=== PATIENT | male | born 1965 | race Caucasian/White ===

== ENCOUNTER 2018-01-31 22:47 | Inpatient (IN) | payer MEDICARE, MEDICAID ==
[~2018-01-31] VITALS: Ht 170.2 cm; Wt 83.7 kg
[~2018-01-31 22:47] MED LIST: VENL75CA55 PO
[2018-02-01] MEDS ORDERED: HALOPERIDOL 5 MG TABLET PO PRN (01:45)
[2018-02-01] MEDS ORDERED: ZOLPIDEM TARTRATE 10 MG TABLET PO PRN (01:45)
[2018-02-01 01:51] VITALS: BP 126/74
[2018-02-01 06:14] LABS: APPEARANCE,URINE CLEAR (CLEAR); BILIRUBIN,URINE NEGATIVE (NEGATIVE); GLUCOSE, URINE (UA) NEGATIVE (NEGATIVE); KETONES,URINE NEGATIVE (NEGATIVE); LEUKOCYTE ESTERASE ,URINE NEGATIVE (NEGATIVE); NITRATE,URINE NEGATIVE (NEGATIVE); OCCULT BLOOD,URINE NEGATIVE (NEGATIVE); PROTEIN,URINE NEGATIVE (NEGATIVE)
[2018-02-01 06:19] LABS: AMPHET/METH SCREEN,URINE NEGATIVE (NEGATIVE); BARBITURATE SCREEN, URINE NEGATIVE (NEGATIVE); BENZODIAZEPINES SCREEN,URINE NEGATIVE (NEGATIVE); CANNABINOID SCREEN,URINE POSITIVE (NEGATIVE); COCAINE SCREEN,URINE NEGATIVE (NEGATIVE); METHADONE SCREEN, URINE NEGATIVE (NEGATIVE); OPIATE SCREEN,URINE NEGATIVE (NEGATIVE); PHENCYCLIDINE SCREEN,URINE NEGATIVE (NEGATIVE)
[2018-02-01] MEDS: LORazepam 2 MG TABLET PO PRN (12:45)
[2018-02-01] MEDS: ESCITALOPRAM OXALATE 20 MG TABLET PO SCH (13:10)
[2018-02-01 14:17] VITALS: BP 123/68
[2018-02-01 18:44] VITALS: BP 136/84
[2018-02-01] MEDS: QUEtiapine FUMARATE 25 MG TABLET PO SCH (20:32)
[2018-02-02 06:26] LABS: BASOPHILS % (AUTO) 1.4 % (0.0-2.0); EOSINOPHILS % (AUTO) 2.7 % (1.0-6.0); HEMATOCRIT 43.1 % (41-53); LYMPHOCYTES # (AUTO) 1.9 K/uL (1.0-4.8); LYMPHOCYTES % (AUTO) 39.9 % (22.0-44.0); MEAN CORPUSCULAR HEMOGLOBIN 31.1 pg (26.0-34.0); MEAN CORPUSCULAR HGB CONC 34.8 G/dL (31.0-37.0); MEAN CORPUSCULAR VOLUME 89 fL (80-100); MONOCYTES # (AUTO) 0.4 K/uL (0.1-1.0); NEUTROPHILS # (AUTO) 2.3 K/uL (1.8-7.7); PLATELET COUNT (AUTO) 267 K/uL (150-450); RED BLOOD CELL COUNT(AUTO) 4.82 MIL/uL (4.50-5.90); RED CELL DISTRIBUTION WIDTH 13.5 % (11.5-14.5)
[2018-02-02 06:51] LABS: ALANINE AMINOTRANSFERASE 121 U/L (12-78); ALBUMIN 3.1 g/dL (3.4-5.0); ALKALINE PHOSPHATASE 45 U/L (46-116); ANION GAP 5 mmol/L (8-16); ASPARTATE AMINOTRANSFERASE 94 U/L (15-37); BILIRUBIN,TOTAL 0.4 mg/dL (0.1-1.0); CALCIUM, TOTAL 8.3 mg/dL (8.8-10.5); CARBON DIOXIDE 30 mmol/L (22-29); CHLORIDE 104 mmol/L (98-107); CHOL/HDL RATIO 1.5 (4.2-7.3); CHOLESTEROL 128 mg/dL (131-200); CREATININE 0.94 mg/dL (0.60-1.30); FREE T4 (FREE THYROXINE) 0.75 ng/dL (0.76-1.46); GLOMERULAR FILTR. RATE CALC > 60 mL/min (>60); GLUCOSE,RANDOM 104 mg/dL (70-110); HDL CHOLESTEROL 84 mg/dL (40-60); LDL CHOL (CALC.) 36 mg/dL (0-130); SODIUM SERUM 139 mmol/L (136-145); THYROID STIMULATING HORMONE 1.12 uIU/mL (0.36-3.74); TOTAL PROTEIN, SERUM 6.7 g/dL (6.4-8.2); TRIGLYCERIDES 38 mg/dL (15-150); UREA NITROGEN, BLOOD 14 mg/dL (7-18)
[2018-02-02 07:32] LABS: HEMOGLOBIN A1C 5.8 % (4.5-6.2)
[2018-02-02] MEDS: QUEtiapine FUMARATE 25 MG TABLET PO SCH ×2 (08:41→20:34)
[2018-02-02] MEDS: ESCITALOPRAM OXALATE 20 MG TABLET PO SCH (08:41)
[2018-02-02 15:03] VITALS: BP 103/67
[2018-02-02 16:15] VITALS: BP 125/76
[2018-02-02] MEDS: CAFFEINE 200 MG TABLET PO SCH (16:21)
[2018-02-02] MEDS ORDERED: CAFFEINE 200 MG TABLET PO SCH (17:00)
[2018-02-02 22:29] VITALS: BP 125/76
[2018-02-03] MEDS: QUEtiapine FUMARATE 25 MG TABLET PO SCH ×2 (08:38→20:17)
[2018-02-03] MEDS: CAFFEINE 200 MG TABLET PO SCH ×2 (08:38→16:33)
[2018-02-03] MEDS: ESCITALOPRAM OXALATE 20 MG TABLET PO SCH (08:38)
[2018-02-03 09:47] VITALS: BP 120/68
[2018-02-03 17:07] VITALS: BP 118/68
[2018-02-04] MEDS: QUEtiapine FUMARATE 25 MG TABLET PO SCH ×2 (08:28→20:15)
[2018-02-04] MEDS: ESCITALOPRAM OXALATE 20 MG TABLET PO SCH (08:28)
[2018-02-04] MEDS: CAFFEINE 200 MG TABLET PO SCH ×2 (08:28→17:33)
[2018-02-04 09:45] VITALS: BP 124/75
[2018-02-04 17:35] VITALS: BP 116/79
[2018-02-05] MEDS: ESCITALOPRAM OXALATE 20 MG TABLET PO SCH (08:37)
[2018-02-05] MEDS: CAFFEINE 200 MG TABLET PO SCH (08:37)
[2018-02-05] MEDS: QUEtiapine FUMARATE 25 MG TABLET PO SCH ×2 (08:37→21:15)
[2018-02-05 10:20] VITALS: BP 118/80
[2018-02-05] MEDS ORDERED: CAFFEINE 200 MG TABLET PO ONE (12:00)
[2018-02-05 19:37] VITALS: BP 128/77
[2018-02-06] MEDS: ESCITALOPRAM OXALATE 20 MG TABLET PO SCH (08:01)
[2018-02-06] MEDS: QUEtiapine FUMARATE 25 MG TABLET PO SCH ×2 (08:01→20:26)
[2018-02-06] MEDS: CAFFEINE 200 MG TABLET PO SCH (08:02)
[2018-02-06 10:23] VITALS: BP 116/70
[2018-02-06] MEDS ORDERED: CAFFEINE 200 MG TABLET PO SCH (17:00)
[2018-02-06 18:37] VITALS: BP 128/68
[2018-02-07] MEDS: ESCITALOPRAM OXALATE 20 MG TABLET PO SCH (08:10)
[2018-02-07] MEDS: CAFFEINE 200 MG TABLET PO SCH (08:10)
[2018-02-07] MEDS: QUEtiapine FUMARATE 25 MG TABLET PO SCH ×2 (08:10→20:37)
[2018-02-07 09:19] VITALS: BP 123/75
[2018-02-07 16:23] VITALS: BP 109/65
[2018-02-08] MEDS: CAFFEINE 200 MG TABLET PO SCH (08:01)
[2018-02-08] MEDS: ESCITALOPRAM OXALATE 20 MG TABLET PO SCH (08:01)
[2018-02-08] MEDS: QUEtiapine FUMARATE 25 MG TABLET PO SCH ×2 (08:01→20:10)
[2018-02-08 09:41] VITALS: BP 112/72
[2018-02-08 10:43] LABS: HEMOGLOBIN A1C 5.7 % (4.5-6.2)
[2018-02-08 11:05] LABS: ALANINE AMINOTRANSFERASE 143 U/L (12-78); ALBUMIN 3.9 g/dL (3.4-5.0); ALKALINE PHOSPHATASE 54 U/L (46-116); ANION GAP 5 mmol/L (8-16); ASPARTATE AMINOTRANSFERASE 76 U/L (15-37); BILIRUBIN,TOTAL 0.4 mg/dL (0.1-1.0); CALCIUM, TOTAL 8.8 mg/dL (8.8-10.5); CARBON DIOXIDE 31 mmol/L (22-29); CHLORIDE 103 mmol/L (98-107); CHOL/HDL RATIO 2.2 (4.2-7.3); CHOLESTEROL 152 mg/dL (131-200); CREATINE KINASE, TOTAL ONLY 105 U/L (39-308); CREATININE 0.94 mg/dL (0.60-1.30); FREE T4 (FREE THYROXINE) 1.03 ng/dL (0.76-1.46); GLOMERULAR FILTR. RATE CALC > 60 mL/min (>60); GLUCOSE,RANDOM 85 mg/dL (70-110); HDL CHOLESTEROL 68 mg/dL (40-60); LDL CHOL (CALC.) 58 mg/dL (0-130); POTASSIUM 4.3 mmol/L (3.5-5.1); SODIUM SERUM 139 mmol/L (136-145); THYROID STIMULATING HORMONE 3.55 uIU/mL (0.36-3.74); TOTAL PROTEIN, SERUM 8.3 g/dL (6.4-8.2); TRIGLYCERIDES 131 mg/dL (15-150); UREA NITROGEN, BLOOD 19 mg/dL (7-18)
[2018-02-08 18:10] VITALS: BP 128/78
[2018-02-09] MEDS: LORazepam 2 MG TABLET PO PRN ×3 (05:54→17:11)
[2018-02-09] MEDS: ESCITALOPRAM OXALATE 20 MG TABLET PO SCH (08:03)
[2018-02-09] MEDS: QUEtiapine FUMARATE 25 MG TABLET PO SCH ×2 (08:03→20:21)
[2018-02-09] MEDS: CAFFEINE 200 MG TABLET PO SCH (08:04)
[2018-02-09 10:19] VITALS: BP 119/73
[2018-02-09 16:33] VITALS: BP 123/69
[2018-02-10 03:15] VITALS: BP 111/70
[2018-02-10] MEDS: LORazepam 2 MG TABLET PO PRN ×2 (03:17→10:44)
[2018-02-10] MEDS: ESCITALOPRAM OXALATE 20 MG TABLET PO SCH (08:00)
[2018-02-10] MEDS: QUEtiapine FUMARATE 25 MG TABLET PO SCH (08:00)
[2018-02-10] MEDS: CAFFEINE 200 MG TABLET PO SCH (08:01)
[2018-02-10 11:27] VITALS: BP 113/72
[2018-02-10] MEDS ORDERED: QUET25TA PO ×2 (11:46)
[2018-02-10] MEDS ORDERED: CAFF200T4 PO (11:46)
[2018-02-10] MEDS ORDERED: ESCI20TA PO (11:46)
[2018-02-14] MEDS ORDERED: MEPE50TA7 PO (12:59)
[2018-02-14] MEDS ORDERED: CLON2 PO (12:59)
== END 2018-02-10 12:45 | disposition home or self-care (01) | DRG 885 ==
LOC: 3EX 02-01 01:00
PROVIDERS: ADMIT Psychiatry & Neurology Psychiatry; ATTEND Psychiatry & Neurology Psychiatry
DX: F25.0 Schizoaffective disorder, bipolar type (principal); R45.851 Suicidal ideations; F12.10 Cannabis abuse, uncomplicated; Z79.899 Other long term (current) drug therapy; Z59.0 Homelessness
CPT/HCPCS: 80074; 80307; 83036; 84439; 84443; 86592; G0378; G0480

== ENCOUNTER 2018-03-02 15:04 | Inpatient (IN) | payer MEDICARE, MEDICAID ==
[~2018-03-02] VITALS: Ht 170.2 cm; Wt 82.5 kg
[~2018-03-02 15:04] MED LIST changes: +ESCI20TA PO; +QUET50TA PO; -VENL75CA55 PO
[2018-03-02 16:03] LABS: BASOPHILS % (AUTO) 0.9 % (0.0-2.0); EOSINOPHILS % (AUTO) 0.4 % (1.0-6.0); HEMATOCRIT 42.1 % (41-53); HEMOGLOBIN 14.2 g/dL (13.5-17.5); LYMPHOCYTES # (AUTO) 2.2 K/uL (1.0-4.8); LYMPHOCYTES % (AUTO) 21.9 % (22.0-44.0); MEAN CORPUSCULAR HEMOGLOBIN 30.4 pg (26.0-34.0); MEAN CORPUSCULAR HGB CONC 33.7 G/dL (31.0-37.0); MEAN CORPUSCULAR VOLUME 90 fL (80-100); MONOCYTES # (AUTO) 0.8 K/uL (0.1-1.0); MONOCYTES % (AUTO) 8.1 % (2.0-9.0); NEUTROPHILS # (AUTO) 6.8 K/uL (1.8-7.7); NEUTROPHILS % (AUTO) 68.7 % (40.0-70.0); PLATELET COUNT (AUTO) 323 K/uL (150-450); RED BLOOD CELL COUNT(AUTO) 4.66 MIL/uL (4.50-5.90); RED CELL DISTRIBUTION WIDTH 13.8 % (11.5-14.5)
[2018-03-02 16:35] LABS: ANION GAP 9 mmol/L (8-16); CALCIUM, TOTAL 8.5 mg/dL (8.8-10.5); CARBON DIOXIDE 28 mmol/L (22-29); CHLORIDE 100 mmol/L (98-107); CREATININE 0.88 mg/dL (0.60-1.30); GLOMERULAR FILTR. RATE CALC > 60 mL/min (>60); GLUCOSE,RANDOM 86 mg/dL (70-110); POTASSIUM 3.9 mmol/L (3.5-5.1); SODIUM SERUM 137 mmol/L (136-145); UREA NITROGEN, BLOOD 18 mg/dL (7-18)
[2018-03-02 16:41] LABS: ALANINE AMINOTRANSFERASE 152 U/L (12-78); ALBUMIN 3.6 g/dL (3.4-5.0); ALKALINE PHOSPHATASE 49 U/L (46-116); ASPARTATE AMINOTRANSFERASE 142 U/L (15-37); BILIRUBIN,TOTAL 0.4 mg/dL (0.1-1.0); TOTAL PROTEIN, SERUM 7.7 g/dL (6.4-8.2)
[2018-03-02] MEDS ORDERED: ZOLPIDEM TARTRATE 10 MG TABLET PO PRN (19:00)
[2018-03-02] MEDS ORDERED: HALOPERIDOL 5 MG TABLET PO PRN (19:00)
[2018-03-02 19:45] VITALS: BP 139/86
[2018-03-02] MEDS ORDERED: ALBUTEROL SULFATE HFA 90 MCG/PUFF 8 GM INHALER IH PRN (21:45)
[2018-03-02] MEDS ORDERED: NICOTINE 14 MG/24 HOUR PATCH TD PRN (21:45)
[2018-03-02] MEDS ORDERED: MAGNESIUM HYDROXIDE SUSPENSION 30 ML UDCUP PO PRN (21:45)
[2018-03-02] MEDS ORDERED: PETROLATUM,WHITE 71 GM JELLY TP PRN (21:45)
[2018-03-02] MEDS ORDERED: ACETAMINOPHEN 325 MG TABLET PO PRN (21:45)
[2018-03-02] MEDS ORDERED: DOCUSATE SODIUM 100 MG CAPSULE PO PRN (21:45)
[2018-03-02] MEDS ORDERED: ONDANSETRON HCL 4 MG TABLET PO PRN (21:45)
[2018-03-02] MEDS ORDERED: MAG HYDROX/AL HYDROX/SIMETH ES 30 ML SUSPENSION UDCUP PO PRN (21:45)
[2018-03-02] MEDS ORDERED: GuaiFENesin/D-METHORPHAN [SUGAR-FREE] 200-20MG/10 ML SYRUP UDCUP PO PRN (21:45)
[2018-03-02] MEDS ORDERED: LOPERAMIDE HCL 2 MG CAPSULE PO PRN (21:45)
[2018-03-02] MEDS ORDERED: CloNIDine HCL 0.1 MG TABLET PO PRN (21:45)
[2018-03-03 06:12] LABS: BASOPHILS % (AUTO) 0.6 % (0.0-2.0); EOSINOPHILS % (AUTO) 1.4 % (1.0-6.0); HEMATOCRIT 43.4 % (41-53); HEMOGLOBIN 14.9 g/dL (13.5-17.5); LYMPHOCYTES # (AUTO) 1.8 K/uL (1.0-4.8); LYMPHOCYTES % (AUTO) 30.3 % (22.0-44.0); MEAN CORPUSCULAR HEMOGLOBIN 31.3 pg (26.0-34.0); MEAN CORPUSCULAR HGB CONC 34.3 G/dL (31.0-37.0); MEAN CORPUSCULAR VOLUME 91 fL (80-100); MONOCYTES # (AUTO) 0.6 K/uL (0.1-1.0); MONOCYTES % (AUTO) 10.3 % (2.0-9.0); NEUTROPHILS # (AUTO) 3.5 K/uL (1.8-7.7); NEUTROPHILS % (AUTO) 57.4 % (40.0-70.0); PLATELET COUNT (AUTO) 270 K/uL (150-450); RED BLOOD CELL COUNT(AUTO) 4.75 MIL/uL (4.50-5.90); RED CELL DISTRIBUTION WIDTH 13.9 % (11.5-14.5)
[2018-03-03 07:04] LABS: HEMOGLOBIN A1C 5.6 % (4.5-6.2)
[2018-03-03 07:07] LABS: ALANINE AMINOTRANSFERASE 139 U/L (12-78); ALBUMIN 2.9 g/dL (3.4-5.0); ALKALINE PHOSPHATASE 46 U/L (46-116); ANION GAP 6 mmol/L (8-16); BILIRUBIN,TOTAL 0.6 mg/dL (0.1-1.0); CALCIUM, TOTAL 8.2 mg/dL (8.8-10.5); CARBON DIOXIDE 31 mmol/L (22-29); CHLORIDE 103 mmol/L (98-107); CREATININE 0.97 mg/dL (0.60-1.30); FREE T4 (FREE THYROXINE) 0.81 ng/dL (0.76-1.46); GLOMERULAR FILTR. RATE CALC > 60 mL/min (>60); GLUCOSE,RANDOM 97 mg/dL (70-110); HDL CHOLESTEROL 78 mg/dL (40-60); SODIUM SERUM 140 mmol/L (136-145); TOTAL PROTEIN, SERUM 6.6 g/dL (6.4-8.2); TRIGLYCERIDES 26 mg/dL (15-150); UREA NITROGEN, BLOOD 18 mg/dL (7-18)
[2018-03-03 07:29] LABS: ASPARTATE AMINOTRANSFERASE 138 U/L (15-37); CHOL/HDL RATIO 1.6 (4.2-7.3); CHOLESTEROL 126 mg/dL (131-200); LDL CHOL (CALC.) 43 mg/dL (0-130); THYROID STIMULATING HORMONE 1.41 uIU/mL (0.36-3.74)
[2018-03-03 11:41] VITALS: BP 157/85
[2018-03-03] MEDS: QUEtiapine FUMARATE 25 MG TABLET PO SCH (16:22)
[2018-03-03] MEDS: LORazepam 2 MG TABLET PO PRN (16:23)
[2018-03-03 16:27] VITALS: BP 122/75
[2018-03-04 06:58] VITALS: BP 124/85
[2018-03-04] MEDS: IBUPROFEN 400 MG TABLET PO PRN (07:03)
[2018-03-04] MEDS: LORazepam 2 MG TABLET PO PRN ×3 (07:03→16:14)
[2018-03-04] MEDS: ESCITALOPRAM OXALATE 20 MG TABLET PO SCH (08:07)
[2018-03-04] MEDS: QUEtiapine FUMARATE 25 MG TABLET PO SCH ×2 (08:07→16:15)
[2018-03-04 08:15] VITALS: BP 126/82
[2018-03-04] MEDS ORDERED: CAFFEINE 200 MG TABLET PO SCH (09:00)
[2018-03-04 09:56] VITALS: BP 140/78
[2018-03-04 16:00] VITALS: BP 131/93
[2018-03-05 02:03] VITALS: BP 133/88
[2018-03-05] MEDS: LORazepam 2 MG TABLET PO PRN ×4 (02:07→17:28)
[2018-03-05] MEDS: CAFFEINE 200 MG TABLET PO SCH (06:12)
[2018-03-05 08:30] VITALS: BP 134/70
[2018-03-05] MEDS: ESCITALOPRAM OXALATE 20 MG TABLET PO SCH (09:07)
[2018-03-05] MEDS: QUEtiapine FUMARATE 25 MG TABLET PO SCH ×2 (09:07→16:54)
[2018-03-05 21:23] VITALS: BP 116/73
[2018-03-06 06:05] VITALS: BP 122/85
[2018-03-06] MEDS: LORazepam 2 MG TABLET PO PRN ×4 (06:08→21:24)
[2018-03-06] MEDS: CAFFEINE 200 MG TABLET PO SCH (06:09)
[2018-03-06] MEDS: ESCITALOPRAM OXALATE 20 MG TABLET PO SCH (09:08)
[2018-03-06] MEDS: QUEtiapine FUMARATE 25 MG TABLET PO SCH ×2 (09:09→17:05)
[2018-03-06 09:48] VITALS: BP 124/89
[2018-03-06 16:15] VITALS: BP 123/76
[2018-03-07] MEDS: LORazepam 2 MG TABLET PO PRN ×4 (06:19→22:01)
[2018-03-07] MEDS: CAFFEINE 200 MG TABLET PO SCH (06:20)
[2018-03-07] MEDS: ESCITALOPRAM OXALATE 20 MG TABLET PO SCH (09:30)
[2018-03-07] MEDS: QUEtiapine FUMARATE 25 MG TABLET PO SCH ×2 (09:31→16:49)
[2018-03-07 10:40] VITALS: BP 131/86
[2018-03-07] MEDS ORDERED: CAFFEINE 200 MG TABLET PO ONE (11:45)
[2018-03-07 16:49] VITALS: BP 117/84
[2018-03-07] MEDS: IBUPROFEN 400 MG TABLET PO PRN (16:49)
[2018-03-08 06:15] VITALS: BP 133/90
[2018-03-08] MEDS: CAFFEINE 200 MG TABLET PO SCH (06:29)
[2018-03-08] MEDS: LORazepam 2 MG TABLET PO PRN ×3 (06:29→16:09)
[2018-03-08] MEDS: QUEtiapine FUMARATE 25 MG TABLET PO SCH ×2 (09:16→16:08)
[2018-03-08] MEDS: ESCITALOPRAM OXALATE 20 MG TABLET PO SCH (09:17)
[2018-03-08 12:48] VITALS: BP 142/95
[2018-03-08 16:00] VITALS: BP 129/78
[2018-03-08] MEDS: IBUPROFEN 400 MG TABLET PO PRN (16:09)
[2018-03-09 05:58] VITALS: BP 122/79
[2018-03-09] MEDS: LORazepam 2 MG TABLET PO PRN ×3 (06:01→16:11)
[2018-03-09] MEDS: CAFFEINE 200 MG TABLET PO SCH (06:29)
[2018-03-09] MEDS: QUEtiapine FUMARATE 25 MG TABLET PO SCH ×2 (08:08→16:04)
[2018-03-09] MEDS: ESCITALOPRAM OXALATE 20 MG TABLET PO SCH (08:08)
[2018-03-09 09:23] VITALS: BP 130/68
[2018-03-09 16:00] VITALS: BP 117/67
[2018-03-10 04:53] VITALS: BP 108/78
[2018-03-10] MEDS: LORazepam 2 MG TABLET PO PRN ×3 (04:55→14:59)
[2018-03-10] MEDS: CAFFEINE 200 MG TABLET PO SCH (06:33)
[2018-03-10 08:38] VITALS: BP 103/56
[2018-03-10] MEDS: QUEtiapine FUMARATE 25 MG TABLET PO SCH ×2 (08:53→16:20)
[2018-03-10] MEDS: ESCITALOPRAM OXALATE 20 MG TABLET PO SCH (08:53)
[2018-03-10 17:00] VITALS: BP 118/74
[2018-03-11 05:22] VITALS: BP 128/82
[2018-03-11] MEDS: LORazepam 2 MG TABLET PO PRN ×3 (05:24→16:24)
[2018-03-11] MEDS: CAFFEINE 200 MG TABLET PO SCH (06:47)
[2018-03-11] MEDS: QUEtiapine FUMARATE 25 MG TABLET PO SCH ×2 (08:15→16:24)
[2018-03-11] MEDS: ESCITALOPRAM OXALATE 20 MG TABLET PO SCH (08:15)
[2018-03-11 08:56] VITALS: BP 124/67
[2018-03-11 16:00] VITALS: BP 111/71
[2018-03-12 05:41] VITALS: BP 126/77
[2018-03-12] MEDS: LORazepam 2 MG TABLET PO PRN ×3 (05:41→14:52)
[2018-03-12] MEDS: CAFFEINE 200 MG TABLET PO SCH (06:00)
[2018-03-12 08:30] VITALS: BP 115/58
[2018-03-12] MEDS: QUEtiapine FUMARATE 25 MG TABLET PO SCH ×2 (09:11→16:22)
[2018-03-12] MEDS: ESCITALOPRAM OXALATE 20 MG TABLET PO SCH (09:11)
[2018-03-12 16:51] VITALS: BP 116/63
[2018-03-13 05:11] VITALS: BP 121/84
[2018-03-13] MEDS: LORazepam 2 MG TABLET PO PRN ×4 (05:14→23:11)
[2018-03-13] MEDS: CAFFEINE 200 MG TABLET PO SCH (06:27)
[2018-03-13] MEDS: QUEtiapine FUMARATE 25 MG TABLET PO SCH ×2 (08:34→16:40)
[2018-03-13] MEDS: ESCITALOPRAM OXALATE 20 MG TABLET PO SCH (08:34)
[2018-03-13 09:27] VITALS: BP 113/61
[2018-03-13 16:14] VITALS: BP 113/71
[2018-03-14 06:00] VITALS: BP 116/77
[2018-03-14] MEDS: LORazepam 2 MG TABLET PO PRN ×4 (06:04→23:41)
[2018-03-14] MEDS: CAFFEINE 200 MG TABLET PO SCH (06:44)
[2018-03-14 09:02] VITALS: BP 124/73
[2018-03-14] MEDS: ESCITALOPRAM OXALATE 20 MG TABLET PO SCH (10:00)
[2018-03-14] MEDS: QUEtiapine FUMARATE 25 MG TABLET PO SCH ×2 (10:00→16:20)
[2018-03-14 17:53] VITALS: BP 128/75
[2018-03-15] VITALS: BP 115/70
[2018-03-15] MEDS: LORazepam 2 MG TABLET PO PRN ×3 (06:02→17:19)
[2018-03-15] MEDS: CAFFEINE 200 MG TABLET PO SCH (07:13)
[2018-03-15] MEDS: ESCITALOPRAM OXALATE 20 MG TABLET PO SCH (08:40)
[2018-03-15] MEDS: QUEtiapine FUMARATE 25 MG TABLET PO SCH ×2 (08:40→16:36)
[2018-03-15 10:17] VITALS: BP 116/58
[2018-03-15 16:32] VITALS: BP 114/70
[2018-03-16 06:52] VITALS: BP 130/85
[2018-03-16] MEDS: LORazepam 2 MG TABLET PO PRN ×3 (06:54→18:05)
[2018-03-16] MEDS: CAFFEINE 200 MG TABLET PO SCH (06:54)
[2018-03-16] MEDS: ESCITALOPRAM OXALATE 20 MG TABLET PO SCH (08:22)
[2018-03-16] MEDS: QUEtiapine FUMARATE 25 MG TABLET PO SCH ×2 (08:22→16:05)
[2018-03-16 08:34] VITALS: BP 130/97
[2018-03-16 21:05] VITALS: BP 134/63
[2018-03-17 00:06] VITALS: BP 126/77
[2018-03-17] MEDS: LORazepam 2 MG TABLET PO PRN ×3 (00:08→10:41)
[2018-03-17] MEDS: CAFFEINE 200 MG TABLET PO SCH (06:01)
[2018-03-17 06:02] VITALS: BP 132/76
[2018-03-17] MEDS: QUEtiapine FUMARATE 25 MG TABLET PO SCH (09:30)
[2018-03-17] MEDS: ESCITALOPRAM OXALATE 20 MG TABLET PO SCH (09:30)
[2018-03-17 09:51] VITALS: BP 123/74
[2018-03-17] MEDS ORDERED: CAFF200T4 PO (12:08)
== END 2018-03-17 14:05 | disposition home or self-care (01) | DRG 885 ==
LOC: EMS 15:08 → 3EX 19:08
PROVIDERS: ADMIT Psychiatry & Neurology Psychiatry; ATTEND Psychiatry & Neurology Psychiatry
DX: F33.2 Major depressive disorder, recurrent severe without psychotic features (principal); R45.851 Suicidal ideations; F20.9 Schizophrenia, unspecified; R03.0 Elevated blood-pressure reading, without diagnosis of hypertension; F10.10 Alcohol abuse, uncomplicated; R74.0 Nonspecific elevation of levels of transaminase and lactic acid dehydrogenase [LDH]; F17.210 Nicotine dependence, cigarettes, uncomplicated; F15.10 Other stimulant abuse, uncomplicated; F41.0 Panic disorder [episodic paroxysmal anxiety]; G47.00 Insomnia, unspecified; Z59.0 Homelessness; Z91.5 Personal history of self-harm; Z79.899 Other long term (current) drug therapy; Z71.6 Tobacco abuse counseling; Z71.41 Alcohol abuse counseling and surveillance of alcoholic; Z71.51 Drug abuse counseling and surveillance of drug abuser
CPT/HCPCS: 83036; 84436; 84439; 84443; 87081; G0378; G0480

== ENCOUNTER 2018-03-27 10:29 | Inpatient (IN) | payer MEDICARE, MEDICAID ==
[~2018-03-27] VITALS: Ht 170.2 cm; Wt 82.3 kg
[~2018-03-27 10:29] MED LIST changes: +CAFF200T4 PO
[2018-03-27] MEDS ORDERED: LORazepam 1 MG TABLET PO ONE (11:45)
[2018-03-27] MEDS ORDERED: HALOPERIDOL 5 MG TABLET PO ONE (11:45)
[2018-03-27] MEDS ORDERED: DiphenhydrAMINE HCL 25 MG CAPSULE PO ONE (11:45)
[2018-03-27] MEDS ORDERED: IBUPROFEN 400 MG TABLET PO ONE (11:45)
[2018-03-27] MEDS ORDERED: IBUPROFEN 400 MG TABLET PO PRN (12:00)
[2018-03-27] MEDS ORDERED: ACETAMINOPHEN 325 MG TABLET PO PRN ×2 (12:00→17:15)
[2018-03-27] MEDS ORDERED: HALOPERIDOL 5 MG TABLET PO PRN (12:00)
[2018-03-27 12:27] LABS: BASOPHILS % (AUTO) 0.4 % (0.0-2.0); HEMOGLOBIN 14.2 g/dL (13.5-17.5); LYMPHOCYTES # (AUTO) 1.5 K/uL (1.0-4.8); LYMPHOCYTES % (AUTO) 27.1 % (22.0-44.0); MEAN CORPUSCULAR HEMOGLOBIN 30.6 pg (26.0-34.0); MEAN CORPUSCULAR HGB CONC 33.7 G/dL (31.0-37.0); MEAN CORPUSCULAR VOLUME 91 fL (80-100); MONOCYTES # (AUTO) 0.4 K/uL (0.1-1.0); MONOCYTES % (AUTO) 7.5 % (2.0-9.0); NEUTROPHILS # (AUTO) 3.6 K/uL (1.8-7.7); PLATELET COUNT (AUTO) 228 K/uL (150-450); RED BLOOD CELL COUNT(AUTO) 4.63 MIL/uL (4.50-5.90); RED CELL DISTRIBUTION WIDTH 13.4 % (11.5-14.5)
[2018-03-27 12:38] LABS: ANION GAP 8 mmol/L (8-16); CALCIUM, TOTAL 8.4 mg/dL (8.8-10.5); CARBON DIOXIDE 32 mmol/L (22-29); CHLORIDE 99 mmol/L (98-107); CREATININE 0.81 mg/dL (0.60-1.30); GLOMERULAR FILTR. RATE CALC > 60 mL/min (>60); GLUCOSE,RANDOM 141 mg/dL (70-110); POTASSIUM 3.8 mmol/L (3.5-5.1); SODIUM SERUM 139 mmol/L (136-145); UREA NITROGEN, BLOOD 12 mg/dL (7-18)
[2018-03-27 12:43] LABS: AMPHET/METH SCREEN,URINE NEGATIVE (NEGATIVE); BARBITURATE SCREEN, URINE NEGATIVE (NEGATIVE); BENZODIAZEPINES SCREEN,URINE NEGATIVE (NEGATIVE); CANNABINOID SCREEN,URINE NEGATIVE (NEGATIVE); COCAINE SCREEN,URINE NEGATIVE (NEGATIVE); METHADONE SCREEN, URINE NEGATIVE (NEGATIVE); OPIATE SCREEN,URINE NEGATIVE (NEGATIVE); PHENCYCLIDINE SCREEN,URINE NEGATIVE (NEGATIVE)
[2018-03-27 12:43] LABS: ALANINE AMINOTRANSFERASE 212 U/L (12-78); ALBUMIN 3.4 g/dL (3.4-5.0); ALKALINE PHOSPHATASE 43 U/L (46-116); ASPARTATE AMINOTRANSFERASE 157 U/L (15-37); BILIRUBIN,TOTAL 0.7 mg/dL (0.1-1.0)
[2018-03-27 16:45] VITALS: BP 109/70
[2018-03-27] MEDS ORDERED: NICOTINE 14 MG/24 HOUR PATCH TD PRN (17:15)
[2018-03-27] MEDS ORDERED: MAG HYDROX/AL HYDROX/SIMETH ES 30 ML SUSPENSION UDCUP PO PRN (17:15)
[2018-03-27] MEDS ORDERED: PETROLATUM,WHITE 71 GM JELLY TP PRN (17:15)
[2018-03-27] MEDS ORDERED: ONDANSETRON HCL 4 MG TABLET PO PRN (17:15)
[2018-03-27] MEDS ORDERED: GuaiFENesin/D-METHORPHAN [SUGAR-FREE] 200-20MG/10 ML SYRUP UDCUP PO PRN (17:15)
[2018-03-27] MEDS ORDERED: DOCUSATE SODIUM 100 MG CAPSULE PO PRN (17:15)
[2018-03-27] MEDS ORDERED: MAGNESIUM HYDROXIDE SUSPENSION 30 ML UDCUP PO PRN (17:15)
[2018-03-27] MEDS ORDERED: ALBUTEROL SULFATE HFA 90 MCG/PUFF 8 GM INHALER IH PRN (17:15)
[2018-03-27] MEDS ORDERED: CloNIDine HCL 0.1 MG TABLET PO PRN (17:15)
[2018-03-27] MEDS ORDERED: LOPERAMIDE HCL 2 MG CAPSULE PO PRN (17:15)
[2018-03-28 09:48] VITALS: BP 117/82
[2018-03-28] MEDS: QUEtiapine FUMARATE 25 MG TABLET PO SCH (16:06)
[2018-03-28] MEDS: IBUPROFEN 400 MG TABLET PO PRN (16:09)
[2018-03-28 16:13] VITALS: BP 120/72
[2018-03-28] MEDS: LORazepam 2 MG TABLET PO PRN (16:13)
[2018-03-28 17:05] VITALS: BP 139/99
[2018-03-29 06:37] VITALS: BP 130/60
[2018-03-29 06:40] LABS: EOSINOPHILS % (AUTO) 4.5 % (1.0-6.0); HEMATOCRIT 43.4 % (41-53); LYMPHOCYTES # (AUTO) 1.6 K/uL (1.0-4.8); LYMPHOCYTES % (AUTO) 30.1 % (22.0-44.0); MEAN CORPUSCULAR HEMOGLOBIN 31.1 pg (26.0-34.0); MEAN CORPUSCULAR HGB CONC 34.6 G/dL (31.0-37.0); MEAN CORPUSCULAR VOLUME 90 fL (80-100); MONOCYTES # (AUTO) 0.6 K/uL (0.1-1.0); MONOCYTES % (AUTO) 10.1 % (2.0-9.0); NEUTROPHILS % (AUTO) 54.3 % (40.0-70.0); PLATELET COUNT (AUTO) 228 K/uL (150-450); RED BLOOD CELL COUNT(AUTO) 4.84 MIL/uL (4.50-5.90); RED CELL DISTRIBUTION WIDTH 13.7 % (11.5-14.5)
[2018-03-29] MEDS: IBUPROFEN 400 MG TABLET PO PRN ×2 (06:40→14:03)
[2018-03-29] MEDS: LORazepam 2 MG TABLET PO PRN ×2 (06:40→14:03)
[2018-03-29 07:52] LABS: HEMOGLOBIN A1C 4.9 % (4.5-6.2)
[2018-03-29] MEDS: ESCITALOPRAM OXALATE 20 MG TABLET PO SCH (08:04)
[2018-03-29 08:05] LABS: ALANINE AMINOTRANSFERASE 162 U/L (12-78); ALKALINE PHOSPHATASE 37 U/L (46-116); ANION GAP 4 mmol/L (8-16); ASPARTATE AMINOTRANSFERASE 98 U/L (15-37); BILIRUBIN,TOTAL 0.4 mg/dL (0.1-1.0); CALCIUM, TOTAL 8.5 mg/dL (8.8-10.5); CARBON DIOXIDE 28 mmol/L (22-29); CHLORIDE 104 mmol/L (98-107); CHOL/HDL RATIO 2.4 (4.2-7.3); CHOLESTEROL 117 mg/dL (131-200); CREATININE 0.84 mg/dL (0.60-1.30); GLOMERULAR FILTR. RATE CALC > 60 mL/min (>60); GLUCOSE,RANDOM 97 mg/dL (70-110); HDL CHOLESTEROL 49 mg/dL (40-60); LDL CHOL (CALC.) 57 mg/dL (0-130); POTASSIUM 4.2 mmol/L (3.5-5.1); SODIUM SERUM 136 mmol/L (136-145); THYROID STIMULATING HORMONE 1.41 uIU/mL (0.36-3.74); TOTAL PROTEIN, SERUM 6.6 g/dL (6.4-8.2); TRIGLYCERIDES 53 mg/dL (15-150); UREA NITROGEN, BLOOD 17 mg/dL (7-18)
[2018-03-29] MEDS: QUEtiapine FUMARATE 25 MG TABLET PO SCH ×2 (08:05→16:30)
[2018-03-29 09:39] VITALS: BP 132/88
[2018-03-29 14:04] VITALS: BP 140/70
[2018-03-29 17:00] VITALS: BP 117/66
[2018-03-30 05:41] VITALS: BP 115/81
[2018-03-30] MEDS: LORazepam 2 MG TABLET PO PRN ×3 (05:43→16:06)
[2018-03-30] MEDS: QUEtiapine FUMARATE 25 MG TABLET PO SCH ×2 (07:35→16:07)
[2018-03-30] MEDS: ESCITALOPRAM OXALATE 20 MG TABLET PO SCH (07:35)
[2018-03-30 09:53] VITALS: BP 124/71
[2018-03-30] MEDS: IBUPROFEN 400 MG TABLET PO PRN (10:54)
[2018-03-30 16:18] VITALS: BP 118/77
[2018-03-30] MEDS: HYDROCORTISONE 1% 30 GM CREAM TP SCH (18:27)
[2018-03-31] MEDS: LORazepam 2 MG TABLET PO PRN ×2 (04:25→10:21)
[2018-03-31] MEDS: IBUPROFEN 400 MG TABLET PO PRN (04:26)
[2018-03-31] MEDS: ESCITALOPRAM OXALATE 20 MG TABLET PO SCH (10:21)
[2018-03-31] MEDS: HYDROCORTISONE 1% 30 GM CREAM TP SCH ×2 (10:21→16:27)
[2018-03-31] MEDS: QUEtiapine FUMARATE 25 MG TABLET PO SCH ×2 (10:21→16:22)
[2018-03-31 10:54] VITALS: BP 122/78
[2018-03-31 19:16] VITALS: BP 125/80
[2018-03-31] MEDS: ZOLPIDEM TARTRATE 10 MG TABLET PO PRN (21:25)
[2018-04-01] MEDS: IBUPROFEN 400 MG TABLET PO PRN ×3 (00:03→19:14)
[2018-04-01] MEDS: LORazepam 2 MG TABLET PO PRN ×3 (06:50→19:14)
[2018-04-01] MEDS: ESCITALOPRAM OXALATE 20 MG TABLET PO SCH (08:05)
[2018-04-01] MEDS: QUEtiapine FUMARATE 25 MG TABLET PO SCH ×2 (08:05→16:15)
[2018-04-01] MEDS: HYDROCORTISONE 1% 30 GM CREAM TP SCH ×2 (08:08→17:14)
[2018-04-01 10:30] VITALS: BP 117/64
[2018-04-01 17:00] VITALS: BP 116/58
[2018-04-01 19:14] VITALS: BP 124/76
[2018-04-02] MEDS: IBUPROFEN 400 MG TABLET PO PRN ×2 (03:47→16:01)
[2018-04-02] MEDS: LORazepam 2 MG TABLET PO PRN ×3 (03:47→16:01)
[2018-04-02] MEDS: ESCITALOPRAM OXALATE 20 MG TABLET PO SCH (07:50)
[2018-04-02] MEDS: QUEtiapine FUMARATE 25 MG TABLET PO SCH ×2 (07:50→16:01)
[2018-04-02] MEDS: HYDROCORTISONE 1% 30 GM CREAM TP SCH ×2 (07:51→16:02)
[2018-04-02 12:23] VITALS: BP 134/71
[2018-04-02 16:01] VITALS: BP 123/72
[2018-04-03] MEDS: IBUPROFEN 400 MG TABLET PO PRN ×2 (04:39→16:03)
[2018-04-03] MEDS: LORazepam 2 MG TABLET PO PRN ×4 (04:40→23:05)
[2018-04-03 08:30] VITALS: BP 125/70
[2018-04-03] MEDS: ESCITALOPRAM OXALATE 20 MG TABLET PO SCH (09:06)
[2018-04-03] MEDS: QUEtiapine FUMARATE 25 MG TABLET PO SCH ×2 (09:06→16:02)
[2018-04-03] MEDS: HYDROCORTISONE 1% 30 GM CREAM TP SCH ×2 (09:07→16:04)
[2018-04-03 16:03] VITALS: BP 124/71
[2018-04-03 16:10] VITALS: BP 124/71
[2018-04-03 17:03] VITALS: BP 124/72
[2018-04-04] MEDS: IBUPROFEN 400 MG TABLET PO PRN ×2 (02:36→20:45)
[2018-04-04] MEDS: LORazepam 2 MG TABLET PO PRN ×4 (02:38→20:45)
[2018-04-04] MEDS: QUEtiapine FUMARATE 25 MG TABLET PO SCH ×2 (08:15→16:13)
[2018-04-04] MEDS: ESCITALOPRAM OXALATE 20 MG TABLET PO SCH (08:15)
[2018-04-04] MEDS: HYDROCORTISONE 1% 30 GM CREAM TP SCH ×2 (08:16→16:16)
[2018-04-04 08:30] VITALS: BP 132/74
[2018-04-04 16:59] VITALS: BP 124/70
[2018-04-04 20:45] VITALS: BP 120/72
[2018-04-04 21:45] VITALS: BP 118/66
[2018-04-05 06:05] VITALS: BP 122/88
[2018-04-05] MEDS: LORazepam 2 MG TABLET PO PRN ×3 (06:05→20:24)
[2018-04-05] MEDS: IBUPROFEN 400 MG TABLET PO PRN ×2 (06:10→20:24)
[2018-04-05] MEDS: QUEtiapine FUMARATE 25 MG TABLET PO SCH ×2 (08:18→16:12)
[2018-04-05] MEDS: ESCITALOPRAM OXALATE 20 MG TABLET PO SCH (08:18)
[2018-04-05] MEDS: HYDROCORTISONE 1% 30 GM CREAM TP SCH ×2 (08:22→16:13)
[2018-04-05 16:48] VITALS: BP 118/65
[2018-04-05 20:26] VITALS: BP 114/76
[2018-04-06] MEDS: IBUPROFEN 400 MG TABLET PO PRN (07:17)
[2018-04-06] MEDS: LORazepam 2 MG TABLET PO PRN ×3 (07:17→22:48)
[2018-04-06 09:08] VITALS: BP 118/72
[2018-04-06] MEDS: ESCITALOPRAM OXALATE 20 MG TABLET PO SCH (09:29)
[2018-04-06] MEDS: QUEtiapine FUMARATE 25 MG TABLET PO SCH ×2 (09:29→16:36)
[2018-04-06] MEDS: HYDROCORTISONE 1% 30 GM CREAM TP SCH ×2 (09:30→16:36)
[2018-04-06 16:53] VITALS: BP 130/69
[2018-04-06 22:47] VITALS: BP 126/74
[2018-04-07 08:00] VITALS: BP 129/83
[2018-04-07] MEDS: ESCITALOPRAM OXALATE 20 MG TABLET PO SCH (09:20)
[2018-04-07] MEDS: HYDROCORTISONE 1% 30 GM CREAM TP SCH ×2 (09:20→19:46)
[2018-04-07] MEDS: LORazepam 2 MG TABLET PO PRN ×3 (09:20→19:40)
[2018-04-07] MEDS: QUEtiapine FUMARATE 25 MG TABLET PO SCH ×2 (09:20→16:18)
[2018-04-07 19:58] VITALS: BP 108/64
[2018-04-08 08:02] VITALS: BP 122/73
[2018-04-08] MEDS: LORazepam 2 MG TABLET PO PRN ×3 (08:12→22:10)
[2018-04-08] MEDS: ESCITALOPRAM OXALATE 20 MG TABLET PO SCH (08:12)
[2018-04-08] MEDS: QUEtiapine FUMARATE 25 MG TABLET PO SCH ×2 (08:12→16:22)
[2018-04-08] MEDS: HYDROCORTISONE 1% 30 GM CREAM TP SCH ×2 (08:12→16:22)
[2018-04-08 16:56] VITALS: BP 121/64
[2018-04-08 23:57] VITALS: BP 113/66
[2018-04-08] MEDS: IBUPROFEN 400 MG TABLET PO PRN (23:57)
[2018-04-09 01:43] VITALS: BP 116/67
[2018-04-09] MEDS: ZOLPIDEM TARTRATE 10 MG TABLET PO PRN (01:43)
[2018-04-09] MEDS: LORazepam 2 MG TABLET PO PRN ×2 (06:50→11:28)
[2018-04-09 08:05] VITALS: BP 108/68
[2018-04-09] MEDS: ESCITALOPRAM OXALATE 20 MG TABLET PO SCH (09:13)
[2018-04-09] MEDS: QUEtiapine FUMARATE 25 MG TABLET PO SCH (09:13)
[2018-04-09] MEDS: HYDROCORTISONE 1% 30 GM CREAM TP SCH (09:19)
[2018-04-09] MEDS ORDERED: HYDR28.45 TP (09:19)
== END 2018-04-09 15:33 | disposition home or self-care (01) | DRG 885 ==
LOC: EMS 10:30 → 3EX 16:15
PROVIDERS: ADMIT Psychiatry & Neurology Psychiatry; ATTEND Psychiatry & Neurology Psychiatry
DX: F33.2 Major depressive disorder, recurrent severe without psychotic features (principal); F15.20 Other stimulant dependence, uncomplicated; F25.1 Schizoaffective disorder, depressive type; E83.51 Hypocalcemia; B19.20 Unspecified viral hepatitis C without hepatic coma; F41.0 Panic disorder [episodic paroxysmal anxiety]; K74.60 Unspecified cirrhosis of liver; L30.9 Dermatitis, unspecified; F12.10 Cannabis abuse, uncomplicated; F41.9 Anxiety disorder, unspecified; R45.87 Impulsiveness; R73.9 Hyperglycemia, unspecified; Z87.891 Personal history of nicotine dependence; Z91.14 Patient's other noncompliance with medication regimen; Z91.5 Personal history of self-harm; Z71.51 Drug abuse counseling and surveillance of drug abuser
CPT/HCPCS: 80074; 82310; 83036; 84443; G0378; G0480

== ENCOUNTER 2018-05-07 20:49 | Emergency (ER) | payer MEDICARE, OTHER ==
[~2018-05-07] VITALS: Ht 170.2 cm; Wt 72.7 kg
[~2018-05-07 20:49] MED LIST changes: -CAFF200T4 PO; +CLON2 PO; +HYDR28.45 TP
[2018-05-07 21:18] LABS: BASOPHILS % (AUTO) 0.8 % (0.0-2.0); EOSINOPHILS % (AUTO) 2.4 % (1.0-6.0); HEMATOCRIT 43.3 % (41-53); HEMOGLOBIN 14.6 g/dL (13.5-17.5); LYMPHOCYTES # (AUTO) 2.7 K/uL (1.0-4.8); LYMPHOCYTES % (AUTO) 33.7 % (22.0-44.0); MEAN CORPUSCULAR HGB CONC 33.6 G/dL (31.0-37.0); MEAN CORPUSCULAR VOLUME 89 fL (80-100); MONOCYTES # (AUTO) 0.8 K/uL (0.1-1.0); MONOCYTES % (AUTO) 9.8 % (2.0-9.0); NEUTROPHILS # (AUTO) 4.2 K/uL (1.8-7.7); NEUTROPHILS % (AUTO) 53.3 % (40.0-70.0); PLATELET COUNT (AUTO) 279 K/uL (150-450); RED BLOOD CELL COUNT(AUTO) 4.85 MIL/uL (4.50-5.90); RED CELL DISTRIBUTION WIDTH 13.1 % (11.5-14.5)
[2018-05-07 21:28] LABS: ANION GAP 9 mmol/L (8-16); CARBON DIOXIDE 32 mmol/L (22-29); CHLORIDE 106 mmol/L (98-107); CREATININE 1.11 mg/dL (0.60-1.30); GLOMERULAR FILTR. RATE CALC > 60 mL/min (>60); GLUCOSE,RANDOM 84 mg/dL (70-110); POTASSIUM 4.4 mmol/L (3.5-5.1); SODIUM SERUM 147 mmol/L (136-145); UREA NITROGEN, BLOOD 15 mg/dL (7-18)
[2018-05-07 21:33] LABS: ALANINE AMINOTRANSFERASE 142 U/L (12-78); ALBUMIN 3.7 g/dL (3.4-5.0); ALKALINE PHOSPHATASE 42 U/L (46-116); ASPARTATE AMINOTRANSFERASE 94 U/L (15-37); BILIRUBIN,TOTAL 0.4 mg/dL (0.1-1.0); TOTAL PROTEIN, SERUM 7.4 g/dL (6.4-8.2)
[2018-05-07] MEDS ORDERED: IBUPROFEN 800 MG TABLET PO ONE (22:00)
[2018-05-08 03:50] VITALS: BP 101/65
== END 2018-05-08 04:56 | disposition short-term general hospital (02) ==
LOC: EMS 20:51
DX: F32.9 Major depressive disorder, single episode, unspecified (principal); R45.851 Suicidal ideations; F41.9 Anxiety disorder, unspecified; F11.90 Opioid use, unspecified, uncomplicated; F17.210 Nicotine dependence, cigarettes, uncomplicated; Z79.899 Other long term (current) drug therapy
CPT/HCPCS: 36415; 80053; 85025; 99285; G0480

== ENCOUNTER 2018-09-12 06:30 | Inpatient (IN) | payer OTHER ==
[~2018-09-12] VITALS: Ht 170.2 cm; Wt 79.3 kg
[~2018-09-12 06:30] MED LIST changes: -HYDR28.45 TP
[2018-09-12 07:57] LABS: BASOPHILS % (AUTO) 0.8 % (0.0-2.0); EOSINOPHILS % (AUTO) 1.8 % (1.0-6.0); HEMATOCRIT 45.8 % (41-53); HEMOGLOBIN 15.2 g/dL (13.5-17.5); LYMPHOCYTES # (AUTO) 2.6 K/uL (1.0-4.8); LYMPHOCYTES % (AUTO) 28.8 % (22.0-44.0); MEAN CORPUSCULAR HEMOGLOBIN 31.2 pg (26.0-34.0); MEAN CORPUSCULAR HGB CONC 33.3 G/dL (31.0-37.0); MEAN CORPUSCULAR VOLUME 94 fL (80-100); MONOCYTES % (AUTO) 10.9 % (2.0-9.0); NEUTROPHILS # (AUTO) 5.1 K/uL (1.8-7.7); NEUTROPHILS % (AUTO) 57.7 % (40.0-70.0); PLATELET COUNT (AUTO) 398 K/uL (150-450); RED BLOOD CELL COUNT(AUTO) 4.89 MIL/uL (4.50-5.90); RED CELL DISTRIBUTION WIDTH 13.8 % (11.5-14.5)
[2018-09-12 08:06] LABS: ANION GAP 9 mmol/L (8-16); CALCIUM, TOTAL 8.8 mg/dL (8.8-10.5); CARBON DIOXIDE 28 mmol/L (22-29); CHLORIDE 103 mmol/L (98-107); CREATININE 0.85 mg/dL (0.60-1.30); GLOMERULAR FILTR. RATE CALC > 60 mL/min (>60); GLUCOSE,RANDOM 110 mg/dL (70-110); POTASSIUM 4.1 mmol/L (3.5-5.1); SODIUM SERUM 140 mmol/L (136-145); UREA NITROGEN, BLOOD 15 mg/dL (7-18)
[2018-09-12 08:12] LABS: ALANINE AMINOTRANSFERASE 104 U/L (12-78); ALKALINE PHOSPHATASE 55 U/L (46-116); ASPARTATE AMINOTRANSFERASE 65 U/L (15-37); BILIRUBIN,TOTAL 0.2 mg/dL (0.1-1.0)
[2018-09-12] MEDS ORDERED: LORazepam 1 MG TABLET PO ONE (08:30)
[2018-09-12] MEDS ORDERED: ACETAMINOPHEN 325 MG TABLET PO ONE (08:30)
[2018-09-12] MEDS ORDERED: HALOPERIDOL 5 MG TABLET PO ONE (08:30)
[2018-09-12] MEDS ORDERED: ZOLPIDEM TARTRATE 10 MG TABLET PO PRN (09:45)
[2018-09-12] MEDS ORDERED: HALOPERIDOL 5 MG TABLET PO PRN (09:45)
[2018-09-12 12:06] VITALS: BP 118/73
[2018-09-12] MEDS ORDERED: NICOTINE 14 MG/24 HOUR PATCH TD PRN (12:45)
[2018-09-12] MEDS ORDERED: DOCUSATE SODIUM 100 MG CAPSULE PO PRN (12:45)
[2018-09-12] MEDS ORDERED: CloNIDine HCL 0.1 MG TABLET PO PRN (12:45)
[2018-09-12] MEDS ORDERED: MAGNESIUM HYDROXIDE SUSPENSION 30 ML UDCUP PO PRN (12:45)
[2018-09-12] MEDS ORDERED: ONDANSETRON HCL 4 MG TABLET PO PRN (12:45)
[2018-09-12] MEDS ORDERED: MAG HYDROX/AL HYDROX/SIMETH ES 30 ML SUSPENSION UDCUP PO PRN (12:45)
[2018-09-12] MEDS ORDERED: ALBUTEROL SULFATE HFA 90 MCG/PUFF 8 GM INHALER IH PRN (12:45)
[2018-09-12] MEDS ORDERED: GuaiFENesin/D-METHORPHAN [SUGAR-FREE] 200-20MG/10 ML SYRUP UDCUP PO PRN (12:45)
[2018-09-12] MEDS ORDERED: LOPERAMIDE HCL 2 MG CAPSULE PO PRN (12:45)
[2018-09-12] MEDS ORDERED: PETROLATUM,WHITE 28 GM JELLY TP PRN (12:45)
[2018-09-12 12:58] LABS: AMPHET/METH SCREEN,URINE NEGATIVE (NEGATIVE); BARBITURATE SCREEN, URINE NEGATIVE (NEGATIVE); BENZODIAZEPINES SCREEN,URINE NEGATIVE (NEGATIVE); CANNABINOID SCREEN,URINE NEGATIVE (NEGATIVE); COCAINE SCREEN,URINE NEGATIVE (NEGATIVE); METHADONE SCREEN, URINE NEGATIVE (NEGATIVE); OPIATE SCREEN,URINE NEGATIVE (NEGATIVE); PHENCYCLIDINE SCREEN,URINE NEGATIVE (NEGATIVE)
[2018-09-12] MEDS: LORazepam 2 MG TABLET PO PRN (17:25)
[2018-09-12] MEDS: IBUPROFEN 400 MG TABLET PO PRN (17:25)
[2018-09-12] MEDS: QUEtiapine FUMARATE 25 MG TABLET PO SCH (17:25)
[2018-09-12 18:48] VITALS: BP 115/66
[2018-09-13 06:20] LABS: BASOPHILS % (AUTO) 0.8 % (0.0-2.0); EOSINOPHILS % (AUTO) 1.7 % (1.0-6.0); HEMOGLOBIN 14.4 g/dL (13.5-17.5); LYMPHOCYTES # (AUTO) 2.1 K/uL (1.0-4.8); LYMPHOCYTES % (AUTO) 33.9 % (22.0-44.0); MEAN CORPUSCULAR HEMOGLOBIN 30.7 pg (26.0-34.0); MEAN CORPUSCULAR HGB CONC 32.8 G/dL (31.0-37.0); MEAN CORPUSCULAR VOLUME 94 fL (80-100); MONOCYTES # (AUTO) 0.8 K/uL (0.1-1.0); MONOCYTES % (AUTO) 12.6 % (2.0-9.0); NEUTROPHILS # (AUTO) 3.2 K/uL (1.8-7.7); PLATELET COUNT (AUTO) 329 K/uL (150-450); RED CELL DISTRIBUTION WIDTH 13.9 % (11.5-14.5)
[2018-09-13 06:30] LABS: HEMOGLOBIN A1C 6.1 % (4.5-6.2)
[2018-09-13 06:43] LABS: ALANINE AMINOTRANSFERASE 84 U/L (12-78); ALBUMIN 3.3 g/dL (3.4-5.0); ALKALINE PHOSPHATASE 44 U/L (46-116); ANION GAP 7 mmol/L (8-16); ASPARTATE AMINOTRANSFERASE 51 U/L (15-37); BILIRUBIN,TOTAL 0.3 mg/dL (0.1-1.0); CALCIUM, TOTAL 8.8 mg/dL (8.8-10.5); CARBON DIOXIDE 30 mmol/L (22-29); CHLORIDE 104 mmol/L (98-107); CHOL/HDL RATIO 2.2 (4.2-7.3); CHOLESTEROL 150 mg/dL (131-200); CREATININE 0.91 mg/dL (0.60-1.30); GLOMERULAR FILTR. RATE CALC > 60 mL/min (>60); GLUCOSE,RANDOM 86 mg/dL (70-110); HDL CHOLESTEROL 68 mg/dL (40-60); LDL CHOL (CALC.) 69 mg/dL (0-130); POTASSIUM 4.6 mmol/L (3.5-5.1); SODIUM SERUM 141 mmol/L (136-145); THYROID STIMULATING HORMONE 1.14 uIU/mL (0.36-3.74); TOTAL PROTEIN, SERUM 6.6 g/dL (6.4-8.2); TRIGLYCERIDES 66 mg/dL (15-150); UREA NITROGEN, BLOOD 20 mg/dL (7-18)
[2018-09-13] MEDS: QUEtiapine FUMARATE 25 MG TABLET PO SCH ×2 (08:43→16:55)
[2018-09-13] MEDS: ESCITALOPRAM OXALATE 20 MG TABLET PO SCH (08:43)
[2018-09-13 13:22] VITALS: BP 100/53
[2018-09-13] MEDS: LORazepam 2 MG TABLET PO PRN (14:33)
[2018-09-13 18:00] VITALS: BP 105/58
[2018-09-14 04:09] VITALS: BP 106/74
[2018-09-14] MEDS: LORazepam 2 MG TABLET PO PRN ×2 (04:09→08:50)
[2018-09-14] MEDS: IBUPROFEN 400 MG TABLET PO PRN ×2 (04:09→16:12)
[2018-09-14] MEDS: QUEtiapine FUMARATE 25 MG TABLET PO SCH ×2 (08:51→16:09)
[2018-09-14] MEDS: ESCITALOPRAM OXALATE 20 MG TABLET PO SCH (08:51)
[2018-09-14 09:25] VITALS: BP 121/68
[2018-09-14 16:13] VITALS: BP 106/63
[2018-09-15 01:00] VITALS: BP 103/70
[2018-09-15] MEDS: ACETAMINOPHEN 325 MG TABLET PO PRN (01:01)
[2018-09-15] MEDS: LORazepam 2 MG TABLET PO PRN ×2 (01:58→11:23)
[2018-09-15] MEDS: QUEtiapine FUMARATE 25 MG TABLET PO SCH ×2 (08:35→17:03)
[2018-09-15] MEDS: ESCITALOPRAM OXALATE 20 MG TABLET PO SCH (08:35)
[2018-09-15 09:54] VITALS: BP 112/87
[2018-09-15 17:00] VITALS: BP 110/62
[2018-09-16] VITALS: BP 105/67
[2018-09-16] MEDS: LORazepam 2 MG TABLET PO PRN ×3 (00:02→16:08)
[2018-09-16] MEDS: IBUPROFEN 400 MG TABLET PO PRN ×3 (00:02→21:09)
[2018-09-16] MEDS: ESCITALOPRAM OXALATE 20 MG TABLET PO SCH (08:23)
[2018-09-16] MEDS: QUEtiapine FUMARATE 25 MG TABLET PO SCH ×2 (08:23→16:08)
[2018-09-16 09:33] VITALS: BP 106/63
[2018-09-16 12:42] VITALS: BP 110/68
[2018-09-16 21:09] VITALS: BP 123/64
[2018-09-17 00:35] VITALS: BP 108/75
[2018-09-17 05:19] VITALS: BP 127/70
[2018-09-17] MEDS: IBUPROFEN 400 MG TABLET PO PRN ×2 (05:23→16:25)
[2018-09-17] MEDS: LORazepam 2 MG TABLET PO PRN ×3 (05:23→16:25)
[2018-09-17 08:00] VITALS: BP 106/56
[2018-09-17] MEDS: ESCITALOPRAM OXALATE 20 MG TABLET PO SCH (08:18)
[2018-09-17] MEDS: QUEtiapine FUMARATE 25 MG TABLET PO SCH ×2 (08:18→16:24)
[2018-09-17 16:25] VITALS: BP 118/68
[2018-09-18 00:57] VITALS: BP 117/75
[2018-09-18] MEDS: LORazepam 2 MG TABLET PO PRN ×3 (00:58→16:27)
[2018-09-18] MEDS: QUEtiapine FUMARATE 25 MG TABLET PO SCH ×2 (08:41→15:55)
[2018-09-18] MEDS: ESCITALOPRAM OXALATE 20 MG TABLET PO SCH (08:41)
[2018-09-18 10:44] VITALS: BP 107/67
[2018-09-18] MEDS: ACETAMINOPHEN 325 MG TABLET PO PRN (15:55)
[2018-09-18 16:06] VITALS: BP 115/70
[2018-09-19 00:30] VITALS: BP 118/71
[2018-09-19 06:03] VITALS: BP 102/70
[2018-09-19] MEDS: IBUPROFEN 400 MG TABLET PO PRN (06:06)
[2018-09-19] MEDS: LORazepam 2 MG TABLET PO PRN ×2 (06:06→15:44)
[2018-09-19] MEDS: ESCITALOPRAM OXALATE 20 MG TABLET PO SCH (08:13)
[2018-09-19] MEDS: QUEtiapine FUMARATE 25 MG TABLET PO SCH ×2 (08:13→16:27)
[2018-09-19 19:43] VITALS: BP 110/85
[2018-09-20 03:45] VITALS: BP 119/72
[2018-09-20] MEDS: LORazepam 2 MG TABLET PO PRN ×2 (03:51→09:38)
[2018-09-20] MEDS: IBUPROFEN 400 MG TABLET PO PRN (03:52)
[2018-09-20] MEDS: QUEtiapine FUMARATE 25 MG TABLET PO SCH (08:24)
[2018-09-20] MEDS: ESCITALOPRAM OXALATE 20 MG TABLET PO SCH (08:25)
[2018-09-20 08:47] VITALS: BP 120/68
== END 2018-09-20 16:00 | disposition home or self-care (01) | DRG 885 ==
LOC: EMS 06:33 → 3EX 10:21
PROVIDERS: ADMIT Psychiatry & Neurology Psychiatry; ATTEND Psychiatry & Neurology Psychiatry
DX: F33.2 Major depressive disorder, recurrent severe without psychotic features (principal); R45.851 Suicidal ideations; R45.87 Impulsiveness; G43.909 Migraine, unspecified, not intractable, without status migrainosus; F41.0 Panic disorder [episodic paroxysmal anxiety]; B19.20 Unspecified viral hepatitis C without hepatic coma; B18.2 Chronic viral hepatitis C; K74.60 Unspecified cirrhosis of liver; F15.90 Other stimulant use, unspecified, uncomplicated; F17.210 Nicotine dependence, cigarettes, uncomplicated; F10.10 Alcohol abuse, uncomplicated; Y90.4 Blood alcohol level of 80-99 mg/100 ml; Z59.0 Homelessness
CPT/HCPCS: 80307; 83036; 84443; G0378; G0480

== ENCOUNTER 2018-09-23 06:17 | Emergency (ER) | payer OTHER ==
[~2018-09-23] VITALS: Ht 170.2 cm; Wt 79.3 kg
[~2018-09-23 06:17] MED LIST changes: -CLON2 PO
[2018-09-23 07:51] LABS: BASOPHILS % (AUTO) 0.9 % (0.0-2.0); EOSINOPHILS % (AUTO) 0.8 % (1.0-6.0); HEMATOCRIT 45.3 % (41-53); HEMOGLOBIN 15.2 g/dL (13.5-17.5); LYMPHOCYTES # (AUTO) 2.3 K/uL (1.0-4.8); LYMPHOCYTES % (AUTO) 29.5 % (22.0-44.0); MEAN CORPUSCULAR HEMOGLOBIN 31.2 pg (26.0-34.0); MEAN CORPUSCULAR HGB CONC 33.5 G/dL (31.0-37.0); MEAN CORPUSCULAR VOLUME 93 fL (80-100); MONOCYTES # (AUTO) 0.8 K/uL (0.1-1.0); NEUTROPHILS # (AUTO) 4.6 K/uL (1.8-7.7); NEUTROPHILS % (AUTO) 58.8 % (40.0-70.0); PLATELET COUNT (AUTO) 282 K/uL (150-450); RED BLOOD CELL COUNT(AUTO) 4.87 MIL/uL (4.50-5.90); RED CELL DISTRIBUTION WIDTH 13.6 % (11.5-14.5)
[2018-09-23 08:01] LABS: ANION GAP 7 mmol/L (8-16); CALCIUM, TOTAL 8.8 mg/dL (8.8-10.5); CARBON DIOXIDE 30 mmol/L (22-29); CHLORIDE 103 mmol/L (98-107); CREATININE 0.96 mg/dL (0.60-1.30); GLOMERULAR FILTR. RATE CALC > 60 mL/min (>60); GLUCOSE,RANDOM 92 mg/dL (70-110); POTASSIUM 3.8 mmol/L (3.5-5.1); SODIUM SERUM 140 mmol/L (136-145); UREA NITROGEN, BLOOD 19 mg/dL (7-18)
[2018-09-23 08:04] LABS: AMPHET/METH SCREEN,URINE NEGATIVE (NEGATIVE); BARBITURATE SCREEN, URINE NEGATIVE (NEGATIVE); BENZODIAZEPINES SCREEN,URINE POSITIVE (NEGATIVE); CANNABINOID SCREEN,URINE NEGATIVE (NEGATIVE); COCAINE SCREEN,URINE NEGATIVE (NEGATIVE); METHADONE SCREEN, URINE NEGATIVE (NEGATIVE); OPIATE SCREEN,URINE NEGATIVE (NEGATIVE); PHENCYCLIDINE SCREEN,URINE NEGATIVE (NEGATIVE)
[2018-09-23 08:09] LABS: ALANINE AMINOTRANSFERASE 95 U/L (12-78); ALBUMIN 4.2 g/dL (3.4-5.0); ALKALINE PHOSPHATASE 50 U/L (46-116); ASPARTATE AMINOTRANSFERASE 63 U/L (15-37); BILIRUBIN,TOTAL 0.8 mg/dL (0.1-1.0); TOTAL PROTEIN, SERUM 8.2 g/dL (6.4-8.2)
[2018-09-23 09:12] VITALS: BP 118/71
== END 2018-09-23 09:16 | disposition home or self-care (01) ==
LOC: EMS 06:19
DX: F32.9 Major depressive disorder, single episode, unspecified (principal); F41.9 Anxiety disorder, unspecified; F17.210 Nicotine dependence, cigarettes, uncomplicated; Z79.899 Other long term (current) drug therapy
CPT/HCPCS: 36415; 80053; 80307; 85025; 99284; 99406; G0480

== ENCOUNTER 2018-10-20 08:25 | Inpatient (IN) | payer OTHER, MEDICAID ==
[~2018-10-20] VITALS: Ht 170.2 cm; Wt 79.8 kg
[~2018-10-20 08:25] MED LIST changes: +QUET100T PO; +QUET25TA PO; -QUET50TA PO
[2018-10-20] MEDS ORDERED: CLON2 PO (08:30)
[2018-10-20] MEDS ORDERED: ACETAMINOPHEN 325 MG TABLET PO ONE (08:45)
[2018-10-20] MEDS ORDERED: HALOPERIDOL 5 MG TABLET PO ONE (08:45)
[2018-10-20 10:22] LABS: AMPHET/METH SCREEN,URINE POSITIVE (NEGATIVE); BARBITURATE SCREEN, URINE NEGATIVE (NEGATIVE); BENZODIAZEPINES SCREEN,URINE NEGATIVE (NEGATIVE); CANNABINOID SCREEN,URINE NEGATIVE (NEGATIVE); COCAINE SCREEN,URINE NEGATIVE (NEGATIVE); METHADONE SCREEN, URINE NEGATIVE (NEGATIVE); OPIATE SCREEN,URINE NEGATIVE (NEGATIVE)
[2018-10-20 10:24] LABS: PHENCYCLIDINE SCREEN,URINE NEGATIVE (NEGATIVE)
[2018-10-20 10:40] LABS: BASOPHILS % (AUTO) 0.6 % (0.0-2.0); EOSINOPHILS % (AUTO) 7.4 % (1.0-6.0); HEMATOCRIT 40.4 % (41-53); HEMOGLOBIN 13.7 g/dL (13.5-17.5); LYMPHOCYTES % (AUTO) 10.7 % (22.0-44.0); MEAN CORPUSCULAR HEMOGLOBIN 31.3 pg (26.0-34.0); MEAN CORPUSCULAR HGB CONC 33.9 G/dL (31.0-37.0); MEAN CORPUSCULAR VOLUME 92 fL (80-100); MONOCYTES # (AUTO) 0.8 K/uL (0.1-1.0); MONOCYTES % (AUTO) 8.5 % (2.0-9.0); NEUTROPHILS # (AUTO) 7.1 K/uL (1.8-7.7); NEUTROPHILS % (AUTO) 72.8 % (40.0-70.0); PLATELET COUNT (AUTO) 327 K/uL (150-450); RED BLOOD CELL COUNT(AUTO) 4.37 MIL/uL (4.50-5.90); RED CELL DISTRIBUTION WIDTH 12.7 % (11.5-14.5)
[2018-10-20 10:46] LABS: ANION GAP 11 mmol/L (8-16); CALCIUM, TOTAL 7.9 mg/dL (8.8-10.5); CARBON DIOXIDE 26 mmol/L (22-29); CHLORIDE 98 mmol/L (98-107); CREATININE 0.87 mg/dL (0.60-1.30); GLOMERULAR FILTR. RATE CALC > 60 mL/min (>60); GLUCOSE,RANDOM 108 mg/dL (70-110); POTASSIUM 3.8 mmol/L (3.5-5.1); SODIUM SERUM 135 mmol/L (136-145); UREA NITROGEN, BLOOD 17 mg/dL (7-18)
[2018-10-20 10:53] LABS: ALANINE AMINOTRANSFERASE 65 U/L (12-78); ALBUMIN 3.2 g/dL (3.4-5.0); ALKALINE PHOSPHATASE 38 U/L (46-116); ASPARTATE AMINOTRANSFERASE 49 U/L (15-37); BILIRUBIN,TOTAL 0.8 mg/dL (0.1-1.0); TOTAL PROTEIN, SERUM 6.7 g/dL (6.4-8.2)
[2018-10-20 12:59] LABS: APPEARANCE,URINE TURBID (CLEAR); GLUCOSE, URINE (UA) NEGATIVE (NEGATIVE); KETONES,URINE 40 mg/dL (NEGATIVE); LEUKOCYTE ESTERASE ,URINE NEGATIVE (NEGATIVE); NITRATE,URINE NEGATIVE (NEGATIVE); OCCULT BLOOD,URINE NEGATIVE (NEGATIVE)
[2018-10-20 13:01] LABS: BILIRUBIN,URINE PRELIM. POSITIVE (NEGATIVE)
[2018-10-20 13:02] LABS: PROTEIN,URINE NEGATIVE (NEGATIVE)
[2018-10-20 14:09] VITALS: BP 121/74
[2018-10-20] MEDS ORDERED: PERMETHRIN 5% 60 GM CREAM TP ONE (20:00)
[2018-10-20] MEDS: LORazepam 2 MG TABLET PO PRN (20:24)
[2018-10-20] MEDS ORDERED: CloNIDine HCL 0.1 MG TABLET PO PRN (22:00)
[2018-10-20] MEDS ORDERED: ACETAMINOPHEN 325 MG TABLET PO PRN (22:00)
[2018-10-20] MEDS ORDERED: NICOTINE 14 MG/24 HOUR PATCH TD PRN (22:00)
[2018-10-20] MEDS ORDERED: PETROLATUM,WHITE 28 GM JELLY TP PRN (22:00)
[2018-10-20] MEDS ORDERED: ONDANSETRON HCL 4 MG TABLET PO PRN (22:00)
[2018-10-20] MEDS ORDERED: MAGNESIUM HYDROXIDE SUSPENSION 30 ML UDCUP PO PRN (22:00)
[2018-10-20] MEDS ORDERED: DOCUSATE SODIUM 100 MG CAPSULE PO PRN (22:00)
[2018-10-20] MEDS ORDERED: ALBUTEROL SULFATE HFA 90 MCG/PUFF 8 GM INHALER IH PRN (22:00)
[2018-10-20] MEDS ORDERED: LOPERAMIDE HCL 2 MG CAPSULE PO PRN (22:00)
[2018-10-20] MEDS ORDERED: GuaiFENesin/D-METHORPHAN [SUGAR-FREE] 200-20MG/10 ML SYRUP UDCUP PO PRN (22:00)
[2018-10-21] MEDS ORDERED: PNEUMOCOCCAL VACCINE POLYVALENT 0.5 ML VIAL [PPSV23] IM ONE (04:00)
[2018-10-21] MEDS: LORazepam 2 MG TABLET PO PRN ×3 (06:23→21:49)
[2018-10-21 08:05] LABS: CHOL/HDL RATIO 2.7 (4.2-7.3); FREE T4 (FREE THYROXINE) 1.39 ng/dL (0.76-1.46); THYROID STIMULATING HORMONE 1.39 uIU/mL (0.36-3.74)
[2018-10-21 08:46] VITALS: BP 131/82
[2018-10-21 10:36] VITALS: BP 124/78
[2018-10-21] MEDS: IBUPROFEN 400 MG TABLET PO PRN ×2 (10:36→19:50)
[2018-10-21 17:13] VITALS: BP 118/73
[2018-10-21 19:37] VITALS: BP 128/70
[2018-10-21] MEDS: QUEtiapine FUMARATE 300 MG ER TABLET PO SCH (20:13)
[2018-10-22 04:16] VITALS: BP 124/76
[2018-10-22] MEDS: LORazepam 2 MG TABLET PO PRN ×3 (06:40→18:02)
[2018-10-22] MEDS: IBUPROFEN 400 MG TABLET PO PRN ×2 (06:40→18:02)
[2018-10-22] MEDS: ESCITALOPRAM OXALATE 20 MG TABLET PO SCH (08:25)
[2018-10-22 16:00] VITALS: BP 105/61
[2018-10-22] MEDS: FERROUS SULFATE 325 MG EC TABLET PO SCH (16:26)
[2018-10-22 18:02] VITALS: BP 112/68
[2018-10-22] MEDS: QUEtiapine FUMARATE 300 MG ER TABLET PO SCH (20:18)
[2018-10-23] MEDS: FERROUS SULFATE 325 MG EC TABLET PO SCH ×2 (06:43→16:52)
[2018-10-23 08:02] VITALS: BP 122/70
[2018-10-23] MEDS: ZINC OXIDE 16% PASTE 57 GM TUBE TP SCH (08:02)
[2018-10-23] MEDS: ESCITALOPRAM OXALATE 20 MG TABLET PO SCH (08:02)
[2018-10-23] MEDS: LORazepam 2 MG TABLET PO PRN ×3 (08:02→22:43)
[2018-10-23] MEDS: IBUPROFEN 400 MG TABLET PO PRN (08:02)
[2018-10-23 08:27] VITALS: BP 122/70
[2018-10-23 17:13] VITALS: BP 115/63
[2018-10-23] MEDS: QUEtiapine FUMARATE 300 MG ER TABLET PO SCH (20:33)
[2018-10-24 01:47] VITALS: BP 122/73
[2018-10-24] MEDS: HALOPERIDOL 5 MG TABLET PO PRN (01:50)
[2018-10-24] MEDS: FERROUS SULFATE 325 MG EC TABLET PO SCH ×2 (06:24→16:32)
[2018-10-24 08:10] VITALS: BP 121/63
[2018-10-24] MEDS: ESCITALOPRAM OXALATE 20 MG TABLET PO SCH (08:25)
[2018-10-24] MEDS: ZINC OXIDE 16% PASTE 57 GM TUBE TP SCH (08:26)
[2018-10-24] MEDS: LORazepam 2 MG TABLET PO PRN ×3 (09:23→18:24)
[2018-10-24] MEDS: DiphenhydrAMINE/ZINC ACET 30 GM CREAM TP PRN (14:03)
[2018-10-24 14:12] VITALS: BP 123/65
[2018-10-24] MEDS: MAG HYDROX/AL HYDROX/SIMETH ES 30 ML SUSPENSION UDCUP PO PRN (14:14)
[2018-10-24] MEDS: IBUPROFEN 400 MG TABLET PO PRN (14:15)
[2018-10-24] MEDS ORDERED: PERMETHRIN 5% 60 GM CREAM TP ONE (15:15)
[2018-10-24 16:19] VITALS: BP 114/60
[2018-10-24] MEDS: QUEtiapine FUMARATE 300 MG ER TABLET PO SCH (20:29)
[2018-10-24] MEDS: ZOLPIDEM TARTRATE 10 MG TABLET PO PRN (22:39)
[2018-10-25 06:08] VITALS: BP 118/66
[2018-10-25] MEDS: FERROUS SULFATE 325 MG EC TABLET PO SCH ×2 (06:18→16:37)
[2018-10-25] MEDS: LORazepam 2 MG TABLET PO PRN ×3 (06:47→16:37)
[2018-10-25] MEDS: MAG HYDROX/AL HYDROX/SIMETH ES 30 ML SUSPENSION UDCUP PO PRN (06:47)
[2018-10-25 08:23] VITALS: BP 121/64
[2018-10-25] MEDS: ESCITALOPRAM OXALATE 20 MG TABLET PO SCH (08:30)
[2018-10-25] MEDS: ZINC OXIDE 16% PASTE 57 GM TUBE TP SCH (08:33)
[2018-10-25] MEDS: NEOMYCIN/BACITRACIN/POLYMYXIN B 30 GM OINTMENT TP SCH (11:54)
[2018-10-25 16:15] VITALS: BP 106/67
[2018-10-25] MEDS: IBUPROFEN 400 MG TABLET PO PRN (16:37)
[2018-10-25] MEDS: QUEtiapine FUMARATE 300 MG ER TABLET PO SCH (20:26)
[2018-10-26] MEDS: DiphenhydrAMINE HCL 25 MG CAPSULE PO PRN (01:40)
[2018-10-26] MEDS: DiphenhydrAMINE/ZINC ACET 30 GM CREAM TP PRN ×2 (01:40→15:19)
[2018-10-26 02:41] VITALS: BP 120/81
[2018-10-26] MEDS: FERROUS SULFATE 325 MG EC TABLET PO SCH ×2 (06:26→16:42)
[2018-10-26 08:15] VITALS: BP 112/70
[2018-10-26] MEDS: NEOMYCIN/BACITRACIN/POLYMYXIN B 30 GM OINTMENT TP SCH (08:34)
[2018-10-26] MEDS: ZINC OXIDE 16% PASTE 57 GM TUBE TP SCH (08:34)
[2018-10-26] MEDS: ESCITALOPRAM OXALATE 20 MG TABLET PO SCH (08:34)
[2018-10-26] MEDS: LORazepam 2 MG TABLET PO PRN ×2 (09:49→18:31)
[2018-10-26] MEDS: IBUPROFEN 400 MG TABLET PO PRN (09:49)
[2018-10-26 16:11] VITALS: BP 114/66
[2018-10-26] MEDS: QUEtiapine FUMARATE 300 MG ER TABLET PO SCH (20:30)
[2018-10-27 00:01] VITALS: BP 125/70
[2018-10-27] MEDS: MAG HYDROX/AL HYDROX/SIMETH ES 30 ML SUSPENSION UDCUP PO PRN (00:04)
[2018-10-27] MEDS: HALOPERIDOL 5 MG TABLET PO PRN (00:05)
[2018-10-27] MEDS: LORazepam 2 MG TABLET PO PRN ×4 (04:54→22:01)
[2018-10-27] MEDS: DiphenhydrAMINE/ZINC ACET 30 GM CREAM TP PRN (04:54)
[2018-10-27] MEDS: FERROUS SULFATE 325 MG EC TABLET PO SCH ×2 (06:36→16:20)
[2018-10-27] MEDS: ESCITALOPRAM OXALATE 20 MG TABLET PO SCH (08:25)
[2018-10-27] MEDS: ZINC OXIDE 16% PASTE 57 GM TUBE TP SCH (08:25)
[2018-10-27] MEDS: NEOMYCIN/BACITRACIN/POLYMYXIN B 30 GM OINTMENT TP SCH (08:26)
[2018-10-27 12:01] VITALS: BP 123/57
[2018-10-27] MEDS: DiphenhydrAMINE HCL 25 MG CAPSULE PO PRN (14:48)
[2018-10-27 16:10] VITALS: BP 123/76
[2018-10-27] MEDS: QUEtiapine FUMARATE 300 MG ER TABLET PO SCH (20:11)
[2018-10-28 00:02] VITALS: BP 115/70
[2018-10-28] MEDS: LORazepam 2 MG TABLET PO PRN ×2 (05:12→16:02)
[2018-10-28] MEDS: FERROUS SULFATE 325 MG EC TABLET PO SCH ×2 (06:47→16:03)
[2018-10-28 08:14] VITALS: BP 118/69
[2018-10-28] MEDS: MULTIVITAMINS WITH MINERALS, THERAPEUTIC TABLET PO SCH (08:19)
[2018-10-28] MEDS: ESCITALOPRAM OXALATE 20 MG TABLET PO SCH (08:19)
[2018-10-28] MEDS: NEOMYCIN/BACITRACIN/POLYMYXIN B 30 GM OINTMENT TP SCH (08:20)
[2018-10-28] MEDS: ZINC OXIDE 16% PASTE 57 GM TUBE TP SCH (08:20)
[2018-10-28] MEDS: MAG HYDROX/AL HYDROX/SIMETH ES 30 ML SUSPENSION UDCUP PO PRN (10:24)
[2018-10-28] MEDS: DiphenhydrAMINE HCL 25 MG CAPSULE PO PRN (10:24)
[2018-10-28 16:18] VITALS: BP 119/74
[2018-10-28] MEDS: IBUPROFEN 400 MG TABLET PO PRN (19:32)
[2018-10-28] MEDS: QUEtiapine FUMARATE 300 MG ER TABLET PO SCH (20:23)
[2018-10-29 00:42] VITALS: BP 128/69
[2018-10-29] MEDS: LORazepam 2 MG TABLET PO PRN ×4 (00:44→19:49)
[2018-10-29] MEDS: DiphenhydrAMINE HCL 25 MG CAPSULE PO PRN (00:44)
[2018-10-29] MEDS: FERROUS SULFATE 325 MG EC TABLET PO SCH ×2 (06:34→16:37)
[2018-10-29 07:54] LABS: ANION GAP 5 mmol/L (8-16); CALCIUM, TOTAL 8.8 mg/dL (8.8-10.5); CARBON DIOXIDE 28 mmol/L (22-29); CHLORIDE 103 mmol/L (98-107); CREATININE 1.12 mg/dL (0.60-1.30); GLOMERULAR FILTR. RATE CALC > 60 mL/min (>60); GLUCOSE,RANDOM 94 mg/dL (70-110); POTASSIUM 4.6 mmol/L (3.5-5.1); SODIUM SERUM 136 mmol/L (136-145); UREA NITROGEN, BLOOD 20 mg/dL (7-18)
[2018-10-29 08:21] VITALS: BP 120/67
[2018-10-29] MEDS: MULTIVITAMINS WITH MINERALS, THERAPEUTIC TABLET PO SCH (08:45)
[2018-10-29] MEDS: ESCITALOPRAM OXALATE 20 MG TABLET PO SCH (08:45)
[2018-10-29] MEDS: ZINC OXIDE 16% PASTE 57 GM TUBE TP SCH (08:49)
[2018-10-29] MEDS: NEOMYCIN/BACITRACIN/POLYMYXIN B 30 GM OINTMENT TP SCH (08:50)
[2018-10-29 10:59] VITALS: BP 124/72
[2018-10-29] MEDS: IBUPROFEN 400 MG TABLET PO PRN (10:59)
[2018-10-29 16:06] VITALS: BP 113/69
[2018-10-29] MEDS: QUEtiapine FUMARATE 300 MG ER TABLET PO SCH (20:18)
[2018-10-30 05:00] VITALS: BP 113/71
[2018-10-30] MEDS: LORazepam 2 MG TABLET PO PRN ×4 (05:01→21:57)
[2018-10-30] MEDS: DiphenhydrAMINE HCL 25 MG CAPSULE PO PRN (05:01)
[2018-10-30] MEDS: FERROUS SULFATE 325 MG EC TABLET PO SCH ×2 (06:25→16:32)
[2018-10-30 08:10] VITALS: BP 106/69
[2018-10-30] MEDS: MULTIVITAMINS WITH MINERALS, THERAPEUTIC TABLET PO SCH (08:14)
[2018-10-30] MEDS: ESCITALOPRAM OXALATE 20 MG TABLET PO SCH (08:14)
[2018-10-30] MEDS: ZINC OXIDE 16% PASTE 57 GM TUBE TP SCH (08:15)
[2018-10-30] MEDS: NEOMYCIN/BACITRACIN/POLYMYXIN B 30 GM OINTMENT TP SCH (08:15)
[2018-10-30 16:53] VITALS: BP 114/64
[2018-10-30] MEDS: QUEtiapine FUMARATE 300 MG ER TABLET PO SCH (20:30)
[2018-10-30 21:54] VITALS: BP 112/69
[2018-10-30] MEDS: IBUPROFEN 400 MG TABLET PO PRN (21:57)
[2018-10-31 01:13] VITALS: BP 107/64
[2018-10-31 03:50] VITALS: BP 127/70
[2018-10-31] MEDS: LORazepam 2 MG TABLET PO PRN ×2 (04:05→13:59)
[2018-10-31] MEDS: FERROUS SULFATE 325 MG EC TABLET PO SCH ×2 (06:34→17:02)
[2018-10-31 08:12] VITALS: BP 121/67
[2018-10-31] MEDS: ESCITALOPRAM OXALATE 20 MG TABLET PO SCH (08:44)
[2018-10-31] MEDS: MULTIVITAMINS WITH MINERALS, THERAPEUTIC TABLET PO SCH (08:44)
[2018-10-31] MEDS: ZINC OXIDE 16% PASTE 57 GM TUBE TP SCH (08:57)
[2018-10-31] MEDS: NEOMYCIN/BACITRACIN/POLYMYXIN B 30 GM OINTMENT TP SCH (08:57)
[2018-10-31] MEDS: IBUPROFEN 400 MG TABLET PO PRN (13:59)
[2018-10-31 16:15] VITALS: BP 128/69
[2018-10-31] MEDS: QUEtiapine FUMARATE 300 MG ER TABLET PO SCH (20:15)
[2018-10-31] MEDS: ZOLPIDEM TARTRATE 10 MG TABLET PO PRN (21:13)
[2018-11-01 00:18] VITALS: BP 115/67
[2018-11-01] MEDS: LORazepam 2 MG TABLET PO PRN ×3 (00:37→16:18)
[2018-11-01] MEDS: FERROUS SULFATE 325 MG EC TABLET PO SCH ×2 (06:35→16:38)
[2018-11-01 08:12] VITALS: BP 116/75
[2018-11-01] MEDS: MULTIVITAMINS WITH MINERALS, THERAPEUTIC TABLET PO SCH (08:26)
[2018-11-01] MEDS: ESCITALOPRAM OXALATE 20 MG TABLET PO SCH (08:27)
[2018-11-01] MEDS: NEOMYCIN/BACITRACIN/POLYMYXIN B 30 GM OINTMENT TP SCH (08:30)
[2018-11-01] MEDS: DiphenhydrAMINE/ZINC ACET 30 GM CREAM TP PRN (08:30)
[2018-11-01] MEDS: ZINC OXIDE 16% PASTE 57 GM TUBE TP SCH (08:31)
[2018-11-01] MEDS: IBUPROFEN 400 MG TABLET PO PRN ×2 (09:26→20:12)
[2018-11-01 16:09] VITALS: BP 110/68
[2018-11-01 19:10] VITALS: BP 114/73
[2018-11-01] MEDS: QUEtiapine FUMARATE 300 MG ER TABLET PO SCH (20:39)
[2018-11-02 01:32] VITALS: BP 112/76
[2018-11-02] MEDS: LORazepam 2 MG TABLET PO PRN ×4 (01:34→19:34)
[2018-11-02] MEDS: FERROUS SULFATE 325 MG EC TABLET PO SCH ×2 (06:21→16:36)
[2018-11-02 08:26] VITALS: BP 110/71
[2018-11-02] MEDS: ESCITALOPRAM OXALATE 20 MG TABLET PO SCH (08:41)
[2018-11-02] MEDS: MULTIVITAMINS WITH MINERALS, THERAPEUTIC TABLET PO SCH (08:41)
[2018-11-02] MEDS: NEOMYCIN/BACITRACIN/POLYMYXIN B 30 GM OINTMENT TP SCH (08:45)
[2018-11-02] MEDS: ZINC OXIDE 16% PASTE 57 GM TUBE TP SCH (08:45)
[2018-11-02] MEDS: DiphenhydrAMINE/ZINC ACET 30 GM CREAM TP PRN (09:58)
[2018-11-02 16:15] VITALS: BP 108/76
[2018-11-02] MEDS: IBUPROFEN 400 MG TABLET PO PRN (19:33)
[2018-11-02 19:34] VITALS: BP 112/69
[2018-11-02] MEDS: QUEtiapine FUMARATE 300 MG ER TABLET PO SCH (20:33)
[2018-11-03 04:15] VITALS: BP 113/75
[2018-11-03] MEDS: LORazepam 2 MG TABLET PO PRN (04:17)
[2018-11-03] MEDS: IBUPROFEN 400 MG TABLET PO PRN (04:17)
[2018-11-03] MEDS: FERROUS SULFATE 325 MG EC TABLET PO SCH (06:17)
[2018-11-03] MEDS ORDERED: QUET300T5 PO (07:50)
[2018-11-03] MEDS: ESCITALOPRAM OXALATE 20 MG TABLET PO SCH (08:08)
[2018-11-03] MEDS: MULTIVITAMINS WITH MINERALS, THERAPEUTIC TABLET PO SCH (08:08)
[2018-11-03] MEDS: NEOMYCIN/BACITRACIN/POLYMYXIN B 30 GM OINTMENT TP SCH (08:09)
[2018-11-03] MEDS: ZINC OXIDE 16% PASTE 57 GM TUBE TP SCH (08:09)
[2018-11-03 08:37] VITALS: BP 113/68
== END 2018-11-03 13:10 | disposition home or self-care (01) | DRG 885 ==
LOC: EMS 08:27 → B2X 11:06
PROVIDERS: ADMIT Psychiatry & Neurology Psychiatry; ATTEND Psychiatry & Neurology Psychiatry
DX: F33.2 Major depressive disorder, recurrent severe without psychotic features (principal); E87.1 Hypo-osmolality and hyponatremia; F19.20 Other psychoactive substance dependence, uncomplicated; D64.9 Anemia, unspecified; E83.51 Hypocalcemia; F22 Delusional disorders; F17.210 Nicotine dependence, cigarettes, uncomplicated; F41.0 Panic disorder [episodic paroxysmal anxiety]; R74.0 Nonspecific elevation of levels of transaminase and lactic acid dehydrogenase [LDH]; K21.9 Gastro-esophageal reflux disease without esophagitis; Z59.0 Homelessness; Z79.899 Other long term (current) drug therapy
CPT/HCPCS: 84439; 84443; G0480

== ENCOUNTER 2019-01-14 03:12 | Inpatient (IN) | payer MEDICARE, MEDICAID ==
[~2019-01-14] VITALS: Ht 170.2 cm; Wt 73.0 kg
[~2019-01-14 03:12] MED LIST changes: -QUET100T PO; -QUET25TA PO; +QUET300T5 PO
[2019-01-14] MEDS ORDERED: ONDANSETRON HCL 4 MG/2 ML VIAL IVP ONE (04:00)
[2019-01-14] MEDS ORDERED: SODIUM CHLORIDE 0.9% 1,000 ML IV ONE (04:00)
[2019-01-14 04:17] LABS: BASOPHILS % (AUTO) 0.8 % (0.0-2.0); EOSINOPHILS % (AUTO) 0.8 % (1.0-6.0); HEMATOCRIT 45.5 % (41-53); HEMOGLOBIN 15.5 g/dL (13.5-17.5); LYMPHOCYTES % (AUTO) 21.5 % (22.0-44.0); MEAN CORPUSCULAR HEMOGLOBIN 30.6 pg (26.0-34.0); MEAN CORPUSCULAR HGB CONC 34.1 G/dL (31.0-37.0); MEAN CORPUSCULAR VOLUME 90 fL (80-100); MONOCYTES # (AUTO) 1.1 K/uL (0.1-1.0); MONOCYTES % (AUTO) 11.9 % (2.0-9.0); NEUTROPHILS # (AUTO) 5.9 K/uL (1.8-7.7); PLATELET COUNT (AUTO) 299 K/uL (150-450); RED BLOOD CELL COUNT(AUTO) 5.08 MIL/uL (4.50-5.90); RED CELL DISTRIBUTION WIDTH 13.4 % (11.5-14.5)
[2019-01-14 04:21] LABS: ANION GAP 5 mmol/L (8-16); CALCIUM, TOTAL 8.9 mg/dL (8.8-10.5); CARBON DIOXIDE 34 mmol/L (22-29); CHLORIDE 100 mmol/L (98-107); GLOMERULAR FILTR. RATE CALC > 60 mL/min (>60); GLUCOSE,RANDOM 102 mg/dL (70-110); POTASSIUM 4.8 mmol/L (3.5-5.1); SODIUM SERUM 139 mmol/L (136-145); UREA NITROGEN, BLOOD 13 mg/dL (7-18)
[2019-01-14 04:27] LABS: ALANINE AMINOTRANSFERASE 128 U/L (12-78); ALBUMIN 4.2 g/dL (3.4-5.0); ALKALINE PHOSPHATASE 54 U/L (46-116); ASPARTATE AMINOTRANSFERASE 92 U/L (15-37); BILIRUBIN,TOTAL 0.5 mg/dL (0.1-1.0); LIPASE 157 U/L (73-393); TOTAL PROTEIN, SERUM 8.5 g/dL (6.4-8.2)
[2019-01-14] MEDS ORDERED: ACETAMINOPHEN 325 MG TABLET PO PRN ×2 (05:30→08:00)
[2019-01-14] MEDS ORDERED: 0.9% SODIUM CHLORIDE 10 ML SYRINGE IVP PRN (05:30)
[2019-01-14] MEDS ORDERED: ZOLPIDEM TARTRATE 10 MG TABLET PO PRN (05:30)
[2019-01-14] MEDS ORDERED: ONDANSETRON HCL 4 MG/2 ML VIAL IVP PRN (05:30)
[2019-01-14 06:26] LABS: AMPHET/METH SCREEN,URINE NEGATIVE (NEGATIVE); BARBITURATE SCREEN, URINE NEGATIVE (NEGATIVE); BENZODIAZEPINES SCREEN,URINE NEGATIVE (NEGATIVE); CANNABINOID SCREEN,URINE NEGATIVE (NEGATIVE); COCAINE SCREEN,URINE NEGATIVE (NEGATIVE); METHADONE SCREEN, URINE NEGATIVE (NEGATIVE); OPIATE SCREEN,URINE NEGATIVE (NEGATIVE); PHENCYCLIDINE SCREEN,URINE NEGATIVE (NEGATIVE)
[2019-01-14 06:53] LABS: APPEARANCE,URINE CLEAR (CLEAR); BILIRUBIN,URINE NEGATIVE (NEGATIVE); GLUCOSE, URINE (UA) NEGATIVE (NEGATIVE); KETONES,URINE NEGATIVE (NEGATIVE); LEUKOCYTE ESTERASE ,URINE NEGATIVE (NEGATIVE); NITRATE,URINE NEGATIVE (NEGATIVE); OCCULT BLOOD,URINE NEGATIVE (NEGATIVE); PH,URINE 5.5 (5.0-8.0); PROTEIN,URINE NEGATIVE (NEGATIVE); UROBILINOGEN,URINE 0.2 mg/dL (<=1.0)
[2019-01-14] MEDS ORDERED: ONDANSETRON HCL 4 MG TABLET PO PRN (08:00)
[2019-01-14] MEDS ORDERED: CloNIDine HCL 0.1 MG TABLET PO PRN (08:00)
[2019-01-14] MEDS ORDERED: BACITRACIN 28.4 GM OINTMENT TP PRN (08:00)
[2019-01-14] MEDS ORDERED: DOCUSATE SODIUM 100 MG CAPSULE PO PRN (08:00)
[2019-01-14] MEDS ORDERED: LOPERAMIDE HCL 2 MG CAPSULE PO PRN (08:00)
[2019-01-14] MEDS ORDERED: OMEPRAZOLE 20 MG CAPSULE PO PRN (08:00)
[2019-01-14] MEDS ORDERED: BENZOCAINE/MENTHOL LOZENGE MM PRN (08:00)
[2019-01-14] MEDS ORDERED: PETROLATUM,WHITE 28 GM JELLY TP PRN (08:00)
[2019-01-14] MEDS ORDERED: MAGNESIUM HYDROXIDE SUSPENSION 30 ML UDCUP PO PRN (08:00)
[2019-01-14] MEDS ORDERED: ALBUTEROL SULFATE HFA 90 MCG/PUFF 8 GM INHALER IH PRN (08:00)
[2019-01-14] MEDS ORDERED: MAG HYDROX/AL HYDROX/SIMETH ES 30 ML SUSPENSION UDCUP PO PRN (08:00)
[2019-01-14] MEDS: LORazepam 2 MG TABLET PO PRN (09:14)
[2019-01-14 09:43] VITALS: BP 121/87
[2019-01-14 09:45] VITALS: BP 121/87
[2019-01-14] MEDS ORDERED: INFLUENZA VIRUS VACCINE QVS 2019-20 (3YR+)/PF 60 MCG/0.5 ML SYRINGE IM ONE (11:00)
[2019-01-14] MEDS: THIAMINE HCL 100 MG TABLET PO SCH (11:09)
[2019-01-14] MEDS: HALOPERIDOL 5 MG TABLET PO PRN (15:37)
[2019-01-14 20:18] VITALS: BP 120/80
[2019-01-14] MEDS: QUEtiapine FUMARATE 300 MG ER TABLET PO SCH (20:25)
[2019-01-15] MEDS: LORazepam 2 MG TABLET PO PRN ×2 (04:59→10:51)
[2019-01-15 05:00] VITALS: BP 123/72
[2019-01-15 08:30] VITALS: BP 109/64
[2019-01-15] MEDS: FOLIC ACID 1 MG TABLET PO SCH (08:40)
[2019-01-15] MEDS: ESCITALOPRAM OXALATE 20 MG TABLET PO SCH (08:40)
[2019-01-15] MEDS: THIAMINE HCL 100 MG TABLET PO SCH (08:40)
[2019-01-15 10:51] VITALS: BP 116/68
[2019-01-15 17:48] VITALS: BP 123/42
[2019-01-15] MEDS: QUEtiapine FUMARATE 300 MG ER TABLET PO SCH (20:38)
[2019-01-16 02:45] VITALS: BP 121/76
[2019-01-16] MEDS: LORazepam 2 MG TABLET PO PRN ×3 (02:46→21:03)
[2019-01-16] MEDS: IBUPROFEN 600 MG TABLET PO PRN ×2 (02:47→10:38)
[2019-01-16] MEDS: THIAMINE HCL 100 MG TABLET PO SCH (08:24)
[2019-01-16] MEDS: ESCITALOPRAM OXALATE 20 MG TABLET PO SCH (08:24)
[2019-01-16] MEDS: FOLIC ACID 1 MG TABLET PO SCH (08:25)
[2019-01-16 08:30] VITALS: BP 130/77
[2019-01-16 10:38] VITALS: BP 124/68
[2019-01-16 16:00] VITALS: BP 113/84
[2019-01-16] MEDS: QUEtiapine FUMARATE 300 MG ER TABLET PO SCH (20:18)
[2019-01-16 21:03] VITALS: BP 127/79
[2019-01-17] MEDS: ESCITALOPRAM OXALATE 20 MG TABLET PO SCH (09:51)
[2019-01-17] MEDS: FOLIC ACID 1 MG TABLET PO SCH (09:51)
[2019-01-17] MEDS: THIAMINE HCL 100 MG TABLET PO SCH (09:51)
[2019-01-17 09:56] VITALS: BP 112/73
[2019-01-17] MEDS: LORazepam 2 MG TABLET PO PRN ×2 (12:20→21:06)
[2019-01-17 12:21] VITALS: BP 115/66
[2019-01-17] MEDS: IBUPROFEN 600 MG TABLET PO PRN ×2 (12:21→21:04)
[2019-01-17 13:21] VITALS: BP 109/60
[2019-01-17 16:00] VITALS: BP 101/63
[2019-01-17 21:00] VITALS: BP 118/80
[2019-01-17] MEDS: HALOPERIDOL 5 MG TABLET PO PRN (21:04)
[2019-01-17] MEDS: QUEtiapine FUMARATE 300 MG ER TABLET PO SCH (21:55)
[2019-01-18] MEDS: THIAMINE HCL 100 MG TABLET PO SCH (08:49)
[2019-01-18] MEDS: ESCITALOPRAM OXALATE 20 MG TABLET PO SCH (08:49)
[2019-01-18] MEDS: FOLIC ACID 1 MG TABLET PO SCH (08:49)
[2019-01-18 08:55] VITALS: BP 107/86
[2019-01-18] MEDS: IBUPROFEN 600 MG TABLET PO PRN (09:04)
[2019-01-18] MEDS: LORazepam 2 MG TABLET PO PRN ×3 (09:04→20:41)
[2019-01-18 09:07] VITALS: BP 101/59
[2019-01-18 10:04] VITALS: BP 122/71
[2019-01-18] MEDS: HALOPERIDOL 5 MG TABLET PO PRN (16:17)
[2019-01-18 18:21] VITALS: BP 123/77
[2019-01-18] MEDS: QUEtiapine FUMARATE 300 MG ER TABLET PO SCH (20:40)
[2019-01-19 02:20] VITALS: BP 116/79
[2019-01-19] MEDS: THIAMINE HCL 100 MG TABLET PO SCH (08:35)
[2019-01-19] MEDS: ESCITALOPRAM OXALATE 20 MG TABLET PO SCH (08:36)
[2019-01-19] MEDS: FOLIC ACID 1 MG TABLET PO SCH (08:36)
[2019-01-19] MEDS: LORazepam 2 MG TABLET PO PRN ×2 (08:39→12:47)
[2019-01-19 09:12] VITALS: BP 107/61
[2019-01-19 12:47] VITALS: BP 107/61
[2019-01-19] MEDS: IBUPROFEN 600 MG TABLET PO PRN (12:47)
[2019-01-19] MEDS ORDERED: ESCI20TA43 PO (15:47)
== END 2019-01-19 16:30 | disposition home or self-care (01) | DRG 885 ==
LOC: EMS 03:12 → 3EX 07:04
PROVIDERS: ADMIT Psychiatry & Neurology Psychiatry; ATTEND Psychiatry & Neurology Psychiatry
DX: F25.9 Schizoaffective disorder, unspecified (principal); F17.200 Nicotine dependence, unspecified, uncomplicated; F31.9 Bipolar disorder, unspecified; G43.909 Migraine, unspecified, not intractable, without status migrainosus; G47.00 Insomnia, unspecified; K59.00 Constipation, unspecified; F41.9 Anxiety disorder, unspecified; Z56.0 Unemployment, unspecified
CPT/HCPCS: G0378; G0480

== ENCOUNTER 2019-05-13 18:58 | Emergency (ER) | payer OTHER, MEDICAID ==
[~2019-05-13] VITALS: Ht 167.6 cm; Wt 72.7 kg
[~2019-05-13 18:58] MED LIST changes: +ESCI20TA43 PO
[2019-05-13 20:15] VITALS: BP 115/98
== END 2019-05-13 20:58 | disposition home or self-care (01) ==
LOC: EMS 19:03
DX: S06.0X9A Concussion with loss of consciousness of unspecified duration, initial encounter (principal); F41.9 Anxiety disorder, unspecified; F31.9 Bipolar disorder, unspecified; F17.210 Nicotine dependence, cigarettes, uncomplicated; Y04.2XXA Assault by strike against or bumped into by another person, initial encounter; Y93.89 Activity, other specified; Y92.524 Gas station as the place of occurrence of the external cause; Y99.8 Other external cause status
CPT/HCPCS: 70450

== ENCOUNTER 2019-05-15 00:45 | Inpatient (IN) | payer MEDICARE, MEDICAID ==
[~2019-05-15] VITALS: Ht 170.2 cm; Wt 76.6 kg
[2019-05-15] MEDS ORDERED: ZOLPIDEM TARTRATE 10 MG TABLET PO PRN (02:30)
[2019-05-15 03:36] VITALS: BP 132/86
[2019-05-15] MEDS: LORazepam 2 MG TABLET PO PRN ×3 (04:05→14:27)
[2019-05-15 04:13] VITALS: BP 132/86
[2019-05-15] MEDS: HALOPERIDOL 5 MG TABLET PO PRN (09:00)
[2019-05-15 10:16] VITALS: BP 138/85
[2019-05-15] MEDS: ESCITALOPRAM OXALATE 20 MG TABLET PO SCH (14:27)
[2019-05-15] MEDS ORDERED: ONDANSETRON HCL 4 MG TABLET PO PRN (16:45)
[2019-05-15] MEDS ORDERED: MAGNESIUM HYDROXIDE SUSPENSION 30 ML UDCUP PO PRN (16:45)
[2019-05-15] MEDS ORDERED: CloNIDine HCL 0.1 MG TABLET PO PRN (16:45)
[2019-05-15] MEDS ORDERED: LOPERAMIDE HCL 2 MG CAPSULE PO PRN (16:45)
[2019-05-15] MEDS ORDERED: MAG HYDROX/AL HYDROX/SIMETH ES 30 ML SUSPENSION UDCUP PO PRN (16:45)
[2019-05-15] MEDS ORDERED: ALBUTEROL SULFATE HFA 90 MCG/PUFF 8 GM INHALER IH PRN (16:45)
[2019-05-15] MEDS ORDERED: DOCUSATE SODIUM 100 MG CAPSULE PO PRN (16:45)
[2019-05-15] MEDS ORDERED: NICOTINE 14 MG/24 HOUR PATCH TD PRN (16:45)
[2019-05-15] MEDS ORDERED: PETROLATUM,WHITE 28 GM JELLY TP PRN (16:45)
[2019-05-15] MEDS ORDERED: GuaiFENesin/D-METHORPHAN [SUGAR-FREE] 200-20MG/10 ML SYRUP UDCUP PO PRN (16:45)
[2019-05-15 17:12] VITALS: BP 133/99
[2019-05-15] MEDS: QUEtiapine FUMARATE 300 MG ER TABLET PO SCH (20:21)
[2019-05-16] MEDS: IBUPROFEN 400 MG TABLET PO PRN ×2 (04:32→14:38)
[2019-05-16] MEDS: LORazepam 2 MG TABLET PO PRN ×2 (04:32→14:42)
[2019-05-16 04:35] VITALS: BP 122/80
[2019-05-16] MEDS: ESCITALOPRAM OXALATE 20 MG TABLET PO SCH (08:05)
[2019-05-16] MEDS: QUEtiapine FUMARATE 300 MG ER TABLET PO SCH (20:35)
[2019-05-17 06:50] VITALS: BP 127/85
[2019-05-17] MEDS: LORazepam 2 MG TABLET PO PRN ×2 (06:56→17:12)
[2019-05-17 07:20] LABS: CHOL/HDL RATIO 2.2 (4.2-7.3)
[2019-05-17 08:00] VITALS: BP 115/64
[2019-05-17] MEDS: ESCITALOPRAM OXALATE 20 MG TABLET PO SCH (09:08)
[2019-05-17] MEDS: MULTIVITAMINS WITH MINERALS, THERAPEUTIC TABLET PO SCH (09:08)
[2019-05-17 17:12] VITALS: BP 135/91
[2019-05-17] MEDS: IBUPROFEN 400 MG TABLET PO PRN (17:13)
[2019-05-17 18:07] VITALS: BP 108/64
[2019-05-17] MEDS: QUEtiapine FUMARATE 300 MG ER TABLET PO SCH (20:18)
[2019-05-18] MEDS: IBUPROFEN 400 MG TABLET PO PRN (08:31)
[2019-05-18] MEDS: ESCITALOPRAM OXALATE 20 MG TABLET PO SCH (08:31)
[2019-05-18] MEDS: HALOPERIDOL 5 MG TABLET PO PRN (08:31)
[2019-05-18] MEDS: LORazepam 2 MG TABLET PO PRN ×2 (08:31→15:42)
[2019-05-18] MEDS: MULTIVITAMINS WITH MINERALS, THERAPEUTIC TABLET PO SCH (08:32)
[2019-05-18 08:39] VITALS: BP 126/78
[2019-05-18 09:03] LABS: APPEARANCE,URINE CLEAR (CLEAR); BILIRUBIN,URINE NEGATIVE (NEGATIVE); GLUCOSE, URINE (UA) NEGATIVE (NEGATIVE); KETONES,URINE NEGATIVE (NEGATIVE); LEUKOCYTE ESTERASE ,URINE NEGATIVE (NEGATIVE); NITRATE,URINE NEGATIVE (NEGATIVE); OCCULT BLOOD,URINE NEGATIVE (NEGATIVE); PH,URINE 7.5 (5.0-8.0); PROTEIN,URINE NEGATIVE (NEGATIVE)
[2019-05-18 09:11] LABS: AMPHET/METH SCREEN,URINE NEGATIVE (NEGATIVE); BARBITURATE SCREEN, URINE NEGATIVE (NEGATIVE); BENZODIAZEPINES SCREEN,URINE NEGATIVE (NEGATIVE); CANNABINOID SCREEN,URINE NEGATIVE (NEGATIVE); COCAINE SCREEN,URINE NEGATIVE (NEGATIVE); METHADONE SCREEN, URINE NEGATIVE (NEGATIVE); OPIATE SCREEN,URINE NEGATIVE (NEGATIVE)
[2019-05-18 09:15] LABS: PHENCYCLIDINE SCREEN,URINE NEGATIVE (NEGATIVE)
[2019-05-18 15:42] VITALS: BP 112/68
[2019-05-18] MEDS: ACETAMINOPHEN 325 MG TABLET PO PRN (15:42)
[2019-05-18 19:10] VITALS: BP 112/68
[2019-05-18] MEDS: QUEtiapine FUMARATE 300 MG ER TABLET PO SCH (20:36)
[2019-05-19] MEDS: IBUPROFEN 400 MG TABLET PO PRN (07:12)
[2019-05-19] MEDS: LORazepam 2 MG TABLET PO PRN ×2 (07:12→12:28)
[2019-05-19 07:13] VITALS: BP 122/77
[2019-05-19 08:12] VITALS: BP 110/64
[2019-05-19] MEDS: ESCITALOPRAM OXALATE 20 MG TABLET PO SCH (08:41)
[2019-05-19] MEDS: MULTIVITAMINS WITH MINERALS, THERAPEUTIC TABLET PO SCH (08:41)
[2019-05-19] MEDS: BACITRACIN 28.4 GM OINTMENT TP SCH ×2 (09:00→09:02)
[2019-05-19 09:32] VITALS: BP 103/52
[2019-05-19 17:14] VITALS: BP 108/61
[2019-05-19] MEDS: QUEtiapine FUMARATE 300 MG ER TABLET PO SCH (20:35)
[2019-05-20 06:48] VITALS: BP 111/75
[2019-05-20] MEDS: LORazepam 2 MG TABLET PO PRN ×3 (06:49→16:44)
[2019-05-20] MEDS: IBUPROFEN 400 MG TABLET PO PRN (06:49)
[2019-05-20 07:49] VITALS: BP 105/65
[2019-05-20] MEDS: BACITRACIN 28.4 GM OINTMENT TP SCH (09:00)
[2019-05-20 09:12] VITALS: BP 105/65
[2019-05-20] MEDS: ESCITALOPRAM OXALATE 20 MG TABLET PO SCH (09:33)
[2019-05-20] MEDS: MULTIVITAMINS WITH MINERALS, THERAPEUTIC TABLET PO SCH (09:33)
[2019-05-20 16:13] VITALS: BP 126/72
[2019-05-20] MEDS: ACETAMINOPHEN 325 MG TABLET PO PRN (16:44)
[2019-05-20] MEDS: QUEtiapine FUMARATE 300 MG ER TABLET PO SCH (20:25)
[2019-05-21] MEDS: ACETAMINOPHEN 325 MG TABLET PO PRN (06:19)
[2019-05-21] MEDS: MULTIVITAMINS WITH MINERALS, THERAPEUTIC TABLET PO SCH (08:16)
[2019-05-21] MEDS: ESCITALOPRAM OXALATE 20 MG TABLET PO SCH (08:16)
[2019-05-21] MEDS: BACITRACIN 28.4 GM OINTMENT TP SCH (08:23)
[2019-05-21 09:30] VITALS: BP 106/74
[2019-05-21 11:09] VITALS: BP 108/65
[2019-05-21] MEDS: IBUPROFEN 400 MG TABLET PO PRN (11:09)
[2019-05-21] MEDS: LORazepam 2 MG TABLET PO PRN ×2 (11:17→20:11)
[2019-05-21 19:13] VITALS: BP 121/63
[2019-05-21 20:11] VITALS: BP 114/73
[2019-05-21] MEDS: QUEtiapine FUMARATE 300 MG ER TABLET PO SCH (20:11)
[2019-05-22] MEDS: HALOPERIDOL 5 MG TABLET PO PRN (06:30)
[2019-05-22] MEDS: LORazepam 2 MG TABLET PO PRN ×2 (06:30→14:42)
[2019-05-22] MEDS: IBUPROFEN 400 MG TABLET PO PRN (06:32)
[2019-05-22 06:33] VITALS: BP 120/76
[2019-05-22] MEDS: ESCITALOPRAM OXALATE 20 MG TABLET PO SCH (08:14)
[2019-05-22] MEDS: MULTIVITAMINS WITH MINERALS, THERAPEUTIC TABLET PO SCH (08:14)
[2019-05-22] MEDS: BACITRACIN 28.4 GM OINTMENT TP SCH (08:17)
[2019-05-22 10:03] VITALS: BP 113/72
[2019-05-22 13:17] VITALS: BP_SYST 104; BP_SYST 95; BP_DIAS 55; BP_DIAS 61
[2019-05-22] MEDS: ACETAMINOPHEN 325 MG TABLET PO PRN (13:17)
[2019-05-22 14:41] VITALS: BP 108/63
[2019-05-22 16:30] VITALS: BP 110/59
[2019-05-22] MEDS: QUEtiapine FUMARATE 300 MG ER TABLET PO SCH (20:14)
[2019-05-23] MEDS: LORazepam 2 MG TABLET PO PRN ×4 (05:42→23:52)
[2019-05-23] MEDS: BUTALBITAL/ACETAMINOPHEN/CAFFEINE 50-325-40 MG TABLET PO PRN ×2 (05:43→17:59)
[2019-05-23] MEDS: ESCITALOPRAM OXALATE 20 MG TABLET PO SCH (08:00)
[2019-05-23] MEDS: MULTIVITAMINS WITH MINERALS, THERAPEUTIC TABLET PO SCH (08:00)
[2019-05-23] MEDS: BACITRACIN 28.4 GM OINTMENT TP SCH (08:00)
[2019-05-23 08:45] VITALS: BP 116/65
[2019-05-23] MEDS: IBUPROFEN 400 MG TABLET PO PRN ×2 (09:58→23:52)
[2019-05-23 16:11] VITALS: BP 117/73
[2019-05-23] MEDS: ACETAMINOPHEN 325 MG TABLET PO PRN (16:11)
[2019-05-23 16:46] VITALS: BP 117/73
[2019-05-23 17:59] VITALS: BP 120/80
[2019-05-23] MEDS: QUEtiapine FUMARATE 300 MG ER TABLET PO SCH (20:21)
[2019-05-23 23:49] VITALS: BP 101/68
[2019-05-24 02:06] VITALS: BP 112/65
[2019-05-24] MEDS: BUTALBITAL/ACETAMINOPHEN/CAFFEINE 50-325-40 MG TABLET PO PRN ×2 (06:03→18:21)
[2019-05-24] MEDS: LORazepam 2 MG TABLET PO PRN ×3 (06:03→16:00)
[2019-05-24 08:40] VITALS: BP 142/67
[2019-05-24] MEDS: MULTIVITAMINS WITH MINERALS, THERAPEUTIC TABLET PO SCH (10:26)
[2019-05-24] MEDS: ESCITALOPRAM OXALATE 20 MG TABLET PO SCH (10:26)
[2019-05-24] MEDS: BACITRACIN 28.4 GM OINTMENT TP SCH (10:26)
[2019-05-24 16:00] VITALS: BP 120/87
[2019-05-24 16:22] VITALS: BP 120/70
[2019-05-24 18:21] VITALS: BP 120/80
[2019-05-24] MEDS: QUEtiapine FUMARATE 300 MG ER TABLET PO SCH (20:31)
[2019-05-25] MEDS: LORazepam 2 MG TABLET PO PRN ×2 (02:16→09:00)
[2019-05-25] MEDS: BUTALBITAL/ACETAMINOPHEN/CAFFEINE 50-325-40 MG TABLET PO PRN ×2 (06:34→18:37)
[2019-05-25 08:38] VITALS: BP 136/81
[2019-05-25] MEDS: BACITRACIN 28.4 GM OINTMENT TP SCH (09:00)
[2019-05-25] MEDS: MULTIVITAMINS WITH MINERALS, THERAPEUTIC TABLET PO SCH (09:56)
[2019-05-25] MEDS: ESCITALOPRAM OXALATE 20 MG TABLET PO SCH (09:56)
[2019-05-25] MEDS: IBUPROFEN 400 MG TABLET PO PRN (10:40)
[2019-05-25 16:30] VITALS: BP 104/59
[2019-05-25 16:49] VITALS: BP 113/60
[2019-05-25] MEDS: ACETAMINOPHEN 325 MG TABLET PO PRN (16:49)
[2019-05-25 18:37] VITALS: BP 120/76
[2019-05-25] MEDS: QUEtiapine FUMARATE 300 MG ER TABLET PO SCH (20:02)
[2019-05-26 03:30] VITALS: BP 101/60
[2019-05-26] MEDS: IBUPROFEN 400 MG TABLET PO PRN ×2 (03:32→14:05)
[2019-05-26] MEDS: LORazepam 1 MG TABLET PO PRN ×3 (03:32→16:08)
[2019-05-26] MEDS: BUTALBITAL/ACETAMINOPHEN/CAFFEINE 50-325-40 MG TABLET PO PRN ×2 (06:40→18:57)
[2019-05-26] MEDS: MULTIVITAMINS WITH MINERALS, THERAPEUTIC TABLET PO SCH (08:05)
[2019-05-26] MEDS: ESCITALOPRAM OXALATE 20 MG TABLET PO SCH (08:05)
[2019-05-26] MEDS: BACITRACIN 28.4 GM OINTMENT TP SCH (08:08)
[2019-05-26 08:22] VITALS: BP 112/61
[2019-05-26 16:50] VITALS: BP 119/74
[2019-05-26 18:57] VITALS: BP 123/74
[2019-05-26] MEDS: QUEtiapine FUMARATE 300 MG ER TABLET PO SCH (20:17)
[2019-05-27] VITALS (7 sets, daily range): BP systolic 105–125; BP diastolic 62–73
[2019-05-27] MEDS: LORazepam 1 MG TABLET PO PRN ×3 (02:39→17:00)
[2019-05-27] MEDS: BUTALBITAL/ACETAMINOPHEN/CAFFEINE 50-325-40 MG TABLET PO PRN ×2 (06:48→18:52)
[2019-05-27] MEDS: BACITRACIN 28.4 GM OINTMENT TP SCH (09:00)
[2019-05-27] MEDS: ESCITALOPRAM OXALATE 20 MG TABLET PO SCH (09:45)
[2019-05-27] MEDS: MULTIVITAMINS WITH MINERALS, THERAPEUTIC TABLET PO SCH (09:45)
[2019-05-27] MEDS: IBUPROFEN 400 MG TABLET PO PRN (09:47)
[2019-05-27] MEDS: ACETAMINOPHEN 325 MG TABLET PO PRN (15:48)
[2019-05-27] MEDS: QUEtiapine FUMARATE 300 MG ER TABLET PO SCH (20:38)
[2019-05-28] MEDS: LORazepam 1 MG TABLET PO PRN ×2 (01:55→08:40)
[2019-05-28 03:43] VITALS: BP 120/68
[2019-05-28] MEDS: BUTALBITAL/ACETAMINOPHEN/CAFFEINE 50-325-40 MG TABLET PO PRN (07:11)
[2019-05-28] MEDS: BACITRACIN 28.4 GM OINTMENT TP SCH (08:33)
[2019-05-28] MEDS: MULTIVITAMINS WITH MINERALS, THERAPEUTIC TABLET PO SCH (08:33)
[2019-05-28] MEDS: ESCITALOPRAM OXALATE 20 MG TABLET PO SCH (08:33)
[2019-05-28] MEDS: IBUPROFEN 400 MG TABLET PO PRN (08:41)
[2019-05-28 09:53] VITALS: BP 109/58
== END 2019-05-28 13:00 | disposition home or self-care (01) | DRG 885 ==
LOC: 3EI 02:30
DX: F25.0 Schizoaffective disorder, bipolar type (principal); B18.2 Chronic viral hepatitis C; R45.851 Suicidal ideations; F10.10 Alcohol abuse, uncomplicated; F17.200 Nicotine dependence, unspecified, uncomplicated; G43.909 Migraine, unspecified, not intractable, without status migrainosus; K21.9 Gastro-esophageal reflux disease without esophagitis; K59.00 Constipation, unspecified; R45.850 Homicidal ideations; Z79.899 Other long term (current) drug therapy
CPT/HCPCS: 80307; 87081

== ENCOUNTER 2019-06-04 12:28 | Emergency (ER) | payer OTHER ==
[~2019-06-04] VITALS: Ht 170.2 cm; Wt 77.3 kg
[~2019-06-04 12:28] MED LIST changes: -ESCI20TA PO; -ESCI20TA43 PO; +VENL-67 PO
[2019-06-04 13:22] LABS: BASOPHILS % (AUTO) 0.4 % (0.0-2.0); EOSINOPHILS % (AUTO) 0.1 % (1.0-6.0); HEMATOCRIT 48.5 % (41-53); HEMOGLOBIN 16.2 g/dL (13.5-17.5); LYMPHOCYTES # (AUTO) 1.7 K/uL (1.0-4.8); LYMPHOCYTES % (AUTO) 14.7 % (22.0-44.0); MEAN CORPUSCULAR HEMOGLOBIN 30.4 pg (26.0-34.0); MEAN CORPUSCULAR HGB CONC 33.5 G/dL (31.0-37.0); MEAN CORPUSCULAR VOLUME 91 fL (80-100); MONOCYTES # (AUTO) 1.1 K/uL (0.1-1.0); MONOCYTES % (AUTO) 9.1 % (2.0-9.0); NEUTROPHILS # (AUTO) 8.9 K/uL (1.8-7.7); NEUTROPHILS % (AUTO) 75.7 % (40.0-70.0); PLATELET COUNT (AUTO) 344 K/uL (150-450); RED BLOOD CELL COUNT(AUTO) 5.35 MIL/uL (4.50-5.90); RED CELL DISTRIBUTION WIDTH 13.5 % (11.5-14.5)
[2019-06-04 13:28] VITALS: BP 144/93
[2019-06-04 13:34] LABS: ANION GAP 10 mmol/L (8-16); CALCIUM, TOTAL 9.3 mg/dL (8.8-10.5); CARBON DIOXIDE 28 mmol/L (22-29); CHLORIDE 103 mmol/L (98-107); CREATININE 0.98 mg/dL (0.60-1.30); GLOMERULAR FILTR. RATE CALC > 60 mL/min (>60); GLUCOSE,RANDOM 95 mg/dL (70-110); POTASSIUM 3.9 mmol/L (3.5-5.1); SODIUM SERUM 141 mmol/L (136-145); UREA NITROGEN, BLOOD 16 mg/dL (7-18)
[2019-06-04 13:40] LABS: ALANINE AMINOTRANSFERASE 155 U/L (12-78); ALBUMIN 4.9 g/dL (3.4-5.0); ALKALINE PHOSPHATASE 56 U/L (46-116); ASPARTATE AMINOTRANSFERASE 78 U/L (15-37); BILIRUBIN,TOTAL 0.3 mg/dL (0.1-1.0); TOTAL PROTEIN, SERUM 9.4 g/dL (6.4-8.2)
[2019-06-04 13:41] LABS: ACETAMINOPHEN < 2 mcg/mL (10-30)
[2019-06-04 13:50] LABS: SALICYLATE 2.6 mg/dL (2.8-20.0)
[2019-06-04] MEDS ORDERED: IBUPROFEN 400 MG TABLET PO ONE (14:00)
== END 2019-06-04 14:44 | disposition home or self-care (01) ==
LOC: EMS 12:28
DX: F10.10 Alcohol abuse, uncomplicated (principal); R44.1 Visual hallucinations; R45.851 Suicidal ideations; F31.9 Bipolar disorder, unspecified; F41.9 Anxiety disorder, unspecified; F17.210 Nicotine dependence, cigarettes, uncomplicated
CPT/HCPCS: 80053; 85025; 93005; 99284; G0480; G0481

== ENCOUNTER 2019-10-24 16:29 | Inpatient (IN) | payer MEDICARE, MEDICAID ==
[~2019-10-24] VITALS: Ht 170.2 cm; Wt 79.1 kg
[2019-10-24 17:34] LABS: BASOPHILS % (AUTO) 0.7 % (0.0-2.0); EOSINOPHILS % (AUTO) 2.6 % (1.0-6.0); HEMATOCRIT 39.3 % (41-53); HEMOGLOBIN 13.1 g/dL (13.5-17.5); LYMPHOCYTES # (AUTO) 2.4 K/uL (1.0-4.8); LYMPHOCYTES % (AUTO) 25.9 % (22.0-44.0); MEAN CORPUSCULAR HEMOGLOBIN 30.3 pg (26.0-34.0); MEAN CORPUSCULAR HGB CONC 33.3 G/dL (31.0-37.0); MEAN CORPUSCULAR VOLUME 91 fL (80-100); MONOCYTES # (AUTO) 0.7 K/uL (0.1-1.0); MONOCYTES % (AUTO) 8.1 % (2.0-9.0); NEUTROPHILS # (AUTO) 5.7 K/uL (1.8-7.7); NEUTROPHILS % (AUTO) 62.7 % (40.0-70.0); PLATELET COUNT (AUTO) 260 K/uL (150-450); RED BLOOD CELL COUNT(AUTO) 4.32 MIL/uL (4.50-5.90); RED CELL DISTRIBUTION WIDTH 13.4 % (11.5-14.5)
[2019-10-24 17:45] LABS: ANION GAP 7 mmol/L (8-16); CALCIUM, TOTAL 8.3 mg/dL (8.8-10.5); CARBON DIOXIDE 28 mmol/L (22-29); CHLORIDE 104 mmol/L (98-107); CREATININE 0.99 mg/dL (0.60-1.30); GLOMERULAR FILTR. RATE CALC > 60 mL/min (>60); GLUCOSE,RANDOM 141 mg/dL (70-110); POTASSIUM 3.3 mmol/L (3.5-5.1); SODIUM SERUM 139 mmol/L (136-145); UREA NITROGEN, BLOOD 9 mg/dL (7-18)
[2019-10-24 17:51] LABS: ALANINE AMINOTRANSFERASE 135 U/L (12-78); ALKALINE PHOSPHATASE 39 U/L (46-116); ASPARTATE AMINOTRANSFERASE 68 U/L (15-37); BILIRUBIN,TOTAL 0.2 mg/dL (0.1-1.0); TOTAL PROTEIN, SERUM 6.5 g/dL (6.4-8.2)
[2019-10-24] MEDS ORDERED: PROMETHAZINE HCL 25 MG TABLET PO PRN (18:00)
[2019-10-24] MEDS ORDERED: LOPERAMIDE HCL 2 MG CAPSULE PO PRN (18:00)
[2019-10-24] MEDS ORDERED: MAG HYDROX/AL HYDROX/SIMETH ES 30 ML SUSPENSION UDCUP PO PRN (18:00)
[2019-10-24] MEDS ORDERED: LORazepam 2 MG TABLET PO PRN (18:00)
[2019-10-24] MEDS ORDERED: MAGNESIUM HYDROXIDE SUSPENSION 30 ML UDCUP PO PRN (18:00)
[2019-10-24] MEDS ORDERED: HydrOXYzine PAMOATE 50 MG CAPSULE PO PRN (18:00)
[2019-10-24] MEDS ORDERED: OLANZapine 5 MG RAPDIS TABLET PO PRN (18:00)
[2019-10-24] MEDS ORDERED: TUBERCULIN, PURIFIED PROTEIN DERIVATIVE 5 TU/0.1 ML SYRINGE ID ONE (18:00)
[2019-10-24] MEDS ORDERED: ZOLPIDEM TARTRATE 10 MG TABLET PO PRN (18:00)
[2019-10-24] MEDS ORDERED: GuaiFENesin/D-METHORPHAN [SUGAR-FREE] 200-20MG/10 ML SYRUP UDCUP PO PRN (18:00)
[2019-10-24 18:12] LABS: AMPHET/METH SCREEN,URINE NEGATIVE (NEGATIVE); BARBITURATE SCREEN, URINE NEGATIVE (NEGATIVE); BENZODIAZEPINES SCREEN,URINE NEGATIVE (NEGATIVE); CANNABINOID SCREEN,URINE NEGATIVE (NEGATIVE); COCAINE SCREEN,URINE NEGATIVE (NEGATIVE); METHADONE SCREEN, URINE NEGATIVE (NEGATIVE); OPIATE SCREEN,URINE NEGATIVE (NEGATIVE)
[2019-10-24 18:14] LABS: PHENCYCLIDINE SCREEN,URINE NEGATIVE (NEGATIVE)
[2019-10-24] MEDS ORDERED: OMEPRAZOLE 20 MG CAPSULE PO ONE (18:30)
[2019-10-24] MEDS ORDERED: MAG HYDROX/AL HYDROX/SIMETH ES 30 ML SUSPENSION UDCUP PO ONE (18:30)
[2019-10-24] MEDS ORDERED: POTASSIUM CHLORIDE 10% 40 MEQ/30 ML LIQUID UDCUP PO ONE (19:00)
[2019-10-24] MEDS ORDERED: OLANZapine 10 MG RAPDIS TABLET PO SCH (21:00)
[2019-10-25] MEDS: LORazepam 2 MG TABLET PO SCH ×4 (01:42→20:20)
[2019-10-25 05:49] VITALS: BP 111/66
[2019-10-25 08:09] VITALS: BP 107/71
[2019-10-25] MEDS ORDERED: FLUoxetine HCL 10 MG CAPSULE PO SCH (09:00)
[2019-10-25] MEDS: OMEGA-3/DHA/EPA/FISH OIL 1,000 MG CAPSULE PO SCH (09:55)
[2019-10-25] MEDS: NALTREXONE HCL 50 MG TABLET PO SCH (09:55)
[2019-10-25] MEDS: FOLIC ACID 1 MG TABLET PO SCH (09:55)
[2019-10-25] MEDS: MULTIVITAMINS WITH MINERALS, THERAPEUTIC TABLET PO SCH (09:55)
[2019-10-25] MEDS: THIAMINE 100 MG TABLET PO SCH ×2 (09:57→16:17)
[2019-10-25] MEDS: LORazepam 2 MG TABLET PO PRN (09:59)
[2019-10-25 16:09] VITALS: BP 114/71
[2019-10-25] MEDS: NYSTATIN 15 GM POWDER BOTTLE TP SCH (16:18)
[2019-10-26 06:21] VITALS: BP 133/97
[2019-10-26] MEDS: LORazepam 2 MG TABLET PO PRN (06:21)
[2019-10-26 08:46] VITALS: BP 107/65
[2019-10-26] MEDS: NYSTATIN 15 GM POWDER BOTTLE TP SCH ×2 (09:00→16:58)
[2019-10-26] MEDS ORDERED: CYANOCOBALAMIN 1,000 MCG/ML VIAL IM ONE (09:00)
[2019-10-26] MEDS: MULTIVITAMINS WITH MINERALS, THERAPEUTIC TABLET PO SCH (09:53)
[2019-10-26] MEDS: ESCITALOPRAM OXALATE 10 MG TABLET PO SCH (09:53)
[2019-10-26] MEDS: FOLIC ACID 1 MG TABLET PO SCH (09:54)
[2019-10-26] MEDS: OMEGA-3/DHA/EPA/FISH OIL 1,000 MG CAPSULE PO SCH (09:54)
[2019-10-26] MEDS: THIAMINE 100 MG TABLET PO SCH ×2 (09:54→16:54)
[2019-10-26] MEDS: LORazepam 2 MG TABLET PO SCH ×4 (09:54→20:29)
[2019-10-26] MEDS: NALTREXONE HCL 50 MG TABLET PO SCH (09:54)
[2019-10-26 16:27] VITALS: BP 107/61
[2019-10-26] MEDS ORDERED: OLANZapine 5 MG RAPDIS TABLET PO SCH (21:00)
[2019-10-27 01:43] VITALS: BP 102/76
[2019-10-27] MEDS: LORazepam 2 MG TABLET PO PRN ×2 (01:49→06:38)
[2019-10-27 06:27] VITALS: BP 108/64
[2019-10-27] MEDS: ACETAMINOPHEN 325 MG TABLET PO PRN (06:38)
[2019-10-27] MEDS ORDERED: LORazepam 1 MG TABLET PO PRN (07:00)
[2019-10-27 08:28] VITALS: BP 110/69
[2019-10-27] MEDS: ESCITALOPRAM OXALATE 10 MG TABLET PO SCH (08:34)
[2019-10-27] MEDS: MULTIVITAMINS WITH MINERALS, THERAPEUTIC TABLET PO SCH (08:35)
[2019-10-27] MEDS: OMEGA-3/DHA/EPA/FISH OIL 1,000 MG CAPSULE PO SCH (08:35)
[2019-10-27] MEDS: FOLIC ACID 1 MG TABLET PO SCH (08:35)
[2019-10-27] MEDS: NALTREXONE HCL 50 MG TABLET PO SCH (08:35)
[2019-10-27] MEDS: LORazepam 1 MG TABLET PO SCH ×4 (08:35→20:16)
[2019-10-27] MEDS: THIAMINE 100 MG TABLET PO SCH ×2 (08:35→17:06)
[2019-10-27] MEDS: NYSTATIN 15 GM POWDER BOTTLE TP SCH ×2 (08:40→17:00)
[2019-10-27 16:08] VITALS: BP 107/63
[2019-10-27] MEDS ORDERED: LOPERAMIDE HCL 2 MG CAPSULE PO PRN (18:00)
[2019-10-27] MEDS: OLANZapine 10 MG RAPDIS TABLET PO SCH (20:16)
[2019-10-28 06:51] VITALS: BP 108/72
[2019-10-28 08:59] VITALS: BP 101/70
[2019-10-28] MEDS: NYSTATIN 15 GM POWDER BOTTLE TP SCH ×2 (09:00→16:54)
[2019-10-28] MEDS: MULTIVITAMINS WITH MINERALS, THERAPEUTIC TABLET PO SCH (09:07)
[2019-10-28] MEDS: OMEGA-3/DHA/EPA/FISH OIL 1,000 MG CAPSULE PO SCH (09:08)
[2019-10-28] MEDS: NALTREXONE HCL 50 MG TABLET PO SCH (09:08)
[2019-10-28] MEDS: FOLIC ACID 1 MG TABLET PO SCH (09:08)
[2019-10-28] MEDS: THIAMINE 100 MG TABLET PO SCH ×2 (09:08→16:54)
[2019-10-28] MEDS: ESCITALOPRAM OXALATE 10 MG TABLET PO SCH (09:08)
[2019-10-28] MEDS: LORazepam 1 MG TABLET PO PRN (12:34)
[2019-10-28 18:14] VITALS: BP 127/89
[2019-10-28] MEDS: OLANZapine 10 MG RAPDIS TABLET PO SCH (20:25)
[2019-10-29 00:40] VITALS: BP 123/77
[2019-10-29] MEDS: LORazepam 1 MG TABLET PO PRN (00:47)
[2019-10-29 08:18] VITALS: BP 120/73
[2019-10-29] MEDS ORDERED: ESCITALOPRAM OXALATE 10 MG TABLET PO SCH (09:00)
[2019-10-29] MEDS: OMEGA-3/DHA/EPA/FISH OIL 1,000 MG CAPSULE PO SCH (09:31)
[2019-10-29] MEDS: NALTREXONE HCL 50 MG TABLET PO SCH (09:31)
[2019-10-29] MEDS: THIAMINE 100 MG TABLET PO SCH ×2 (09:31→16:24)
[2019-10-29] MEDS: MULTIVITAMINS WITH MINERALS, THERAPEUTIC TABLET PO SCH (09:31)
[2019-10-29] MEDS: FOLIC ACID 1 MG TABLET PO SCH (09:31)
[2019-10-29] MEDS: NYSTATIN 15 GM POWDER BOTTLE TP SCH ×2 (09:37→17:27)
[2019-10-29 16:11] VITALS: BP 112/68
[2019-10-29] MEDS: ACETAMINOPHEN 325 MG TABLET PO PRN (16:25)
[2019-10-29] MEDS: OLANZapine 10 MG RAPDIS TABLET PO SCH (20:27)
[2019-10-30 06:30] VITALS: BP 115/74
[2019-10-30] MEDS: NYSTATIN 15 GM POWDER BOTTLE TP SCH ×2 (09:00→16:07)
[2019-10-30] MEDS: THIAMINE 100 MG TABLET PO SCH ×2 (09:38→16:06)
[2019-10-30] MEDS: FOLIC ACID 1 MG TABLET PO SCH (09:38)
[2019-10-30] MEDS: OMEGA-3/DHA/EPA/FISH OIL 1,000 MG CAPSULE PO SCH (09:38)
[2019-10-30] MEDS: NALTREXONE HCL 50 MG TABLET PO SCH (09:38)
[2019-10-30] MEDS: MULTIVITAMINS WITH MINERALS, THERAPEUTIC TABLET PO SCH (09:38)
[2019-10-30] MEDS: VENLAFAXINE HCL 75 MG TABLET PO SCH (09:39)
[2019-10-30 09:53] VITALS: BP 122/77
[2019-10-30] MEDS: ACETAMINOPHEN 325 MG TABLET PO PRN ×2 (16:06→21:04)
[2019-10-30 16:18] VITALS: BP 117/67
[2019-10-30] MEDS: OLANZapine 10 MG RAPDIS TABLET PO SCH (20:21)
[2019-10-31 02:25] VITALS: BP 121/78
[2019-10-31] MEDS: ACETAMINOPHEN 325 MG TABLET PO PRN ×2 (02:30→10:46)
[2019-10-31] MEDS: VENLAFAXINE HCL 75 MG TABLET PO SCH (09:00)
[2019-10-31] MEDS: NALTREXONE HCL 50 MG TABLET PO SCH (09:00)
[2019-10-31 09:10] VITALS: BP 112/61
[2019-10-31] MEDS ORDERED: VENL-193 PO (10:15)
[2019-10-31] MEDS ORDERED: NALT50TA PO (10:15)
[2019-10-31] MEDS ORDERED: OMEG-135 PO (10:15)
[2019-10-31] MEDS ORDERED: OLAN10TA22 PO (10:15)
[2019-10-31] MEDS: MULTIVITAMINS WITH MINERALS, THERAPEUTIC TABLET PO SCH (10:46)
[2019-10-31] MEDS: OMEGA-3/DHA/EPA/FISH OIL 1,000 MG CAPSULE PO SCH (10:47)
[2019-10-31] MEDS: FOLIC ACID 1 MG TABLET PO SCH (10:47)
[2019-10-31] MEDS: THIAMINE 100 MG TABLET PO SCH (10:48)
[2019-10-31] MEDS: NYSTATIN 15 GM POWDER BOTTLE TP SCH (10:48)
== END 2019-10-31 20:51 | disposition home or self-care (01) | DRG 885 ==
LOC: EMS 16:29 → B2S 17:59
PROVIDERS: ADMIT Psychiatry & Neurology Psychiatry; ATTEND Psychiatry & Neurology Psychiatry
DX: F25.1 Schizoaffective disorder, depressive type (principal); B19.20 Unspecified viral hepatitis C without hepatic coma; R45.851 Suicidal ideations; K21.9 Gastro-esophageal reflux disease without esophagitis; F41.0 Panic disorder [episodic paroxysmal anxiety]; D64.9 Anemia, unspecified; E87.6 Hypokalemia; F12.90 Cannabis use, unspecified, uncomplicated; F41.9 Anxiety disorder, unspecified; G47.00 Insomnia, unspecified
CPT/HCPCS: 84132; 87426; G0480; J3420

== ENCOUNTER 2019-11-14 08:30 | Emergency (ER) | payer OTHER ==
[~2019-11-14] VITALS: Ht 170.2 cm; Wt 75.0 kg
[~2019-11-14 08:30] MED LIST changes: +NALT50TA PO; +OLAN10TA22 PO; -QUET300T5 PO; +VENL-193 PO; -VENL-67 PO
[2019-11-14] MEDS ORDERED: ASPI-728 PO (08:40)
[2019-11-14] MEDS ORDERED: ACETAMINOPHEN 325 MG TABLET PO ONE (09:15)
[2019-11-14 09:18] LABS: BASOPHILS % (AUTO) 1.4 % (0.0-2.0); EOSINOPHILS % (AUTO) 2.9 % (1.0-6.0); HEMATOCRIT 44.3 % (41-53); HEMOGLOBIN 15.4 g/dL (13.5-17.5); LYMPHOCYTES # (AUTO) 2.1 K/uL (1.0-4.8); LYMPHOCYTES % (AUTO) 32.4 % (22.0-44.0); MEAN CORPUSCULAR HEMOGLOBIN 32.4 pg (26.0-34.0); MEAN CORPUSCULAR HGB CONC 34.8 G/dL (31.0-37.0); MEAN CORPUSCULAR VOLUME 93 fL (80-100); MONOCYTES # (AUTO) 0.7 K/uL (0.1-1.0); NEUTROPHILS # (AUTO) 3.3 K/uL (1.8-7.7); NEUTROPHILS % (AUTO) 52.3 % (40.0-70.0); PLATELET COUNT (AUTO) 294 K/uL (150-450); RED BLOOD CELL COUNT(AUTO) 4.77 MIL/uL (4.50-5.90); RED CELL DISTRIBUTION WIDTH 14.6 % (11.5-14.5)
[2019-11-14 09:36] LABS: ANION GAP 9 mmol/L (8-16); CALCIUM, TOTAL 8.1 mg/dL (8.8-10.5); CARBON DIOXIDE 29 mmol/L (22-29); CHLORIDE 104 mmol/L (98-107); CREATININE 0.79 mg/dL (0.60-1.30); GLOMERULAR FILTR. RATE CALC > 60 mL/min (>60); GLUCOSE,RANDOM 112 mg/dL (70-110); SODIUM SERUM 142 mmol/L (136-145); UREA NITROGEN, BLOOD 9 mg/dL (7-18)
[2019-11-14 09:39] LABS: ALANINE AMINOTRANSFERASE 137 U/L (12-78); ALBUMIN 3.7 g/dL (3.4-5.0); ALKALINE PHOSPHATASE 53 U/L (46-116); ASPARTATE AMINOTRANSFERASE 97 U/L (15-37); BILIRUBIN,TOTAL 0.3 mg/dL (0.1-1.0); TOTAL PROTEIN, SERUM 7.5 g/dL (6.4-8.2)
[2019-11-14] MEDS ORDERED: FOLIC ACID 1 MG TABLET PO ONE (09:45)
[2019-11-14] MEDS ORDERED: THIAMINE 100 MG TABLET PO ONE (09:45)
[2019-11-14 10:25] LABS: AMPHET/METH SCREEN,URINE NEGATIVE (NEGATIVE); BARBITURATE SCREEN, URINE NEGATIVE (NEGATIVE); BENZODIAZEPINES SCREEN,URINE NEGATIVE (NEGATIVE); CANNABINOID SCREEN,URINE NEGATIVE (NEGATIVE); COCAINE SCREEN,URINE NEGATIVE (NEGATIVE); METHADONE SCREEN, URINE NEGATIVE (NEGATIVE); OPIATE SCREEN,URINE NEGATIVE (NEGATIVE)
[2019-11-14 10:26] LABS: PHENCYCLIDINE SCREEN,URINE NEGATIVE (NEGATIVE)
[2019-11-14 12:18] VITALS: BP 139/83
== END 2019-11-14 13:03 | disposition home or self-care (01) ==
LOC: EMS 08:30
DX: F32.9 Major depressive disorder, single episode, unspecified (principal); R45.851 Suicidal ideations; R74.01 Elevation of levels of liver transaminase levels; F10.10 Alcohol abuse, uncomplicated; F41.9 Anxiety disorder, unspecified; F17.210 Nicotine dependence, cigarettes, uncomplicated; Z79.82 Long term (current) use of aspirin; Y90.5 Blood alcohol level of 100-119 mg/100 ml
CPT/HCPCS: 36415; 80053; 80307; 85025; 99284; G0480

== ENCOUNTER 2019-11-15 01:20 | Inpatient (IN) | payer MEDICARE, MEDICAID ==
[~2019-11-15] VITALS: Ht 170.2 cm; Wt 80.4 kg
[~2019-11-15 01:20] MED LIST changes: +ASPI-728 PO
[2019-11-15 03:16] VITALS: BP 121/78
[2019-11-15] MEDS ORDERED: OLANZapine 5 MG RAPDIS TABLET PO PRN (06:00)
[2019-11-15 08:00] VITALS: BP 109/60
[2019-11-15] MEDS: LORazepam 2 MG TABLET PO PRN ×2 (12:08→16:43)
[2019-11-15] MEDS ORDERED: ACETAMINOPHEN 325 MG TABLET PO PRN (12:45)
[2019-11-15 16:30] VITALS: BP 143/97
[2019-11-15] MEDS: IBUPROFEN 600 MG TABLET PO PRN (17:04)
[2019-11-15] MEDS ORDERED: MAGNESIUM HYDROXIDE SUSPENSION 30 ML UDCUP PO PRN (20:15)
[2019-11-15] MEDS ORDERED: GuaiFENesin/D-METHORPHAN [SUGAR-FREE] 200-20MG/10 ML SYRUP UDCUP PO PRN (20:15)
[2019-11-15] MEDS ORDERED: MAG HYDROX/AL HYDROX/SIMETH ES 30 ML SUSPENSION UDCUP PO PRN (20:15)
[2019-11-15] MEDS ORDERED: HydrOXYzine PAMOATE 50 MG CAPSULE PO PRN (20:15)
[2019-11-15] MEDS ORDERED: LOPERAMIDE HCL 2 MG CAPSULE PO PRN (20:15)
[2019-11-15] MEDS ORDERED: PROMETHAZINE HCL 25 MG TABLET PO PRN (20:15)
[2019-11-15] MEDS ORDERED: OLANZapine 10 MG RAPDIS TABLET PO SCH (21:00)
[2019-11-16 06:35] VITALS: BP 142/92
[2019-11-16] MEDS: LORazepam 2 MG TABLET PO PRN ×3 (06:37→15:04)
[2019-11-16] MEDS: IBUPROFEN 600 MG TABLET PO PRN (06:37)
[2019-11-16] MEDS: FOLIC ACID 1 MG TABLET PO SCH (08:47)
[2019-11-16] MEDS: GABAPENTIN 300 MG CAPSULE PO SCH ×3 (08:47→16:25)
[2019-11-16] MEDS: OMEGA-3/DHA/EPA/FISH OIL 1,000 MG CAPSULE PO SCH (08:47)
[2019-11-16] MEDS: THIAMINE 100 MG TABLET PO SCH ×2 (08:47→16:24)
[2019-11-16] MEDS: NALTREXONE HCL 50 MG TABLET PO SCH (08:49)
[2019-11-16] MEDS: MULTIVITAMINS WITH MINERALS, THERAPEUTIC TABLET PO SCH (08:49)
[2019-11-16 09:15] VITALS: BP 139/76
[2019-11-16 15:04] VITALS: BP 142/78
[2019-11-16] MEDS: ACETAMINOPHEN 325 MG TABLET PO PRN (15:04)
[2019-11-16 16:05] VITALS: BP 140/88
[2019-11-16] MEDS ORDERED: QUEtiapine FUMARATE 25 MG TABLET PO PRN (19:00)
[2019-11-16] MEDS ORDERED: QUEtiapine FUMARATE 100 MG TABLET PO SCH (21:00)
[2019-11-17 05:51] VITALS: BP 124/97
[2019-11-17] MEDS: LORazepam 2 MG TABLET PO PRN ×3 (05:56→15:06)
[2019-11-17] MEDS: QUEtiapine FUMARATE 25 MG TABLET PO SCH ×3 (08:25→16:17)
[2019-11-17] MEDS: NALTREXONE HCL 50 MG TABLET PO SCH (08:25)
[2019-11-17] MEDS: GABAPENTIN 400 MG CAPSULE PO SCH ×3 (08:26→16:17)
[2019-11-17] MEDS: MULTIVITAMINS WITH MINERALS, THERAPEUTIC TABLET PO SCH (08:26)
[2019-11-17] MEDS: FOLIC ACID 1 MG TABLET PO SCH (08:26)
[2019-11-17] MEDS: OMEGA-3/DHA/EPA/FISH OIL 1,000 MG CAPSULE PO SCH (08:26)
[2019-11-17] MEDS: THIAMINE 100 MG TABLET PO SCH ×2 (08:27→16:19)
[2019-11-17 09:29] VITALS: BP 121/80
[2019-11-17] MEDS: IBUPROFEN 600 MG TABLET PO PRN (10:56)
[2019-11-17 16:25] VITALS: BP_SYST 119; BP_SYST 129; BP_DIAS 74; BP_DIAS 80
[2019-11-17 19:42] LABS: APPEARANCE,URINE CLEAR (CLEAR); BILIRUBIN,URINE NEGATIVE (NEGATIVE); GLUCOSE, URINE (UA) NEGATIVE (NEGATIVE); KETONES,URINE NEGATIVE (NEGATIVE); LEUKOCYTE ESTERASE ,URINE NEGATIVE (NEGATIVE); NITRATE,URINE NEGATIVE (NEGATIVE); OCCULT BLOOD,URINE NEGATIVE (NEGATIVE); PH,URINE 5.5 (5.0-8.0); PROTEIN,URINE NEGATIVE (NEGATIVE); UROBILINOGEN,URINE 0.2 mg/dL (<=1.0)
[2019-11-17] MEDS: QUEtiapine FUMARATE 200 MG TABLET PO SCH (20:37)
[2019-11-18] MEDS: LORazepam 2 MG TABLET PO PRN ×3 (06:33→16:08)
[2019-11-18 06:34] VITALS: BP 152/97
[2019-11-18] MEDS: IBUPROFEN 600 MG TABLET PO PRN ×2 (06:49→16:38)
[2019-11-18 08:28] VITALS: BP 114/65
[2019-11-18] MEDS: GABAPENTIN 400 MG CAPSULE PO SCH ×3 (11:32→17:09)
[2019-11-18] MEDS: QUEtiapine FUMARATE 25 MG TABLET PO SCH ×3 (11:32→17:09)
[2019-11-18] MEDS: OMEGA-3/DHA/EPA/FISH OIL 1,000 MG CAPSULE PO SCH (11:32)
[2019-11-18] MEDS: NALTREXONE HCL 50 MG TABLET PO SCH (11:32)
[2019-11-18] MEDS: ACETAMINOPHEN 325 MG TABLET PO PRN (11:44)
[2019-11-18 16:00] VITALS: BP 122/68
[2019-11-18] MEDS: QUEtiapine FUMARATE 200 MG TABLET PO SCH (20:23)
[2019-11-19] MEDS: LORazepam 2 MG TABLET PO PRN ×3 (06:37→15:43)
[2019-11-19 08:28] VITALS: BP 140/84
[2019-11-19] MEDS: QUEtiapine FUMARATE 25 MG TABLET PO SCH ×3 (08:56→16:45)
[2019-11-19] MEDS: GABAPENTIN 400 MG CAPSULE PO SCH ×3 (08:56→16:45)
[2019-11-19] MEDS: OMEGA-3/DHA/EPA/FISH OIL 1,000 MG CAPSULE PO SCH (09:00)
[2019-11-19] MEDS: NALTREXONE HCL 50 MG TABLET PO SCH (09:00)
[2019-11-19] MEDS: IBUPROFEN 600 MG TABLET PO PRN (13:54)
[2019-11-19 16:03] VITALS: BP 110/75
[2019-11-19] MEDS: QUEtiapine FUMARATE 200 MG TABLET PO SCH (20:21)
[2019-11-20] MEDS: LORazepam 2 MG TABLET PO PRN ×2 (03:53→14:08)
[2019-11-20 04:17] VITALS: BP 117/80
[2019-11-20] MEDS: IBUPROFEN 600 MG TABLET PO PRN (05:08)
[2019-11-20 08:00] VITALS: BP 119/77
[2019-11-20] MEDS: QUEtiapine FUMARATE 25 MG TABLET PO SCH ×3 (08:02→17:09)
[2019-11-20] MEDS: OMEGA-3/DHA/EPA/FISH OIL 1,000 MG CAPSULE PO SCH (08:02)
[2019-11-20] MEDS: GABAPENTIN 400 MG CAPSULE PO SCH ×3 (08:02→17:09)
[2019-11-20] MEDS: NALTREXONE HCL 50 MG TABLET PO SCH (08:02)
[2019-11-20 16:03] VITALS: BP 113/66
[2019-11-20] MEDS: QUEtiapine FUMARATE 200 MG TABLET PO SCH (20:25)
[2019-11-21] MEDS: LORazepam 2 MG TABLET PO PRN ×4 (04:49→19:24)
[2019-11-21] MEDS: IBUPROFEN 600 MG TABLET PO PRN (05:17)
[2019-11-21 05:42] VITALS: BP 127/79
[2019-11-21 08:00] VITALS: BP 124/67
[2019-11-21] MEDS: OMEGA-3/DHA/EPA/FISH OIL 1,000 MG CAPSULE PO SCH (09:00)
[2019-11-21] MEDS: GABAPENTIN 400 MG CAPSULE PO SCH ×3 (09:06→16:35)
[2019-11-21] MEDS: NALTREXONE HCL 50 MG TABLET PO SCH (09:06)
[2019-11-21] MEDS: INFLUENZA VIRUS VACCINE QVS 2020-21 (6MO+)/PF 60 MCG/0.5 ML SYRINGE IM ONE ×2 (09:06→14:52)
[2019-11-21] MEDS: ACETAMINOPHEN 325 MG TABLET PO PRN (09:06)
[2019-11-21] MEDS: QUEtiapine FUMARATE 25 MG TABLET PO SCH ×3 (09:07→16:35)
[2019-11-21 16:00] VITALS: BP 104/70
[2019-11-21 19:25] VITALS: BP 115/72
[2019-11-21] MEDS: QUEtiapine FUMARATE 200 MG TABLET PO SCH (20:23)
[2019-11-22 05:25] VITALS: BP 110/73
[2019-11-22] MEDS: LORazepam 1 MG TABLET PO PRN ×4 (05:25→18:34)
[2019-11-22] MEDS: IBUPROFEN 600 MG TABLET PO PRN ×2 (06:14→12:19)
[2019-11-22 08:00] VITALS: BP 121/79
[2019-11-22] MEDS: OMEGA-3/DHA/EPA/FISH OIL 1,000 MG CAPSULE PO SCH (09:00)
[2019-11-22] MEDS: NALTREXONE HCL 50 MG TABLET PO SCH (09:51)
[2019-11-22] MEDS: QUEtiapine FUMARATE 25 MG TABLET PO SCH ×3 (09:51→17:22)
[2019-11-22] MEDS: GABAPENTIN 300 MG CAPSULE PO SCH ×3 (09:51→17:22)
[2019-11-22] MEDS: ACETAMINOPHEN 325 MG TABLET PO PRN (15:58)
[2019-11-22 16:01] VITALS: BP 110/68
[2019-11-22 16:16] VITALS: BP 110/68
[2019-11-22] MEDS: QUEtiapine FUMARATE 200 MG TABLET PO SCH (20:20)
[2019-11-22] MEDS: ZOLPIDEM TARTRATE 10 MG TABLET PO PRN (21:41)
[2019-11-23 03:25] VITALS: BP 120/78
[2019-11-23] MEDS: LORazepam 1 MG TABLET PO PRN ×4 (03:28→17:25)
[2019-11-23] MEDS: ACETAMINOPHEN 325 MG TABLET PO PRN ×2 (03:28→11:55)
[2019-11-23] MEDS: IBUPROFEN 600 MG TABLET PO PRN (06:52)
[2019-11-23] MEDS: QUEtiapine FUMARATE 25 MG TABLET PO SCH ×3 (08:40→16:04)
[2019-11-23] MEDS: GABAPENTIN 300 MG CAPSULE PO SCH ×3 (08:41→16:04)
[2019-11-23] MEDS: NALTREXONE HCL 50 MG TABLET PO SCH (08:41)
[2019-11-23] MEDS: OMEGA-3/DHA/EPA/FISH OIL 1,000 MG CAPSULE PO SCH (08:41)
[2019-11-23 09:22] VITALS: BP 129/82
[2019-11-23 16:32] VITALS: BP 108/71
[2019-11-23] MEDS: QUEtiapine FUMARATE 200 MG TABLET PO SCH (20:36)
[2019-11-23] MEDS: ZOLPIDEM TARTRATE 10 MG TABLET PO PRN (21:22)
[2019-11-24] MEDS: LORazepam 1 MG TABLET PO PRN ×3 (08:17→17:52)
[2019-11-24] MEDS: GABAPENTIN 300 MG CAPSULE PO SCH ×3 (08:17→16:22)
[2019-11-24] MEDS: NALTREXONE HCL 50 MG TABLET PO SCH (08:18)
[2019-11-24] MEDS: QUEtiapine FUMARATE 25 MG TABLET PO SCH ×3 (08:18→16:22)
[2019-11-24 08:49] VITALS: BP 107/58
[2019-11-24] MEDS: OMEGA-3/DHA/EPA/FISH OIL 1,000 MG CAPSULE PO SCH (09:00)
[2019-11-24 09:30] VITALS: BP 107/58
[2019-11-24] MEDS: IBUPROFEN 600 MG TABLET PO PRN ×2 (09:31→19:03)
[2019-11-24] MEDS: ACETAMINOPHEN 325 MG TABLET PO PRN (14:43)
[2019-11-24 16:23] VITALS: BP 100/59
[2019-11-24 19:00] VITALS: BP 119/72
[2019-11-24] MEDS: QUEtiapine FUMARATE 200 MG TABLET PO SCH (20:22)
[2019-11-24] MEDS: ZOLPIDEM TARTRATE 10 MG TABLET PO PRN (20:57)
[2019-11-25] MEDS: LORazepam 1 MG TABLET PO PRN ×2 (07:06→11:27)
[2019-11-25] MEDS: IBUPROFEN 600 MG TABLET PO PRN (07:06)
[2019-11-25 08:57] VITALS: BP 119/67
[2019-11-25] MEDS: OMEGA-3/DHA/EPA/FISH OIL 1,000 MG CAPSULE PO SCH (09:00)
[2019-11-25] MEDS: NALTREXONE HCL 50 MG TABLET PO SCH (09:42)
[2019-11-25] MEDS: QUEtiapine FUMARATE 100 MG TABLET PO SCH ×2 (09:42→13:31)
[2019-11-25] MEDS: GABAPENTIN 300 MG CAPSULE PO SCH ×2 (09:42→13:31)
[2019-11-25] MEDS ORDERED: OMEG-135 PO (12:57)
[2019-11-25] MEDS ORDERED: NALT50TA PO (12:57)
[2019-11-25] MEDS ORDERED: QUET100T33 PO (12:57)
[2019-11-25] MEDS ORDERED: GABA-1181 PO (12:57)
[2019-11-25] MEDS ORDERED: QUET200T29 PO (12:57)
== END 2019-11-25 14:45 | disposition home or self-care (01) | DRG 885 ==
LOC: 3EI 01:20
PROVIDERS: ADMIT Psychiatry & Neurology Psychiatry; ATTEND Psychiatry & Neurology Psychiatry
DX: F25.9 Schizoaffective disorder, unspecified (principal); B19.20 Unspecified viral hepatitis C without hepatic coma; R45.851 Suicidal ideations; F41.9 Anxiety disorder, unspecified; K21.9 Gastro-esophageal reflux disease without esophagitis; Z87.891 Personal history of nicotine dependence; Z91.14 Patient's other noncompliance with medication regimen; Z59.0 Homelessness
CPT/HCPCS: 87081; 90686

== ENCOUNTER 2020-01-07 15:56 | Emergency (ER) | payer OTHER ==
[~2020-01-07] VITALS: Ht 170.2 cm; Wt 77.3 kg
[~2020-01-07 15:56] MED LIST changes: -ASPI-728 PO; +GABA-1181 PO; -OLAN10TA22 PO; +OMEG-135 PO; +QUET100T33 PO; +QUET200T29 PO; -VENL-193 PO
[2020-01-07] MEDS ORDERED: CLON-595 PO (16:10)
[2020-01-07] MEDS ORDERED: ClonazePAM 1 MG TABLET PO ONE (19:00)
[2020-01-07 19:17] VITALS: BP 129/83
== END 2020-01-07 19:31 | disposition home or self-care (01) ==
LOC: EMS 15:57
DX: F41.9 Anxiety disorder, unspecified (principal); F31.9 Bipolar disorder, unspecified; Z87.891 Personal history of nicotine dependence

== ENCOUNTER 2020-01-21 13:29 | Emergency (ER) | payer OTHER ==
[~2020-01-21] VITALS: Ht 170.2 cm; Wt 75.0 kg
[~2020-01-21 13:29] MED LIST changes: +CLON-595 PO
[2020-01-21] MEDS ORDERED: OMEP20 PO (13:42)
[2020-01-21] MEDS ORDERED: CLON-598 PO (13:42)
[2020-01-21] MEDS ORDERED: OMEPRAZOLE 20 MG CAPSULE PO ONE (14:15)
[2020-01-21] MEDS ORDERED: ClonazePAM 1 MG TABLET PO ONE (14:15)
[2020-01-21] MEDS ORDERED: IBUPROFEN 600 MG TABLET PO ONE (14:15)
[2020-01-21 14:29] VITALS: BP 131/83
== END 2020-01-21 14:30 | disposition home or self-care (01) ==
LOC: EMS 13:36
DX: F41.9 Anxiety disorder, unspecified (principal); Z76.0 Encounter for issue of repeat prescription; F31.9 Bipolar disorder, unspecified; Z87.891 Personal history of nicotine dependence; Z79.899 Other long term (current) drug therapy
CPT/HCPCS: Z7502; Z7610

== ENCOUNTER 2020-03-15 14:01 | Emergency (ER) | payer OTHER ==
[~2020-03-15] VITALS: Ht 170.2 cm; Wt 73.0 kg
[~2020-03-15 14:01] MED LIST changes: +CLON-598 PO; -GABA-1181 PO; -NALT50TA PO; -OMEG-135 PO; +OMEP20 PO; -QUET100T33 PO; -QUET200T29 PO
[2020-03-15] MEDS ORDERED: LORA-1000 PO (14:09)
[2020-03-15] MEDS: ClonazePAM 1 MG TABLET PO ONE (15:06)
[2020-03-15 15:20] VITALS: BP 131/74
== END 2020-03-15 15:34 | disposition home or self-care (01) ==
LOC: EMS 14:10
DX: H92.03 Otalgia, bilateral (principal); F41.9 Anxiety disorder, unspecified; G47.00 Insomnia, unspecified; Z79.899 Other long term (current) drug therapy; Z87.891 Personal history of nicotine dependence
CPT/HCPCS: 99283

== ENCOUNTER 2020-03-21 15:09 | Inpatient (IN) | payer MEDICARE, MEDICAID ==
[~2020-03-21] VITALS: Ht 170.2 cm; Wt 84.3 kg
[~2020-03-21 15:09] MED LIST changes: +LORA-1000 PO
[2020-03-21] MEDS ORDERED: OLAN5TAB2 PO (15:28)
[2020-03-21] MEDS ORDERED: LORazepam 1 MG TABLET PO ONE (15:45)
[2020-03-21] MEDS ORDERED: OLANZapine 5 MG TABLET PO ONE (15:45)
[2020-03-21 17:27] LABS: COVID AG,FIA SOURCE NASOPHARYNGEAL
[2020-03-21 17:45] LABS: BASOPHILS % (AUTO) 0.8 % (0.0-2.0); HEMATOCRIT 40.6 % (41-53); HEMOGLOBIN 13.9 g/dL (13.5-17.5); LYMPHOCYTES # (AUTO) 2.3 K/uL (1.0-4.8); MEAN CORPUSCULAR HGB CONC 34.3 G/dL (31.0-37.0); MEAN CORPUSCULAR VOLUME 91 fL (80-100); MONOCYTES # (AUTO) 0.6 K/uL (0.1-1.0); MONOCYTES % (AUTO) 7.7 % (2.0-9.0); NEUTROPHILS # (AUTO) 4.6 K/uL (1.8-7.7); NEUTROPHILS % (AUTO) 60.5 % (40.0-70.0); PLATELET COUNT (AUTO) 249 K/uL (150-450); RED BLOOD CELL COUNT(AUTO) 4.48 MIL/uL (4.50-5.90); RED CELL DISTRIBUTION WIDTH 13.4 % (11.5-14.5)
[2020-03-21 17:57] LABS: ANION GAP 8 mmol/L (8-16); CALCIUM, TOTAL 8.3 mg/dL (8.8-10.5); CARBON DIOXIDE 30 mmol/L (22-29); CHLORIDE 105 mmol/L (98-107); GLOMERULAR FILTR. RATE CALC > 60 mL/min (>60); GLUCOSE,RANDOM 92 mg/dL (70-110); SODIUM SERUM 143 mmol/L (136-145); UREA NITROGEN, BLOOD 16 mg/dL (7-18)
[2020-03-21] MEDS ORDERED: HALOPERIDOL 5 MG TABLET PO PRN (18:00)
[2020-03-21 18:03] LABS: ALANINE AMINOTRANSFERASE 153 U/L (12-78); ALBUMIN 3.5 g/dL (3.4-5.0); ALKALINE PHOSPHATASE 65 U/L (46-116); ASPARTATE AMINOTRANSFERASE 116 U/L (15-37); BILIRUBIN,TOTAL 0.4 mg/dL (0.1-1.0); TOTAL PROTEIN, SERUM 7.1 g/dL (6.4-8.2)
[2020-03-22 00:52] VITALS: BP 116/74
[2020-03-22] MEDS: LORazepam 2 MG TABLET PO PRN ×3 (00:58→15:58)
[2020-03-22] MEDS ORDERED: PNEUMOCOCCAL VACCINE POLYVALENT 0.5 ML VIAL [PPSV23] IM ONE (04:00)
[2020-03-22] MEDS ORDERED: MAG HYDROX/AL HYDROX/SIMETH ES 30 ML SUSPENSION UDCUP PO PRN (07:00)
[2020-03-22] MEDS ORDERED: MAGNESIUM HYDROXIDE SUSPENSION 30 ML UDCUP PO PRN (07:00)
[2020-03-22] MEDS ORDERED: ALBUTEROL SULFATE HFA 90 MCG/PUFF 8 GM INHALER IH PRN (07:00)
[2020-03-22] MEDS ORDERED: BACITRACIN 28 GM OINTMENT TP PRN (07:00)
[2020-03-22] MEDS ORDERED: ACETAMINOPHEN 325 MG TABLET PO PRN (07:00)
[2020-03-22] MEDS ORDERED: BENZOCAINE/MENTHOL LOZENGE PO PRN (07:00)
[2020-03-22] MEDS ORDERED: ONDANSETRON HCL 4 MG TABLET PO PRN (07:00)
[2020-03-22] MEDS ORDERED: PETROLATUM,WHITE 28 GM JELLY TP PRN (07:00)
[2020-03-22] MEDS ORDERED: DOCUSATE SODIUM 100 MG CAPSULE PO PRN (07:00)
[2020-03-22] MEDS ORDERED: CloNIDine HCL 0.1 MG TABLET PO PRN (07:00)
[2020-03-22] MEDS ORDERED: LOPERAMIDE HCL 2 MG CAPSULE PO PRN (07:00)
[2020-03-22 08:13] VITALS: BP 110/66
[2020-03-22 16:15] VITALS: BP 115/73
[2020-03-22] MEDS: OLANZapine 5 MG TABLET PO SCH (21:17)
[2020-03-22] MEDS: ZOLPIDEM TARTRATE 10 MG TABLET PO PRN (21:38)
[2020-03-23 03:55] VITALS: BP 127/82
[2020-03-23] MEDS: LORazepam 2 MG TABLET PO PRN ×3 (05:15→15:56)
[2020-03-23 08:42] VITALS: BP 100/60
[2020-03-23 16:00] VITALS: BP 116/66
[2020-03-23 16:08] VITALS: BP 116/66
[2020-03-23] MEDS: OLANZapine 5 MG TABLET PO SCH (20:10)
[2020-03-23] MEDS: ZOLPIDEM TARTRATE 10 MG TABLET PO PRN (20:26)
[2020-03-24 02:32] VITALS: BP 126/83
[2020-03-24] MEDS: LORazepam 2 MG TABLET PO PRN ×4 (02:40→18:05)
[2020-03-24 08:01] VITALS: BP 111/78
[2020-03-24 16:15] VITALS: BP 115/71
[2020-03-24] MEDS: OLANZapine 5 MG TABLET PO SCH (20:37)
[2020-03-24] MEDS: ZOLPIDEM TARTRATE 10 MG TABLET PO PRN (20:51)
[2020-03-25 00:32] VITALS: BP 121/76
[2020-03-25] MEDS: LORazepam 2 MG TABLET PO PRN ×4 (04:46→18:08)
[2020-03-25 08:06] VITALS: BP 116/74
[2020-03-25 16:03] VITALS: BP 115/65
[2020-03-25] MEDS: OLANZapine 5 MG TABLET PO SCH (20:46)
[2020-03-25] MEDS: ZOLPIDEM TARTRATE 10 MG TABLET PO PRN (20:46)
[2020-03-26 00:03] VITALS: BP 119/73
[2020-03-26 02:37] VITALS: BP 119/78
[2020-03-26] MEDS: IBUPROFEN 600 MG TABLET PO PRN ×2 (02:40→12:13)
[2020-03-26] MEDS: LORazepam 2 MG TABLET PO PRN ×4 (04:53→20:01)
[2020-03-26 08:10] VITALS: BP 122/76
[2020-03-26 08:30] VITALS: BP 122/76
[2020-03-26 10:21] LABS: COVID AG,FIA SOURCE NASAL SWAB
[2020-03-26 12:13] VITALS: BP 122/76
[2020-03-26 16:06] VITALS: BP 112/63
[2020-03-26] MEDS: OLANZapine 5 MG TABLET PO SCH (20:38)
[2020-03-26] MEDS: ZOLPIDEM TARTRATE 10 MG TABLET PO PRN (21:12)
[2020-03-27 06:24] VITALS: BP 113/71
[2020-03-27] MEDS: LORazepam 2 MG TABLET PO PRN ×3 (06:41→18:12)
[2020-03-27 08:41] VITALS: BP 111/69
[2020-03-27 13:55] VITALS: BP 117/78
[2020-03-27] MEDS: IBUPROFEN 600 MG TABLET PO PRN (15:15)
[2020-03-27 16:09] VITALS: BP 113/64
[2020-03-27] MEDS: OLANZapine 5 MG TABLET PO SCH (20:30)
[2020-03-27] MEDS: ZOLPIDEM TARTRATE 10 MG TABLET PO PRN (20:54)
[2020-03-28 00:25] VITALS: BP 105/68
[2020-03-28] MEDS: LORazepam 2 MG TABLET PO PRN ×4 (00:32→17:16)
[2020-03-28 08:06] VITALS: BP 108/68
[2020-03-28] MEDS: OMEPRAZOLE 20 MG CAPSULE PO PRN (13:24)
[2020-03-28] MEDS: IBUPROFEN 600 MG TABLET PO PRN (13:24)
[2020-03-28 14:24] VITALS: BP 115/72
[2020-03-28 16:07] VITALS: BP 109/67
[2020-03-28] MEDS: OLANZapine 5 MG TABLET PO SCH (20:20)
[2020-03-28] MEDS: ZOLPIDEM TARTRATE 10 MG TABLET PO PRN (20:20)
[2020-03-29 00:25] VITALS: BP 110/70
[2020-03-29] MEDS: LORazepam 2 MG TABLET PO PRN ×4 (01:21→14:33)
[2020-03-29 08:14] VITALS: BP 116/72
[2020-03-29] MEDS ORDERED: FOLIC ACID 1 MG TABLET PO SCH (09:00)
[2020-03-29] MEDS ORDERED: THIAMINE 100 MG TABLET PO SCH (09:00)
[2020-03-29] MEDS: OMEPRAZOLE 20 MG CAPSULE PO PRN (09:21)
[2020-03-29] MEDS: IBUPROFEN 600 MG TABLET PO PRN (09:21)
[2020-03-29 16:06] VITALS: BP 119/75
[2020-03-29] MEDS: OLANZapine 5 MG TABLET PO SCH (20:34)
[2020-03-29] MEDS: ZOLPIDEM TARTRATE 10 MG TABLET PO PRN (21:01)
[2020-03-30 00:06] VITALS: BP 120/77
[2020-03-30] MEDS ORDERED: OLAN5TAB2 PO (01:27)
== END 2020-03-30 07:26 | disposition home or self-care (01) | DRG 885 ==
LOC: EMS 15:09 → B2X 20:00
PROVIDERS: ADMIT Psychiatry & Neurology Psychiatry; ATTEND Psychiatry & Neurology Psychiatry
DX: F25.9 Schizoaffective disorder, unspecified (principal); B18.2 Chronic viral hepatitis C; R45.851 Suicidal ideations; Z87.891 Personal history of nicotine dependence; K21.9 Gastro-esophageal reflux disease without esophagitis; K59.00 Constipation, unspecified; F41.9 Anxiety disorder, unspecified; G47.00 Insomnia, unspecified; F12.90 Cannabis use, unspecified, uncomplicated; Z20.822 Contact with and (suspected) exposure to COVID-19
CPT/HCPCS: 87426; 99285; G0480

== ENCOUNTER 2020-04-10 07:30 | Emergency (ER) | payer OTHER ==
[~2020-04-10] VITALS: Ht 170.2 cm; Wt 75.0 kg
[~2020-04-10 07:30] MED LIST changes: -CLON-595 PO; -CLON-598 PO; -LORA-1000 PO; +OLAN5TAB2 PO; -OMEP20 PO
[2020-04-10] MEDS ORDERED: ClonazePAM 1 MG TABLET PO ONE (09:30)
[2020-04-10 09:51] VITALS: BP 141/79
== END 2020-04-10 10:08 | disposition home or self-care (01) ==
LOC: EMS 07:36
DX: Z76.0 Encounter for issue of repeat prescription (principal); F41.9 Anxiety disorder, unspecified; K21.9 Gastro-esophageal reflux disease without esophagitis; F20.9 Schizophrenia, unspecified
CPT/HCPCS: 99283

== ENCOUNTER 2020-04-21 02:40 | Inpatient (IN) | payer MEDICARE, MEDICAID ==
[~2020-04-21] VITALS: Ht 170.2 cm; Wt 79.1 kg
[2020-04-21] MEDS ORDERED: ClonazePAM 1 MG TABLET PO ONE (03:30)
[2020-04-21] MEDS ORDERED: OLANZapine 5 MG TABLET PO ONE (03:30)
[2020-04-21 03:31] LABS: BASOPHILS % (AUTO) 1.1 % (0.0-2.0); EOSINOPHILS % (AUTO) 2.1 % (1.0-6.0); HEMATOCRIT 45.1 % (41-53); LYMPHOCYTES # (AUTO) 2.3 K/uL (1.0-4.8); LYMPHOCYTES % (AUTO) 35.3 % (22.0-44.0); MEAN CORPUSCULAR HEMOGLOBIN 31.2 pg (26.0-34.0); MEAN CORPUSCULAR HGB CONC 33.2 G/dL (31.0-37.0); MEAN CORPUSCULAR VOLUME 94 fL (80-100); MONOCYTES # (AUTO) 0.7 K/uL (0.1-1.0); MONOCYTES % (AUTO) 11.2 % (2.0-9.0); NEUTROPHILS # (AUTO) 3.3 K/uL (1.8-7.7); NEUTROPHILS % (AUTO) 50.3 % (40.0-70.0); PLATELET COUNT (AUTO) 339 K/uL (150-450); RED BLOOD CELL COUNT(AUTO) 4.79 MIL/uL (4.50-5.90); RED CELL DISTRIBUTION WIDTH 13.6 % (11.5-14.5)
[2020-04-21 03:40] LABS: ANION GAP 8 mmol/L (8-16); CALCIUM, TOTAL 8.7 mg/dL (8.8-10.5); CARBON DIOXIDE 30 mmol/L (22-29); CHLORIDE 103 mmol/L (98-107); CREATININE 1.05 mg/dL (0.60-1.30); GLOMERULAR FILTR. RATE CALC > 60 mL/min (>60); GLUCOSE,RANDOM 92 mg/dL (70-110); POTASSIUM 3.9 mmol/L (3.5-5.1); SODIUM SERUM 141 mmol/L (136-145); UREA NITROGEN, BLOOD 24 mg/dL (7-18)
[2020-04-21 03:46] LABS: ALANINE AMINOTRANSFERASE 163 U/L (12-78); ALKALINE PHOSPHATASE 49 U/L (46-116); ASPARTATE AMINOTRANSFERASE 117 U/L (15-37); BILIRUBIN,TOTAL 0.4 mg/dL (0.1-1.0); TOTAL PROTEIN, SERUM 8.2 g/dL (6.4-8.2)
[2020-04-21] MEDS ORDERED: HALOPERIDOL 5 MG TABLET PO PRN (04:15)
[2020-04-21 04:21] LABS: COVID AG,FIA SOURCE NASOPHARYNGEAL
[2020-04-21] MEDS ORDERED: PETROLATUM,WHITE 28 GM JELLY TP PRN (08:00)
[2020-04-21] MEDS ORDERED: MAGNESIUM HYDROXIDE SUSPENSION 30 ML UDCUP PO PRN (08:00)
[2020-04-21] MEDS ORDERED: BACITRACIN 28 GM OINTMENT TP PRN (08:00)
[2020-04-21] MEDS ORDERED: BENZOCAINE/MENTHOL LOZENGE PO PRN (08:00)
[2020-04-21] MEDS ORDERED: OMEPRAZOLE 20 MG CAPSULE PO PRN (08:00)
[2020-04-21] MEDS ORDERED: ONDANSETRON HCL 4 MG TABLET PO PRN (08:00)
[2020-04-21] MEDS ORDERED: LOPERAMIDE HCL 2 MG CAPSULE PO PRN (08:00)
[2020-04-21] MEDS ORDERED: CloNIDine HCL 0.1 MG TABLET PO PRN (08:00)
[2020-04-21] MEDS ORDERED: MAG HYDROX/AL HYDROX/SIMETH ES 30 ML SUSPENSION UDCUP PO PRN (08:00)
[2020-04-21] MEDS ORDERED: ACETAMINOPHEN 325 MG TABLET PO PRN (08:00)
[2020-04-21] MEDS ORDERED: ALBUTEROL SULFATE HFA 90 MCG/PUFF 8 GM INHALER IH PRN (08:00)
[2020-04-21] MEDS ORDERED: DOCUSATE SODIUM 100 MG CAPSULE PO PRN (08:00)
[2020-04-21] MEDS ORDERED: IBUPROFEN 600 MG TABLET PO PRN (08:00)
[2020-04-21 08:43] VITALS: BP 135/70
[2020-04-21] MEDS: LORazepam 2 MG TABLET PO PRN ×2 (12:53→17:08)
[2020-04-21 17:43] VITALS: BP 137/75
[2020-04-21] MEDS: OLANZapine 5 MG TABLET PO SCH (20:15)
[2020-04-21] MEDS: ZOLPIDEM TARTRATE 10 MG TABLET PO PRN (20:30)
[2020-04-22 01:57] VITALS: BP 128/74
[2020-04-22 04:41] VITALS: BP 126/86
[2020-04-22] MEDS: LORazepam 1 MG TABLET PO PRN ×4 (04:41→23:59)
[2020-04-22 08:15] VITALS: BP 132/88
[2020-04-22] MEDS: PANTOPRAZOLE SODIUM 40 MG DR TABLET PO SCH (10:31)
[2020-04-22 16:23] VITALS: BP 123/76
[2020-04-22] MEDS: OLANZapine 5 MG TABLET PO SCH (20:48)
[2020-04-22] MEDS: ZOLPIDEM TARTRATE 10 MG TABLET PO PRN (20:55)
[2020-04-23] VITALS: BP 114/70
[2020-04-23 04:08] VITALS: BP 124/76
[2020-04-23] MEDS: LORazepam 1 MG TABLET PO PRN ×2 (04:08→08:29)
[2020-04-23] MEDS: PANTOPRAZOLE SODIUM 40 MG DR TABLET PO SCH (08:28)
[2020-04-23 10:20] LABS: CHOL/HDL RATIO 2.1 (4.2-7.3)
== END 2020-04-23 13:13 | disposition home or self-care (01) | DRG 885 ==
LOC: EMS 02:43 → B2S 04:11
PROVIDERS: ADMIT Psychiatry & Neurology Psychiatry; ATTEND Psychiatry & Neurology Psychiatry
DX: F25.9 Schizoaffective disorder, unspecified (principal); B19.20 Unspecified viral hepatitis C without hepatic coma; R45.851 Suicidal ideations; F10.10 Alcohol abuse, uncomplicated; Z20.822 Contact with and (suspected) exposure to COVID-19; F31.9 Bipolar disorder, unspecified; F41.0 Panic disorder [episodic paroxysmal anxiety]; F43.10 Post-traumatic stress disorder, unspecified; F17.210 Nicotine dependence, cigarettes, uncomplicated; G47.00 Insomnia, unspecified; K59.00 Constipation, unspecified; B18.2 Chronic viral hepatitis C; F12.90 Cannabis use, unspecified, uncomplicated; K21.9 Gastro-esophageal reflux disease without esophagitis; Z79.899 Other long term (current) drug therapy; Z88.8 Allergy status to other drugs, medicaments and biological substances
CPT/HCPCS: 87081; 87426; 99285; G0480

== ENCOUNTER 2020-05-08 14:14 | Inpatient (IN) | payer MEDICARE, MEDICAID ==
[~2020-05-08] VITALS: Ht 170.2 cm; Wt 81.4 kg
[2020-05-08 15:38] LABS: AMPHET/METH SCREEN,URINE POSITIVE (NEGATIVE); BARBITURATE SCREEN, URINE NEGATIVE (NEGATIVE); BENZODIAZEPINES SCREEN,URINE NEGATIVE (NEGATIVE); CANNABINOID SCREEN,URINE POSITIVE (NEGATIVE); COCAINE SCREEN,URINE NEGATIVE (NEGATIVE); METHADONE SCREEN, URINE NEGATIVE (NEGATIVE); OPIATE SCREEN,URINE NEGATIVE (NEGATIVE)
[2020-05-08 15:39] LABS: PHENCYCLIDINE SCREEN,URINE NEGATIVE (NEGATIVE)
[2020-05-08 16:26] LABS: BASOPHILS % (AUTO) 0.8 % (0.0-2.0); EOSINOPHILS % (AUTO) 1.5 % (1.0-6.0); HEMATOCRIT 41.2 % (41-53); HEMOGLOBIN 13.8 g/dL (13.5-17.5); LYMPHOCYTES # (AUTO) 1.8 K/uL (1.0-4.8); LYMPHOCYTES % (AUTO) 34.3 % (22.0-44.0); MEAN CORPUSCULAR HGB CONC 33.5 G/dL (31.0-37.0); MEAN CORPUSCULAR VOLUME 93 fL (80-100); MONOCYTES # (AUTO) 0.7 K/uL (0.1-1.0); MONOCYTES % (AUTO) 12.7 % (2.0-9.0); NEUTROPHILS # (AUTO) 2.6 K/uL (1.8-7.7); NEUTROPHILS % (AUTO) 50.7 % (40.0-70.0); PLATELET COUNT (AUTO) 228 K/uL (150-450); RED BLOOD CELL COUNT(AUTO) 4.44 MIL/uL (4.50-5.90); RED CELL DISTRIBUTION WIDTH 13.7 % (11.5-14.5)
[2020-05-08 16:40] LABS: ANION GAP 10 mmol/L (8-16); CALCIUM, TOTAL 8.6 mg/dL (8.8-10.5); CARBON DIOXIDE 28 mmol/L (22-29); CHLORIDE 102 mmol/L (98-107); CREATININE 1.11 mg/dL (0.60-1.30); GLOMERULAR FILTR. RATE CALC > 60 mL/min (>60); GLUCOSE,RANDOM 113 mg/dL (70-110); POTASSIUM 3.5 mmol/L (3.5-5.1); SODIUM SERUM 140 mmol/L (136-145); UREA NITROGEN, BLOOD 25 mg/dL (7-18)
[2020-05-08 16:47] LABS: ALANINE AMINOTRANSFERASE 131 U/L (12-78); ALBUMIN 3.5 g/dL (3.4-5.0); ALKALINE PHOSPHATASE 39 U/L (46-116); ASPARTATE AMINOTRANSFERASE 120 U/L (15-37); BILIRUBIN,TOTAL 0.7 mg/dL (0.1-1.0); TOTAL PROTEIN, SERUM 7.3 g/dL (6.4-8.2)
[2020-05-08 17:15] LABS: COVID AG,FIA SOURCE NASOPHARYNGEAL
[2020-05-08] MEDS ORDERED: OLANZapine 5 MG RAPDIS TABLET PO PRN (18:15)
[2020-05-09 00:23] VITALS: BP 121/74
[2020-05-09] MEDS: ZOLPIDEM TARTRATE 10 MG TABLET PO PRN ×2 (00:36→21:06)
[2020-05-09] MEDS: LORazepam 2 MG TABLET PO PRN ×4 (00:36→22:08)
[2020-05-09] MEDS ORDERED: BACITRACIN 28 GM OINTMENT TP PRN (06:30)
[2020-05-09] MEDS ORDERED: PETROLATUM,WHITE 28 GM JELLY TP PRN (06:30)
[2020-05-09] MEDS ORDERED: ALBUTEROL SULFATE HFA 90 MCG/PUFF 8 GM INHALER IH PRN (06:30)
[2020-05-09] MEDS ORDERED: BENZOCAINE/MENTHOL LOZENGE PO PRN (06:30)
[2020-05-09] MEDS ORDERED: ONDANSETRON HCL 4 MG TABLET PO PRN (06:30)
[2020-05-09] MEDS ORDERED: CloNIDine HCL 0.1 MG TABLET PO PRN (06:30)
[2020-05-09] MEDS ORDERED: DOCUSATE SODIUM 100 MG CAPSULE PO PRN (06:30)
[2020-05-09] MEDS ORDERED: MAGNESIUM HYDROXIDE SUSPENSION 30 ML UDCUP PO PRN (06:30)
[2020-05-09] MEDS ORDERED: MAG HYDROX/AL HYDROX/SIMETH ES 30 ML SUSPENSION UDCUP PO PRN (06:30)
[2020-05-09] MEDS ORDERED: LOPERAMIDE HCL 2 MG CAPSULE PO PRN (06:30)
[2020-05-09 08:40] VITALS: BP 100/60
[2020-05-09] MEDS: ACETAMINOPHEN 325 MG TABLET PO PRN (11:51)
[2020-05-09 14:01] VITALS: BP 100/60
[2020-05-09 16:05] VITALS: BP 107/67
[2020-05-09 16:08] VITALS: BP 107/67
[2020-05-09] MEDS: OLANZapine 7.5 MG TABLET PO SCH (20:56)
[2020-05-10 06:20] VITALS: BP 100/61
[2020-05-10 08:33] VITALS: BP 129/80
[2020-05-10] MEDS: LORazepam 2 MG TABLET PO PRN ×3 (09:14→20:11)
[2020-05-10] MEDS: ACETAMINOPHEN 325 MG TABLET PO PRN (09:14)
[2020-05-10 16:10] VITALS: BP 112/68
[2020-05-10] MEDS: IBUPROFEN 600 MG TABLET PO PRN (16:26)
[2020-05-10] MEDS: OLANZapine 7.5 MG TABLET PO SCH (20:10)
[2020-05-10] MEDS: ZOLPIDEM TARTRATE 10 MG TABLET PO PRN (23:50)
[2020-05-11 00:01] VITALS: BP 100/61
[2020-05-11 05:23] VITALS: BP 109/71
[2020-05-11] MEDS: ACETAMINOPHEN 325 MG TABLET PO PRN (05:25)
[2020-05-11] MEDS: LORazepam 2 MG TABLET PO PRN ×4 (05:25→20:09)
[2020-05-11 07:21] LABS: EOSINOPHILS % (AUTO) 2.7 % (1.0-6.0); HEMATOCRIT 40.8 % (41-53); HEMOGLOBIN 13.9 g/dL (13.5-17.5); LYMPHOCYTES # (AUTO) 1.6 K/uL (1.0-4.8); LYMPHOCYTES % (AUTO) 35.7 % (22.0-44.0); MEAN CORPUSCULAR HEMOGLOBIN 31.1 pg (26.0-34.0); MEAN CORPUSCULAR VOLUME 92 fL (80-100); MONOCYTES # (AUTO) 0.5 K/uL (0.1-1.0); MONOCYTES % (AUTO) 10.4 % (2.0-9.0); NEUTROPHILS # (AUTO) 2.3 K/uL (1.8-7.7); NEUTROPHILS % (AUTO) 50.2 % (40.0-70.0); PLATELET COUNT (AUTO) 211 K/uL (150-450); RED BLOOD CELL COUNT(AUTO) 4.45 MIL/uL (4.50-5.90); RED CELL DISTRIBUTION WIDTH 13.5 % (11.5-14.5)
[2020-05-11 07:38] LABS: HEMOGLOBIN A1C 5.6 % (3.8-5.6)
[2020-05-11 07:43] LABS: ALANINE AMINOTRANSFERASE 86 U/L (12-78); ALBUMIN 3.1 g/dL (3.4-5.0); ALKALINE PHOSPHATASE 37 U/L (46-116); ANION GAP 8 mmol/L (8-16); ASPARTATE AMINOTRANSFERASE 48 U/L (15-37); BILIRUBIN,TOTAL 0.3 mg/dL (0.1-1.0); CALCIUM, TOTAL 8.1 mg/dL (8.8-10.5); CARBON DIOXIDE 27 mmol/L (22-29); CHLORIDE 105 mmol/L (98-107); CHOL/HDL RATIO 2.3 (4.2-7.3); CHOLESTEROL 122 mg/dL (131-200); CREATININE 0.92 mg/dL (0.60-1.30); GLOMERULAR FILTR. RATE CALC > 60 mL/min (>60); GLUCOSE,RANDOM 103 mg/dL (70-110); HDL CHOLESTEROL 53 mg/dL (40-60); LDL CHOL (CALC.) 43 mg/dL (0-130); PHOSPHORUS 2.7 mg/dL (2.5-4.9); SODIUM SERUM 140 mmol/L (136-145); TOTAL PROTEIN, SERUM 6.4 g/dL (6.4-8.2); TRIGLYCERIDES 130 mg/dL (15-150); UREA NITROGEN, BLOOD 15 mg/dL (7-18)
[2020-05-11 08:17] VITALS: BP 109/66
[2020-05-11] MEDS: IBUPROFEN 600 MG TABLET PO PRN (13:48)
[2020-05-11 16:30] VITALS: BP 119/74
[2020-05-11] MEDS: OLANZapine 7.5 MG TABLET PO SCH (20:46)
[2020-05-11] MEDS: ZOLPIDEM TARTRATE 10 MG TABLET PO PRN (22:54)
[2020-05-12 00:12] VITALS: BP 90/51
[2020-05-12] MEDS: LORazepam 2 MG TABLET PO PRN ×4 (06:21→20:11)
[2020-05-12 08:07] VITALS: BP 120/75
[2020-05-12] MEDS: OMEPRAZOLE 20 MG CAPSULE PO PRN (09:02)
[2020-05-12 16:10] VITALS: BP 118/79
[2020-05-12] MEDS: OLANZapine 7.5 MG TABLET PO SCH (20:11)
[2020-05-12] MEDS: ZOLPIDEM TARTRATE 10 MG TABLET PO PRN (21:29)
[2020-05-13 00:21] VITALS: BP 100/61
[2020-05-13] MEDS: ACETAMINOPHEN 325 MG TABLET PO PRN (02:35)
[2020-05-13] MEDS: LORazepam 2 MG TABLET PO PRN ×4 (06:45→22:15)
[2020-05-13 07:55] LABS: COVID AG,FIA SOURCE NASOPHARYNGEAL
[2020-05-13 08:15] VITALS: BP 118/71
[2020-05-13] MEDS: OMEPRAZOLE 20 MG CAPSULE PO PRN (13:12)
[2020-05-13] MEDS: IBUPROFEN 600 MG TABLET PO PRN (16:02)
[2020-05-13 16:08] VITALS: BP 113/69
[2020-05-13] MEDS: OLANZapine 7.5 MG TABLET PO SCH (21:28)
[2020-05-13] MEDS: ZOLPIDEM TARTRATE 10 MG TABLET PO PRN (22:15)
[2020-05-14 01:42] VITALS: BP 106/62
[2020-05-14] MEDS: LORazepam 2 MG TABLET PO PRN ×3 (04:20→18:16)
[2020-05-14] MEDS: ACETAMINOPHEN 325 MG TABLET PO PRN (04:21)
[2020-05-14 08:09] VITALS: BP 105/60
[2020-05-14] MEDS: OMEPRAZOLE 20 MG CAPSULE PO PRN (10:54)
[2020-05-14] MEDS: IBUPROFEN 600 MG TABLET PO PRN (10:54)
[2020-05-14 16:07] VITALS: BP 108/58
[2020-05-14 18:20] VITALS: BP 112/63
[2020-05-14] MEDS: OLANZapine 7.5 MG TABLET PO SCH (20:31)
[2020-05-14] MEDS: ZOLPIDEM TARTRATE 10 MG TABLET PO PRN (21:53)
[2020-05-15] MEDS: LORazepam 2 MG TABLET PO PRN ×4 (00:01→17:10)
[2020-05-15 00:17] VITALS: BP 116/68
[2020-05-15 06:36] VITALS: BP 119/71
[2020-05-15] MEDS: ACETAMINOPHEN 325 MG TABLET PO PRN (06:39)
[2020-05-15 08:11] VITALS: BP 110/66
[2020-05-15] MEDS: THIAMINE 100 MG TABLET PO SCH (08:28)
[2020-05-15] MEDS: FOLIC ACID 1 MG TABLET PO SCH (08:29)
[2020-05-15 16:07] VITALS: BP 109/66
[2020-05-15] MEDS: OLANZapine 7.5 MG TABLET PO SCH (20:32)
[2020-05-16] VITALS: BP 111/69
[2020-05-16] MEDS: LORazepam 2 MG TABLET PO PRN ×4 (05:49→18:26)
[2020-05-16] MEDS: FOLIC ACID 1 MG TABLET PO SCH (08:25)
[2020-05-16] MEDS: THIAMINE 100 MG TABLET PO SCH (08:25)
[2020-05-16 08:26] VITALS: BP 107/68
[2020-05-16] MEDS: IBUPROFEN 600 MG TABLET PO PRN (09:57)
[2020-05-16] MEDS: OMEPRAZOLE 20 MG CAPSULE PO PRN (11:03)
[2020-05-16 16:15] VITALS: BP 111/67
[2020-05-16] MEDS: OLANZapine 7.5 MG TABLET PO SCH (20:37)
[2020-05-16] MEDS: ZOLPIDEM TARTRATE 10 MG TABLET PO PRN (20:48)
[2020-05-17] VITALS: BP 108/64
[2020-05-17 01:25] VITALS: BP 99/65
[2020-05-17] MEDS: ACETAMINOPHEN 325 MG TABLET PO PRN ×2 (01:26→13:47)
[2020-05-17] MEDS: LORazepam 2 MG TABLET PO PRN ×4 (06:19→18:59)
[2020-05-17] MEDS: THIAMINE 100 MG TABLET PO SCH (08:08)
[2020-05-17] MEDS: FOLIC ACID 1 MG TABLET PO SCH (08:08)
[2020-05-17 08:13] VITALS: BP 118/67
[2020-05-17] MEDS: OMEPRAZOLE 20 MG CAPSULE PO PRN (08:42)
[2020-05-17 16:17] VITALS: BP 110/64
[2020-05-17] MEDS: OLANZapine 7.5 MG TABLET PO SCH (20:22)
[2020-05-17] MEDS: ZOLPIDEM TARTRATE 10 MG TABLET PO PRN (20:37)
[2020-05-18 00:28] VITALS: BP 102/63
[2020-05-18 03:17] VITALS: BP 112/72
[2020-05-18] MEDS: IBUPROFEN 600 MG TABLET PO PRN (03:19)
[2020-05-18] MEDS: LORazepam 2 MG TABLET PO PRN ×4 (06:45→19:54)
[2020-05-18] MEDS: THIAMINE 100 MG TABLET PO SCH (08:16)
[2020-05-18] MEDS: FOLIC ACID 1 MG TABLET PO SCH (08:16)
[2020-05-18 08:44] VITALS: BP 111/62
[2020-05-18] MEDS: OMEPRAZOLE 20 MG CAPSULE PO PRN (09:57)
[2020-05-18 16:15] VITALS: BP 102/60
[2020-05-18] MEDS: OLANZapine 7.5 MG TABLET PO SCH (20:59)
[2020-05-18] MEDS: ZOLPIDEM TARTRATE 10 MG TABLET PO PRN (20:59)
[2020-05-19 00:25] VITALS: BP 100/60
[2020-05-19] MEDS: LORazepam 2 MG TABLET PO PRN ×4 (07:02→20:51)
[2020-05-19 07:36] LABS: COVID AG,FIA SOURCE NASOPHARYNGEAL
[2020-05-19] MEDS: FOLIC ACID 1 MG TABLET PO SCH (08:25)
[2020-05-19] MEDS: THIAMINE 100 MG TABLET PO SCH (08:25)
[2020-05-19 08:26] VITALS: BP 108/63
[2020-05-19] MEDS: IBUPROFEN 600 MG TABLET PO PRN (09:29)
[2020-05-19] MEDS: OMEPRAZOLE 20 MG CAPSULE PO PRN (09:29)
[2020-05-19 16:17] VITALS: BP 119/69
[2020-05-19] MEDS: OLANZapine 7.5 MG TABLET PO SCH (20:30)
[2020-05-19] MEDS: ZOLPIDEM TARTRATE 10 MG TABLET PO PRN (21:46)
[2020-05-20 00:13] VITALS: BP 120/86
[2020-05-20 05:00] VITALS: BP 122/76
[2020-05-20] MEDS: ACETAMINOPHEN 325 MG TABLET PO PRN (05:05)
[2020-05-20] MEDS: LORazepam 2 MG TABLET PO PRN ×4 (07:03→20:35)
[2020-05-20] MEDS: FOLIC ACID 1 MG TABLET PO SCH (08:07)
[2020-05-20] MEDS: THIAMINE 100 MG TABLET PO SCH (08:07)
[2020-05-20 08:19] VITALS: BP 102/65
[2020-05-20 16:12] VITALS: BP 134/68
[2020-05-20] MEDS: OMEPRAZOLE 20 MG CAPSULE PO PRN (16:26)
[2020-05-20] MEDS: OLANZapine 7.5 MG TABLET PO SCH (20:32)
[2020-05-20] MEDS: ZOLPIDEM TARTRATE 10 MG TABLET PO PRN (21:39)
[2020-05-21 00:14] VITALS: BP 114/62
[2020-05-21] MEDS: LORazepam 2 MG TABLET PO PRN ×3 (07:30→18:47)
[2020-05-21 08:22] VITALS: BP 105/62
[2020-05-21] MEDS: FOLIC ACID 1 MG TABLET PO SCH (08:59)
[2020-05-21] MEDS: THIAMINE 100 MG TABLET PO SCH (08:59)
[2020-05-21] MEDS: ACETAMINOPHEN 325 MG TABLET PO PRN (09:49)
[2020-05-21] MEDS: OMEPRAZOLE 20 MG CAPSULE PO PRN (14:37)
[2020-05-21 16:25] VITALS: BP 110/67
[2020-05-21] MEDS: OLANZapine 7.5 MG TABLET PO SCH (20:39)
[2020-05-21] MEDS: ZOLPIDEM TARTRATE 10 MG TABLET PO PRN (21:44)
[2020-05-22 00:22] VITALS: BP 109/70
[2020-05-22 08:15] VITALS: BP 102/62
[2020-05-22] MEDS: THIAMINE 100 MG TABLET PO SCH (08:42)
[2020-05-22] MEDS: FOLIC ACID 1 MG TABLET PO SCH (08:42)
[2020-05-22] MEDS ORDERED: OLAN7.5T2 PO (09:06)
== END 2020-05-22 09:45 | disposition home or self-care (01) | DRG 885 ==
LOC: EMS 14:23 → B3A 18:08 → B2X 05-09 14:43
PROVIDERS: ADMIT Psychiatry & Neurology Psychiatry; ATTEND Psychiatry & Neurology Psychiatry
DX: F20.0 Paranoid schizophrenia (principal); R45.851 Suicidal ideations; F41.0 Panic disorder [episodic paroxysmal anxiety]; R45.850 Homicidal ideations; F17.200 Nicotine dependence, unspecified, uncomplicated; Z20.822 Contact with and (suspected) exposure to COVID-19; F12.90 Cannabis use, unspecified, uncomplicated; F41.9 Anxiety disorder, unspecified; G47.00 Insomnia, unspecified; K21.9 Gastro-esophageal reflux disease without esophagitis; K59.00 Constipation, unspecified
CPT/HCPCS: 83036; 83735; 84100; 84443; 87426; 99285; G0480

== ENCOUNTER 2020-07-30 12:00 | Inpatient (IN) | payer MEDICARE, MEDICAID ==
[~2020-07-30] VITALS: Ht 170.2 cm; Wt 80.3 kg
[~2020-07-30 12:00] MED LIST changes: -OLAN5TAB2 PO; +OLAN7.5T22 PO
[2020-07-30] MEDS ORDERED: CLON-598 PO (12:11)
[2020-07-30] MEDS ORDERED: LORazepam 1 MG TABLET PO ONE (17:15)
[2020-07-30 17:37] LABS: BASOPHILS % (AUTO) 0.8 % (0.0-2.0); HEMATOCRIT 43.9 % (41-53); HEMOGLOBIN 14.6 g/dL (13.5-17.5); LYMPHOCYTES # (AUTO) 1.8 K/uL (1.0-4.8); LYMPHOCYTES % (AUTO) 28.6 % (22.0-44.0); MEAN CORPUSCULAR HEMOGLOBIN 30.7 pg (26.0-34.0); MEAN CORPUSCULAR HGB CONC 33.4 G/dL (31.0-37.0); MEAN CORPUSCULAR VOLUME 92 fL (80-100); MONOCYTES # (AUTO) 0.6 K/uL (0.1-1.0); MONOCYTES % (AUTO) 9.3 % (2.0-9.0); NEUTROPHILS # (AUTO) 3.7 K/uL (1.8-7.7); NEUTROPHILS % (AUTO) 58.3 % (40.0-70.0); PLATELET COUNT (AUTO) 276 K/uL (150-450); RED BLOOD CELL COUNT(AUTO) 4.77 MIL/uL (4.50-5.90)
[2020-07-30 17:46] LABS: AMPHET/METH SCREEN,URINE POSITIVE (NEGATIVE); BARBITURATE SCREEN, URINE NEGATIVE (NEGATIVE); BENZODIAZEPINES SCREEN,URINE NEGATIVE (NEGATIVE); CANNABINOID SCREEN,URINE NEGATIVE (NEGATIVE); COCAINE SCREEN,URINE NEGATIVE (NEGATIVE); METHADONE SCREEN, URINE NEGATIVE (NEGATIVE); OPIATE SCREEN,URINE NEGATIVE (NEGATIVE); PHENCYCLIDINE SCREEN,URINE NEGATIVE (NEGATIVE)
[2020-07-30 17:48] LABS: ANION GAP 2 mmol/L (8-16); CALCIUM, TOTAL 8.4 mg/dL (8.8-10.5); CARBON DIOXIDE 33 mmol/L (22-29); CHLORIDE 101 mmol/L (98-107); CREATININE 0.89 mg/dL (0.60-1.30); GLOMERULAR FILTR. RATE CALC > 60 mL/min (>60); GLUCOSE,RANDOM 125 mg/dL (70-110); POTASSIUM 3.9 mmol/L (3.5-5.1); SODIUM SERUM 136 mmol/L (136-145); UREA NITROGEN, BLOOD 18 mg/dL (7-18)
[2020-07-30 17:54] LABS: ALANINE AMINOTRANSFERASE 192 U/L (12-78); ALBUMIN 3.9 g/dL (3.4-5.0); ALKALINE PHOSPHATASE 56 U/L (46-116); ASPARTATE AMINOTRANSFERASE 183 U/L (15-37); BILIRUBIN,TOTAL 0.8 mg/dL (0.1-1.0); TOTAL PROTEIN, SERUM 7.4 g/dL (6.4-8.2)
[2020-07-30 19:09] LABS: COVID AG,FIA SOURCE NASOPHARYNGEAL
[2020-07-30] MEDS ORDERED: OLANZapine 5 MG RAPDIS TABLET PO PRN (20:00)
[2020-07-31 00:16] VITALS: BP 135/79
[2020-07-31] MEDS ORDERED: PNEUMOCOCCAL VACCINE POLYVALENT 0.5 ML VIAL [PPSV23] IM. ONE (00:30)
[2020-07-31] MEDS ORDERED: MAGNESIUM HYDROXIDE SUSPENSION 30 ML UDCUP PO PRN (07:45)
[2020-07-31] MEDS ORDERED: MAG HYDROX/AL HYDROX/SIMETH ES 30 ML SUSPENSION UDCUP PO PRN (07:45)
[2020-07-31] MEDS ORDERED: HydrOXYzine PAMOATE 50 MG CAPSULE PO PRN (07:45)
[2020-07-31] MEDS ORDERED: PROMETHAZINE HCL 25 MG TABLET PO PRN (07:45)
[2020-07-31] MEDS ORDERED: GuaiFENesin/D-METHORPHAN [SUGAR-FREE] 200-20MG/10 ML SYRUP UDCUP PO PRN (07:45)
[2020-07-31] MEDS ORDERED: TUBERCULIN, PURIFIED PROTEIN DERIVATIVE 5 TU/0.1 ML SYRINGE ID ONE (07:45)
[2020-07-31] MEDS ORDERED: LOPERAMIDE HCL 2 MG CAPSULE PO PRN (07:45)
[2020-07-31 08:35] VITALS: BP 115/63
[2020-07-31] MEDS: MULTIVITAMINS WITH MINERALS, THERAPEUTIC TABLET PO SCH (09:00)
[2020-07-31] MEDS: OMEGA-3/DHA/EPA/FISH OIL 1,000 MG CAPSULE PO SCH (09:00)
[2020-07-31] MEDS: FOLIC ACID 1 MG TABLET PO SCH (09:42)
[2020-07-31] MEDS: THIAMINE 100 MG TABLET PO SCH ×2 (09:42→16:38)
[2020-07-31] MEDS: NALTREXONE HCL 50 MG TABLET PO SCH (09:43)
[2020-07-31] MEDS: LORazepam 2 MG TABLET PO PRN ×2 (09:55→14:48)
[2020-07-31 16:32] VITALS: BP 124/68
[2020-07-31] MEDS: GABAPENTIN 300 MG CAPSULE PO SCH (16:38)
[2020-07-31] MEDS: MELATONIN 5 MG TABLET PO SCH (20:37)
[2020-07-31] MEDS ORDERED: OLANZapine 5 MG RAPDIS TABLET PO SCH (21:00)
[2020-08-01] MEDS: LORazepam 2 MG TABLET PO PRN ×4 (00:51→21:04)
[2020-08-01 02:03] VITALS: BP 103/62
[2020-08-01 06:35] VITALS: BP 119/84
[2020-08-01 06:50] VITALS: BP 122/64
[2020-08-01 08:19] VITALS: BP 121/72
[2020-08-01] MEDS: OMEGA-3/DHA/EPA/FISH OIL 1,000 MG CAPSULE PO SCH (09:00)
[2020-08-01] MEDS: MULTIVITAMINS WITH MINERALS, THERAPEUTIC TABLET PO SCH (09:00)
[2020-08-01] MEDS: FLUoxetine HCL 10 MG CAPSULE PO SCH ×2 (09:00→10:15)
[2020-08-01] MEDS: NALTREXONE HCL 50 MG TABLET PO SCH (09:39)
[2020-08-01] MEDS: FOLIC ACID 1 MG TABLET PO SCH (09:39)
[2020-08-01] MEDS: THIAMINE 100 MG TABLET PO SCH ×2 (09:39→16:49)
[2020-08-01] MEDS: GABAPENTIN 300 MG CAPSULE PO SCH ×3 (09:47→16:49)
[2020-08-01] MEDS: ACETAMINOPHEN 325 MG TABLET PO PRN (13:15)
[2020-08-01 16:25] VITALS: BP 101/62
[2020-08-01] MEDS: MELATONIN 5 MG TABLET PO SCH (20:58)
[2020-08-01] MEDS: OLANZapine 10 MG RAPDIS TABLET PO SCH (21:03)
[2020-08-01] MEDS: ZOLPIDEM TARTRATE 10 MG TABLET PO PRN (22:49)
[2020-08-02] MEDS: LORazepam 2 MG TABLET PO PRN ×3 (05:44→16:52)
[2020-08-02 05:49] VITALS: BP 120/70
[2020-08-02 08:13] VITALS: BP 119/76
[2020-08-02] MEDS: THIAMINE 100 MG TABLET PO SCH ×2 (08:54→16:52)
[2020-08-02] MEDS: OMEGA-3/DHA/EPA/FISH OIL 1,000 MG CAPSULE PO SCH (08:54)
[2020-08-02] MEDS: GABAPENTIN 300 MG CAPSULE PO SCH ×3 (08:54→16:52)
[2020-08-02] MEDS: MULTIVITAMINS WITH MINERALS, THERAPEUTIC TABLET PO SCH (08:54)
[2020-08-02] MEDS: FOLIC ACID 1 MG TABLET PO SCH (08:54)
[2020-08-02] MEDS: NALTREXONE HCL 50 MG TABLET PO SCH (08:55)
[2020-08-02] MEDS ORDERED: FLUoxetine HCL 20 MG CAPSULE PO SCH (09:00)
[2020-08-02 16:12] VITALS: BP 121/84
[2020-08-02] MEDS: MELATONIN 5 MG TABLET PO SCH (20:58)
[2020-08-02] MEDS: OLANZapine 10 MG RAPDIS TABLET PO SCH (20:58)
[2020-08-03] VITALS: BP 103/56
[2020-08-03] MEDS: LORazepam 2 MG TABLET PO PRN ×3 (00:08→13:19)
[2020-08-03 08:15] VITALS: BP 124/77
[2020-08-03] MEDS: THIAMINE 100 MG TABLET PO SCH ×2 (09:44→17:02)
[2020-08-03] MEDS: OMEGA-3/DHA/EPA/FISH OIL 1,000 MG CAPSULE PO SCH (09:44)
[2020-08-03] MEDS: FOLIC ACID 1 MG TABLET PO SCH (09:45)
[2020-08-03] MEDS: GABAPENTIN 300 MG CAPSULE PO SCH ×2 (09:45→13:19)
[2020-08-03] MEDS: FLUoxetine HCL 20 MG CAPSULE PO SCH (09:45)
[2020-08-03] MEDS: MULTIVITAMINS WITH MINERALS, THERAPEUTIC TABLET PO SCH (09:45)
[2020-08-03] MEDS: NALTREXONE HCL 50 MG TABLET PO SCH (09:48)
[2020-08-03 16:29] VITALS: BP 139/68
[2020-08-03] MEDS: GABAPENTIN 400 MG CAPSULE PO SCH (17:10)
[2020-08-03] MEDS: MELATONIN 5 MG TABLET PO SCH (20:57)
[2020-08-03] MEDS: OLANZapine 10 MG RAPDIS TABLET PO SCH (20:57)
[2020-08-04 00:25] VITALS: BP 111/62
[2020-08-04] MEDS: LORazepam 0.5 MG TABLET PO PRN ×3 (06:23→16:34)
[2020-08-04 07:16] LABS: COVID AG,FIA SOURCE NASOPHARYNGEAL
[2020-08-04 08:48] VITALS: BP 118/68
[2020-08-04] MEDS: MULTIVITAMINS WITH MINERALS, THERAPEUTIC TABLET PO SCH (09:00)
[2020-08-04] MEDS: OMEGA-3/DHA/EPA/FISH OIL 1,000 MG CAPSULE PO SCH (09:00)
[2020-08-04] MEDS: GABAPENTIN 400 MG CAPSULE PO SCH ×3 (09:14→16:34)
[2020-08-04] MEDS: NALTREXONE HCL 50 MG TABLET PO SCH (09:15)
[2020-08-04] MEDS: FLUoxetine HCL 20 MG CAPSULE PO SCH (09:15)
[2020-08-04] MEDS: THIAMINE 100 MG TABLET PO SCH ×2 (09:15→16:34)
[2020-08-04] MEDS: FOLIC ACID 1 MG TABLET PO SCH (09:15)
[2020-08-04] MEDS: ACETAMINOPHEN 325 MG TABLET PO PRN ×2 (10:05→16:35)
[2020-08-04 16:21] VITALS: BP 111/61
[2020-08-04] MEDS ORDERED: IBUPROFEN 600 MG TABLET PO PRN (18:15)
[2020-08-04] MEDS: OLANZapine 10 MG RAPDIS TABLET PO SCH (20:27)
[2020-08-04] MEDS: MELATONIN 5 MG TABLET PO SCH (20:28)
[2020-08-04] MEDS: ZOLPIDEM TARTRATE 10 MG TABLET PO PRN (22:43)
[2020-08-05 00:39] VITALS: BP 129/83
[2020-08-05] MEDS: ACETAMINOPHEN 325 MG TABLET PO PRN ×2 (03:41→18:16)
[2020-08-05] MEDS: LORazepam 0.5 MG TABLET PO PRN ×3 (03:41→17:05)
[2020-08-05 07:50] LABS: HEMOGLOBIN A1C 5.7 % (3.8-5.6)
[2020-08-05 08:08] LABS: ALANINE AMINOTRANSFERASE 135 U/L (12-78); ALBUMIN 3.3 g/dL (3.4-5.0); ALKALINE PHOSPHATASE 48 U/L (46-116); ANION GAP 7 mmol/L (8-16); ASPARTATE AMINOTRANSFERASE 67 U/L (15-37); BILIRUBIN,TOTAL 0.3 mg/dL (0.1-1.0); CALCIUM, TOTAL 8.4 mg/dL (8.8-10.5); CARBON DIOXIDE 28 mmol/L (22-29); CHLORIDE 103 mmol/L (98-107); CREATININE 0.88 mg/dL (0.60-1.30); GLOMERULAR FILTR. RATE CALC > 60 mL/min (>60); GLUCOSE,RANDOM 89 mg/dL (70-110); POTASSIUM 4.2 mmol/L (3.5-5.1); SODIUM SERUM 138 mmol/L (136-145); TOTAL PROTEIN, SERUM 7.2 g/dL (6.4-8.2); UREA NITROGEN, BLOOD 22 mg/dL (7-18)
[2020-08-05] MEDS ORDERED: LORazepam 1 MG TABLET ONE (08:13)
[2020-08-05 08:15] VITALS: BP 101/61
[2020-08-05 08:18] LABS: CHOL/HDL RATIO 2.4 (4.2-7.3); FREE T4 (FREE THYROXINE) 1.16 ng/dL (0.76-1.46); THYROID STIMULATING HORMONE 6.03 uIU/mL (0.36-3.74)
[2020-08-05] MEDS: MULTIVITAMINS WITH MINERALS, THERAPEUTIC TABLET PO SCH (08:58)
[2020-08-05] MEDS: OMEGA-3/DHA/EPA/FISH OIL 1,000 MG CAPSULE PO SCH (08:58)
[2020-08-05] MEDS: NALTREXONE HCL 50 MG TABLET PO SCH (08:58)
[2020-08-05] MEDS: FOLIC ACID 1 MG TABLET PO SCH (08:58)
[2020-08-05] MEDS: GABAPENTIN 400 MG CAPSULE PO SCH ×3 (08:58→17:04)
[2020-08-05] MEDS: THIAMINE 100 MG TABLET PO SCH ×2 (08:58→17:04)
[2020-08-05] MEDS: FLUoxetine HCL 20 MG CAPSULE PO SCH (08:58)
[2020-08-05 16:26] VITALS: BP 125/81
[2020-08-05] MEDS: MELATONIN 5 MG TABLET PO SCH (20:19)
[2020-08-05] MEDS: OLANZapine 10 MG RAPDIS TABLET PO SCH (20:19)
[2020-08-05] MEDS: ZOLPIDEM TARTRATE 10 MG TABLET PO PRN (20:20)
[2020-08-06 02:08] VITALS: BP 104/65
[2020-08-06 05:41] VITALS: BP 114/74
[2020-08-06] MEDS: LORazepam 0.5 MG TABLET PO PRN ×3 (05:41→14:03)
[2020-08-06] MEDS: ACETAMINOPHEN 325 MG TABLET PO PRN (05:41)
[2020-08-06] MEDS: FOLIC ACID 1 MG TABLET PO SCH (08:28)
[2020-08-06] MEDS: MULTIVITAMINS WITH MINERALS, THERAPEUTIC TABLET PO SCH (08:28)
[2020-08-06] MEDS: FLUoxetine HCL 20 MG CAPSULE PO SCH (08:28)
[2020-08-06] MEDS: THIAMINE 100 MG TABLET PO SCH ×2 (08:28→16:41)
[2020-08-06] MEDS: OMEGA-3/DHA/EPA/FISH OIL 1,000 MG CAPSULE PO SCH (08:28)
[2020-08-06] MEDS: GABAPENTIN 400 MG CAPSULE PO SCH ×3 (08:28→16:41)
[2020-08-06] MEDS: NALTREXONE HCL 50 MG TABLET PO SCH (08:29)
[2020-08-06 08:46] VITALS: BP 105/60
[2020-08-06] MEDS ORDERED: GABAPENTIN 300 MG CAPSULE PO PRN (16:00)
[2020-08-06 16:24] VITALS: BP 103/60
[2020-08-06] MEDS: OLANZapine 10 MG RAPDIS TABLET PO SCH (21:00)
[2020-08-06] MEDS: MELATONIN 5 MG TABLET PO SCH (21:00)
[2020-08-07 00:23] VITALS: BP 113/64
[2020-08-07] MEDS: ACETAMINOPHEN 325 MG TABLET PO PRN ×2 (00:34→13:07)
[2020-08-07] MEDS: ZOLPIDEM TARTRATE 10 MG TABLET PO PRN (00:34)
[2020-08-07 08:08] VITALS: BP 117/69
[2020-08-07] MEDS: OMEGA-3/DHA/EPA/FISH OIL 1,000 MG CAPSULE PO SCH (08:46)
[2020-08-07] MEDS: FOLIC ACID 1 MG TABLET PO SCH (08:47)
[2020-08-07] MEDS: THIAMINE 100 MG TABLET PO SCH (08:47)
[2020-08-07] MEDS: NALTREXONE HCL 50 MG TABLET PO SCH (08:47)
[2020-08-07] MEDS: FLUoxetine HCL 20 MG CAPSULE PO SCH (08:48)
[2020-08-07] MEDS: MULTIVITAMINS WITH MINERALS, THERAPEUTIC TABLET PO SCH (08:57)
[2020-08-07] MEDS: GABAPENTIN 400 MG CAPSULE PO SCH ×2 (08:57→13:06)
[2020-08-07] MEDS ORDERED: OLAN10TA26 PO (11:13)
[2020-08-07] MEDS ORDERED: MELA5TAB3 PO (11:13)
[2020-08-07] MEDS ORDERED: GABA-1201 PO (11:13)
[2020-08-07] MEDS ORDERED: FLUO20CA36 PO (11:13)
[2020-08-07] MEDS ORDERED: OMEG-135 PO (11:13)
[2020-08-07] MEDS ORDERED: NALT50TA PO (11:13)
== END 2020-08-07 14:48 | disposition home or self-care (01) | DRG 885 ==
LOC: EMS 12:01 → B2S 20:00
PROVIDERS: ADMIT Psychiatry & Neurology Psychiatry; ATTEND Psychiatry & Neurology Psychiatry
DX: F25.1 Schizoaffective disorder, depressive type (principal); R45.851 Suicidal ideations; F12.90 Cannabis use, unspecified, uncomplicated; F17.210 Nicotine dependence, cigarettes, uncomplicated; F41.0 Panic disorder [episodic paroxysmal anxiety]; R07.89 Other chest pain; R73.9 Hyperglycemia, unspecified; F15.10 Other stimulant abuse, uncomplicated; Z20.822 Contact with and (suspected) exposure to COVID-19; J44.9 Chronic obstructive pulmonary disease, unspecified; K21.9 Gastro-esophageal reflux disease without esophagitis; Z87.11 Personal history of peptic ulcer disease; Z91.19 Patient's noncompliance with other medical treatment and regimen; Z28.21 Immunization not carried out because of patient refusal; Z88.8 Allergy status to other drugs, medicaments and biological substances; Z79.899 Other long term (current) drug therapy
CPT/HCPCS: 71045; 80053; 80061; 83036; 84439; 84443; 84484; 85025; 86592; 93005; 99285; A9575; G0480; 36415-L1; 36415-TC

== ENCOUNTER 2020-09-01 18:53 | Inpatient (IN) | payer MEDICARE, MEDICAID ==
[~2020-09-01] VITALS: Ht 170.2 cm; Wt 78.9 kg
[~2020-09-01 18:53] MED LIST changes: +FLUO20CA36 PO; +GABA-1201 PO; +MELA5TAB3 PO; +NALT50TA PO; +OLAN10TA26 PO; -OLAN7.5T22 PO; +OMEG-135 PO
[2020-09-01] MEDS ORDERED: IBUPROFEN 800 MG TABLET PO ONE (19:15)
[2020-09-01] MEDS ORDERED: OLANZapine 5 MG TABLET PO ONE (19:15)
[2020-09-01] MEDS ORDERED: LORazepam 2 MG TABLET PO ONE (19:15)
[2020-09-01] MEDS ORDERED: ACETAMINOPHEN 500 MG TABLET PO ONE (19:15)
[2020-09-01 19:47] LABS: AMPHET/METH SCREEN,URINE POSITIVE (NEGATIVE); BARBITURATE SCREEN, URINE NEGATIVE (NEGATIVE); BENZODIAZEPINES SCREEN,URINE NEGATIVE (NEGATIVE); CANNABINOID SCREEN,URINE POSITIVE (NEGATIVE); COCAINE SCREEN,URINE NEGATIVE (NEGATIVE); METHADONE SCREEN, URINE NEGATIVE (NEGATIVE); OPIATE SCREEN,URINE NEGATIVE (NEGATIVE); PHENCYCLIDINE SCREEN,URINE NEGATIVE (NEGATIVE)
[2020-09-01 20:06] LABS: BASOPHILS % (AUTO) 0.6 % (0.0-2.0); EOSINOPHILS % (AUTO) 0.8 % (1.0-6.0); HEMATOCRIT 41.3 % (41-53); HEMOGLOBIN 13.8 g/dL (13.5-17.5); LYMPHOCYTES # (AUTO) 2.2 K/uL (1.0-4.8); LYMPHOCYTES % (AUTO) 26.4 % (22.0-44.0); MEAN CORPUSCULAR HEMOGLOBIN 30.9 pg (26.0-34.0); MEAN CORPUSCULAR HGB CONC 33.4 G/dL (31.0-37.0); MEAN CORPUSCULAR VOLUME 92 fL (80-100); MONOCYTES # (AUTO) 0.9 K/uL (0.1-1.0); MONOCYTES % (AUTO) 10.6 % (2.0-9.0); NEUTROPHILS # (AUTO) 5.2 K/uL (1.8-7.7); NEUTROPHILS % (AUTO) 61.6 % (40.0-70.0); PLATELET COUNT (AUTO) 270 K/uL (150-450); RED BLOOD CELL COUNT(AUTO) 4.47 MIL/uL (4.50-5.90); RED CELL DISTRIBUTION WIDTH 13.9 % (11.5-14.5)
[2020-09-01 20:17] LABS: ANION GAP 4 mmol/L (8-16); CALCIUM, TOTAL 8.7 mg/dL (8.8-10.5); CARBON DIOXIDE 30 mmol/L (22-29); CHLORIDE 104 mmol/L (98-107); CREATININE 0.91 mg/dL (0.60-1.30); GLOMERULAR FILTR. RATE CALC > 60 mL/min (>60); GLUCOSE,RANDOM 91 mg/dL (70-110); POTASSIUM 4.1 mmol/L (3.5-5.1); SODIUM SERUM 138 mmol/L (136-145); UREA NITROGEN, BLOOD 20 mg/dL (7-18)
[2020-09-01 20:22] LABS: ALANINE AMINOTRANSFERASE 128 U/L (12-78); ALBUMIN 3.5 g/dL (3.4-5.0); ALKALINE PHOSPHATASE 51 U/L (46-116); ASPARTATE AMINOTRANSFERASE 102 U/L (15-37); BILIRUBIN,TOTAL 0.4 mg/dL (0.1-1.0); TOTAL PROTEIN, SERUM 7.5 g/dL (6.4-8.2)
[2020-09-01] MEDS ORDERED: OLANZapine 5 MG RAPDIS TABLET PO PRN (20:45)
[2020-09-01] MEDS ORDERED: LORazepam 2 MG TABLET PO PRN (20:45)
[2020-09-01 23:28] LABS: COVID AG,FIA SOURCE NASOPHARYNGEAL
[2020-09-02 09:25] VITALS: BP 128/83
[2020-09-02 10:51] LABS: CHOL/HDL RATIO 1.6 (4.2-7.3)
[2020-09-02 16:01] VITALS: BP 125/73
[2020-09-02] MEDS: MELATONIN 5 MG TABLET PO SCH (20:16)
[2020-09-02] MEDS: OLANZapine 10 MG RAPDIS TABLET PO SCH (20:16)
[2020-09-03] MEDS: LORazepam 0.5 MG TABLET PO PRN ×3 (06:32→19:33)
[2020-09-03] MEDS: FLUoxetine HCL 20 MG CAPSULE PO SCH (08:18)
[2020-09-03] MEDS: GABAPENTIN 400 MG CAPSULE PO SCH ×3 (08:18→16:12)
[2020-09-03] MEDS: OMEGA-3/DHA/EPA/FISH OIL 1,000 MG CAPSULE PO SCH (08:18)
[2020-09-03 08:30] VITALS: BP 103/61
[2020-09-03 08:40] VITALS: BP 103/61
[2020-09-03] MEDS: IBUPROFEN 600 MG TABLET PO PRN (08:43)
[2020-09-03] MEDS ORDERED: PROMETHAZINE HCL 25 MG TABLET PO PRN (09:30)
[2020-09-03] MEDS ORDERED: LOPERAMIDE HCL 2 MG CAPSULE PO PRN (09:30)
[2020-09-03] MEDS ORDERED: HydrOXYzine PAMOATE 50 MG CAPSULE PO PRN (09:30)
[2020-09-03] MEDS ORDERED: GuaiFENesin/D-METHORPHAN [SUGAR-FREE] 200-20MG/10 ML SYRUP UDCUP PO PRN (09:30)
[2020-09-03] MEDS ORDERED: MAGNESIUM HYDROXIDE SUSPENSION 30 ML UDCUP PO PRN (09:30)
[2020-09-03] MEDS ORDERED: MAG HYDROX/AL HYDROX/SIMETH ES 30 ML SUSPENSION UDCUP PO PRN (09:30)
[2020-09-03 09:41] VITALS: BP 104/68
[2020-09-03 16:00] VITALS: BP 103/76
[2020-09-03] MEDS: THIAMINE 100 MG TABLET PO SCH (16:11)
[2020-09-03] MEDS ORDERED: PALIPERIDONE PALMITATE 234 MG/1.5 ML SYRINGE IM ONE (19:45)
[2020-09-03] MEDS: OLANZapine 10 MG RAPDIS TABLET PO SCH (22:00)
[2020-09-03] MEDS: MELATONIN 5 MG TABLET PO SCH (23:07)
[2020-09-04 04:10] VITALS: BP 106/70
[2020-09-04] MEDS: LORazepam 0.5 MG TABLET PO PRN ×2 (04:10→10:27)
[2020-09-04] MEDS: IBUPROFEN 600 MG TABLET PO PRN ×2 (04:10→10:23)
[2020-09-04 05:45] VITALS: BP 109/75
[2020-09-04 06:05] LABS: CHOL/HDL RATIO 2.1 (4.2-7.3)
[2020-09-04 06:07] LABS: HEMOGLOBIN A1C 5.6 % (3.8-5.6)
[2020-09-04 08:00] VITALS: BP 108/57
[2020-09-04] MEDS: GABAPENTIN 400 MG CAPSULE PO SCH ×3 (10:18→16:17)
[2020-09-04] MEDS: OMEGA-3/DHA/EPA/FISH OIL 1,000 MG CAPSULE PO SCH (10:18)
[2020-09-04] MEDS: FOLIC ACID 1 MG TABLET PO SCH (10:19)
[2020-09-04] MEDS: MULTIVITAMINS WITH MINERALS, THERAPEUTIC TABLET PO SCH (10:19)
[2020-09-04] MEDS: FLUoxetine HCL 20 MG CAPSULE PO SCH (10:19)
[2020-09-04] MEDS: THIAMINE 100 MG TABLET PO SCH ×2 (10:19→16:17)
[2020-09-04] MEDS: NALTREXONE HCL 50 MG TABLET PO SCH (10:19)
[2020-09-04 16:30] VITALS: BP 115/59
[2020-09-04] MEDS: MELATONIN 5 MG TABLET PO SCH (20:20)
[2020-09-04] MEDS: OLANZapine 10 MG RAPDIS TABLET PO SCH (20:20)
[2020-09-05 00:40] VITALS: BP 113/74
[2020-09-05] MEDS: ZOLPIDEM TARTRATE 10 MG TABLET PO PRN ×2 (00:40→22:42)
[2020-09-05] MEDS: LORazepam 0.5 MG TABLET PO PRN ×3 (00:41→15:00)
[2020-09-05 06:55] VITALS: BP 109/72
[2020-09-05] MEDS: IBUPROFEN 600 MG TABLET PO PRN (07:02)
[2020-09-05 08:00] VITALS: BP 110/69
[2020-09-05 08:02] VITALS: BP 129/75
[2020-09-05] MEDS: THIAMINE 100 MG TABLET PO SCH ×2 (09:14→16:28)
[2020-09-05] MEDS: MULTIVITAMINS WITH MINERALS, THERAPEUTIC TABLET PO SCH (09:14)
[2020-09-05] MEDS: FLUoxetine HCL 20 MG CAPSULE PO SCH (09:14)
[2020-09-05] MEDS: FOLIC ACID 1 MG TABLET PO SCH (09:14)
[2020-09-05] MEDS: OMEGA-3/DHA/EPA/FISH OIL 1,000 MG CAPSULE PO SCH (09:14)
[2020-09-05] MEDS: GABAPENTIN 400 MG CAPSULE PO SCH ×3 (09:14→16:28)
[2020-09-05] MEDS: NALTREXONE HCL 50 MG TABLET PO SCH (09:14)
[2020-09-05 15:01] VITALS: BP 131/86
[2020-09-05] MEDS: ACETAMINOPHEN 325 MG TABLET PO PRN (15:01)
[2020-09-05 16:00] VITALS: BP 116/68
[2020-09-05] MEDS: MELATONIN 5 MG TABLET PO SCH (20:37)
[2020-09-05] MEDS: OLANZapine 5 MG RAPDIS TABLET PO SCH (20:37)
[2020-09-06 01:28] VITALS: BP 103/63
[2020-09-06] MEDS: LORazepam 0.5 MG TABLET PO PRN ×3 (01:28→14:39)
[2020-09-06 08:45] VITALS: BP 102/61
[2020-09-06] MEDS: FOLIC ACID 1 MG TABLET PO SCH (10:08)
[2020-09-06] MEDS: NALTREXONE HCL 50 MG TABLET PO SCH (10:08)
[2020-09-06] MEDS: GABAPENTIN 300 MG CAPSULE PO SCH ×3 (10:08→16:33)
[2020-09-06] MEDS: OMEGA-3/DHA/EPA/FISH OIL 1,000 MG CAPSULE PO SCH (10:08)
[2020-09-06] MEDS: MULTIVITAMINS WITH MINERALS, THERAPEUTIC TABLET PO SCH (10:08)
[2020-09-06] MEDS: THIAMINE 100 MG TABLET PO SCH ×2 (10:08→16:32)
[2020-09-06] MEDS: FLUoxetine HCL 20 MG CAPSULE PO SCH (10:09)
[2020-09-06] MEDS: ACETAMINOPHEN 325 MG TABLET PO PRN (10:13)
[2020-09-06 16:00] VITALS: BP 113/60
[2020-09-06 17:01] VITALS: BP 120/65
[2020-09-06] MEDS: IBUPROFEN 600 MG TABLET PO PRN (17:01)
[2020-09-06 18:01] VITALS: BP 115/62
[2020-09-06] MEDS: OLANZapine 5 MG RAPDIS TABLET PO SCH ×2 (20:15→20:37)
[2020-09-06] MEDS: MELATONIN 5 MG TABLET PO SCH (20:15)
[2020-09-07] MEDS: IBUPROFEN 600 MG TABLET PO PRN (05:25)
[2020-09-07] MEDS: LORazepam 0.5 MG TABLET PO PRN ×3 (05:31→16:23)
[2020-09-07] MEDS ORDERED: PALIPERIDONE PALMITATE 156 MG/ML SYRINGE IM ONE (09:00)
[2020-09-07 09:09] VITALS: BP 116/65
[2020-09-07] MEDS: FOLIC ACID 1 MG TABLET PO SCH (10:25)
[2020-09-07] MEDS: MULTIVITAMINS WITH MINERALS, THERAPEUTIC TABLET PO SCH (10:25)
[2020-09-07] MEDS: GABAPENTIN 300 MG CAPSULE PO SCH ×3 (10:25→16:07)
[2020-09-07] MEDS: OMEGA-3/DHA/EPA/FISH OIL 1,000 MG CAPSULE PO SCH (10:25)
[2020-09-07] MEDS: FLUoxetine HCL 20 MG CAPSULE PO SCH (10:26)
[2020-09-07] MEDS: NALTREXONE HCL 50 MG TABLET PO SCH (10:27)
[2020-09-07] MEDS: THIAMINE 100 MG TABLET PO SCH ×2 (10:27→16:07)
[2020-09-07] MEDS: ACETAMINOPHEN 325 MG TABLET PO PRN (12:27)
[2020-09-07 15:26] LABS: COVID AG,FIA SOURCE NASOPHARYNGEAL
[2020-09-07 16:03] VITALS: BP 109/76
[2020-09-07] MEDS: MELATONIN 5 MG TABLET PO SCH ×2 (20:17→20:51)
[2020-09-08 05:46] VITALS: BP 107/73
[2020-09-08] MEDS: LORazepam 0.5 MG TABLET PO PRN ×3 (05:48→16:22)
[2020-09-08 08:00] VITALS: BP 95/67
[2020-09-08] MEDS: FLUoxetine HCL 20 MG CAPSULE PO SCH (10:19)
[2020-09-08] MEDS: FOLIC ACID 1 MG TABLET PO SCH (10:19)
[2020-09-08] MEDS: GABAPENTIN 300 MG CAPSULE PO SCH ×3 (10:20→17:25)
[2020-09-08] MEDS: OMEGA-3/DHA/EPA/FISH OIL 1,000 MG CAPSULE PO SCH (10:20)
[2020-09-08] MEDS: NALTREXONE HCL 50 MG TABLET PO SCH (10:20)
[2020-09-08] MEDS: MULTIVITAMINS WITH MINERALS, THERAPEUTIC TABLET PO SCH (10:20)
[2020-09-08] MEDS: THIAMINE 100 MG TABLET PO SCH ×2 (10:21→17:25)
[2020-09-08 16:55] VITALS: BP_SYST 113; BP_DIAS 63; BP_DIAS 73
[2020-09-08] MEDS: MELATONIN 5 MG TABLET PO SCH (21:00)
[2020-09-09] MEDS: LORazepam 0.5 MG TABLET PO PRN ×3 (06:47→21:46)
[2020-09-09] MEDS: NALTREXONE HCL 50 MG TABLET PO SCH (08:17)
[2020-09-09] MEDS: OMEGA-3/DHA/EPA/FISH OIL 1,000 MG CAPSULE PO SCH (08:17)
[2020-09-09] MEDS: THIAMINE 100 MG TABLET PO SCH ×2 (08:18→17:11)
[2020-09-09] MEDS: GABAPENTIN 300 MG CAPSULE PO SCH ×3 (08:18→17:11)
[2020-09-09] MEDS: FOLIC ACID 1 MG TABLET PO SCH (08:18)
[2020-09-09] MEDS: FLUoxetine HCL 20 MG CAPSULE PO SCH (08:18)
[2020-09-09] MEDS: MULTIVITAMINS WITH MINERALS, THERAPEUTIC TABLET PO SCH (08:18)
[2020-09-09 09:05] VITALS: BP 112/70
[2020-09-09 16:28] VITALS: BP 107/74
[2020-09-09] MEDS: MELATONIN 5 MG TABLET PO SCH (21:46)
[2020-09-10] MEDS: IBUPROFEN 600 MG TABLET PO PRN (00:35)
[2020-09-10 00:45] VITALS: BP 131/83
[2020-09-10] MEDS: LORazepam 0.5 MG TABLET PO PRN ×3 (08:07→17:11)
[2020-09-10 08:10] VITALS: BP 113/68
[2020-09-10] MEDS: FOLIC ACID 1 MG TABLET PO SCH (09:00)
[2020-09-10] MEDS: THIAMINE 100 MG TABLET PO SCH ×3 (09:00→17:00)
[2020-09-10] MEDS: FLUoxetine HCL 20 MG CAPSULE PO SCH (09:00)
[2020-09-10] MEDS: OMEGA-3/DHA/EPA/FISH OIL 1,000 MG CAPSULE PO SCH (09:00)
[2020-09-10] MEDS: MULTIVITAMINS WITH MINERALS, THERAPEUTIC TABLET PO SCH (09:00)
[2020-09-10] MEDS: NALTREXONE HCL 50 MG TABLET PO SCH (09:00)
[2020-09-10] MEDS: GABAPENTIN 300 MG CAPSULE PO SCH ×4 (09:00→17:00)
[2020-09-10] MEDS ORDERED: OMEG-135 PO (20:55)
[2020-09-10] MEDS ORDERED: NALT50TA PO (20:55)
[2020-09-10] MEDS ORDERED: FLUO20CA36 PO (20:55)
[2020-09-10] MEDS ORDERED: MELA5TAB3 PO (20:55)
[2020-09-10] MEDS ORDERED: GABA-1181 PO (20:55)
[2020-09-10] MEDS ORDERED: PALI117D IM (20:55)
[2020-09-10] MEDS: MELATONIN 5 MG TABLET PO SCH (21:00)
[2020-09-11] MEDS: LORazepam 0.5 MG TABLET PO PRN ×2 (04:01→08:13)
[2020-09-11 04:05] VITALS: BP 116/72
[2020-09-11] MEDS: GABAPENTIN 300 MG CAPSULE PO SCH ×2 (09:00→13:00)
[2020-09-11] MEDS: NALTREXONE HCL 50 MG TABLET PO SCH (09:00)
[2020-09-11] MEDS: FLUoxetine HCL 20 MG CAPSULE PO SCH (09:00)
[2020-09-11] MEDS: THIAMINE 100 MG TABLET PO SCH (09:00)
[2020-09-11] MEDS: OMEGA-3/DHA/EPA/FISH OIL 1,000 MG CAPSULE PO SCH (09:00)
[2020-09-11] MEDS: MULTIVITAMINS WITH MINERALS, THERAPEUTIC TABLET PO SCH (09:00)
[2020-09-11] MEDS: FOLIC ACID 1 MG TABLET PO SCH (09:00)
[2020-09-11 09:30] VITALS: BP 124/76
== END 2020-09-11 15:18 | disposition home or self-care (01) | DRG 885 ==
LOC: EMS 18:55 → 3EI 20:32
PROVIDERS: ADMIT Psychiatry & Neurology Psychiatry; ATTEND Psychiatry & Neurology Psychiatry
DX: F25.1 Schizoaffective disorder, depressive type (principal); B18.2 Chronic viral hepatitis C; R45.851 Suicidal ideations; Z20.822 Contact with and (suspected) exposure to COVID-19; F12.20 Cannabis dependence, uncomplicated; F15.10 Other stimulant abuse, uncomplicated; F41.0 Panic disorder [episodic paroxysmal anxiety]; K21.9 Gastro-esophageal reflux disease without esophagitis; R45.850 Homicidal ideations; Z55.9 Problems related to education and literacy, unspecified; Z59.0 Homelessness; Z65.3 Problems related to other legal circumstances; Z91.14 Patient's other noncompliance with medication regimen; F17.210 Nicotine dependence, cigarettes, uncomplicated; Z88.8 Allergy status to other drugs, medicaments and biological substances
CPT/HCPCS: 80053; 80061; 83036; 85025; 86592; 93005; 99285; A9575; G0480

== ENCOUNTER 2020-09-15 06:59 | Emergency (ER) | payer MEDICARE, MEDICAID ==
[~2020-09-15] VITALS: Ht 170.2 cm; Wt 72.3 kg
[~2020-09-15 06:59] MED LIST changes: +GABA-1181 PO; -GABA-1201 PO; -OLAN10TA26 PO; +PALI117D IM
[2020-09-15] MEDS ORDERED: CLON-598 PO (07:22)
[2020-09-15] MEDS ORDERED: LORA-1000 PO (07:22)
[2020-09-15 07:36] LABS: BASOPHILS % (AUTO) 0.7 % (0.0-2.0); EOSINOPHILS % (AUTO) 1.9 % (1.0-6.0); HEMATOCRIT 44.4 % (41-53); HEMOGLOBIN 14.8 g/dL (13.5-17.5); LYMPHOCYTES # (AUTO) 1.8 K/uL (1.0-4.8); LYMPHOCYTES % (AUTO) 20.6 % (22.0-44.0); MEAN CORPUSCULAR HEMOGLOBIN 30.8 pg (26.0-34.0); MEAN CORPUSCULAR HGB CONC 33.3 G/dL (31.0-37.0); MEAN CORPUSCULAR VOLUME 93 fL (80-100); MONOCYTES # (AUTO) 0.8 K/uL (0.1-1.0); MONOCYTES % (AUTO) 8.9 % (2.0-9.0); NEUTROPHILS # (AUTO) 5.9 K/uL (1.8-7.7); NEUTROPHILS % (AUTO) 67.9 % (40.0-70.0); PLATELET COUNT (AUTO) 327 K/uL (150-450); RED BLOOD CELL COUNT(AUTO) 4.79 MIL/uL (4.50-5.90); RED CELL DISTRIBUTION WIDTH 13.8 % (11.5-14.5)
[2020-09-15 07:40] LABS: COVID AG,FIA SOURCE NASOPHARYNGEAL
[2020-09-15 07:58] LABS: AMPHET/METH SCREEN,URINE NEGATIVE (NEGATIVE); BARBITURATE SCREEN, URINE NEGATIVE (NEGATIVE); BENZODIAZEPINES SCREEN,URINE NEGATIVE (NEGATIVE); CANNABINOID SCREEN,URINE POSITIVE (NEGATIVE); COCAINE SCREEN,URINE NEGATIVE (NEGATIVE); METHADONE SCREEN, URINE NEGATIVE (NEGATIVE); OPIATE SCREEN,URINE NEGATIVE (NEGATIVE)
[2020-09-15 07:59] LABS: PHENCYCLIDINE SCREEN,URINE NEGATIVE (NEGATIVE)
[2020-09-15 07:59] LABS: ALANINE AMINOTRANSFERASE 131 U/L (12-78); ALKALINE PHOSPHATASE 71 U/L (46-116); ANION GAP 8 mmol/L (8-16); ASPARTATE AMINOTRANSFERASE 90 U/L (15-37); BILIRUBIN,TOTAL 0.7 mg/dL (0.1-1.0); CALCIUM, TOTAL 8.9 mg/dL (8.8-10.5); CARBON DIOXIDE 31 mmol/L (22-29); CHLORIDE 105 mmol/L (98-107); CREATININE 0.87 mg/dL (0.60-1.30); GLOMERULAR FILTR. RATE CALC > 60 mL/min (>60); GLUCOSE,RANDOM 83 mg/dL (70-110); POTASSIUM 3.8 mmol/L (3.5-5.1); SODIUM SERUM 144 mmol/L (136-145); TOTAL PROTEIN, SERUM 8.3 g/dL (6.4-8.2); UREA NITROGEN, BLOOD 19 mg/dL (7-18)
[2020-09-15 09:00] VITALS: BP 139/75
== END 2020-09-15 09:09 | disposition home or self-care (01) ==
LOC: EMS 06:59
DX: F25.9 Schizoaffective disorder, unspecified (principal); F31.9 Bipolar disorder, unspecified; G89.29 Other chronic pain; M79.671 Pain in right foot; M79.672 Pain in left foot; K21.9 Gastro-esophageal reflux disease without esophagitis; F17.210 Nicotine dependence, cigarettes, uncomplicated; F12.90 Cannabis use, unspecified, uncomplicated; Z20.822 Contact with and (suspected) exposure to COVID-19; Z59.0 Homelessness; Z88.8 Allergy status to other drugs, medicaments and biological substances
CPT/HCPCS: 36415; 80053; 80307; 85025; 87426; 99284; G0480

== ENCOUNTER 2020-10-11 14:57 | Emergency (ER) | payer MEDICARE, MEDICAID ==
[~2020-10-11] VITALS: Ht 170.2 cm; Wt 77.3 kg
[2020-10-11 14:55] VITALS: BP 122/78
[~2020-10-11 14:57] MED LIST changes: +CLON-598 PO; -FLUO20CA36 PO; -GABA-1181 PO; +LORA-1000 PO; -MELA5TAB3 PO; -NALT50TA PO; -OMEG-135 PO; -PALI117D IM
[2020-10-11] MEDS ORDERED: ClonazePAM 1 MG TABLET PO ONE (15:15)
[2020-10-11] MEDS ORDERED: ACETAMINOPHEN 500 MG TABLET PO ONE (15:15)
== END 2020-10-11 15:50 | disposition home or self-care (01) ==
LOC: EMS 14:57
DX: F25.9 Schizoaffective disorder, unspecified (principal); F31.9 Bipolar disorder, unspecified; F41.9 Anxiety disorder, unspecified; K21.9 Gastro-esophageal reflux disease without esophagitis; F17.210 Nicotine dependence, cigarettes, uncomplicated; F12.90 Cannabis use, unspecified, uncomplicated; Z88.8 Allergy status to other drugs, medicaments and biological substances
CPT/HCPCS: 99283

== ENCOUNTER 2020-11-16 12:40 | Emergency (ER) | payer MEDICARE, MEDICAID ==
[~2020-11-16] VITALS: Ht 170.2 cm; Wt 76.4 kg
[2020-11-16 12:45] VITALS: BP 113/74
[2020-11-16 13:33] LABS: EOSINOPHILS % (AUTO) 0.1 % (1.0-6.0); HEMATOCRIT 45.4 % (41-53); HEMOGLOBIN 15.4 g/dL (13.5-17.5); LYMPHOCYTES # (AUTO) 1.9 K/uL (1.0-4.8); LYMPHOCYTES % (AUTO) 21.8 % (22.0-44.0); MEAN CORPUSCULAR HEMOGLOBIN 30.3 pg (26.0-34.0); MEAN CORPUSCULAR HGB CONC 33.9 G/dL (31.0-37.0); MEAN CORPUSCULAR VOLUME 89 fL (80-100); MONOCYTES # (AUTO) 0.8 K/uL (0.1-1.0); MONOCYTES % (AUTO) 8.6 % (2.0-9.0); NEUTROPHILS # (AUTO) 6.1 K/uL (1.8-7.7); NEUTROPHILS % (AUTO) 68.5 % (40.0-70.0); PLATELET COUNT (AUTO) 251 K/uL (150-450); RED BLOOD CELL COUNT(AUTO) 5.08 MIL/uL (4.50-5.90); RED CELL DISTRIBUTION WIDTH 13.2 % (11.5-14.5)
[2020-11-16 13:41] LABS: AMPHET/METH SCREEN,URINE NEGATIVE (NEGATIVE); BARBITURATE SCREEN, URINE NEGATIVE (NEGATIVE); BENZODIAZEPINES SCREEN,URINE NEGATIVE (NEGATIVE); CANNABINOID SCREEN,URINE NEGATIVE (NEGATIVE); COCAINE SCREEN,URINE NEGATIVE (NEGATIVE); METHADONE SCREEN, URINE NEGATIVE (NEGATIVE); OPIATE SCREEN,URINE NEGATIVE (NEGATIVE)
[2020-11-16 13:45] LABS: PHENCYCLIDINE SCREEN,URINE NEGATIVE (NEGATIVE)
[2020-11-16 13:45] LABS: ANION GAP 11 mmol/L (8-16); CALCIUM, TOTAL 8.5 mg/dL (8.8-10.5); CARBON DIOXIDE 28 mmol/L (22-29); CHLORIDE 99 mmol/L (98-107); CREATININE 0.84 mg/dL (0.60-1.30); GLOMERULAR FILTR. RATE CALC > 60 mL/min (>60); GLUCOSE,RANDOM 109 mg/dL (70-110); SODIUM SERUM 138 mmol/L (136-145); UREA NITROGEN, BLOOD 15 mg/dL (7-18)
[2020-11-16 13:52] LABS: ALANINE AMINOTRANSFERASE 129 U/L (12-78); ALBUMIN 3.8 g/dL (3.4-5.0); ALKALINE PHOSPHATASE 58 U/L (46-116); ASPARTATE AMINOTRANSFERASE 119 U/L (15-37); BILIRUBIN,TOTAL 0.4 mg/dL (0.1-1.0); TOTAL PROTEIN, SERUM 8.4 g/dL (6.4-8.2)
[2020-11-16] MEDS ORDERED: ACETAMINOPHEN 500 MG TABLET PO ONE (14:15)
== END 2020-11-16 14:15 | disposition home or self-care (01) ==
LOC: EMS 12:44
DX: F25.9 Schizoaffective disorder, unspecified (principal); F31.9 Bipolar disorder, unspecified; F41.9 Anxiety disorder, unspecified; Z88.8 Allergy status to other drugs, medicaments and biological substances
CPT/HCPCS: 36415; 80053; 80307; 85025; 99284; G0480

== ENCOUNTER 2020-11-25 21:41 | Emergency (ER) | payer MEDICARE, MEDICAID ==
[~2020-11-25] VITALS: Ht 170.2 cm; Wt 76.4 kg
[2020-11-25 22:02] VITALS: BP 130/83
[2020-11-25] MEDS ORDERED: ClonazePAM 1 MG TABLET PO ONE (22:30)
[2020-11-25] MEDS ORDERED: IBUPROFEN 600 MG TABLET PO ONE (22:30)
== END 2020-11-25 22:58 | disposition home or self-care (01) ==
LOC: EMS 21:43
DX: S40.011A Contusion of right shoulder, initial encounter (principal); S80.01XA Contusion of right knee, initial encounter; F31.9 Bipolar disorder, unspecified; F41.9 Anxiety disorder, unspecified; Z76.0 Encounter for issue of repeat prescription; Z88.8 Allergy status to other drugs, medicaments and biological substances; Z59.00 Homelessness unspecified; X58.XXXA Exposure to other specified factors, initial encounter; Y93.89 Activity, other specified; Y92.89 Other specified places as the place of occurrence of the external cause; Y99.8 Other external cause status
CPT/HCPCS: 99283

== ENCOUNTER 2020-12-19 14:17 | Emergency (ER) | payer MEDICARE, MEDICAID ==
[~2020-12-19] VITALS: Ht 170.2 cm; Wt 75.0 kg
[2020-12-19] MEDS ORDERED: ClonazePAM 1 MG TABLET PO ONE (15:15)
[2020-12-19 15:41] VITALS: BP 127/75
== END 2020-12-19 15:57 | disposition home or self-care (01) ==
LOC: EMS 14:17
DX: F41.9 Anxiety disorder, unspecified (principal); F32.9 Major depressive disorder, single episode, unspecified; Z76.0 Encounter for issue of repeat prescription; Z88.8 Allergy status to other drugs, medicaments and biological substances
CPT/HCPCS: 99283

== ENCOUNTER 2021-01-25 07:24 | Emergency (ER) | payer MEDICARE, MEDICAID ==
[~2021-01-25] VITALS: Ht 170.2 cm; Wt 76.4 kg
[2021-01-25 07:48] VITALS: BP 114/56
[2021-01-25] MEDS ORDERED: FAMOTIDINE 20 MG TABLET PO ONE (08:30)
[2021-01-25] MEDS ORDERED: ClonazePAM 1 MG TABLET PO ONE (08:30)
== END 2021-01-25 09:08 | disposition home or self-care (01) ==
LOC: EMS 07:24
DX: F41.9 Anxiety disorder, unspecified (principal); K21.9 Gastro-esophageal reflux disease without esophagitis; F32.9 Major depressive disorder, single episode, unspecified; Z76.0 Encounter for issue of repeat prescription
CPT/HCPCS: 99283

== ENCOUNTER 2021-04-07 13:05 | Inpatient (IN) | payer MEDICARE, MEDICAID ==
[~2021-04-07] VITALS: Ht 175.3 cm; Wt 80.6 kg
[2021-04-07 14:31] LABS: BASOPHILS % (AUTO) 0.4 % (0.0-2.0); EOSINOPHILS % (AUTO) 0.1 % (1.0-6.0); HEMATOCRIT 43.1 % (41-53); HEMOGLOBIN 14.6 g/dL (13.5-17.5); LYMPHOCYTES # (AUTO) 1.8 K/uL (1.0-4.8); LYMPHOCYTES % (AUTO) 20.9 % (22.0-44.0); MEAN CORPUSCULAR HEMOGLOBIN 29.8 pg (26.0-34.0); MEAN CORPUSCULAR HGB CONC 33.8 G/dL (31.0-37.0); MEAN CORPUSCULAR VOLUME 88 fL (80-100); MONOCYTES # (AUTO) 0.6 K/uL (0.1-1.0); MONOCYTES % (AUTO) 7.4 % (2.0-9.0); NEUTROPHILS # (AUTO) 6.1 K/uL (1.8-7.7); NEUTROPHILS % (AUTO) 71.2 % (40.0-70.0); PLATELET COUNT (AUTO) 276 K/uL (150-450); RED BLOOD CELL COUNT(AUTO) 4.89 MIL/uL (4.50-5.90); RED CELL DISTRIBUTION WIDTH 14.5 % (11.5-14.5)
[2021-04-07 14:45] LABS: ANION GAP 9 mmol/L (8-16); CALCIUM, TOTAL 8.6 mg/dL (8.8-10.5); CARBON DIOXIDE 29 mmol/L (22-29); CHLORIDE 97 mmol/L (98-107); CREATININE 0.97 mg/dL (0.60-1.30); GLOMERULAR FILTR. RATE CALC > 60 mL/min (>60); GLUCOSE,RANDOM 134 mg/dL (70-110); SODIUM SERUM 135 mmol/L (136-145); UREA NITROGEN, BLOOD 14 mg/dL (7-18)
[2021-04-07 14:50] LABS: ALANINE AMINOTRANSFERASE 168 U/L (12-78); ALBUMIN 3.9 g/dL (3.4-5.0); ALKALINE PHOSPHATASE 53 U/L (46-116); ASPARTATE AMINOTRANSFERASE 173 U/L (15-37); BILIRUBIN,TOTAL 0.7 mg/dL (0.1-1.0); TOTAL PROTEIN, SERUM 8.4 g/dL (6.4-8.2)
[2021-04-07 15:49] LABS: AMPHET/METH SCREEN,URINE NEGATIVE (NEGATIVE); BARBITURATE SCREEN, URINE NEGATIVE (NEGATIVE); BENZODIAZEPINES SCREEN,URINE NEGATIVE (NEGATIVE); CANNABINOID SCREEN,URINE NEGATIVE (NEGATIVE); COCAINE SCREEN,URINE NEGATIVE (NEGATIVE); METHADONE SCREEN, URINE NEGATIVE (NEGATIVE); OPIATE SCREEN,URINE NEGATIVE (NEGATIVE); PHENCYCLIDINE SCREEN,URINE NEGATIVE (NEGATIVE)
[2021-04-07] MEDS ORDERED: LORazepam 2 MG/ML VIAL IVP ONE (16:00)
[2021-04-07] MEDS ORDERED: ETOMIDATE 2 MG/ML 10 ML VIAL IVP ONE (16:45)
[2021-04-07] MEDS ORDERED: ACETAMINOPHEN 325 MG TABLET PO PRN ×2 (18:30→21:45)
[2021-04-07] MEDS ORDERED: ONDANSETRON HCL 4 MG/2 ML VIAL IVP PRN ×2 (18:30→21:45)
[2021-04-07 20:25] LABS: COVID AG,FIA SOURCE NASOPHARYNGEAL
[2021-04-07] MEDS ORDERED: KETOROLAC TROMETHAMINE 15 MG/ML VIAL IVP PRN (21:45)
[2021-04-07 21:58] VITALS: BP 133/65
[2021-04-08] VITALS (7 sets, daily range): BP systolic 129–153; BP diastolic 76–108
[2021-04-08] MEDS ORDERED: HEPARIN SODIUM,PORCINE 5,000 UNITS/ML VIAL SQ SCH
[2021-04-08] MEDS: HEPARIN SODIUM,PORCINE 5,000 UNITS/ML VIAL SQ SCH ×3 (00:58→16:59)
[2021-04-08] MEDS: HYDROCODONE/ACETAMINOPHEN 5-325 MG TABLET PO PRN ×2 (06:48→18:31)
[2021-04-08] MEDS: AmLODIPine BESYLATE 5 MG TABLET PO SCH (08:21)
[2021-04-08] MEDS ORDERED: LORazepam 1 MG TABLET PO ONE (08:45)
[2021-04-08] MEDS ORDERED: LORazepam 1 MG TABLET PO PRN (09:45)
[2021-04-09 00:35] VITALS: BP 137/90
[2021-04-09] MEDS: HEPARIN SODIUM,PORCINE 5,000 UNITS/ML VIAL SQ SCH ×3 (00:40→16:06)
[2021-04-09 03:15] VITALS: BP 141/94
[2021-04-09] MEDS: HYDROCODONE/ACETAMINOPHEN 5-325 MG TABLET PO PRN ×4 (04:34→19:55)
[2021-04-09 08:03] VITALS: BP 141/95
[2021-04-09] MEDS: AmLODIPine BESYLATE 5 MG TABLET PO SCH (08:08)
[2021-04-09] MEDS ORDERED: OLANZapine 5 MG RAPDIS TABLET PO PRN (10:15)
[2021-04-09 16:01] VITALS: BP 146/98
[2021-04-09] MEDS: OMEPRAZOLE 20 MG CAPSULE PO SCH (16:36)
[2021-04-09 19:25] VITALS: BP 132/98
[2021-04-09] MEDS: OLANZapine 5 MG RAPDIS TABLET PO SCH (21:37)
[2021-04-10 00:05] VITALS: BP 146/88
[2021-04-10] MEDS: ESZOPICLONE 3 MG TABLET PO PRN (00:06)
[2021-04-10] MEDS: GABAPENTIN 300 MG CAPSULE PO PRN (00:07)
[2021-04-10] MEDS: HYDROCODONE/ACETAMINOPHEN 5-325 MG TABLET PO PRN ×5 (00:14→20:29)
[2021-04-10 03:48] VITALS: BP 145/87
[2021-04-10 07:38] VITALS: BP 141/93
[2021-04-10] MEDS: HEPARIN SODIUM,PORCINE 5,000 UNITS/ML VIAL SQ SCH ×3 (08:00→16:00)
[2021-04-10] MEDS: OMEPRAZOLE 20 MG CAPSULE PO SCH (08:38)
[2021-04-10] MEDS: VENLAFAXINE HCL 75 MG ER CAPSULE PO SCH ×2 (09:00→12:33)
[2021-04-10] MEDS: AmLODIPine BESYLATE 5 MG TABLET PO SCH (09:00)
[2021-04-10] MEDS ORDERED: AMLO-257 PO (09:03)
[2021-04-10] MEDS ORDERED: LORazepam 1 MG TABLET PO ONE (09:45)
[2021-04-10 16:03] VITALS: BP 150/97
[2021-04-10] MEDS ORDERED: OMEG-108 PO (16:50)
[2021-04-10] MEDS ORDERED: NALT50TA PO (16:50)
[2021-04-10] MEDS ORDERED: MELA5TAB40 PO (16:50)
[2021-04-10] MEDS ORDERED: OLAN5TAB94 PO (16:50)
[2021-04-10] MEDS ORDERED: VENL-67 PO (16:50)
[2021-04-10] MEDS: OLANZapine 5 MG RAPDIS TABLET PO SCH (20:30)
[2021-04-10 20:40] VITALS: BP 150/99
[2021-04-11 04:14] VITALS: BP 142/93
[2021-04-11] MEDS: HYDROCODONE/ACETAMINOPHEN 5-325 MG TABLET PO PRN ×3 (05:30→20:21)
[2021-04-11] MEDS: HEPARIN SODIUM,PORCINE 5,000 UNITS/ML VIAL SQ SCH ×4 (08:00→23:38)
[2021-04-11 08:53] VITALS: BP 135/93
[2021-04-11] MEDS: OMEPRAZOLE 20 MG CAPSULE PO SCH (09:00)
[2021-04-11] MEDS: AmLODIPine BESYLATE 5 MG TABLET PO SCH (09:00)
[2021-04-11] MEDS: VENLAFAXINE HCL 75 MG ER CAPSULE PO SCH (09:00)
[2021-04-11 19:35] VITALS: BP 133/101
[2021-04-11] MEDS: OLANZapine 5 MG RAPDIS TABLET PO SCH (21:00)
[2021-04-12] MEDS: HYDROCODONE/ACETAMINOPHEN 5-325 MG TABLET PO PRN ×4 (00:24→21:17)
[2021-04-12 05:15] VITALS: BP 145/102
[2021-04-12] MEDS: GABAPENTIN 300 MG CAPSULE PO PRN ×2 (05:48→14:24)
[2021-04-12] MEDS: HEPARIN SODIUM,PORCINE 5,000 UNITS/ML VIAL SQ SCH ×3 (08:00→16:00)
[2021-04-12 08:04] VITALS: BP 139/96
[2021-04-12] MEDS: OMEPRAZOLE 20 MG CAPSULE PO SCH (08:38)
[2021-04-12] MEDS: VENLAFAXINE HCL 75 MG ER CAPSULE PO SCH (08:44)
[2021-04-12] MEDS: AmLODIPine BESYLATE 5 MG TABLET PO SCH (09:00)
[2021-04-12 16:24] VITALS: BP 151/93
[2021-04-12 20:15] VITALS: BP 150/91
[2021-04-12] MEDS: OLANZapine 5 MG RAPDIS TABLET PO SCH (21:17)
[2021-04-13 05:25] VITALS: BP 142/83
[2021-04-13 07:37] VITALS: BP 140/84
[2021-04-13] MEDS: VENLAFAXINE HCL 75 MG ER CAPSULE PO SCH (08:46)
[2021-04-13] MEDS: AmLODIPine BESYLATE 5 MG TABLET PO SCH (08:46)
[2021-04-13] MEDS: HEPARIN SODIUM,PORCINE 5,000 UNITS/ML VIAL SQ SCH ×3 (08:47→16:00)
[2021-04-13] MEDS: OMEPRAZOLE 20 MG CAPSULE PO SCH (08:47)
[2021-04-13] MEDS: HYDROCODONE/ACETAMINOPHEN 5-325 MG TABLET PO PRN (11:55)
[2021-04-13 15:21] VITALS: BP 139/82
[2021-04-13] MEDS: OLANZapine 5 MG RAPDIS TABLET PO SCH (20:26)
[2021-04-14] MEDS: HYDROCODONE/ACETAMINOPHEN 5-325 MG TABLET PO PRN ×3 (01:59→21:24)
[2021-04-14 04:55] VITALS: BP 141/93
[2021-04-14 07:25] VITALS: BP 138/86
[2021-04-14] MEDS: HEPARIN SODIUM,PORCINE 5,000 UNITS/ML VIAL SQ SCH ×3 (08:00→16:00)
[2021-04-14] MEDS: AmLODIPine BESYLATE 5 MG TABLET PO SCH (08:07)
[2021-04-14] MEDS: OMEPRAZOLE 20 MG CAPSULE PO SCH (08:09)
[2021-04-14] MEDS: VENLAFAXINE HCL 75 MG ER CAPSULE PO SCH (08:09)
[2021-04-14] MEDS: GABAPENTIN 300 MG CAPSULE PO PRN (11:47)
[2021-04-14 15:50] VITALS: BP 134/78
[2021-04-14 19:37] VITALS: BP 141/76
[2021-04-14] MEDS: OLANZapine 5 MG RAPDIS TABLET PO SCH (21:00)
[2021-04-15] MEDS: HYDROCODONE/ACETAMINOPHEN 5-325 MG TABLET PO PRN ×3 (02:37→17:25)
[2021-04-15] MEDS: HEPARIN SODIUM,PORCINE 5,000 UNITS/ML VIAL SQ SCH ×4 (08:00→23:54)
[2021-04-15 08:19] VITALS: BP 147/82
[2021-04-15] MEDS: AmLODIPine BESYLATE 5 MG TABLET PO SCH (09:00)
[2021-04-15] MEDS: VENLAFAXINE HCL 75 MG ER CAPSULE PO SCH (09:11)
[2021-04-15] MEDS: OMEPRAZOLE 20 MG CAPSULE PO SCH (09:11)
[2021-04-15] MEDS: OLANZapine 5 MG RAPDIS TABLET PO SCH (20:12)
[2021-04-15 21:05] VITALS: BP 137/75
[2021-04-16] MEDS: HYDROCODONE/ACETAMINOPHEN 5-325 MG TABLET PO PRN ×4 (02:37→21:40)
[2021-04-16 04:45] VITALS: BP 138/97
[2021-04-16] MEDS: HEPARIN SODIUM,PORCINE 5,000 UNITS/ML VIAL SQ SCH ×2 (08:00→16:00)
[2021-04-16 08:17] VITALS: BP 132/77
[2021-04-16] MEDS: OMEPRAZOLE 20 MG CAPSULE PO SCH (08:43)
[2021-04-16] MEDS: VENLAFAXINE HCL 75 MG ER CAPSULE PO SCH (08:43)
[2021-04-16] MEDS: AmLODIPine BESYLATE 5 MG TABLET PO SCH (08:45)
[2021-04-16 15:32] VITALS: BP 148/92
[2021-04-16 16:06] LABS: COVID AG,FIA SOURCE NASAL SWAB
[2021-04-16 20:01] VITALS: BP 138/83
[2021-04-16] MEDS: ESZOPICLONE 3 MG TABLET PO PRN (21:40)
[2021-04-16] MEDS: OLANZapine 5 MG RAPDIS TABLET PO SCH (21:41)
[2021-04-17 05:00] VITALS: BP 147/88
[2021-04-17] MEDS: HEPARIN SODIUM,PORCINE 5,000 UNITS/ML VIAL SQ SCH ×2 (08:00)
[2021-04-17] MEDS: HYDROCODONE/ACETAMINOPHEN 5-325 MG TABLET PO PRN (08:02)
[2021-04-17] MEDS: AmLODIPine BESYLATE 5 MG TABLET PO SCH ×2 (08:02→08:05)
[2021-04-17] MEDS: OMEPRAZOLE 20 MG CAPSULE PO SCH (08:03)
[2021-04-17] MEDS: VENLAFAXINE HCL 75 MG ER CAPSULE PO SCH ×2 (08:03→08:05)
[2021-04-17 08:42] VITALS: BP 136/78
== END 2021-04-17 15:30 | DRG 563 ==
LOC: EMS 13:09 → 6N 20:12 → 6S 04-11 19:01
PROVIDERS: ADMIT Internal Medicine; ATTEND Internal Medicine
PROC: 0PSCXZZ Reposition Right Humeral Head, External Approach (ICD-10-PCS; principal; 2021-04-07)
DX: S42.141A Displaced fracture of glenoid cavity of scapula, right shoulder, initial encounter for closed fracture (principal); R45.851 Suicidal ideations; S43.084A Other dislocation of right shoulder joint, initial encounter; R45.850 Homicidal ideations; F25.9 Schizoaffective disorder, unspecified; F32.A Depression, unspecified; Z20.822 Contact with and (suspected) exposure to COVID-19; K21.9 Gastro-esophageal reflux disease without esophagitis; F41.1 Generalized anxiety disorder; M25.411 Effusion, right shoulder; W18.39XA Other fall on same level, initial encounter; Y93.89 Activity, other specified; Y92.89 Other specified places as the place of occurrence of the external cause; Y99.8 Other external cause status; Z88.8 Allergy status to other drugs, medicaments and biological substances; Z87.891 Personal history of nicotine dependence; Z59.01 Sheltered homelessness; S46.911A Strain of unspecified muscle, fascia and tendon at shoulder and upper arm level, right arm, initial encounter
CPT/HCPCS: 73200; 73221; 80053; 85025; 87081; 97116; 97162; 97166; 97530; 97535; 99152; 99285; G0480; J1644; J2060; J3490

== ENCOUNTER 2021-04-29 18:10 | Inpatient (IN) | payer MEDICARE, MEDICAID ==
[~2021-04-29] VITALS: Ht 170.2 cm; Wt 82.7 kg
[~2021-04-29 18:10] MED LIST changes: +AMLO-257 PO; -CLON-598 PO; -LORA-1000 PO; +MELA5TAB40 PO; +NALT50TA PO; +OLAN5TAB94 PO; +OMEG-108 PO; +VENL-67 PO
[2021-04-29 20:19] LABS: BASOPHILS % (AUTO) 0.9 % (0.0-2.0); EOSINOPHILS % (AUTO) 0.7 % (1.0-6.0); HEMATOCRIT 43.6 % (41-53); HEMOGLOBIN 14.8 g/dL (13.5-17.5); LYMPHOCYTES # (AUTO) 2.7 K/uL (1.0-4.8); LYMPHOCYTES % (AUTO) 29.1 % (22.0-44.0); MEAN CORPUSCULAR HEMOGLOBIN 30.1 pg (26.0-34.0); MEAN CORPUSCULAR VOLUME 89 fL (80-100); MONOCYTES # (AUTO) 0.8 K/uL (0.1-1.0); MONOCYTES % (AUTO) 8.4 % (2.0-9.0); NEUTROPHILS # (AUTO) 5.8 K/uL (1.8-7.7); NEUTROPHILS % (AUTO) 60.9 % (40.0-70.0); PLATELET COUNT (AUTO) 393 K/uL (150-450); RED BLOOD CELL COUNT(AUTO) 4.92 MIL/uL (4.50-5.90); RED CELL DISTRIBUTION WIDTH 14.4 % (11.5-14.5)
[2021-04-29 20:29] LABS: ANION GAP 7 mmol/L (8-16); CARBON DIOXIDE 28 mmol/L (22-29); CHLORIDE 99 mmol/L (98-107); GLOMERULAR FILTR. RATE CALC > 60 mL/min (>60); GLUCOSE,RANDOM 133 mg/dL (70-110); POTASSIUM 3.8 mmol/L (3.5-5.1); SODIUM SERUM 134 mmol/L (136-145); UREA NITROGEN, BLOOD 16 mg/dL (7-18)
[2021-04-29 20:35] LABS: ALANINE AMINOTRANSFERASE 108 U/L (12-78); ALBUMIN 3.7 g/dL (3.4-5.0); ALKALINE PHOSPHATASE 60 U/L (46-116); ASPARTATE AMINOTRANSFERASE 75 U/L (15-37); BILIRUBIN,TOTAL 0.3 mg/dL (0.1-1.0); TOTAL PROTEIN, SERUM 8.4 g/dL (6.4-8.2)
[2021-04-29 21:39] LABS: AMPHET/METH SCREEN,URINE NEGATIVE (NEGATIVE); BARBITURATE SCREEN, URINE NEGATIVE (NEGATIVE); BENZODIAZEPINES SCREEN,URINE NEGATIVE (NEGATIVE); CANNABINOID SCREEN,URINE NEGATIVE (NEGATIVE); COCAINE SCREEN,URINE NEGATIVE (NEGATIVE); METHADONE SCREEN, URINE NEGATIVE (NEGATIVE); OPIATE SCREEN,URINE NEGATIVE (NEGATIVE)
[2021-04-29 21:40] LABS: PHENCYCLIDINE SCREEN,URINE NEGATIVE (NEGATIVE)
[2021-04-29] MEDS ORDERED: LORazepam 2 MG TABLET PO ONE (22:45)
[2021-04-29 22:53] LABS: COVID AG,FIA SOURCE NASOPHARYNGEAL
[2021-04-29] MEDS ORDERED: OLANZapine 5 MG RAPDIS TABLET PO PRN (23:15)
[2021-04-30 02:28] VITALS: BP 154/82
[2021-04-30] MEDS: LORazepam 2 MG TABLET PO PRN ×2 (04:43→10:15)
[2021-04-30] MEDS ORDERED: INFLUENZA VIRUS VACCINE QVS 2021-22 (6MO+)/PF 60 MCG/0.5 ML SYRINGE IM. ONE (05:00)
[2021-04-30 05:32] VITALS: BP 125/76
[2021-04-30] MEDS: IBUPROFEN 600 MG TABLET PO PRN ×2 (11:30→18:07)
[2021-04-30] MEDS ORDERED: LOPERAMIDE HCL 2 MG CAPSULE PO PRN (14:45)
[2021-04-30] MEDS ORDERED: HydrOXYzine PAMOATE 50 MG CAPSULE PO PRN (14:45)
[2021-04-30] MEDS ORDERED: MAGNESIUM HYDROXIDE SUSPENSION 30 ML UDCUP PO PRN (14:45)
[2021-04-30] MEDS ORDERED: GABAPENTIN 400 MG CAPSULE PO PRN (14:45)
[2021-04-30] MEDS ORDERED: GuaiFENesin/D-METHORPHAN [SUGAR-FREE] 200-20MG/10 ML SYRUP UDCUP PO PRN (14:45)
[2021-04-30] MEDS ORDERED: ACETAMINOPHEN 325 MG TABLET PO PRN (14:45)
[2021-04-30] MEDS ORDERED: TUBERCULIN, PURIFIED PROTEIN DERIVATIVE 5 TU/0.1 ML SYRINGE ID ONE (14:45)
[2021-04-30] MEDS ORDERED: PROMETHAZINE HCL 25 MG TABLET PO PRN (14:45)
[2021-04-30] MEDS: THIAMINE 100 MG TABLET PO SCH (16:21)
[2021-04-30] MEDS: GABAPENTIN 300 MG CAPSULE PO SCH ×2 (16:21→20:47)
[2021-04-30 18:06] VITALS: BP 130/93
[2021-04-30 19:20] VITALS: BP 130/93
[2021-04-30] MEDS: PARoxetine HCL 20 MG TABLET PO SCH (20:47)
[2021-04-30] MEDS: OLANZapine 5 MG RAPDIS TABLET PO SCH (20:47)
[2021-04-30] MEDS: MELATONIN 5 MG TABLET PO SCH (20:47)
[2021-05-01] MEDS: IBUPROFEN 600 MG TABLET PO PRN ×2 (06:47→18:49)
[2021-05-01 06:48] VITALS: BP 160/90
[2021-05-01 08:16] LABS: HEMOGLOBIN A1C 5.8 % (3.8-5.6)
[2021-05-01 08:31] VITALS: BP 154/88
[2021-05-01 08:37] LABS: CHOL/HDL RATIO 1.9 (4.2-7.3); FREE T4 (FREE THYROXINE) 1.16 ng/dL (0.76-1.46); THYROID STIMULATING HORMONE 2.31 uIU/mL (0.36-3.74)
[2021-05-01] MEDS: MULTIVITAMINS WITH MINERALS, THERAPEUTIC TABLET PO SCH (09:15)
[2021-05-01] MEDS: OMEGA-3/DHA/EPA/FISH OIL 1,000 MG CAPSULE PO SCH (09:15)
[2021-05-01] MEDS: THIAMINE 100 MG TABLET PO SCH ×2 (09:16→16:29)
[2021-05-01] MEDS: NALTREXONE HCL 50 MG TABLET PO SCH (09:16)
[2021-05-01] MEDS: GABAPENTIN 300 MG CAPSULE PO SCH ×4 (09:16→20:15)
[2021-05-01] MEDS: FOLIC ACID 1 MG TABLET PO SCH (09:16)
[2021-05-01 16:24] VITALS: BP 151/77
[2021-05-01 18:50] VITALS: BP 149/69
[2021-05-01] MEDS: MELATONIN 5 MG TABLET PO SCH (20:15)
[2021-05-01] MEDS: OLANZapine 5 MG RAPDIS TABLET PO SCH (20:16)
[2021-05-01] MEDS: PARoxetine HCL 20 MG TABLET PO SCH (20:16)
[2021-05-02] MEDS: IBUPROFEN 600 MG TABLET PO PRN ×2 (01:42→10:37)
[2021-05-02 08:59] VITALS: BP 155/89
[2021-05-02] MEDS: MULTIVITAMINS WITH MINERALS, THERAPEUTIC TABLET PO SCH (10:32)
[2021-05-02] MEDS: NALTREXONE HCL 50 MG TABLET PO SCH (10:33)
[2021-05-02] MEDS: FOLIC ACID 1 MG TABLET PO SCH (10:33)
[2021-05-02] MEDS: OMEGA-3/DHA/EPA/FISH OIL 1,000 MG CAPSULE PO SCH (10:33)
[2021-05-02] MEDS: GABAPENTIN 300 MG CAPSULE PO SCH ×2 (10:33→13:04)
[2021-05-02] MEDS: THIAMINE 100 MG TABLET PO SCH ×2 (10:33→16:14)
[2021-05-02] MEDS: AmLODIPine BESYLATE 5 MG TABLET PO SCH (10:33)
[2021-05-02] MEDS: GABAPENTIN 400 MG CAPSULE PO SCH ×2 (16:14→20:25)
[2021-05-02 16:32] VITALS: BP 150/87
[2021-05-02 16:42] VITALS: BP 150/87
[2021-05-02] MEDS: OLANZapine 10 MG RAPDIS TABLET PO SCH ×2 (20:25→20:44)
[2021-05-02] MEDS: MELATONIN 5 MG TABLET PO SCH ×2 (20:25→20:43)
[2021-05-02] MEDS: PARoxetine HCL 20 MG TABLET PO SCH ×2 (20:26→20:44)
[2021-05-03] VITALS (8 sets, daily range): BP systolic 119–152; BP diastolic 62–91
[2021-05-03] MEDS: ZOLPIDEM TARTRATE 10 MG TABLET PO PRN ×2 (00:41→22:47)
[2021-05-03] MEDS: IBUPROFEN 600 MG TABLET PO PRN ×4 (00:41→21:04)
[2021-05-03] MEDS: AmLODIPine BESYLATE 5 MG TABLET PO SCH ×2 (09:00→09:35)
[2021-05-03] MEDS: NALTREXONE HCL 50 MG TABLET PO SCH ×2 (09:00→09:34)
[2021-05-03] MEDS: OMEGA-3/DHA/EPA/FISH OIL 1,000 MG CAPSULE PO SCH (09:34)
[2021-05-03] MEDS: GABAPENTIN 400 MG CAPSULE PO SCH ×4 (09:34→20:06)
[2021-05-03] MEDS: THIAMINE 100 MG TABLET PO SCH ×2 (09:35→16:01)
[2021-05-03] MEDS: FOLIC ACID 1 MG TABLET PO SCH (09:35)
[2021-05-03] MEDS: MULTIVITAMINS WITH MINERALS, THERAPEUTIC TABLET PO SCH (09:36)
[2021-05-03] MEDS: ACETAMINOPHEN 325 MG TABLET PO PRN (16:04)
[2021-05-03] MEDS: HydrOXYzine PAMOATE 50 MG CAPSULE PO SCH (20:06)
[2021-05-03] MEDS: MELATONIN 5 MG TABLET PO SCH (20:07)
[2021-05-03] MEDS: PARoxetine HCL 20 MG TABLET PO SCH (20:07)
[2021-05-03] MEDS: OLANZapine 10 MG RAPDIS TABLET PO SCH (20:07)
[2021-05-04] MEDS: IBUPROFEN 600 MG TABLET PO PRN (06:59)
[2021-05-04 08:00] VITALS: BP 154/93
[2021-05-04] MEDS: NALTREXONE HCL 50 MG TABLET PO SCH (08:29)
[2021-05-04] MEDS: HydrOXYzine PAMOATE 50 MG CAPSULE PO SCH ×4 (08:29→20:31)
[2021-05-04] MEDS: THIAMINE 100 MG TABLET PO SCH ×2 (08:29→16:32)
[2021-05-04] MEDS: FOLIC ACID 1 MG TABLET PO SCH (08:29)
[2021-05-04] MEDS: GABAPENTIN 400 MG CAPSULE PO SCH ×4 (08:29→20:31)
[2021-05-04] MEDS: OMEGA-3/DHA/EPA/FISH OIL 1,000 MG CAPSULE PO SCH (08:29)
[2021-05-04] MEDS: MULTIVITAMINS WITH MINERALS, THERAPEUTIC TABLET PO SCH (08:31)
[2021-05-04] MEDS: AmLODIPine BESYLATE 5 MG TABLET PO SCH (08:39)
[2021-05-04] MEDS: MAG HYDROX/AL HYDROX/SIMETH ES 30 ML SUSPENSION UDCUP PO PRN (12:45)
[2021-05-04 15:27] VITALS: BP 143/97
[2021-05-04] MEDS: ACETAMINOPHEN 325 MG TABLET PO PRN (15:27)
[2021-05-04] MEDS: PARoxetine HCL 20 MG TABLET PO SCH (20:31)
[2021-05-04] MEDS: OLANZapine 10 MG RAPDIS TABLET PO SCH (20:31)
[2021-05-04] MEDS: MELATONIN 5 MG TABLET PO SCH (20:31)
[2021-05-05] MEDS: ZOLPIDEM TARTRATE 10 MG TABLET PO PRN (00:25)
[2021-05-05 04:34] VITALS: BP 129/75
[2021-05-05] MEDS: IBUPROFEN 600 MG TABLET PO PRN (04:39)
[2021-05-05] MEDS: MAG HYDROX/AL HYDROX/SIMETH ES 30 ML SUSPENSION UDCUP PO PRN ×2 (04:39→18:01)
[2021-05-05 06:20] LABS: COVID AG,FIA SOURCE NASAL SWAB
[2021-05-05 08:00] VITALS: BP 146/87
[2021-05-05] MEDS: AmLODIPine BESYLATE 5 MG TABLET PO SCH ×2 (08:36→09:00)
[2021-05-05] MEDS: THIAMINE 100 MG TABLET PO SCH ×3 (08:37→16:13)
[2021-05-05] MEDS: HydrOXYzine PAMOATE 50 MG CAPSULE PO SCH ×5 (08:37→20:14)
[2021-05-05] MEDS: GABAPENTIN 400 MG CAPSULE PO SCH ×5 (08:37→20:13)
[2021-05-05] MEDS: MULTIVITAMINS WITH MINERALS, THERAPEUTIC TABLET PO SCH ×2 (08:37→09:00)
[2021-05-05] MEDS: NALTREXONE HCL 50 MG TABLET PO SCH ×2 (08:37→09:00)
[2021-05-05] MEDS: OMEGA-3/DHA/EPA/FISH OIL 1,000 MG CAPSULE PO SCH ×2 (08:37→09:00)
[2021-05-05] MEDS: FOLIC ACID 1 MG TABLET PO SCH ×2 (08:37→09:00)
[2021-05-05 16:14] VITALS: BP 121/71
[2021-05-05] MEDS: MELATONIN 5 MG TABLET PO SCH (20:13)
[2021-05-05] MEDS: PARoxetine HCL 20 MG TABLET PO SCH (20:14)
[2021-05-05] MEDS: OLANZapine 10 MG RAPDIS TABLET PO SCH (20:14)
[2021-05-06] MEDS: ZOLPIDEM TARTRATE 10 MG TABLET PO PRN (00:18)
[2021-05-06] MEDS: OMEPRAZOLE 20 MG CAPSULE PO SCH (06:22)
[2021-05-06 06:40] VITALS: BP 125/63
[2021-05-06] MEDS: OMEGA-3/DHA/EPA/FISH OIL 1,000 MG CAPSULE PO SCH (09:00)
[2021-05-06] MEDS: HydrOXYzine PAMOATE 50 MG CAPSULE PO SCH ×4 (09:00→21:00)
[2021-05-06] MEDS: FOLIC ACID 1 MG TABLET PO SCH (09:00)
[2021-05-06] MEDS: AmLODIPine BESYLATE 5 MG TABLET PO SCH (09:00)
[2021-05-06] MEDS: MULTIVITAMINS WITH MINERALS, THERAPEUTIC TABLET PO SCH (09:00)
[2021-05-06] MEDS: THIAMINE 100 MG TABLET PO SCH ×2 (09:00→17:00)
[2021-05-06] MEDS: NALTREXONE HCL 50 MG TABLET PO SCH (09:00)
[2021-05-06] MEDS: GABAPENTIN 400 MG CAPSULE PO SCH ×4 (09:00→21:00)
[2021-05-06] MEDS: ACETAMINOPHEN 325 MG TABLET PO PRN (14:57)
[2021-05-06 16:21] VITALS: BP 141/89
[2021-05-06] MEDS: MAG HYDROX/AL HYDROX/SIMETH ES 30 ML SUSPENSION UDCUP PO PRN (18:29)
[2021-05-06] MEDS: OLANZapine 10 MG RAPDIS TABLET PO SCH (21:00)
[2021-05-06] MEDS: PARoxetine HCL 20 MG TABLET PO SCH (21:00)
[2021-05-06] MEDS: MELATONIN 5 MG TABLET PO SCH (21:00)
[2021-05-07] MEDS: ACETAMINOPHEN 325 MG TABLET PO PRN ×2 (05:58→16:06)
[2021-05-07] MEDS: OMEPRAZOLE 20 MG CAPSULE PO SCH (06:15)
[2021-05-07 08:00] VITALS: BP 126/79
[2021-05-07] MEDS: HydrOXYzine PAMOATE 50 MG CAPSULE PO SCH ×4 (09:00→21:00)
[2021-05-07] MEDS: MULTIVITAMINS WITH MINERALS, THERAPEUTIC TABLET PO SCH (09:00)
[2021-05-07] MEDS: GABAPENTIN 400 MG CAPSULE PO SCH ×4 (09:00→20:56)
[2021-05-07] MEDS: FOLIC ACID 1 MG TABLET PO SCH (09:00)
[2021-05-07] MEDS: OMEGA-3/DHA/EPA/FISH OIL 1,000 MG CAPSULE PO SCH (09:00)
[2021-05-07] MEDS: THIAMINE 100 MG TABLET PO SCH ×2 (09:00→16:03)
[2021-05-07] MEDS: NALTREXONE HCL 50 MG TABLET PO SCH (09:00)
[2021-05-07] MEDS: AmLODIPine BESYLATE 5 MG TABLET PO SCH (09:00)
[2021-05-07] MEDS: MAG HYDROX/AL HYDROX/SIMETH ES 30 ML SUSPENSION UDCUP PO PRN (12:36)
[2021-05-07 17:04] VITALS: BP 126/63
[2021-05-07] MEDS: QUEtiapine FUMARATE 200 MG TABLET PO SCH (20:51)
[2021-05-07] MEDS: PARoxetine HCL 20 MG TABLET PO SCH (20:56)
[2021-05-07] MEDS: MELATONIN 5 MG TABLET PO SCH (20:57)
[2021-05-07] MEDS: OLANZapine 10 MG RAPDIS TABLET PO SCH (21:00)
[2021-05-07] MEDS: ZOLPIDEM TARTRATE 10 MG TABLET PO PRN (22:29)
[2021-05-08] MEDS: MAG HYDROX/AL HYDROX/SIMETH ES 30 ML SUSPENSION UDCUP PO PRN (04:34)
[2021-05-08] MEDS: ACETAMINOPHEN 325 MG TABLET PO PRN (04:35)
[2021-05-08] MEDS: OMEPRAZOLE 20 MG CAPSULE PO SCH (06:43)
[2021-05-08] MEDS: MULTIVITAMINS WITH MINERALS, THERAPEUTIC TABLET PO SCH (09:00)
[2021-05-08] MEDS: AmLODIPine BESYLATE 5 MG TABLET PO SCH (09:00)
[2021-05-08] MEDS: FOLIC ACID 1 MG TABLET PO SCH (09:00)
[2021-05-08] MEDS: GABAPENTIN 400 MG CAPSULE PO SCH ×4 (09:00→20:43)
[2021-05-08] MEDS: OMEGA-3/DHA/EPA/FISH OIL 1,000 MG CAPSULE PO SCH (09:00)
[2021-05-08] MEDS: THIAMINE 100 MG TABLET PO SCH ×2 (09:00→16:01)
[2021-05-08] MEDS: HydrOXYzine PAMOATE 50 MG CAPSULE PO SCH ×4 (09:00→20:43)
[2021-05-08] MEDS: NALTREXONE HCL 50 MG TABLET PO SCH (09:00)
[2021-05-08] MEDS: IBUPROFEN 600 MG TABLET PO PRN (13:37)
[2021-05-08 16:10] VITALS: BP 135/85
[2021-05-08] MEDS: QUEtiapine FUMARATE 200 MG TABLET PO SCH (20:39)
[2021-05-08] MEDS: MELATONIN 5 MG TABLET PO SCH (20:43)
[2021-05-08] MEDS: OLANZapine 10 MG RAPDIS TABLET PO SCH (20:43)
[2021-05-09] MEDS: ZOLPIDEM TARTRATE 10 MG TABLET PO PRN ×2 (00:58→23:16)
[2021-05-09] MEDS: OMEPRAZOLE 20 MG CAPSULE PO SCH (06:23)
[2021-05-09] MEDS: IBUPROFEN 600 MG TABLET PO PRN (07:52)
[2021-05-09 08:25] VITALS: BP 140/98
[2021-05-09] MEDS: HydrOXYzine PAMOATE 50 MG CAPSULE PO SCH ×4 (09:00→20:25)
[2021-05-09] MEDS: GABAPENTIN 400 MG CAPSULE PO SCH ×4 (09:00→20:25)
[2021-05-09] MEDS: OMEGA-3/DHA/EPA/FISH OIL 1,000 MG CAPSULE PO SCH (09:00)
[2021-05-09] MEDS: MULTIVITAMINS WITH MINERALS, THERAPEUTIC TABLET PO SCH (09:00)
[2021-05-09] MEDS: NALTREXONE HCL 50 MG TABLET PO SCH (09:00)
[2021-05-09] MEDS: THIAMINE 100 MG TABLET PO SCH ×2 (09:00→16:12)
[2021-05-09] MEDS: AmLODIPine BESYLATE 5 MG TABLET PO SCH (09:00)
[2021-05-09] MEDS: FOLIC ACID 1 MG TABLET PO SCH (09:00)
[2021-05-09] MEDS: VENLAFAXINE HCL 75 MG ER CAPSULE PO SCH (09:41)
[2021-05-09] MEDS: ACETAMINOPHEN 325 MG TABLET PO PRN (16:50)
[2021-05-09 16:52] VITALS: BP 110/71
[2021-05-09] MEDS: MAG HYDROX/AL HYDROX/SIMETH ES 30 ML SUSPENSION UDCUP PO PRN (19:01)
[2021-05-09] MEDS: QUEtiapine FUMARATE 200 MG TABLET PO SCH (20:23)
[2021-05-09] MEDS: OLANZapine 10 MG RAPDIS TABLET PO SCH (20:25)
[2021-05-09] MEDS: MELATONIN 5 MG TABLET PO SCH (20:25)
[2021-05-10] MEDS: OMEPRAZOLE 20 MG CAPSULE PO SCH (06:49)
[2021-05-10 08:30] VITALS: BP 135/90
[2021-05-10] MEDS: OMEGA-3/DHA/EPA/FISH OIL 1,000 MG CAPSULE PO SCH (09:00)
[2021-05-10] MEDS: GABAPENTIN 400 MG CAPSULE PO SCH ×4 (09:00→20:36)
[2021-05-10] MEDS: AmLODIPine BESYLATE 5 MG TABLET PO SCH (09:00)
[2021-05-10] MEDS: VENLAFAXINE HCL 75 MG ER CAPSULE PO SCH (09:00)
[2021-05-10] MEDS: NALTREXONE HCL 50 MG TABLET PO SCH (09:00)
[2021-05-10] MEDS: MULTIVITAMINS WITH MINERALS, THERAPEUTIC TABLET PO SCH (09:00)
[2021-05-10] MEDS: THIAMINE 100 MG TABLET PO SCH (09:00)
[2021-05-10] MEDS: FOLIC ACID 1 MG TABLET PO SCH (09:00)
[2021-05-10] MEDS: HydrOXYzine PAMOATE 50 MG CAPSULE PO SCH ×4 (09:00→20:37)
[2021-05-10] MEDS: IBUPROFEN 600 MG TABLET PO PRN ×2 (09:19→15:45)
[2021-05-10] MEDS: ACETAMINOPHEN 325 MG TABLET PO PRN ×2 (13:05→20:01)
[2021-05-10 15:45] VITALS: BP 115/78
[2021-05-10] MEDS: MAG HYDROX/AL HYDROX/SIMETH ES 30 ML SUSPENSION UDCUP PO PRN (18:33)
[2021-05-10 20:01] VITALS: BP 125/85
[2021-05-10] MEDS: MELATONIN 5 MG TABLET PO SCH (20:36)
[2021-05-10] MEDS: QUEtiapine FUMARATE 200 MG TABLET PO SCH (20:37)
[2021-05-10] MEDS: OLANZapine 10 MG RAPDIS TABLET PO SCH (20:37)
[2021-05-10] MEDS: ZOLPIDEM TARTRATE 10 MG TABLET PO PRN (23:26)
[2021-05-10 23:30] VITALS: BP 150/90
[2021-05-11] MEDS: ACETAMINOPHEN 325 MG TABLET PO PRN ×2 (04:14→11:51)
[2021-05-11] MEDS: OMEPRAZOLE 20 MG CAPSULE PO SCH ×2 (06:32→06:35)
[2021-05-11] MEDS: IBUPROFEN 600 MG TABLET PO PRN ×3 (06:35→19:50)
[2021-05-11] MEDS: NALTREXONE HCL 50 MG TABLET PO SCH (09:00)
[2021-05-11] MEDS: VENLAFAXINE HCL 75 MG ER CAPSULE PO SCH (09:00)
[2021-05-11] MEDS: HydrOXYzine PAMOATE 50 MG CAPSULE PO SCH ×4 (09:00→21:00)
[2021-05-11] MEDS: OMEGA-3/DHA/EPA/FISH OIL 1,000 MG CAPSULE PO SCH (09:00)
[2021-05-11] MEDS: AmLODIPine BESYLATE 5 MG TABLET PO SCH (09:00)
[2021-05-11] MEDS: MULTIVITAMINS WITH MINERALS, THERAPEUTIC TABLET PO SCH (09:00)
[2021-05-11] MEDS: GABAPENTIN 400 MG CAPSULE PO SCH ×3 (09:00→17:00)
[2021-05-11 09:57] VITALS: BP 140/94
[2021-05-11 16:58] VITALS: BP 141/92
[2021-05-11 19:43] VITALS: BP 138/81
[2021-05-11] MEDS: MELATONIN 5 MG TABLET PO SCH (20:59)
[2021-05-11] MEDS: QUEtiapine FUMARATE 200 MG TABLET PO SCH (20:59)
[2021-05-12] MEDS: ZOLPIDEM TARTRATE 10 MG TABLET PO PRN (02:12)
[2021-05-12 06:30] VITALS: BP 140/88
[2021-05-12] MEDS: OMEPRAZOLE 20 MG CAPSULE PO SCH (06:36)
[2021-05-12] MEDS: ACETAMINOPHEN 325 MG TABLET PO PRN ×2 (06:36→19:19)
[2021-05-12 08:00] VITALS: BP 111/68
[2021-05-12] MEDS: VENLAFAXINE HCL 75 MG ER CAPSULE PO SCH (08:00)
[2021-05-12] MEDS: OMEGA-3/DHA/EPA/FISH OIL 1,000 MG CAPSULE PO SCH (08:02)
[2021-05-12] MEDS: MULTIVITAMINS WITH MINERALS, THERAPEUTIC TABLET PO SCH (08:02)
[2021-05-12] MEDS: NALTREXONE HCL 50 MG TABLET PO SCH (08:02)
[2021-05-12] MEDS: HydrOXYzine PAMOATE 50 MG CAPSULE PO SCH ×4 (08:02→21:00)
[2021-05-12] MEDS: AmLODIPine BESYLATE 5 MG TABLET PO SCH (08:02)
[2021-05-12] MEDS: IBUPROFEN 600 MG TABLET PO PRN ×2 (14:13→22:31)
[2021-05-12] MEDS: MAG HYDROX/AL HYDROX/SIMETH ES 30 ML SUSPENSION UDCUP PO PRN ×2 (16:03→21:50)
[2021-05-12 16:14] VITALS: BP 138/94
[2021-05-12] MEDS: QUEtiapine FUMARATE 200 MG TABLET PO SCH (20:18)
[2021-05-12] MEDS: MELATONIN 5 MG TABLET PO SCH (21:00)
[2021-05-12 22:30] VITALS: BP 121/88
[2021-05-13] MEDS: ZOLPIDEM TARTRATE 10 MG TABLET PO PRN ×2 (02:05→23:59)
[2021-05-13 02:09] VITALS: BP 132/89
[2021-05-13 06:01] VITALS: BP 122/78
[2021-05-13] MEDS: OMEPRAZOLE 20 MG CAPSULE PO SCH (06:01)
[2021-05-13] MEDS: ACETAMINOPHEN 325 MG TABLET PO PRN (06:01)
[2021-05-13 08:14] VITALS: BP 129/79
[2021-05-13] MEDS: VENLAFAXINE HCL 75 MG ER CAPSULE PO SCH (08:48)
[2021-05-13] MEDS: IBUPROFEN 600 MG TABLET PO PRN (08:54)
[2021-05-13] MEDS: HydrOXYzine PAMOATE 50 MG CAPSULE PO SCH ×5 (09:00→20:32)
[2021-05-13] MEDS: OMEGA-3/DHA/EPA/FISH OIL 1,000 MG CAPSULE PO SCH (09:00)
[2021-05-13] MEDS: AmLODIPine BESYLATE 5 MG TABLET PO SCH (09:00)
[2021-05-13] MEDS: MULTIVITAMINS WITH MINERALS, THERAPEUTIC TABLET PO SCH (09:00)
[2021-05-13] MEDS: NALTREXONE HCL 50 MG TABLET PO SCH (09:00)
[2021-05-13 14:27] LABS: COVID AG,FIA SOURCE NASOPHARYNGEAL
[2021-05-13 16:51] VITALS: BP 159/97
[2021-05-13] MEDS: MELATONIN 5 MG TABLET PO SCH (20:32)
[2021-05-13] MEDS: QUEtiapine FUMARATE 200 MG TABLET PO SCH (20:32)
[2021-05-13] MEDS ORDERED: QUET200T30 PO (21:38)
[2021-05-13] MEDS ORDERED: NALT50TA PO (21:38)
[2021-05-13] MEDS ORDERED: HYDR50CA7 PO (21:38)
[2021-05-13] MEDS ORDERED: OMEG-108 PO (21:38)
[2021-05-13] MEDS ORDERED: VENL-67 PO (21:38)
[2021-05-13] MEDS ORDERED: MELA5TAB40 PO (21:38)
[2021-05-13] MEDS: MAG HYDROX/AL HYDROX/SIMETH ES 30 ML SUSPENSION UDCUP PO PRN (22:33)
[2021-05-14 05:02] VITALS: BP 138/89
[2021-05-14] MEDS: MAG HYDROX/AL HYDROX/SIMETH ES 30 ML SUSPENSION UDCUP PO PRN (05:03)
[2021-05-14] MEDS: ACETAMINOPHEN 325 MG TABLET PO PRN (05:05)
[2021-05-14] MEDS: OMEPRAZOLE 20 MG CAPSULE PO SCH (06:46)
[2021-05-14 08:33] VITALS: BP 157/99
[2021-05-14] MEDS: AmLODIPine BESYLATE 5 MG TABLET PO SCH (09:00)
[2021-05-14] MEDS: OMEGA-3/DHA/EPA/FISH OIL 1,000 MG CAPSULE PO SCH (09:00)
[2021-05-14] MEDS: MULTIVITAMINS WITH MINERALS, THERAPEUTIC TABLET PO SCH (09:00)
[2021-05-14] MEDS: HydrOXYzine PAMOATE 50 MG CAPSULE PO SCH ×2 (09:00→13:00)
[2021-05-14] MEDS: NALTREXONE HCL 50 MG TABLET PO SCH (09:00)
[2021-05-14] MEDS: VENLAFAXINE HCL 75 MG ER CAPSULE PO SCH (10:08)
== END 2021-05-14 13:45 | disposition home or self-care (01) | DRG 885 ==
LOC: EMS 18:10 → 3EC 04-30 00:30
PROVIDERS: ADMIT Psychiatry & Neurology Psychiatry; ATTEND Psychiatry & Neurology Psychiatry
DX: F25.0 Schizoaffective disorder, bipolar type (principal); R45.851 Suicidal ideations; Z20.822 Contact with and (suspected) exposure to COVID-19; F41.0 Panic disorder [episodic paroxysmal anxiety]; F43.10 Post-traumatic stress disorder, unspecified; I10 Essential (primary) hypertension; F17.210 Nicotine dependence, cigarettes, uncomplicated; J44.9 Chronic obstructive pulmonary disease, unspecified; Z55.9 Problems related to education and literacy, unspecified; Z59.9 Problem related to housing and economic circumstances, unspecified; Z63.9 Problem related to primary support group, unspecified; Z65.3 Problems related to other legal circumstances; Z79.899 Other long term (current) drug therapy; Z91.14 Patient's other noncompliance with medication regimen; Z88.8 Allergy status to other drugs, medicaments and biological substances
CPT/HCPCS: 80053; 80061; 83036; 84439; 84443; 85025; 86592; 87081; 97116; 97162; 97166; 97535; 99285; G0480; Q9967

== ENCOUNTER 2021-07-10 21:43 | Inpatient (IN) | payer MEDICARE, MEDICAID ==
[~2021-07-10] VITALS: Ht 170.2 cm; Wt 89.8 kg
[~2021-07-10 21:43] MED LIST changes: +HYDR50CA7 PO; +QUET200T30 PO
[2021-07-10] MEDS ORDERED: QUET25TA PO (21:56)
[2021-07-10] MEDS ORDERED: LORazepam 2 MG TABLET PO ONE (23:45)
[2021-07-10 23:53] LABS: BASOPHILS % (AUTO) 1.1 % (0.0-2.0); EOSINOPHILS % (AUTO) 1.9 % (1.0-6.0); HEMATOCRIT 43.9 % (41-53); LYMPHOCYTES # (AUTO) 2.2 K/uL (1.0-4.8); MEAN CORPUSCULAR HGB CONC 34.3 G/dL (31.0-37.0); MEAN CORPUSCULAR VOLUME 90 fL (80-100); MONOCYTES # (AUTO) 0.5 K/uL (0.1-1.0); MONOCYTES % (AUTO) 8.3 % (2.0-9.0); NEUTROPHILS # (AUTO) 3.6 K/uL (1.8-7.7); NEUTROPHILS % (AUTO) 55.7 % (40.0-70.0); PLATELET COUNT (AUTO) 275 K/uL (150-450); RED BLOOD CELL COUNT(AUTO) 4.85 MIL/uL (4.50-5.90); RED CELL DISTRIBUTION WIDTH 14.4 % (11.5-14.5)
[2021-07-10 23:53] LABS: COVID AG,FIA SOURCE NASAL SWAB
[2021-07-11 00:10] LABS: AMPHET/METH SCREEN,URINE NEGATIVE (NEGATIVE); BARBITURATE SCREEN, URINE NEGATIVE (NEGATIVE); BENZODIAZEPINES SCREEN,URINE NEGATIVE (NEGATIVE); CANNABINOID SCREEN,URINE NEGATIVE (NEGATIVE); COCAINE SCREEN,URINE NEGATIVE (NEGATIVE); METHADONE SCREEN, URINE NEGATIVE (NEGATIVE); OPIATE SCREEN,URINE NEGATIVE (NEGATIVE); PHENCYCLIDINE SCREEN,URINE NEGATIVE (NEGATIVE)
[2021-07-11 00:17] LABS: ANION GAP 6 mmol/L (8-16); CALCIUM, TOTAL 8.8 mg/dL (8.8-10.5); CARBON DIOXIDE 32 mmol/L (22-29); CHLORIDE 101 mmol/L (98-107); GLOMERULAR FILTR. RATE CALC > 60 mL/min (>60); GLUCOSE,RANDOM 82 mg/dL (70-110); POTASSIUM 3.6 mmol/L (3.5-5.1); SODIUM SERUM 139 mmol/L (136-145); UREA NITROGEN, BLOOD 14 mg/dL (7-18)
[2021-07-11 00:23] LABS: ALANINE AMINOTRANSFERASE 197 U/L (12-78); ALBUMIN 3.7 g/dL (3.4-5.0); ALKALINE PHOSPHATASE 56 U/L (46-116); ASPARTATE AMINOTRANSFERASE 137 U/L (15-37); BILIRUBIN,TOTAL 0.5 mg/dL (0.1-1.0); TOTAL PROTEIN, SERUM 8.2 g/dL (6.4-8.2)
[2021-07-11] MEDS ORDERED: LORazepam 2 MG TABLET PO PRN (00:45)
[2021-07-11 01:39] LABS: APPEARANCE,URINE CLEAR (CLEAR); BILIRUBIN,URINE NEGATIVE (NEGATIVE); GLUCOSE, URINE (UA) NEGATIVE (NEGATIVE); KETONES,URINE NEGATIVE (NEGATIVE); LEUKOCYTE ESTERASE ,URINE NEGATIVE (NEGATIVE); NITRATE,URINE NEGATIVE (NEGATIVE); OCCULT BLOOD,URINE NEGATIVE (NEGATIVE); PROTEIN,URINE TRACE mg/dL (NEGATIVE); SPECIFIC GRAVITIY, URINE 1.024 (1.003-1.030); UROBILINOGEN,URINE <=1.0 mg/dL (<=1.0)
[2021-07-11 05:57] VITALS: BP 119/79
[2021-07-11] MEDS: NALTREXONE HCL 50 MG TABLET PO SCH (09:00)
[2021-07-11] MEDS ORDERED: LOPERAMIDE HCL 2 MG CAPSULE PO PRN ×2 (09:00)
[2021-07-11] MEDS ORDERED: PROMETHAZINE HCL 25 MG TABLET PO PRN (09:00)
[2021-07-11] MEDS ORDERED: GuaiFENesin/D-METHORPHAN [SUGAR-FREE] 200-20MG/10 ML SYRUP UDCUP PO PRN (09:00)
[2021-07-11] MEDS ORDERED: PARoxetine HCL 20 MG TABLET PO SCH (09:00)
[2021-07-11] MEDS ORDERED: ACETAMINOPHEN 325 MG TABLET PO PRN ×2 (09:00)
[2021-07-11] MEDS: THIAMINE 100 MG TABLET PO SCH ×2 (09:00→16:06)
[2021-07-11] MEDS ORDERED: MAGNESIUM HYDROXIDE SUSPENSION 30 ML UDCUP PO PRN ×2 (09:00)
[2021-07-11] MEDS ORDERED: MAG HYDROX/AL HYDROX/SIMETH ES 30 ML SUSPENSION UDCUP PO PRN ×2 (09:00)
[2021-07-11] MEDS: OMEGA-3/DHA/EPA/FISH OIL 1,000 MG CAPSULE PO SCH (09:00)
[2021-07-11] MEDS ORDERED: GABAPENTIN 300 MG CAPSULE PO PRN (09:00)
[2021-07-11] MEDS: FOLIC ACID 1 MG TABLET PO SCH (09:00)
[2021-07-11] MEDS: MULTIVITAMINS WITH MINERALS, THERAPEUTIC TABLET PO SCH (09:00)
[2021-07-11] MEDS ORDERED: QUEtiapine FUMARATE 25 MG TABLET PO PRN (09:00)
[2021-07-11 16:00] VITALS: BP 118/62
[2021-07-11] MEDS ORDERED: PALIPERIDONE PALMITATE 234 MG/1.5 ML SYRINGE IM ONE (16:00)
[2021-07-11 16:02] VITALS: BP 118/62
[2021-07-11] MEDS: QUEtiapine FUMARATE 25 MG TABLET PO SCH (20:31)
[2021-07-11] MEDS: MELATONIN 5 MG TABLET PO SCH (20:33)
[2021-07-11] MEDS: ZOLPIDEM TARTRATE 10 MG TABLET PO PRN (21:15)
[2021-07-12] MEDS: IBUPROFEN 600 MG TABLET PO PRN (05:34)
[2021-07-12] MEDS: THIAMINE 100 MG TABLET PO SCH ×2 (08:10→16:34)
[2021-07-12] MEDS: OMEGA-3/DHA/EPA/FISH OIL 1,000 MG CAPSULE PO SCH (08:10)
[2021-07-12] MEDS: FOLIC ACID 1 MG TABLET PO SCH (08:10)
[2021-07-12] MEDS: NALTREXONE HCL 50 MG TABLET PO SCH (08:10)
[2021-07-12] MEDS: MULTIVITAMINS WITH MINERALS, THERAPEUTIC TABLET PO SCH (08:10)
[2021-07-12 08:13] VITALS: BP 115/60
[2021-07-12 16:03] VITALS: BP 130/78
[2021-07-12] MEDS: HydrOXYzine PAMOATE 50 MG CAPSULE PO PRN (18:26)
[2021-07-12] MEDS: ZOLPIDEM TARTRATE 10 MG TABLET PO PRN (20:35)
[2021-07-12] MEDS: MELATONIN 5 MG TABLET PO SCH (20:35)
[2021-07-12] MEDS: QUEtiapine FUMARATE 25 MG TABLET PO SCH (20:35)
[2021-07-13 06:18] VITALS: BP 131/76
[2021-07-13 08:32] VITALS: BP 119/69
[2021-07-13] MEDS: FOLIC ACID 1 MG TABLET PO SCH (08:46)
[2021-07-13] MEDS: NALTREXONE HCL 50 MG TABLET PO SCH (08:46)
[2021-07-13] MEDS: MULTIVITAMINS WITH MINERALS, THERAPEUTIC TABLET PO SCH (08:46)
[2021-07-13] MEDS: OMEGA-3/DHA/EPA/FISH OIL 1,000 MG CAPSULE PO SCH (08:46)
[2021-07-13] MEDS: THIAMINE 100 MG TABLET PO SCH ×2 (08:47→16:25)
[2021-07-13 16:20] VITALS: BP 131/74
[2021-07-13] MEDS: QUEtiapine FUMARATE 25 MG TABLET PO SCH (20:08)
[2021-07-13] MEDS: MELATONIN 5 MG TABLET PO SCH (20:08)
[2021-07-13] MEDS: ZOLPIDEM TARTRATE 10 MG TABLET PO PRN (23:42)
[2021-07-14 05:51] VITALS: BP 128/72
[2021-07-14 07:15] LABS: HEMOGLOBIN A1C 5.6 % (3.8-5.6)
[2021-07-14 07:22] LABS: CHOL/HDL RATIO 2.1 (4.2-7.3)
[2021-07-14] MEDS: FOLIC ACID 1 MG TABLET PO SCH (09:28)
[2021-07-14] MEDS: MULTIVITAMINS WITH MINERALS, THERAPEUTIC TABLET PO SCH (09:28)
[2021-07-14] MEDS: THIAMINE 100 MG TABLET PO SCH ×2 (09:28→16:54)
[2021-07-14] MEDS: OMEGA-3/DHA/EPA/FISH OIL 1,000 MG CAPSULE PO SCH (09:28)
[2021-07-14] MEDS: NALTREXONE HCL 50 MG TABLET PO SCH (09:29)
[2021-07-14 16:43] VITALS: BP 112/71
[2021-07-14] MEDS: QUEtiapine FUMARATE 25 MG TABLET PO SCH (21:13)
[2021-07-14] MEDS: MELATONIN 5 MG TABLET PO SCH (21:13)
[2021-07-15] MEDS: IBUPROFEN 600 MG TABLET PO PRN (04:16)
[2021-07-15 05:19] VITALS: BP 116/65
[2021-07-15] MEDS: NALTREXONE HCL 50 MG TABLET PO SCH (08:48)
[2021-07-15] MEDS: FOLIC ACID 1 MG TABLET PO SCH (08:49)
[2021-07-15] MEDS: HydrOXYzine PAMOATE 50 MG CAPSULE PO PRN (08:49)
[2021-07-15] MEDS: OMEGA-3/DHA/EPA/FISH OIL 1,000 MG CAPSULE PO SCH (08:49)
[2021-07-15] MEDS: THIAMINE 100 MG TABLET PO SCH ×2 (08:49→17:07)
[2021-07-15] MEDS: MULTIVITAMINS WITH MINERALS, THERAPEUTIC TABLET PO SCH (08:49)
[2021-07-15] MEDS ORDERED: PALIPERIDONE PALMITATE 156 MG/ML SYRINGE IM ONE (09:00)
[2021-07-15] MEDS ORDERED: MELA5TAB40 PO (15:12)
[2021-07-15] MEDS ORDERED: OMEG-108 PO (15:12)
[2021-07-15] MEDS ORDERED: QUET25TA36 PO (15:12)
[2021-07-15] MEDS ORDERED: NALT50TA PO (15:12)
[2021-07-15 16:36] VITALS: BP 107/68
[2021-07-15] MEDS: MELATONIN 5 MG TABLET PO SCH (20:49)
[2021-07-15] MEDS: QUEtiapine FUMARATE 25 MG TABLET PO SCH (20:49)
[2021-07-16 05:00] VITALS: BP 113/80
[2021-07-16] MEDS: IBUPROFEN 600 MG TABLET PO PRN (06:59)
[2021-07-16 08:20] VITALS: BP 112/66
[2021-07-16] MEDS: OMEGA-3/DHA/EPA/FISH OIL 1,000 MG CAPSULE PO SCH (08:57)
[2021-07-16] MEDS: MULTIVITAMINS WITH MINERALS, THERAPEUTIC TABLET PO SCH (08:58)
[2021-07-16] MEDS: FOLIC ACID 1 MG TABLET PO SCH (08:58)
[2021-07-16] MEDS: NALTREXONE HCL 50 MG TABLET PO SCH (08:58)
[2021-07-16] MEDS: THIAMINE 100 MG TABLET PO SCH (08:58)
== END 2021-07-16 09:50 | disposition home or self-care (01) | DRG 885 ==
LOC: EMS 21:45 → B3A 07-11 02:12
PROVIDERS: ADMIT Psychiatry & Neurology Psychiatry; ATTEND Psychiatry & Neurology Psychiatry
DX: F25.9 Schizoaffective disorder, unspecified (principal); B19.20 Unspecified viral hepatitis C without hepatic coma; R45.851 Suicidal ideations; F41.0 Panic disorder [episodic paroxysmal anxiety]; F60.0 Paranoid personality disorder; I10 Essential (primary) hypertension; K21.9 Gastro-esophageal reflux disease without esophagitis; J44.9 Chronic obstructive pulmonary disease, unspecified; Z55.9 Problems related to education and literacy, unspecified; Z59.00 Homelessness unspecified; Z63.9 Problem related to primary support group, unspecified; Z65.3 Problems related to other legal circumstances; Z87.891 Personal history of nicotine dependence; Z88.8 Allergy status to other drugs, medicaments and biological substances; Z91.14 Patient's other noncompliance with medication regimen; Z91.19 Patient's noncompliance with other medical treatment and regimen; Z79.899 Other long term (current) drug therapy
CPT/HCPCS: 80053; 80061; 81003; 83036; 85025; 86592; 99285; G0480; Q9967

== ENCOUNTER 2021-07-29 23:40 | Emergency (ER) | payer MEDICARE, MEDICAID ==
[~2021-07-29] VITALS: Ht 170.2 cm; Wt 77.0 kg
[~2021-07-29 23:40] MED LIST changes: -AMLO-257 PO; -HYDR50CA7 PO; -OLAN5TAB94 PO; -QUET200T30 PO; +QUET25TA36 PO; -VENL-67 PO
[2021-07-30] MEDS ORDERED: KETOROLAC TROMETHAMINE 30 MG/ML VIAL IM ONE (03:15)
[2021-07-30] MEDS ORDERED: CYCL-448 PO (03:54)
[2021-07-30 04:21] VITALS: BP 123/68
[2021-07-30] MEDS ORDERED: ClonazePAM 0.5 MG TABLET PO ONE (04:30)
[2021-07-30] MEDS ORDERED: ClonazePAM 1 MG TABLET PO ONE (04:30)
[2021-08-01] MEDS ORDERED: CLON2TAB11 PO (09:45)
== END 2021-07-30 04:47 | disposition home or self-care (01) ==
LOC: EMS 23:41
DX: M54.6 Pain in thoracic spine (principal); F31.9 Bipolar disorder, unspecified; F41.9 Anxiety disorder, unspecified; F20.9 Schizophrenia, unspecified; F17.210 Nicotine dependence, cigarettes, uncomplicated; Z88.8 Allergy status to other drugs, medicaments and biological substances; Z79.899 Other long term (current) drug therapy
CPT/HCPCS: 72070; 96372; 99283; J1885

== ENCOUNTER 2021-08-26 18:27 | Emergency (ER) | payer MEDICARE, MEDICAID ==
[~2021-08-26] VITALS: Ht 170.2 cm; Wt 77.3 kg
[~2021-08-26 18:27] MED LIST changes: +CLON2TAB11 PO; +CYCL-448 PO; +QUET100T34 PO; +VENL37.570 PO
[2021-08-26 18:45] VITALS: BP 130/86
== END 2021-08-26 22:08 | disposition home or self-care (01) ==
LOC: EMS 18:27
DX: F25.0 Schizoaffective disorder, bipolar type (principal); F41.9 Anxiety disorder, unspecified; F31.9 Bipolar disorder, unspecified; F17.210 Nicotine dependence, cigarettes, uncomplicated; F41.0 Panic disorder [episodic paroxysmal anxiety]; Z98.890 Other specified postprocedural states; Z88.8 Allergy status to other drugs, medicaments and biological substances
CPT/HCPCS: 99281; Z7502

== ENCOUNTER 2021-10-01 13:21 | Inpatient (IN) | payer MEDICARE, MEDICAID ==
[~2021-10-01] VITALS: Ht 170.2 cm; Wt 93.9 kg
[~2021-10-01 13:21] MED LIST changes: -CLON2TAB11 PO; -CYCL-448 PO; -OMEG-108 PO; +OMEG-135 PO; -QUET25TA36 PO
[2021-10-01 15:20] LABS: APPEARANCE,URINE CLEAR (CLEAR); BILIRUBIN,URINE NEGATIVE (NEGATIVE); GLUCOSE, URINE (UA) NEGATIVE (NEGATIVE); KETONES,URINE NEGATIVE (NEGATIVE); LEUKOCYTE ESTERASE ,URINE NEGATIVE (NEGATIVE); NITRATE,URINE NEGATIVE (NEGATIVE); OCCULT BLOOD,URINE NEGATIVE (NEGATIVE); PH,URINE 7.5 (5.0-8.0); PROTEIN,URINE NEGATIVE (NEGATIVE); SPECIFIC GRAVITIY, URINE 1.011 (1.003-1.030); UROBILINOGEN,URINE <=1.0 mg/dL (<=1.0)
[2021-10-01 15:26] LABS: AMPHET/METH SCREEN,URINE NEGATIVE (NEGATIVE); BARBITURATE SCREEN, URINE NEGATIVE (NEGATIVE); BENZODIAZEPINES SCREEN,URINE NEGATIVE (NEGATIVE); CANNABINOID SCREEN,URINE NEGATIVE (NEGATIVE); COCAINE SCREEN,URINE NEGATIVE (NEGATIVE); METHADONE SCREEN, URINE NEGATIVE (NEGATIVE); OPIATE SCREEN,URINE NEGATIVE (NEGATIVE)
[2021-10-01 15:27] LABS: PHENCYCLIDINE SCREEN,URINE NEGATIVE (NEGATIVE)
[2021-10-01 15:39] LABS: BASOPHILS % (AUTO) 0.7 % (0.0-2.0); EOSINOPHILS % (AUTO) 0.1 % (1.0-6.0); HEMATOCRIT 41.8 % (41-53); HEMOGLOBIN 14.2 g/dL (13.5-17.5); LYMPHOCYTES # (AUTO) 1.4 K/uL (1.0-4.8); LYMPHOCYTES % (AUTO) 22.8 % (22.0-44.0); MEAN CORPUSCULAR HEMOGLOBIN 30.6 pg (26.0-34.0); MEAN CORPUSCULAR HGB CONC 34.1 G/dL (31.0-37.0); MEAN CORPUSCULAR VOLUME 90 fL (80-100); MONOCYTES # (AUTO) 0.9 K/uL (0.1-1.0); MONOCYTES % (AUTO) 14.2 % (2.0-9.0); NEUTROPHILS # (AUTO) 3.8 K/uL (1.8-7.7); NEUTROPHILS % (AUTO) 62.2 % (40.0-70.0); PLATELET COUNT (AUTO) 259 K/uL (150-450); RED BLOOD CELL COUNT(AUTO) 4.65 MIL/uL (4.50-5.90); RED CELL DISTRIBUTION WIDTH 14.5 % (11.5-14.5)
[2021-10-01 15:53] LABS: ANION GAP 12 mmol/L (8-16); CALCIUM, TOTAL 8.6 mg/dL (8.8-10.5); CARBON DIOXIDE 25 mmol/L (22-29); CHLORIDE 99 mmol/L (98-107); CREATININE 0.88 mg/dL (0.60-1.30); GLOMERULAR FILTR. RATE CALC > 60 mL/min (>60); GLUCOSE,RANDOM 83 mg/dL (70-110); POTASSIUM 3.6 mmol/L (3.5-5.1); SODIUM SERUM 136 mmol/L (136-145); UREA NITROGEN, BLOOD 10 mg/dL (7-18)
[2021-10-01 16:00] LABS: ALANINE AMINOTRANSFERASE 188 U/L (12-78); ALBUMIN 3.5 g/dL (3.4-5.0); ALKALINE PHOSPHATASE 51 U/L (46-116); ASPARTATE AMINOTRANSFERASE 216 U/L (15-37); BILIRUBIN,TOTAL 0.7 mg/dL (0.1-1.0); TOTAL PROTEIN, SERUM 8.1 g/dL (6.4-8.2)
[2021-10-01 16:11] LABS: COVID AG,FIA SOURCE NASOPHARYNGEAL
[2021-10-01] MEDS ORDERED: LORazepam 1 MG TABLET PO ONE (16:45)
[2021-10-01] MEDS ORDERED: QUEtiapine FUMARATE 100 MG TABLET PO PRN (19:45)
[2021-10-02] MEDS: LORazepam 2 MG TABLET PO PRN ×2 (03:51→09:03)
[2021-10-02 04:31] VITALS: BP 157/89
[2021-10-02] MEDS ORDERED: ACETAMINOPHEN 325 MG TABLET PO PRN (06:30)
[2021-10-02] MEDS ORDERED: NICOTINE 14 MG/24 HOUR PATCH TD PRN (06:30)
[2021-10-02] MEDS ORDERED: ONDANSETRON HCL 4 MG TABLET PO PRN (06:30)
[2021-10-02] MEDS ORDERED: MAGNESIUM HYDROXIDE SUSPENSION 30 ML UDCUP PO PRN (06:30)
[2021-10-02] MEDS ORDERED: LOPERAMIDE HCL 2 MG CAPSULE PO PRN (06:30)
[2021-10-02] MEDS ORDERED: PETROLATUM,WHITE 28 GM JELLY TP PRN (06:30)
[2021-10-02] MEDS ORDERED: CloNIDine HCL 0.1 MG TABLET PO PRN (06:30)
[2021-10-02 08:16] VITALS: BP 140/66
[2021-10-02] MEDS: OMEGA-3/DHA/EPA/FISH OIL 1,000 MG CAPSULE PO SCH (08:20)
[2021-10-02] MEDS ORDERED: PALIPERIDONE PALMITATE 117 MG/0.75 ML SYRINGE IM ONE (10:00)
[2021-10-02] MEDS: QUEtiapine FUMARATE 100 MG TABLET PO SCH ×2 (16:33→20:47)
[2021-10-02 20:12] VITALS: BP 134/90
[2021-10-02] MEDS: MELATONIN 5 MG TABLET PO SCH (20:47)
[2021-10-02] MEDS ORDERED: QUEtiapine FUMARATE 100 MG TABLET PO SCH ×2 (21:00)
[2021-10-03 00:30] VITALS: BP 131/84
[2021-10-03 08:09] VITALS: BP 136/80
[2021-10-03] MEDS: QUEtiapine FUMARATE 100 MG TABLET PO SCH ×4 (08:13→21:00)
[2021-10-03] MEDS: OMEGA-3/DHA/EPA/FISH OIL 1,000 MG CAPSULE PO SCH ×2 (08:13→09:00)
[2021-10-03] MEDS: HydrOXYzine PAMOATE 50 MG CAPSULE PO PRN (08:14)
[2021-10-03 16:34] VITALS: BP 111/61
[2021-10-03] MEDS: MELATONIN 5 MG TABLET PO SCH (21:00)
[2021-10-04 08:18] VITALS: BP 127/61
[2021-10-04] MEDS: OMEGA-3/DHA/EPA/FISH OIL 1,000 MG CAPSULE PO SCH (09:00)
[2021-10-04] MEDS: QUEtiapine FUMARATE 100 MG TABLET PO SCH ×3 (09:00→20:53)
[2021-10-04] MEDS: IBUPROFEN 400 MG TABLET PO PRN (14:39)
[2021-10-04] MEDS: BUTALBITAL/ACETAMINOPHEN/CAFFEINE 50-325-40 MG TABLET PO PRN (16:36)
[2021-10-04 20:00] VITALS: BP 136/90
[2021-10-04] MEDS: MELATONIN 5 MG TABLET PO SCH (20:53)
[2021-10-05 07:18] VITALS: BP 133/86
[2021-10-05 08:14] VITALS: BP 108/64
[2021-10-05] MEDS: OMEGA-3/DHA/EPA/FISH OIL 1,000 MG CAPSULE PO SCH (08:59)
[2021-10-05] MEDS: QUEtiapine FUMARATE 100 MG TABLET PO SCH ×3 (09:00→20:12)
[2021-10-05] MEDS: BUTALBITAL/ACETAMINOPHEN/CAFFEINE 50-325-40 MG TABLET PO PRN ×2 (09:05→16:45)
[2021-10-05] MEDS: IBUPROFEN 400 MG TABLET PO PRN (13:49)
[2021-10-05 16:45] VITALS: BP 116/72
[2021-10-05] MEDS: MELATONIN 5 MG TABLET PO SCH (20:12)
[2021-10-05 20:38] VITALS: BP 125/85
[2021-10-06 01:20] VITALS: BP 104/73
[2021-10-06] MEDS: BUTALBITAL/ACETAMINOPHEN/CAFFEINE 50-325-40 MG TABLET PO PRN ×3 (01:21→18:50)
[2021-10-06 08:54] VITALS: BP 120/80
[2021-10-06] MEDS: OMEGA-3/DHA/EPA/FISH OIL 1,000 MG CAPSULE PO SCH (09:16)
[2021-10-06] MEDS: QUEtiapine FUMARATE 100 MG TABLET PO SCH ×3 (09:17→20:25)
[2021-10-06 18:45] VITALS: BP 120/74
[2021-10-06 20:15] VITALS: BP 124/70
[2021-10-06] MEDS: MELATONIN 5 MG TABLET PO SCH (20:25)
[2021-10-07 02:43] VITALS: BP 116/75
[2021-10-07] MEDS: BUTALBITAL/ACETAMINOPHEN/CAFFEINE 50-325-40 MG TABLET PO PRN ×3 (02:53→22:43)
[2021-10-07] MEDS: OMEGA-3/DHA/EPA/FISH OIL 1,000 MG CAPSULE PO SCH (08:20)
[2021-10-07 08:50] VITALS: BP 100/54
[2021-10-07] MEDS: QUEtiapine FUMARATE 100 MG TABLET PO SCH (09:00)
[2021-10-07] MEDS: DOCUSATE SODIUM 100 MG CAPSULE PO PRN (10:57)
[2021-10-07 13:01] LABS: GLUCOMETER DEV NAME(LOC) POC.BV
[2021-10-07 20:12] VITALS: BP 127/81
[2021-10-07] MEDS: MELATONIN 5 MG TABLET PO SCH (22:40)
[2021-10-08] MEDS: QUEtiapine FUMARATE 100 MG TABLET PO SCH ×2 (00:35→20:40)
[2021-10-08] MEDS: BUTALBITAL/ACETAMINOPHEN/CAFFEINE 50-325-40 MG TABLET PO PRN ×2 (08:30→20:01)
[2021-10-08] MEDS: OMEGA-3/DHA/EPA/FISH OIL 1,000 MG CAPSULE PO SCH (08:30)
[2021-10-08 08:31] VITALS: BP 111/64
[2021-10-08 13:50] VITALS: BP 117/75
[2021-10-08] MEDS: IBUPROFEN 400 MG TABLET PO PRN (13:50)
[2021-10-08 20:03] VITALS: BP 113/62
[2021-10-08] MEDS: MELATONIN 5 MG TABLET PO SCH (20:40)
[2021-10-09 08:36] VITALS: BP 97/73
[2021-10-09] MEDS: OMEGA-3/DHA/EPA/FISH OIL 1,000 MG CAPSULE PO SCH (09:55)
[2021-10-09] MEDS: DOCUSATE SODIUM 100 MG CAPSULE PO PRN (10:16)
[2021-10-09] MEDS: BUTALBITAL/ACETAMINOPHEN/CAFFEINE 50-325-40 MG TABLET PO PRN ×2 (10:18→18:38)
[2021-10-09] MEDS: FLUoxetine HCL 10 MG CAPSULE PO SCH (16:00)
[2021-10-09] MEDS: HydrOXYzine PAMOATE 50 MG CAPSULE PO PRN (17:34)
[2021-10-09 18:38] VITALS: BP 121/73
[2021-10-09] MEDS: QUEtiapine FUMARATE 100 MG TABLET PO SCH (20:16)
[2021-10-09] MEDS: MELATONIN 5 MG TABLET PO SCH (20:17)
[2021-10-09 20:52] VITALS: BP 119/73
[2021-10-10] MEDS: OMEGA-3/DHA/EPA/FISH OIL 1,000 MG CAPSULE PO SCH (08:29)
[2021-10-10] MEDS: FLUoxetine HCL 10 MG CAPSULE PO SCH (08:29)
[2021-10-10 08:48] VITALS: BP 116/78
[2021-10-10] MEDS: BUTALBITAL/ACETAMINOPHEN/CAFFEINE 50-325-40 MG TABLET PO PRN ×2 (11:11→19:27)
[2021-10-10] MEDS: FAMOTIDINE 20 MG TABLET PO SCH (16:35)
[2021-10-10 19:25] VITALS: BP 114/75
[2021-10-10 20:17] VITALS: BP 110/65
[2021-10-10] MEDS: QUEtiapine FUMARATE 100 MG TABLET PO SCH (20:38)
[2021-10-10] MEDS: MELATONIN 5 MG TABLET PO SCH (20:38)
[2021-10-11 08:03] VITALS: BP 117/62
[2021-10-11] MEDS: FAMOTIDINE 20 MG TABLET PO SCH ×2 (08:47→16:45)
[2021-10-11] MEDS: FLUoxetine HCL 10 MG CAPSULE PO SCH (08:47)
[2021-10-11] MEDS: OMEGA-3/DHA/EPA/FISH OIL 1,000 MG CAPSULE PO SCH (08:47)
[2021-10-11] MEDS: BUTALBITAL/ACETAMINOPHEN/CAFFEINE 50-325-40 MG TABLET PO PRN ×2 (10:49→19:48)
[2021-10-11] MEDS: IBUPROFEN 400 MG TABLET PO PRN (13:42)
[2021-10-11 19:48] VITALS: BP 112/69
[2021-10-11 20:16] VITALS: BP 134/78
[2021-10-11] MEDS: MELATONIN 5 MG TABLET PO SCH (20:44)
[2021-10-11] MEDS: QUEtiapine FUMARATE 100 MG TABLET PO SCH (20:45)
[2021-10-11 22:04] VITALS: BP 123/80
[2021-10-11] MEDS: ZOLPIDEM TARTRATE 10 MG TABLET PO PRN (23:28)
[2021-10-12] MEDS: BUTALBITAL/ACETAMINOPHEN/CAFFEINE 50-325-40 MG TABLET PO PRN ×2 (06:13→13:09)
[2021-10-12] MEDS: FLUoxetine HCL 10 MG CAPSULE PO SCH (08:21)
[2021-10-12] MEDS: FAMOTIDINE 20 MG TABLET PO SCH ×2 (08:21→16:14)
[2021-10-12] MEDS: OMEGA-3/DHA/EPA/FISH OIL 1,000 MG CAPSULE PO SCH (08:21)
[2021-10-12 08:30] VITALS: BP 109/67
[2021-10-12] MEDS: MELATONIN 5 MG TABLET PO SCH (20:05)
[2021-10-12] MEDS: QUEtiapine FUMARATE 100 MG TABLET PO SCH (20:05)
[2021-10-12 20:45] VITALS: BP 140/84
[2021-10-13] MEDS: FLUoxetine HCL 10 MG CAPSULE PO SCH (08:22)
[2021-10-13] MEDS: FAMOTIDINE 20 MG TABLET PO SCH ×2 (08:22→16:10)
[2021-10-13] MEDS: BUTALBITAL/ACETAMINOPHEN/CAFFEINE 50-325-40 MG TABLET PO PRN ×2 (08:23→16:24)
[2021-10-13] MEDS: OMEGA-3/DHA/EPA/FISH OIL 1,000 MG CAPSULE PO SCH (08:23)
[2021-10-13 08:30] VITALS: BP 108/65
[2021-10-13] MEDS: IBUPROFEN 400 MG TABLET PO PRN (20:19)
[2021-10-13] MEDS: MELATONIN 5 MG TABLET PO SCH (21:01)
[2021-10-13] MEDS: QUEtiapine FUMARATE 100 MG TABLET PO SCH (21:02)
[2021-10-13 21:22] VITALS: BP 129/68
[2021-10-13] MEDS: ZOLPIDEM TARTRATE 10 MG TABLET PO PRN (23:32)
[2021-10-14 06:34] VITALS: BP 132/78
[2021-10-14] MEDS: BUTALBITAL/ACETAMINOPHEN/CAFFEINE 50-325-40 MG TABLET PO PRN ×2 (06:34→16:39)
[2021-10-14 09:11] LABS: GLUCOMETER DEV NAME(LOC) POC.BV
[2021-10-14 09:28] VITALS: BP 117/69
[2021-10-14] MEDS: OMEGA-3/DHA/EPA/FISH OIL 1,000 MG CAPSULE PO SCH (09:39)
[2021-10-14] MEDS: FLUoxetine HCL 10 MG CAPSULE PO SCH (09:40)
[2021-10-14] MEDS: FAMOTIDINE 20 MG TABLET PO SCH ×2 (09:40→16:39)
[2021-10-14] MEDS: IBUPROFEN 400 MG TABLET PO PRN (10:26)
[2021-10-14] MEDS: HydrOXYzine PAMOATE 50 MG CAPSULE PO PRN (16:06)
[2021-10-14 16:36] VITALS: BP 121/69
[2021-10-14 20:15] VITALS: BP 131/76
[2021-10-14] MEDS: MELATONIN 5 MG TABLET PO SCH (20:43)
[2021-10-14] MEDS: QUEtiapine FUMARATE 100 MG TABLET PO SCH (20:43)
[2021-10-15 08:50] VITALS: BP 128/80
[2021-10-15] MEDS: FLUoxetine HCL 10 MG CAPSULE PO SCH (08:59)
[2021-10-15] MEDS: FAMOTIDINE 20 MG TABLET PO SCH ×2 (08:59→16:28)
[2021-10-15] MEDS: OMEGA-3/DHA/EPA/FISH OIL 1,000 MG CAPSULE PO SCH (08:59)
[2021-10-15] MEDS: BUTALBITAL/ACETAMINOPHEN/CAFFEINE 50-325-40 MG TABLET PO PRN (09:29)
[2021-10-15] MEDS: LORATADINE 10 MG TABLET PO PRN (13:43)
[2021-10-15] MEDS: MELATONIN 5 MG TABLET PO SCH (20:41)
[2021-10-15] MEDS: QUEtiapine FUMARATE 100 MG TABLET PO SCH (20:41)
[2021-10-15 22:08] VITALS: BP 106/66
[2021-10-16 09:11] VITALS: BP 108/70
[2021-10-16] MEDS: FAMOTIDINE 20 MG TABLET PO SCH ×2 (09:53→16:34)
[2021-10-16] MEDS: FLUoxetine HCL 10 MG CAPSULE PO SCH (09:53)
[2021-10-16] MEDS: OMEGA-3/DHA/EPA/FISH OIL 1,000 MG CAPSULE PO SCH (09:53)
[2021-10-16] MEDS: BUTALBITAL/ACETAMINOPHEN/CAFFEINE 50-325-40 MG TABLET PO PRN (10:56)
[2021-10-16] MEDS: LORATADINE 10 MG TABLET PO PRN (13:47)
[2021-10-16 16:34] VITALS: BP 121/76
[2021-10-16] MEDS: IBUPROFEN 400 MG TABLET PO PRN (16:34)
[2021-10-16 20:44] VITALS: BP 118/84
[2021-10-16] MEDS: QUEtiapine FUMARATE 100 MG TABLET PO SCH (20:44)
[2021-10-16] MEDS: MELATONIN 5 MG TABLET PO SCH (20:44)
[2021-10-17 04:44] VITALS: BP 122/78
[2021-10-17] MEDS: BUTALBITAL/ACETAMINOPHEN/CAFFEINE 50-325-40 MG TABLET PO PRN ×2 (04:48→14:30)
[2021-10-17] MEDS: LORATADINE 10 MG TABLET PO PRN (06:07)
[2021-10-17 08:30] VITALS: BP 104/65
[2021-10-17] MEDS: FAMOTIDINE 20 MG TABLET PO SCH ×2 (09:08→16:46)
[2021-10-17] MEDS: OMEGA-3/DHA/EPA/FISH OIL 1,000 MG CAPSULE PO SCH (09:08)
[2021-10-17] MEDS: FLUoxetine HCL 10 MG CAPSULE PO SCH (09:08)
[2021-10-17 20:05] VITALS: BP 117/70
[2021-10-17] MEDS: QUEtiapine FUMARATE 100 MG TABLET PO SCH (20:37)
[2021-10-17] MEDS: MELATONIN 5 MG TABLET PO SCH (20:37)
[2021-10-18 02:30] VITALS: BP 115/75
[2021-10-18] MEDS: BUTALBITAL/ACETAMINOPHEN/CAFFEINE 50-325-40 MG TABLET PO PRN ×2 (02:53→12:51)
[2021-10-18] MEDS: LORATADINE 10 MG TABLET PO PRN (02:53)
[2021-10-18] MEDS: OMEGA-3/DHA/EPA/FISH OIL 1,000 MG CAPSULE PO SCH (08:22)
[2021-10-18] MEDS: FAMOTIDINE 20 MG TABLET PO SCH ×2 (08:22→17:03)
[2021-10-18] MEDS: FLUoxetine HCL 10 MG CAPSULE PO SCH (08:22)
[2021-10-18 08:40] VITALS: BP 121/75
[2021-10-18] MEDS: HydrOXYzine PAMOATE 50 MG CAPSULE PO PRN (11:06)
[2021-10-18] MEDS: QUEtiapine FUMARATE 100 MG TABLET PO SCH (20:18)
[2021-10-18] MEDS: MELATONIN 5 MG TABLET PO SCH (20:19)
[2021-10-18 20:23] VITALS: BP 121/77
[2021-10-19 05:31] VITALS: BP 120/87
[2021-10-19] MEDS: BUTALBITAL/ACETAMINOPHEN/CAFFEINE 50-325-40 MG TABLET PO PRN ×2 (05:32→13:34)
[2021-10-19] MEDS: LORATADINE 10 MG TABLET PO PRN (05:33)
[2021-10-19 08:10] VITALS: BP 125/87
[2021-10-19] MEDS: OMEGA-3/DHA/EPA/FISH OIL 1,000 MG CAPSULE PO SCH (09:27)
[2021-10-19] MEDS: FAMOTIDINE 20 MG TABLET PO SCH ×2 (09:27→16:43)
[2021-10-19] MEDS: FLUoxetine HCL 10 MG CAPSULE PO SCH (09:28)
[2021-10-19 20:28] VITALS: BP 136/85
[2021-10-19] MEDS: QUEtiapine FUMARATE 100 MG TABLET PO SCH (20:35)
[2021-10-19] MEDS: MELATONIN 5 MG TABLET PO SCH (20:35)
[2021-10-20] MEDS: MAG HYDROX/AL HYDROX/SIMETH ES 30 ML SUSPENSION UDCUP PO PRN (02:17)
[2021-10-20 06:02] VITALS: BP 115/77
[2021-10-20] MEDS: BUTALBITAL/ACETAMINOPHEN/CAFFEINE 50-325-40 MG TABLET PO PRN ×2 (06:19→14:44)
[2021-10-20] MEDS: LORATADINE 10 MG TABLET PO PRN (06:19)
[2021-10-20 09:01] VITALS: BP 115/77
[2021-10-20] MEDS: FLUoxetine HCL 10 MG CAPSULE PO SCH (09:07)
[2021-10-20] MEDS: OMEGA-3/DHA/EPA/FISH OIL 1,000 MG CAPSULE PO SCH (09:07)
[2021-10-20] MEDS: FAMOTIDINE 20 MG TABLET PO SCH ×2 (09:07→16:52)
[2021-10-20] MEDS: MELATONIN 5 MG TABLET PO SCH (20:35)
[2021-10-20] MEDS: QUEtiapine FUMARATE 100 MG TABLET PO SCH (20:36)
[2021-10-20 21:24] VITALS: BP 113/80
[2021-10-21 06:23] VITALS: BP 112/87
[2021-10-21] MEDS: LORATADINE 10 MG TABLET PO PRN (06:24)
[2021-10-21] MEDS: BUTALBITAL/ACETAMINOPHEN/CAFFEINE 50-325-40 MG TABLET PO PRN ×2 (06:25→15:00)
[2021-10-21] MEDS: OMEGA-3/DHA/EPA/FISH OIL 1,000 MG CAPSULE PO SCH (08:32)
[2021-10-21] MEDS: FAMOTIDINE 20 MG TABLET PO SCH ×2 (08:32→16:31)
[2021-10-21] MEDS: FLUoxetine HCL 10 MG CAPSULE PO SCH (08:32)
[2021-10-21 09:05] VITALS: BP 108/82
[2021-10-21] MEDS: IBUPROFEN 400 MG TABLET PO PRN (10:03)
[2021-10-21 11:46] LABS: GLUCOMETER DEV NAME(LOC) POC.BV
[2021-10-21 20:20] VITALS: BP 121/70
[2021-10-21] MEDS: MELATONIN 5 MG TABLET PO SCH (20:42)
[2021-10-21] MEDS: QUEtiapine FUMARATE 100 MG TABLET PO SCH (20:42)
[2021-10-22 02:52] VITALS: BP 115/69
[2021-10-22] MEDS: LORATADINE 10 MG TABLET PO PRN (03:09)
[2021-10-22] MEDS: BUTALBITAL/ACETAMINOPHEN/CAFFEINE 50-325-40 MG TABLET PO PRN ×2 (03:09→12:51)
[2021-10-22] MEDS: OMEGA-3/DHA/EPA/FISH OIL 1,000 MG CAPSULE PO SCH (08:33)
[2021-10-22] MEDS: FAMOTIDINE 20 MG TABLET PO SCH ×2 (08:33→16:16)
[2021-10-22] MEDS: FLUoxetine HCL 10 MG CAPSULE PO SCH (08:33)
[2021-10-22 09:35] VITALS: BP 118/60
[2021-10-22 10:32] VITALS: BP 114/67
[2021-10-22] MEDS: IBUPROFEN 400 MG TABLET PO PRN (10:32)
[2021-10-22 11:32] VITALS: BP 119/71
[2021-10-22 20:03] VITALS: BP 136/94
[2021-10-22] MEDS: MELATONIN 5 MG TABLET PO SCH (20:18)
[2021-10-22] MEDS: QUEtiapine FUMARATE 100 MG TABLET PO SCH (20:31)
[2021-10-23 03:35] VITALS: BP 120/74
[2021-10-23] MEDS: LORATADINE 10 MG TABLET PO PRN (03:36)
[2021-10-23] MEDS: BUTALBITAL/ACETAMINOPHEN/CAFFEINE 50-325-40 MG TABLET PO PRN ×3 (03:37→20:58)
[2021-10-23 08:27] VITALS: BP 126/74
[2021-10-23] MEDS: FAMOTIDINE 20 MG TABLET PO SCH ×2 (09:37→16:09)
[2021-10-23] MEDS: OMEGA-3/DHA/EPA/FISH OIL 1,000 MG CAPSULE PO SCH (09:37)
[2021-10-23] MEDS: FLUoxetine HCL 10 MG CAPSULE PO SCH (09:37)
[2021-10-23] MEDS: MELATONIN 5 MG TABLET PO SCH (20:25)
[2021-10-23] MEDS: QUEtiapine FUMARATE 100 MG TABLET PO SCH (20:25)
[2021-10-23] MEDS: MAG HYDROX/AL HYDROX/SIMETH ES 30 ML SUSPENSION UDCUP PO PRN (20:57)
[2021-10-23 20:58] VITALS: BP 126/72
[2021-10-24] MEDS: BUTALBITAL/ACETAMINOPHEN/CAFFEINE 50-325-40 MG TABLET PO PRN ×2 (05:31→16:48)
[2021-10-24] MEDS: LORATADINE 10 MG TABLET PO PRN (05:37)
[2021-10-24] MEDS: FLUoxetine HCL 10 MG CAPSULE PO SCH (08:06)
[2021-10-24] MEDS: FAMOTIDINE 20 MG TABLET PO SCH ×2 (08:06→16:48)
[2021-10-24] MEDS: OMEGA-3/DHA/EPA/FISH OIL 1,000 MG CAPSULE PO SCH (08:06)
[2021-10-24 08:19] VITALS: BP 115/68
[2021-10-24] MEDS: VENLAFAXINE HCL 75 MG ER CAPSULE PO SCH (10:51)
[2021-10-24 20:01] VITALS: BP 129/84
[2021-10-24] MEDS: MELATONIN 5 MG TABLET PO SCH (20:09)
[2021-10-24] MEDS: QUEtiapine FUMARATE 100 MG TABLET PO SCH (20:10)
[2021-10-25] MEDS: BUTALBITAL/ACETAMINOPHEN/CAFFEINE 50-325-40 MG TABLET PO PRN ×3 (03:53→20:54)
[2021-10-25] MEDS: LORATADINE 10 MG TABLET PO PRN (03:54)
[2021-10-25] MEDS: OMEGA-3/DHA/EPA/FISH OIL 1,000 MG CAPSULE PO SCH (08:02)
[2021-10-25] MEDS: FLUoxetine HCL 10 MG CAPSULE PO SCH (08:02)
[2021-10-25] MEDS: VENLAFAXINE HCL 75 MG ER CAPSULE PO SCH (08:02)
[2021-10-25] MEDS: FAMOTIDINE 20 MG TABLET PO SCH ×2 (08:02→16:46)
[2021-10-25 08:49] VITALS: BP 120/72
[2021-10-25 20:28] VITALS: BP 136/78
[2021-10-25] MEDS: QUEtiapine FUMARATE 100 MG TABLET PO SCH (20:34)
[2021-10-25] MEDS: MELATONIN 5 MG TABLET PO SCH (20:34)
[2021-10-25 20:54] VITALS: BP 126/84
[2021-10-26 05:50] VITALS: BP 124/80
[2021-10-26] MEDS: LORATADINE 10 MG TABLET PO PRN (05:55)
[2021-10-26] MEDS: BUTALBITAL/ACETAMINOPHEN/CAFFEINE 50-325-40 MG TABLET PO PRN ×2 (05:55→16:20)
[2021-10-26] MEDS: VENLAFAXINE HCL 75 MG ER CAPSULE PO SCH (08:12)
[2021-10-26] MEDS: FAMOTIDINE 20 MG TABLET PO SCH ×2 (08:12→16:15)
[2021-10-26] MEDS: FLUoxetine HCL 10 MG CAPSULE PO SCH (08:12)
[2021-10-26] MEDS: OMEGA-3/DHA/EPA/FISH OIL 1,000 MG CAPSULE PO SCH (08:12)
[2021-10-26 08:20] VITALS: BP 132/71
[2021-10-26 16:20] VITALS: BP 126/78
[2021-10-26] MEDS: MELATONIN 5 MG TABLET PO SCH (20:26)
[2021-10-26] MEDS: QUEtiapine FUMARATE 100 MG TABLET PO SCH (20:27)
[2021-10-26 21:29] VITALS: BP 125/80
[2021-10-27] MEDS: BUTALBITAL/ACETAMINOPHEN/CAFFEINE 50-325-40 MG TABLET PO PRN ×2 (02:14→11:53)
[2021-10-27] MEDS: VENLAFAXINE HCL 75 MG ER CAPSULE PO SCH (08:06)
[2021-10-27] MEDS: FAMOTIDINE 20 MG TABLET PO SCH ×2 (08:06→16:08)
[2021-10-27] MEDS: OMEGA-3/DHA/EPA/FISH OIL 1,000 MG CAPSULE PO SCH (08:07)
[2021-10-27] MEDS: FLUoxetine HCL 10 MG CAPSULE PO SCH (08:07)
[2021-10-27 09:47] VITALS: BP 108/65
[2021-10-27] MEDS: LORATADINE 10 MG TABLET PO PRN (11:53)
[2021-10-27] MEDS: QUEtiapine FUMARATE 100 MG TABLET PO SCH (20:04)
[2021-10-27] MEDS: MELATONIN 5 MG TABLET PO SCH (20:04)
[2021-10-28 01:51] VITALS: BP 129/74
[2021-10-28] MEDS: BUTALBITAL/ACETAMINOPHEN/CAFFEINE 50-325-40 MG TABLET PO PRN ×3 (01:51→19:03)
[2021-10-28 07:41] LABS: GLUCOMETER DEV NAME(LOC) POC.BV
[2021-10-28 08:13] VITALS: BP 122/80
[2021-10-28] MEDS: VENLAFAXINE HCL 75 MG ER CAPSULE PO SCH (10:15)
[2021-10-28] MEDS: FAMOTIDINE 20 MG TABLET PO SCH ×2 (10:15→16:44)
[2021-10-28] MEDS: OMEGA-3/DHA/EPA/FISH OIL 1,000 MG CAPSULE PO SCH (10:15)
[2021-10-28] MEDS: FLUoxetine HCL 10 MG CAPSULE PO SCH (10:16)
[2021-10-28] MEDS: IBUPROFEN 400 MG TABLET PO PRN (13:27)
[2021-10-28 19:00] VITALS: BP 124/75
[2021-10-28 20:00] VITALS: BP 115/75
[2021-10-28] MEDS: MELATONIN 5 MG TABLET PO SCH (20:49)
[2021-10-28] MEDS: QUEtiapine FUMARATE 100 MG TABLET PO SCH (20:49)
[2021-10-28] MEDS: LORATADINE 10 MG TABLET PO PRN (21:02)
[2021-10-29 07:00] VITALS: BP 110/77
[2021-10-29] MEDS: BUTALBITAL/ACETAMINOPHEN/CAFFEINE 50-325-40 MG TABLET PO PRN ×2 (07:14→16:30)
[2021-10-29 08:15] VITALS: BP 128/72
[2021-10-29] MEDS: VENLAFAXINE HCL 75 MG ER CAPSULE PO SCH (09:28)
[2021-10-29] MEDS: FAMOTIDINE 20 MG TABLET PO SCH ×2 (09:29→16:29)
[2021-10-29] MEDS: OMEGA-3/DHA/EPA/FISH OIL 1,000 MG CAPSULE PO SCH (09:29)
[2021-10-29] MEDS: FLUoxetine HCL 10 MG CAPSULE PO SCH (13:12)
[2021-10-29 16:01] VITALS: BP 111/78
[2021-10-29 20:12] VITALS: BP 117/66
[2021-10-29] MEDS: MELATONIN 5 MG TABLET PO SCH (20:36)
[2021-10-29] MEDS: QUEtiapine FUMARATE 100 MG TABLET PO SCH (20:36)
[2021-10-29] MEDS: LORATADINE 10 MG TABLET PO PRN (21:10)
[2021-10-30 02:45] VITALS: BP 127/86
[2021-10-30] MEDS: BUTALBITAL/ACETAMINOPHEN/CAFFEINE 50-325-40 MG TABLET PO PRN ×3 (02:59→22:21)
[2021-10-30 09:19] VITALS: BP 109/61
[2021-10-30] MEDS: FAMOTIDINE 20 MG TABLET PO SCH ×2 (09:46→16:28)
[2021-10-30] MEDS: OMEGA-3/DHA/EPA/FISH OIL 1,000 MG CAPSULE PO SCH (09:46)
[2021-10-30] MEDS: FLUoxetine HCL 10 MG CAPSULE PO SCH (09:46)
[2021-10-30] MEDS: VENLAFAXINE HCL 75 MG ER CAPSULE PO SCH (09:46)
[2021-10-30 16:33] VITALS: BP 129/75
[2021-10-30] MEDS: IBUPROFEN 400 MG TABLET PO PRN (16:40)
[2021-10-30 20:06] VITALS: BP 139/72
[2021-10-30] MEDS: QUEtiapine FUMARATE 100 MG TABLET PO SCH (20:46)
[2021-10-30] MEDS: MELATONIN 5 MG TABLET PO SCH (20:46)
[2021-10-30 22:15] VITALS: BP 130/82
[2021-10-31 04:25] VITALS: BP 125/84
[2021-10-31 08:09] VITALS: BP 136/83
[2021-10-31] MEDS: FAMOTIDINE 20 MG TABLET PO SCH ×2 (08:13→16:29)
[2021-10-31] MEDS: OMEGA-3/DHA/EPA/FISH OIL 1,000 MG CAPSULE PO SCH (08:13)
[2021-10-31] MEDS: VENLAFAXINE HCL 75 MG ER CAPSULE PO SCH (08:13)
[2021-10-31] MEDS: FEXOFENADINE HCL 60 MG TABLET PO PRN (08:58)
[2021-10-31] MEDS: BUTALBITAL/ACETAMINOPHEN/CAFFEINE 50-325-40 MG TABLET PO PRN ×2 (08:59→17:01)
[2021-10-31 17:01] VITALS: BP 136/84
[2021-10-31] MEDS: QUEtiapine FUMARATE 100 MG TABLET PO SCH (20:02)
[2021-10-31] MEDS: MELATONIN 5 MG TABLET PO SCH (20:02)
[2021-10-31 20:04] VITALS: BP 140/88
[2021-11-01 02:13] VITALS: BP 122/81
[2021-11-01] MEDS: BUTALBITAL/ACETAMINOPHEN/CAFFEINE 50-325-40 MG TABLET PO PRN ×3 (02:19→18:42)
[2021-11-01] MEDS: OMEGA-3/DHA/EPA/FISH OIL 1,000 MG CAPSULE PO SCH (08:03)
[2021-11-01] MEDS: VENLAFAXINE HCL 75 MG ER CAPSULE PO SCH (08:03)
[2021-11-01] MEDS: FAMOTIDINE 20 MG TABLET PO SCH ×2 (08:03→16:03)
[2021-11-01 08:26] VITALS: BP 115/76
[2021-11-01] MEDS: FEXOFENADINE HCL 60 MG TABLET PO PRN (10:11)
[2021-11-01] MEDS: GuaiFENesin/D-METHORPHAN [SUGAR-FREE] 200-20MG/10 ML SYRUP UDCUP PO PRN ×2 (12:28→18:42)
[2021-11-01] MEDS: ALBUTEROL SULFATE HFA 90 MCG/PUFF 8 GM INHALER IH PRN (18:41)
[2021-11-01 18:42] VITALS: BP 123/88
[2021-11-01] MEDS: QUEtiapine FUMARATE 100 MG TABLET PO SCH (20:12)
[2021-11-01] MEDS: MELATONIN 5 MG TABLET PO SCH (20:12)
[2021-11-01 20:32] VITALS: BP 119/65
[2021-11-01] MEDS: IBUPROFEN 400 MG TABLET PO PRN (20:32)
[2021-11-01 21:32] VITALS: BP 119/65
[2021-11-02 02:33] VITALS: BP 113/78
[2021-11-02] MEDS: BUTALBITAL/ACETAMINOPHEN/CAFFEINE 50-325-40 MG TABLET PO PRN ×3 (02:59→19:57)
[2021-11-02] MEDS: GuaiFENesin/D-METHORPHAN [SUGAR-FREE] 200-20MG/10 ML SYRUP UDCUP PO PRN ×3 (02:59→19:46)
[2021-11-02] MEDS: ALBUTEROL SULFATE HFA 90 MCG/PUFF 8 GM INHALER IH PRN (04:51)
[2021-11-02 08:08] VITALS: BP 126/79
[2021-11-02] MEDS: FEXOFENADINE HCL 60 MG TABLET PO PRN (08:31)
[2021-11-02] MEDS: FAMOTIDINE 20 MG TABLET PO SCH ×2 (08:31→16:45)
[2021-11-02] MEDS: VENLAFAXINE HCL 75 MG ER CAPSULE PO SCH (08:31)
[2021-11-02] MEDS: OMEGA-3/DHA/EPA/FISH OIL 1,000 MG CAPSULE PO SCH (08:31)
[2021-11-02] MEDS: IBUPROFEN 400 MG TABLET PO PRN (13:20)
[2021-11-02] MEDS: OXYMETAZOLINE HCL 0.05% 15 ML NASAL SPRAY NASAL PRN (16:45)
[2021-11-02 20:00] VITALS: BP 120/88
[2021-11-02] MEDS: MELATONIN 5 MG TABLET PO SCH (20:43)
[2021-11-02] MEDS: QUEtiapine FUMARATE 100 MG TABLET PO SCH (20:43)
[2021-11-02 20:57] VITALS: BP 117/76
[2021-11-03] MEDS: GuaiFENesin/D-METHORPHAN [SUGAR-FREE] 200-20MG/10 ML SYRUP UDCUP PO PRN ×4 (03:06→20:19)
[2021-11-03] MEDS: OXYMETAZOLINE HCL 0.05% 15 ML NASAL SPRAY NASAL PRN ×2 (04:21→19:01)
[2021-11-03 04:27] VITALS: BP 137/88
[2021-11-03] MEDS: BUTALBITAL/ACETAMINOPHEN/CAFFEINE 50-325-40 MG TABLET PO PRN ×3 (04:28→21:49)
[2021-11-03 08:48] VITALS: BP 113/67
[2021-11-03] MEDS: FAMOTIDINE 20 MG TABLET PO SCH ×2 (09:14→16:27)
[2021-11-03] MEDS: VENLAFAXINE HCL 75 MG ER CAPSULE PO SCH (09:14)
[2021-11-03] MEDS: OMEGA-3/DHA/EPA/FISH OIL 1,000 MG CAPSULE PO SCH (09:14)
[2021-11-03] MEDS: ALBUTEROL SULFATE HFA 90 MCG/PUFF 8 GM INHALER IH PRN (09:37)
[2021-11-03] MEDS: FEXOFENADINE HCL 60 MG TABLET PO PRN (09:37)
[2021-11-03] MEDS: IBUPROFEN 400 MG TABLET PO PRN ×2 (09:48→19:09)
[2021-11-03 19:03] VITALS: BP 110/79
[2021-11-03] MEDS: MELATONIN 5 MG TABLET PO SCH (20:34)
[2021-11-03] MEDS: QUEtiapine FUMARATE 100 MG TABLET PO SCH (20:34)
[2021-11-03 20:36] VITALS: BP 123/71
[2021-11-03 21:47] VITALS: BP 119/71
[2021-11-04] MEDS: BUTALBITAL/ACETAMINOPHEN/CAFFEINE 50-325-40 MG TABLET PO PRN ×2 (06:47→14:47)
[2021-11-04] MEDS: GuaiFENesin/D-METHORPHAN [SUGAR-FREE] 200-20MG/10 ML SYRUP UDCUP PO PRN ×2 (06:57→14:34)
[2021-11-04] MEDS: OMEGA-3/DHA/EPA/FISH OIL 1,000 MG CAPSULE PO SCH (08:36)
[2021-11-04] MEDS: FAMOTIDINE 20 MG TABLET PO SCH ×2 (08:36→16:31)
[2021-11-04] MEDS: VENLAFAXINE HCL 75 MG ER CAPSULE PO SCH (08:36)
[2021-11-04 08:51] LABS: GLUCOMETER DEV NAME(LOC) POC.BV
[2021-11-04 14:47] VITALS: BP 124/75
[2021-11-04] MEDS: ALBUTEROL SULFATE HFA 90 MCG/PUFF 8 GM INHALER IH PRN (15:26)
[2021-11-04] MEDS: IBUPROFEN 400 MG TABLET PO PRN (17:53)
[2021-11-04 17:58] VITALS: BP 126/78
[2021-11-04] MEDS: QUEtiapine FUMARATE 100 MG TABLET PO SCH (20:50)
[2021-11-04] MEDS: MELATONIN 5 MG TABLET PO SCH (20:50)
[2021-11-04 21:11] VITALS: BP 118/74
[2021-11-05 00:02] VITALS: BP 121/68
[2021-11-05] MEDS: FEXOFENADINE HCL 60 MG TABLET PO PRN (00:04)
[2021-11-05] MEDS: BUTALBITAL/ACETAMINOPHEN/CAFFEINE 50-325-40 MG TABLET PO PRN ×3 (00:05→20:14)
[2021-11-05] MEDS: OMEGA-3/DHA/EPA/FISH OIL 1,000 MG CAPSULE PO SCH (10:01)
[2021-11-05] MEDS: VENLAFAXINE HCL 75 MG ER CAPSULE PO SCH (10:01)
[2021-11-05] MEDS: FAMOTIDINE 20 MG TABLET PO SCH ×2 (10:01→16:26)
[2021-11-05 10:27] VITALS: BP 120/74
[2021-11-05] MEDS ORDERED: PALIPERIDONE PALMITATE 117 MG/0.75 ML SYRINGE IM ONE (10:30)
[2021-11-05] MEDS: OXYMETAZOLINE HCL 0.05% 15 ML NASAL SPRAY NASAL PRN (13:18)
[2021-11-05 16:35] VITALS: BP 130/79
[2021-11-05] MEDS: IBUPROFEN 400 MG TABLET PO PRN (16:35)
[2021-11-05 20:15] VITALS: BP 125/74
[2021-11-05] MEDS: MELATONIN 5 MG TABLET PO SCH (20:51)
[2021-11-05] MEDS: QUEtiapine FUMARATE 100 MG TABLET PO SCH (20:51)
[2021-11-06 08:26] VITALS: BP 126/77
[2021-11-06] MEDS: VENLAFAXINE HCL 75 MG ER CAPSULE PO SCH (08:27)
[2021-11-06] MEDS: FAMOTIDINE 20 MG TABLET PO SCH ×2 (08:27→16:01)
[2021-11-06] MEDS: OMEGA-3/DHA/EPA/FISH OIL 1,000 MG CAPSULE PO SCH (08:27)
[2021-11-06] MEDS: BUTALBITAL/ACETAMINOPHEN/CAFFEINE 50-325-40 MG TABLET PO PRN ×2 (08:29→16:31)
[2021-11-06] MEDS: GuaiFENesin/D-METHORPHAN [SUGAR-FREE] 200-20MG/10 ML SYRUP UDCUP PO PRN (12:38)
[2021-11-06 16:31] VITALS: BP 128/76
[2021-11-06] MEDS: ALBUTEROL SULFATE HFA 90 MCG/PUFF 8 GM INHALER IH PRN (16:46)
[2021-11-06 20:07] VITALS: BP 120/72
[2021-11-06] MEDS: QUEtiapine FUMARATE 100 MG TABLET PO SCH (20:39)
[2021-11-06] MEDS: MELATONIN 5 MG TABLET PO SCH (20:39)
[2021-11-07] MEDS: IBUPROFEN 400 MG TABLET PO PRN (00:30)
[2021-11-07] MEDS: GuaiFENesin/D-METHORPHAN [SUGAR-FREE] 200-20MG/10 ML SYRUP UDCUP PO PRN (00:30)
[2021-11-07] MEDS: FEXOFENADINE HCL 60 MG TABLET PO PRN (05:47)
[2021-11-07] MEDS: BUTALBITAL/ACETAMINOPHEN/CAFFEINE 50-325-40 MG TABLET PO PRN ×3 (05:47→22:06)
[2021-11-07] MEDS: OMEGA-3/DHA/EPA/FISH OIL 1,000 MG CAPSULE PO SCH (08:00)
[2021-11-07] MEDS: FAMOTIDINE 20 MG TABLET PO SCH ×2 (08:00→17:15)
[2021-11-07] MEDS: VENLAFAXINE HCL 75 MG ER CAPSULE PO SCH (08:00)
[2021-11-07 08:43] VITALS: BP 129/70
[2021-11-07] MEDS ORDERED: VENL-67 PO (14:55)
[2021-11-07] MEDS ORDERED: OMEG-135 PO (14:55)
[2021-11-07] MEDS ORDERED: MELA5TAB40 PO (14:55)
[2021-11-07] MEDS ORDERED: QUET100T34 PO (14:55)
[2021-11-07 20:07] VITALS: BP 148/64
[2021-11-07] MEDS: MELATONIN 5 MG TABLET PO SCH (21:05)
[2021-11-07] MEDS: QUEtiapine FUMARATE 100 MG TABLET PO SCH (21:07)
[2021-11-07 22:00] VITALS: BP 130/84
[2021-11-08] MEDS: MAG HYDROX/AL HYDROX/SIMETH ES 30 ML SUSPENSION UDCUP PO PRN (02:42)
[2021-11-08 06:45] VITALS: BP 137/85
[2021-11-08] MEDS: BUTALBITAL/ACETAMINOPHEN/CAFFEINE 50-325-40 MG TABLET PO PRN (06:48)
[2021-11-08] MEDS ORDERED: FAMO20TA8 PO (08:13)
[2021-11-08] MEDS: VENLAFAXINE HCL 75 MG ER CAPSULE PO SCH (08:19)
[2021-11-08] MEDS: OMEGA-3/DHA/EPA/FISH OIL 1,000 MG CAPSULE PO SCH (08:19)
[2021-11-08] MEDS: GuaiFENesin/D-METHORPHAN [SUGAR-FREE] 200-20MG/10 ML SYRUP UDCUP PO PRN (08:20)
[2021-11-08] MEDS: FEXOFENADINE HCL 60 MG TABLET PO PRN (08:20)
[2021-11-08] MEDS: FAMOTIDINE 20 MG TABLET PO SCH (08:20)
== END 2021-11-08 13:10 | disposition home or self-care (01) | DRG 885 ==
LOC: EMS 13:21 → B2X 10-02 03:26
PROVIDERS: ADMIT Psychiatry & Neurology Child & Adolescent Psychiatry; ATTEND Psychiatry & Neurology Child & Adolescent Psychiatry
DX: F25.0 Schizoaffective disorder, bipolar type (principal); B18.2 Chronic viral hepatitis C; R45.851 Suicidal ideations; R53.83 Other fatigue; Z20.822 Contact with and (suspected) exposure to COVID-19; F10.10 Alcohol abuse, uncomplicated; Y90.9 Presence of alcohol in blood, level not specified; K21.9 Gastro-esophageal reflux disease without esophagitis; E66.3 Overweight; J30.2 Other seasonal allergic rhinitis; F41.0 Panic disorder [episodic paroxysmal anxiety]; Z91.14 Patient's other noncompliance with medication regimen; Z88.8 Allergy status to other drugs, medicaments and biological substances; Z87.891 Personal history of nicotine dependence; Z91.19 Patient's noncompliance with other medical treatment and regimen; Z68.32 Body mass index [BMI] 32.0-32.9, adult; Z59.00 Homelessness unspecified
CPT/HCPCS: 80053; 81003; 85025; 87081; 99285; G0480; J3535; Q9967

== ENCOUNTER 2021-12-11 12:56 | Inpatient (IN) | payer MEDICARE, MEDICAID ==
[~2021-12-11] VITALS: Ht 170.2 cm; Wt 91.8 kg
[~2021-12-11 12:56] MED LIST changes: +FAMO20TA8 PO; -NALT50TA PO; +VENL-67 PO; -VENL37.570 PO
[2021-12-11 14:17] LABS: BASOPHILS % (AUTO) 0.8 % (0.0-2.0); EOSINOPHILS % (AUTO) 0.9 % (1.0-6.0); HEMATOCRIT 43.8 % (41-53); HEMOGLOBIN 14.9 g/dL (13.5-17.5); LYMPHOCYTES # (AUTO) 1.9 K/uL (1.0-4.8); LYMPHOCYTES % (AUTO) 32.7 % (22.0-44.0); MEAN CORPUSCULAR HEMOGLOBIN 31.4 pg (26.0-34.0); MEAN CORPUSCULAR HGB CONC 33.9 G/dL (31.0-37.0); MEAN CORPUSCULAR VOLUME 93 fL (80-100); MONOCYTES # (AUTO) 0.6 K/uL (0.1-1.0); MONOCYTES % (AUTO) 10.3 % (2.0-9.0); NEUTROPHILS # (AUTO) 3.3 K/uL (1.8-7.7); NEUTROPHILS % (AUTO) 55.3 % (40.0-70.0); PLATELET COUNT (AUTO) 238 K/uL (150-450); RED BLOOD CELL COUNT(AUTO) 4.73 MIL/uL (4.50-5.90)
[2021-12-11 14:35] LABS: ANION GAP 4 mmol/L (8-16); CALCIUM, TOTAL 8.5 mg/dL (8.8-10.5); CARBON DIOXIDE 30 mmol/L (22-29); CHLORIDE 102 mmol/L (98-107); CREATININE 1.08 mg/dL (0.60-1.30); GLUCOSE,RANDOM 106 mg/dL (70-110); SODIUM SERUM 136 mmol/L (136-145); UREA NITROGEN, BLOOD 12 mg/dL (7-18)
[2021-12-11 14:36] LABS: GLOMERULAR FILTR. RATE CALC > 60 mL/min (>60)
[2021-12-11 14:45] LABS: ALANINE AMINOTRANSFERASE 172 U/L (12-78); ALBUMIN 3.5 g/dL (3.4-5.0); ALKALINE PHOSPHATASE 48 U/L (46-116); ASPARTATE AMINOTRANSFERASE 121 U/L (15-37); BILIRUBIN,TOTAL 0.4 mg/dL (0.1-1.0)
[2021-12-11 15:36] LABS: COVID AG,FIA SOURCE NASOPHARYNGEAL
[2021-12-11 15:48] LABS: AMPHET/METH SCREEN,URINE NEGATIVE (NEGATIVE); BARBITURATE SCREEN, URINE NEGATIVE (NEGATIVE); BENZODIAZEPINES SCREEN,URINE NEGATIVE (NEGATIVE); CANNABINOID SCREEN,URINE NEGATIVE (NEGATIVE); COCAINE SCREEN,URINE NEGATIVE (NEGATIVE); METHADONE SCREEN, URINE NEGATIVE (NEGATIVE); OPIATE SCREEN,URINE NEGATIVE (NEGATIVE); PHENCYCLIDINE SCREEN,URINE NEGATIVE (NEGATIVE)
[2021-12-11] MEDS ORDERED: LORazepam 1 MG TABLET PO ONE (16:15)
[2021-12-11] MEDS ORDERED: HALOPERIDOL 5 MG TABLET PO PRN (21:15)
[2021-12-12 00:50] VITALS: BP 144/82
[2021-12-12] MEDS: LORazepam 2 MG TABLET PO PRN ×4 (01:24→23:07)
[2021-12-12] MEDS ORDERED: INFLUENZA VIRUS VACCINE QVS 2022-23 (6MO+)/PF 60 MCG/0.5 ML SYRINGE IM. ONE (04:30)
[2021-12-12] MEDS ORDERED: MAG HYDROX/AL HYDROX/SIMETH ES 30 ML SUSPENSION UDCUP PO PRN (09:00)
[2021-12-12] MEDS ORDERED: ACETAMINOPHEN 325 MG TABLET PO PRN (09:00)
[2021-12-12] MEDS ORDERED: ONDANSETRON HCL 4 MG TABLET PO PRN (09:00)
[2021-12-12] MEDS ORDERED: BENZOCAINE/MENTHOL LOZENGE PO PRN (09:00)
[2021-12-12] MEDS ORDERED: CloNIDine HCL 0.1 MG TABLET PO PRN (09:00)
[2021-12-12] MEDS ORDERED: MAGNESIUM HYDROXIDE SUSPENSION 30 ML UDCUP PO PRN (09:00)
[2021-12-12] MEDS ORDERED: BACITRACIN 28 GM OINTMENT TP PRN (09:00)
[2021-12-12] MEDS ORDERED: LOPERAMIDE HCL 2 MG CAPSULE PO PRN (09:00)
[2021-12-12] MEDS ORDERED: PETROLATUM,WHITE 28 GM JELLY TP PRN (09:00)
[2021-12-12] MEDS ORDERED: ALBUTEROL SULFATE HFA 90 MCG/PUFF 8 GM INHALER IH PRN (09:00)
[2021-12-12] MEDS: OMEGA-3/DHA/EPA/FISH OIL 1,000 MG CAPSULE PO SCH (11:26)
[2021-12-12 13:30] VITALS: BP 126/80
[2021-12-12 17:30] VITALS: BP 128/78
[2021-12-12] MEDS: BUTALBITAL/ACETAMINOPHEN/CAFFEINE 50-325-40 MG TABLET PO PRN (19:30)
[2021-12-12 20:19] VITALS: BP 128/83
[2021-12-13 05:56] VITALS: BP 139/88
[2021-12-13] MEDS: LORazepam 2 MG TABLET PO PRN ×3 (05:59→20:41)
[2021-12-13] MEDS: BUTALBITAL/ACETAMINOPHEN/CAFFEINE 50-325-40 MG TABLET PO PRN ×2 (06:00→14:19)
[2021-12-13 08:27] VITALS: BP 120/59
[2021-12-13] MEDS: OMEGA-3/DHA/EPA/FISH OIL 1,000 MG CAPSULE PO SCH (08:36)
[2021-12-13 20:08] VITALS: BP 125/74
[2021-12-13] MEDS: QUEtiapine FUMARATE 200 MG TABLET PO SCH (20:12)
[2021-12-13] MEDS: ZOLPIDEM TARTRATE 10 MG TABLET PO PRN (21:53)
[2021-12-14 03:43] VITALS: BP 132/68
[2021-12-14] MEDS: BUTALBITAL/ACETAMINOPHEN/CAFFEINE 50-325-40 MG TABLET PO PRN ×3 (03:43→20:44)
[2021-12-14 08:53] VITALS: BP 120/80
[2021-12-14] MEDS: OMEGA-3/DHA/EPA/FISH OIL 1,000 MG CAPSULE PO SCH (08:53)
[2021-12-14] MEDS: QUEtiapine FUMARATE 200 MG TABLET PO SCH (20:13)
[2021-12-14 22:04] VITALS: BP 133/88
[2021-12-15 06:16] VITALS: BP 115/81
[2021-12-15] MEDS: BUTALBITAL/ACETAMINOPHEN/CAFFEINE 50-325-40 MG TABLET PO PRN ×2 (06:21→15:56)
[2021-12-15 08:51] VITALS: BP 119/80
[2021-12-15 09:01] VITALS: BP 119/80
[2021-12-15] MEDS: OMEGA-3/DHA/EPA/FISH OIL 1,000 MG CAPSULE PO SCH (09:13)
[2021-12-15] MEDS: QUEtiapine FUMARATE 200 MG TABLET PO SCH (20:04)
[2021-12-15 20:32] VITALS: BP 128/96
[2021-12-16 08:24] VITALS: BP 115/68
[2021-12-16] MEDS: OMEGA-3/DHA/EPA/FISH OIL 1,000 MG CAPSULE PO SCH (08:31)
[2021-12-16] MEDS: DOCUSATE SODIUM 100 MG CAPSULE PO PRN (09:04)
[2021-12-16] MEDS: BUTALBITAL/ACETAMINOPHEN/CAFFEINE 50-325-40 MG TABLET PO PRN ×2 (09:05→17:16)
[2021-12-16] MEDS: IBUPROFEN 600 MG TABLET PO PRN (13:34)
[2021-12-16 20:09] VITALS: BP 123/77
[2021-12-16] MEDS: OMEPRAZOLE 20 MG CAPSULE PO PRN (20:27)
[2021-12-16] MEDS: QUEtiapine FUMARATE 200 MG TABLET PO SCH (20:27)
[2021-12-16 21:21] LABS: GLUCOMETER DEV NAME(LOC) POC.BV
[2021-12-17 03:45] VITALS: BP 121/71
[2021-12-17] MEDS: BUTALBITAL/ACETAMINOPHEN/CAFFEINE 50-325-40 MG TABLET PO PRN ×3 (03:52→20:07)
[2021-12-17] MEDS: GuaiFENesin/D-METHORPHAN/PHENYLEPH 5 ML LIQUID ORAL.SYG PO PRN (04:39)
[2021-12-17] MEDS: OMEGA-3/DHA/EPA/FISH OIL 1,000 MG CAPSULE PO SCH (08:46)
[2021-12-17 08:47] VITALS: BP 118/71
[2021-12-17] MEDS: OMEPRAZOLE 20 MG CAPSULE PO PRN (14:23)
[2021-12-17] MEDS: QUEtiapine FUMARATE 200 MG TABLET PO SCH (20:06)
[2021-12-17 20:22] VITALS: BP 118/81
[2021-12-17 20:49] VITALS: BP 118/81
[2021-12-18 05:46] VITALS: BP 118/78
[2021-12-18] MEDS: BUTALBITAL/ACETAMINOPHEN/CAFFEINE 50-325-40 MG TABLET PO PRN ×3 (06:00→22:52)
[2021-12-18 07:10] LABS: ALANINE AMINOTRANSFERASE 167 U/L (12-78); ALBUMIN 3.3 g/dL (3.4-5.0); ALKALINE PHOSPHATASE 44 U/L (46-116); ANION GAP 9 mmol/L (8-16); ASPARTATE AMINOTRANSFERASE 89 U/L (15-37); BILIRUBIN,TOTAL 0.3 mg/dL (0.1-1.0); CALCIUM, TOTAL 8.8 mg/dL (8.8-10.5); CARBON DIOXIDE 26 mmol/L (22-29); CHLORIDE 103 mmol/L (98-107); CREATININE 0.95 mg/dL (0.60-1.30); GLOMERULAR FILTR. RATE CALC > 60 mL/min (>60); GLUCOSE,RANDOM 91 mg/dL (70-110); POTASSIUM 4.1 mmol/L (3.5-5.1); SODIUM SERUM 138 mmol/L (136-145); TOTAL PROTEIN, SERUM 7.7 g/dL (6.4-8.2); UREA NITROGEN, BLOOD 22 mg/dL (7-18)
[2021-12-18 08:06] VITALS: BP 105/55
[2021-12-18] MEDS: OMEGA-3/DHA/EPA/FISH OIL 1,000 MG CAPSULE PO SCH (09:12)
[2021-12-18] MEDS: OMEPRAZOLE 20 MG CAPSULE PO PRN (14:22)
[2021-12-18] MEDS: QUEtiapine FUMARATE 200 MG TABLET PO SCH (20:08)
[2021-12-18 20:28] VITALS: BP 123/76
[2021-12-19 04:27] VITALS: BP 119/82
[2021-12-19] MEDS: GuaiFENesin/D-METHORPHAN/PHENYLEPH 5 ML LIQUID ORAL.SYG PO PRN (05:54)
[2021-12-19 08:02] VITALS: BP 114/74
[2021-12-19] MEDS: VENLAFAXINE HCL 37.5 MG TABLET PO SCH (09:37)
[2021-12-19] MEDS: OMEGA-3/DHA/EPA/FISH OIL 1,000 MG CAPSULE PO SCH (09:37)
[2021-12-19] MEDS: BUTALBITAL/ACETAMINOPHEN/CAFFEINE 50-325-40 MG TABLET PO PRN (09:56)
[2021-12-19 20:04] VITALS: BP 131/77
[2021-12-19] MEDS: QUEtiapine FUMARATE 200 MG TABLET PO SCH (20:29)
[2021-12-20] MEDS: BUTALBITAL/ACETAMINOPHEN/CAFFEINE 50-325-40 MG TABLET PO PRN ×2 (04:05→12:35)
[2021-12-20] MEDS: VENLAFAXINE HCL 37.5 MG TABLET PO SCH (08:03)
[2021-12-20] MEDS: OMEGA-3/DHA/EPA/FISH OIL 1,000 MG CAPSULE PO SCH (08:03)
[2021-12-20 08:41] VITALS: BP 114/72
[2021-12-20] MEDS: OMEPRAZOLE 20 MG CAPSULE PO PRN (12:35)
[2021-12-20 20:04] VITALS: BP 123/90
[2021-12-20] MEDS: QUEtiapine FUMARATE 200 MG TABLET PO SCH (20:16)
[2021-12-21 05:09] VITALS: BP 142/83
[2021-12-21] MEDS: BUTALBITAL/ACETAMINOPHEN/CAFFEINE 50-325-40 MG TABLET PO PRN ×2 (05:09→14:20)
[2021-12-21 08:41] VITALS: BP 121/57
[2021-12-21] MEDS: OMEGA-3/DHA/EPA/FISH OIL 1,000 MG CAPSULE PO SCH (09:16)
[2021-12-21] MEDS: VENLAFAXINE HCL 37.5 MG TABLET PO SCH (09:16)
[2021-12-21 14:20] VITALS: BP 118/64
[2021-12-21] MEDS: OMEPRAZOLE 20 MG CAPSULE PO PRN (16:40)
[2021-12-21] MEDS: QUEtiapine FUMARATE 200 MG TABLET PO SCH (20:10)
[2021-12-21 20:40] VITALS: BP 129/84
[2021-12-21] MEDS: ZOLPIDEM TARTRATE 10 MG TABLET PO PRN (21:59)
[2021-12-22 06:28] VITALS: BP 127/88
[2021-12-22] MEDS: BUTALBITAL/ACETAMINOPHEN/CAFFEINE 50-325-40 MG TABLET PO PRN ×2 (06:29→14:31)
[2021-12-22 08:04] VITALS: BP 117/71
[2021-12-22] MEDS: VENLAFAXINE HCL 37.5 MG TABLET PO SCH (09:20)
[2021-12-22] MEDS: OMEGA-3/DHA/EPA/FISH OIL 1,000 MG CAPSULE PO SCH (09:20)
[2021-12-22] MEDS: OMEPRAZOLE 20 MG CAPSULE PO PRN (11:48)
[2021-12-22] MEDS: DOCUSATE SODIUM 100 MG CAPSULE PO PRN (14:31)
[2021-12-22] MEDS: ZOLPIDEM TARTRATE 10 MG TABLET PO PRN (20:02)
[2021-12-22] MEDS: QUEtiapine FUMARATE 200 MG TABLET PO SCH (20:05)
[2021-12-22 20:30] VITALS: BP 105/68
[2021-12-23 05:10] VITALS: BP 123/86
[2021-12-23] MEDS: BUTALBITAL/ACETAMINOPHEN/CAFFEINE 50-325-40 MG TABLET PO PRN ×2 (05:30→16:13)
[2021-12-23 08:51] VITALS: BP 119/70
[2021-12-23] MEDS: OMEGA-3/DHA/EPA/FISH OIL 1,000 MG CAPSULE PO SCH (09:40)
[2021-12-23] MEDS: VENLAFAXINE HCL 37.5 MG TABLET PO SCH (09:40)
[2021-12-23 10:15] LABS: GLUCOMETER DEV NAME(LOC) POC.BV
[2021-12-23 16:09] VITALS: BP 141/77
[2021-12-23] MEDS: DOCUSATE SODIUM 100 MG CAPSULE PO PRN (16:13)
[2021-12-23 20:32] VITALS: BP 128/76
[2021-12-23] MEDS: QUEtiapine FUMARATE 200 MG TABLET PO SCH (20:34)
[2021-12-23] MEDS: ZOLPIDEM TARTRATE 10 MG TABLET PO PRN (21:44)
[2021-12-23] MEDS: OMEPRAZOLE 20 MG CAPSULE PO PRN (21:44)
[2021-12-24 05:00] VITALS: BP 137/83
[2021-12-24] MEDS: BUTALBITAL/ACETAMINOPHEN/CAFFEINE 50-325-40 MG TABLET PO PRN ×2 (05:04→15:05)
[2021-12-24 08:08] VITALS: BP 121/55
[2021-12-24] MEDS: VENLAFAXINE HCL 37.5 MG TABLET PO SCH (08:21)
[2021-12-24] MEDS: OMEGA-3/DHA/EPA/FISH OIL 1,000 MG CAPSULE PO SCH (08:21)
[2021-12-24 14:46] LABS: GLUCOMETER DEV NAME(LOC) POC.BV
[2021-12-24] MEDS: OMEPRAZOLE 20 MG CAPSULE PO PRN (15:42)
[2021-12-24 20:07] VITALS: BP 126/82
[2021-12-24] MEDS: QUEtiapine FUMARATE 200 MG TABLET PO SCH (20:27)
[2021-12-24] MEDS: ZOLPIDEM TARTRATE 10 MG TABLET PO PRN (22:21)
[2021-12-25 06:01] VITALS: BP 136/84
[2021-12-25] MEDS: BUTALBITAL/ACETAMINOPHEN/CAFFEINE 50-325-40 MG TABLET PO PRN ×2 (06:13→16:07)
[2021-12-25 08:02] VITALS: BP 120/72
[2021-12-25] MEDS: OMEGA-3/DHA/EPA/FISH OIL 1,000 MG CAPSULE PO SCH (08:19)
[2021-12-25] MEDS: VENLAFAXINE HCL 37.5 MG TABLET PO SCH (08:20)
[2021-12-25] MEDS: OMEPRAZOLE 20 MG CAPSULE PO PRN (13:20)
[2021-12-25 16:07] VITALS: BP 126/80
[2021-12-25] MEDS: DOCUSATE SODIUM 100 MG CAPSULE PO PRN (19:21)
[2021-12-25 20:04] VITALS: BP 124/74
[2021-12-25] MEDS: QUEtiapine FUMARATE 200 MG TABLET PO SCH (20:10)
[2021-12-25] MEDS: ZOLPIDEM TARTRATE 10 MG TABLET PO PRN (21:07)
[2021-12-26] MEDS: BUTALBITAL/ACETAMINOPHEN/CAFFEINE 50-325-40 MG TABLET PO PRN ×3 (03:09→23:31)
[2021-12-26 08:03] VITALS: BP 116/60
[2021-12-26] MEDS: VENLAFAXINE HCL 37.5 MG TABLET PO SCH (08:32)
[2021-12-26] MEDS: OMEGA-3/DHA/EPA/FISH OIL 1,000 MG CAPSULE PO SCH (08:32)
[2021-12-26] MEDS: OMEPRAZOLE 20 MG CAPSULE PO PRN (16:37)
[2021-12-26] MEDS: QUEtiapine FUMARATE 200 MG TABLET PO SCH (20:21)
[2021-12-26] MEDS: ZOLPIDEM TARTRATE 10 MG TABLET PO PRN (20:24)
[2021-12-26 20:41] VITALS: BP 136/88
[2021-12-26] MEDS: GuaiFENesin/D-METHORPHAN/PHENYLEPH 5 ML LIQUID ORAL.SYG PO PRN (21:08)
[2021-12-26 23:18] VITALS: BP 128/82
[2021-12-27] MEDS: OMEGA-3/DHA/EPA/FISH OIL 1,000 MG CAPSULE PO SCH (08:23)
[2021-12-27] MEDS: VENLAFAXINE HCL 37.5 MG TABLET PO SCH (08:23)
[2021-12-27 08:33] VITALS: BP 103/64
[2021-12-27] MEDS: BUTALBITAL/ACETAMINOPHEN/CAFFEINE 50-325-40 MG TABLET PO PRN ×2 (10:10→20:02)
[2021-12-27] MEDS: IBUPROFEN 600 MG TABLET PO PRN (13:29)
[2021-12-27] MEDS: QUEtiapine FUMARATE 200 MG TABLET PO SCH (20:13)
[2021-12-27 20:19] VITALS: BP 113/69
[2021-12-27] MEDS: ZOLPIDEM TARTRATE 10 MG TABLET PO PRN (21:11)
[2021-12-28 06:34] VITALS: BP 111/82
[2021-12-28] MEDS: OMEPRAZOLE 20 MG CAPSULE PO PRN (06:42)
[2021-12-28] MEDS: BUTALBITAL/ACETAMINOPHEN/CAFFEINE 50-325-40 MG TABLET PO PRN ×2 (06:42→16:10)
[2021-12-28] MEDS: OMEGA-3/DHA/EPA/FISH OIL 1,000 MG CAPSULE PO SCH ×2 (08:45→09:00)
[2021-12-28] MEDS: VENLAFAXINE HCL 37.5 MG TABLET PO SCH ×2 (08:45→09:00)
[2021-12-28 20:06] VITALS: BP 119/78
[2021-12-28] MEDS: QUEtiapine FUMARATE 200 MG TABLET PO SCH (20:32)
[2021-12-29] MEDS: ZOLPIDEM TARTRATE 10 MG TABLET PO PRN (00:08)
[2021-12-29] MEDS: BUTALBITAL/ACETAMINOPHEN/CAFFEINE 50-325-40 MG TABLET PO PRN ×2 (05:44→15:50)
[2021-12-29] MEDS: OMEPRAZOLE 20 MG CAPSULE PO PRN (05:44)
[2021-12-29 05:47] VITALS: BP 127/75
[2021-12-29] MEDS: GuaiFENesin/D-METHORPHAN/PHENYLEPH 5 ML LIQUID ORAL.SYG PO PRN ×2 (06:44→21:43)
[2021-12-29] MEDS: FLUTICASONE PROPIONATE 50 MCG/SPRAY 16 GM NASAL SPRAY NASAL SCH (08:16)
[2021-12-29] MEDS: FEXOFENADINE HCL 60 MG TABLET PO SCH (08:16)
[2021-12-29] MEDS: OMEGA-3/DHA/EPA/FISH OIL 1,000 MG CAPSULE PO SCH (08:20)
[2021-12-29 08:23] VITALS: BP 127/90
[2021-12-29] MEDS: VENLAFAXINE HCL 37.5 MG TABLET PO SCH (08:27)
[2021-12-29] MEDS: IBUPROFEN 600 MG TABLET PO PRN (13:42)
[2021-12-29] MEDS: QUEtiapine FUMARATE 200 MG TABLET PO SCH (20:30)
[2021-12-29 20:32] VITALS: BP 124/84
[2021-12-30] MEDS ORDERED: QUET200T30 PO (00:56)
[2021-12-30] MEDS ORDERED: VENL-53 PO (00:56)
[2021-12-30] MEDS: BUTALBITAL/ACETAMINOPHEN/CAFFEINE 50-325-40 MG TABLET PO PRN (03:47)
[2021-12-30 08:29] VITALS: BP 142/70
[2021-12-30] MEDS: FEXOFENADINE HCL 60 MG TABLET PO SCH (08:38)
[2021-12-30] MEDS: FLUTICASONE PROPIONATE 50 MCG/SPRAY 16 GM NASAL SPRAY NASAL SCH (08:40)
[2021-12-30] MEDS: OMEGA-3/DHA/EPA/FISH OIL 1,000 MG CAPSULE PO SCH (08:40)
[2021-12-30] MEDS: VENLAFAXINE HCL 37.5 MG TABLET PO SCH (08:46)
[2021-12-30 09:01] LABS: GLUCOMETER DEV NAME(LOC) POC.BV
[2021-12-30] MEDS: OMEPRAZOLE 20 MG CAPSULE PO PRN (11:12)
== END 2021-12-30 13:00 | disposition home or self-care (01) | DRG 885 ==
LOC: EMS 13:05 → B2X 12-12 00:16 → B2S 12-12 12:08
PROVIDERS: ADMIT Psychiatry & Neurology Psychiatry; ATTEND Psychiatry & Neurology Psychiatry
DX: F25.9 Schizoaffective disorder, unspecified (principal); R45.851 Suicidal ideations; F31.9 Bipolar disorder, unspecified; F41.0 Panic disorder [episodic paroxysmal anxiety]; I10 Essential (primary) hypertension; Z53.20 Procedure and treatment not carried out because of patient's decision for unspecified reasons; F41.9 Anxiety disorder, unspecified; G43.909 Migraine, unspecified, not intractable, without status migrainosus; Z20.822 Contact with and (suspected) exposure to COVID-19; K59.00 Constipation, unspecified; G47.00 Insomnia, unspecified; F15.10 Other stimulant abuse, uncomplicated; Z79.899 Other long term (current) drug therapy; Z88.8 Allergy status to other drugs, medicaments and biological substances
CPT/HCPCS: 80053; 85025; 87081; 99285; G0480

== ENCOUNTER 2022-01-16 12:21 | Emergency (ER) | payer MEDICARE, MEDICAID ==
[~2022-01-16] VITALS: Ht 170.2 cm; Wt 86.4 kg
[~2022-01-16 12:21] MED LIST changes: -FAMO20TA8 PO; -MELA5TAB40 PO; -OMEG-135 PO; -QUET100T34 PO; +QUET200T30 PO; +VENL-53 PO; -VENL-67 PO
[2022-01-16] MEDS ORDERED: LORazepam 1 MG TABLET PO ONE (14:15)
[2022-01-16] MEDS ORDERED: ACETAMINOPHEN 500 MG TABLET PO ONE (14:15)
[2022-01-16 15:04] VITALS: BP 140/93
[2022-01-17] MEDS ORDERED: CLON-595 PO (07:28)
[2022-01-17] MEDS ORDERED: PSEU-191 PO (07:28)
== END 2022-01-16 15:14 | disposition home or self-care (01) ==
LOC: EMS 12:25
DX: F41.9 Anxiety disorder, unspecified (principal); F20.9 Schizophrenia, unspecified; F32.A Depression, unspecified; Z98.890 Other specified postprocedural states; Z88.8 Allergy status to other drugs, medicaments and biological substances
CPT/HCPCS: 99283

== ENCOUNTER 2022-01-17 07:05 | Emergency (ER) | payer MEDICARE, MEDICAID ==
[~2022-01-17] VITALS: Ht 170.2 cm; Wt 86.0 kg
[2022-01-17] MEDS ORDERED: PSEU-191 PO (07:28)
[2022-01-17] MEDS ORDERED: CLON-595 PO (07:28)
[2022-01-17] MEDS ORDERED: ClonazePAM 1 MG TABLET PO ONE (07:30)
[2022-01-17 07:32] VITALS: BP 130/68
== END 2022-01-17 07:56 | disposition home or self-care (01) ==
LOC: EMS 07:06
DX: F41.9 Anxiety disorder, unspecified (principal); F32.9 Major depressive disorder, single episode, unspecified; Z88.6 Allergy status to analgesic agent
CPT/HCPCS: 99283

== ENCOUNTER 2022-03-31 14:33 | Inpatient (IN) | payer MEDICARE, MEDICAID ==
[~2022-03-31] VITALS: Ht 170.2 cm; Wt 95.1 kg
[~2022-03-31 14:33] MED LIST changes: +FEXO-353 PO; +FLUT16SP NASAL; -QUET200T30 PO; +QUET300T2 PO; -VENL-53 PO; +VENL50TA44 PO
[2022-03-31] MEDS ORDERED: CLON-592 PO (15:31)
[2022-03-31 17:03] LABS: BASOPHILS % (AUTO) 0.7 % (0.0-2.0); HEMATOCRIT 49.4 % (41-53); HEMOGLOBIN 16.2 g/dL (13.5-17.5); LYMPHOCYTES # (AUTO) 1.8 K/uL (1.0-4.8); LYMPHOCYTES % (AUTO) 24.9 % (22.0-44.0); MEAN CORPUSCULAR HEMOGLOBIN 30.1 pg (26.0-34.0); MEAN CORPUSCULAR HGB CONC 32.8 G/dL (31.0-37.0); MEAN CORPUSCULAR VOLUME 92 fL (80-100); MONOCYTES % (AUTO) 14.7 % (2.0-9.0); NEUTROPHILS # (AUTO) 4.1 K/uL (1.8-7.7); NEUTROPHILS % (AUTO) 58.7 % (40.0-70.0); PLATELET COUNT (AUTO) 272 K/uL (150-450); RED BLOOD CELL COUNT(AUTO) 5.39 MIL/uL (4.50-5.90); RED CELL DISTRIBUTION WIDTH 13.8 % (11.5-14.5)
[2022-03-31] MEDS ORDERED: VENL-68 PO (17:13)
[2022-03-31 17:14] LABS: ANION GAP 9 mmol/L (8-16); CALCIUM, TOTAL 9.1 mg/dL (8.8-10.5); CARBON DIOXIDE 31 mmol/L (22-29); CHLORIDE 98 mmol/L (98-107); CREATININE 0.99 mg/dL (0.60-1.30); GLOMERULAR FILTR. RATE CALC > 60 mL/min (>60); GLUCOSE,RANDOM 77 mg/dL (70-110); POTASSIUM 3.5 mmol/L (3.5-5.1); SODIUM SERUM 138 mmol/L (136-145); UREA NITROGEN, BLOOD 11 mg/dL (7-18)
[2022-03-31] MEDS ORDERED: LORazepam 2 MG TABLET PO PRN (17:15)
[2022-03-31] MEDS ORDERED: QUEtiapine FUMARATE 100 MG TABLET PO PRN (17:15)
[2022-03-31] MEDS ORDERED: OLANZapine 5 MG RAPDIS TABLET PO PRN (17:15)
[2022-03-31 17:22] LABS: ALANINE AMINOTRANSFERASE 265 U/L (12-78); ALBUMIN 4.1 g/dL (3.4-5.0); ALKALINE PHOSPHATASE 67 U/L (46-116); ASPARTATE AMINOTRANSFERASE 197 U/L (15-37); BILIRUBIN,TOTAL 0.6 mg/dL (0.1-1.0)
[2022-03-31 17:32] LABS: COVID AG,FIA SOURCE NASAL SWAB
[2022-03-31 17:39] LABS: APPEARANCE,URINE CLEAR (CLEAR); BILIRUBIN,URINE NEGATIVE (NEGATIVE); GLUCOSE, URINE (UA) NEGATIVE (NEGATIVE); KETONES,URINE NEGATIVE (NEGATIVE); LEUKOCYTE ESTERASE ,URINE NEGATIVE (NEGATIVE); NITRATE,URINE NEGATIVE (NEGATIVE); OCCULT BLOOD,URINE NEGATIVE (NEGATIVE); PH,URINE 6.5 (5.0-8.0); PROTEIN,URINE TRACE mg/dL (NEGATIVE); SPECIFIC GRAVITIY, URINE 1.013 (1.003-1.030); UROBILINOGEN,URINE <=1.0 mg/dL (<=1.0)
[2022-03-31 17:46] LABS: AMPHET/METH SCREEN,URINE NEGATIVE (NEGATIVE); BARBITURATE SCREEN, URINE NEGATIVE (NEGATIVE); BENZODIAZEPINES SCREEN,URINE NEGATIVE (NEGATIVE); CANNABINOID SCREEN,URINE NEGATIVE (NEGATIVE); COCAINE SCREEN,URINE NEGATIVE (NEGATIVE); METHADONE SCREEN, URINE NEGATIVE (NEGATIVE); OPIATE SCREEN,URINE NEGATIVE (NEGATIVE); PHENCYCLIDINE SCREEN,URINE NEGATIVE (NEGATIVE)
[2022-03-31] MEDS ORDERED: BISACODYL 5 MG EC TABLET PO PRN (19:30)
[2022-03-31] MEDS ORDERED: PALIPERIDONE PALMITATE 234 MG/1.5 ML SYRINGE IM ONE (21:00)
[2022-03-31] MEDS ORDERED: GABAPENTIN 300 MG CAPSULE PO PRN (21:00)
[2022-03-31] MEDS ORDERED: HydrOXYzine PAMOATE 50 MG CAPSULE PO PRN (21:00)
[2022-03-31] MEDS ORDERED: LOPERAMIDE HCL 2 MG CAPSULE PO PRN (21:00)
[2022-03-31] MEDS ORDERED: MAG HYDROX/AL HYDROX/SIMETH ES 30 ML SUSPENSION UDCUP PO PRN (21:00)
[2022-03-31] MEDS ORDERED: TUBERCULIN, PURIFIED PROTEIN DERIVATIVE 5 TU/0.1 ML SYRINGE ID ONE (21:00)
[2022-03-31] MEDS ORDERED: QUEtiapine FUMARATE 200 MG TABLET PO SCH (21:00)
[2022-03-31] MEDS ORDERED: PROMETHAZINE HCL 25 MG TABLET PO PRN (21:00)
[2022-03-31] MEDS ORDERED: MAGNESIUM HYDROXIDE SUSPENSION 30 ML UDCUP PO PRN (21:00)
[2022-03-31 22:48] VITALS: BP 135/85
[2022-03-31] MEDS: MELATONIN 5 MG TABLET PO SCH (23:07)
[2022-03-31] MEDS: GABAPENTIN 400 MG CAPSULE PO SCH (23:11)
[2022-04-01 07:08] VITALS: BP 135/88
[2022-04-01] MEDS: ACETAMINOPHEN 325 MG TABLET PO PRN ×3 (07:16→20:16)
[2022-04-01 08:16] VITALS: BP 156/96
[2022-04-01 08:24] LABS: CHOL/HDL RATIO 1.7 (4.2-7.3); FREE T4 (FREE THYROXINE) 1.25 ng/dL (0.76-1.46); THYROID STIMULATING HORMONE 2.84 uIU/mL (0.36-3.74)
[2022-04-01] MEDS: NALTREXONE HCL 50 MG TABLET PO SCH (09:54)
[2022-04-01] MEDS: FOLIC ACID 1 MG TABLET PO SCH (09:54)
[2022-04-01] MEDS: MULTIVITAMINS WITH MINERALS, THERAPEUTIC TABLET PO SCH (09:54)
[2022-04-01] MEDS: GABAPENTIN 400 MG CAPSULE PO SCH ×4 (09:54→20:41)
[2022-04-01] MEDS: OMEGA-3/DHA/EPA/FISH OIL 1,000 MG CAPSULE PO SCH (09:54)
[2022-04-01] MEDS: VENLAFAXINE HCL 75 MG ER CAPSULE PO SCH (09:55)
[2022-04-01] MEDS: FLUTICASONE PROPIONATE 50 MCG/SPRAY 16 GM NASAL SPRAY NASAL SCH (09:55)
[2022-04-01] MEDS: THIAMINE 100 MG TABLET PO SCH ×2 (09:55→16:23)
[2022-04-01 15:00] VITALS: BP 132/84
[2022-04-01] MEDS ORDERED: PALIPERIDONE PALMITATE 234 MG/1.5 ML SYRINGE IM ONE (15:00)
[2022-04-01 16:00] VITALS: BP 124/76
[2022-04-01] MEDS: QUEtiapine FUMARATE 25 MG TABLET PO SCH (16:22)
[2022-04-01 20:10] VITALS: BP 121/70
[2022-04-01] MEDS: MELATONIN 5 MG TABLET PO SCH (20:41)
[2022-04-01] MEDS: QUEtiapine FUMARATE 200 MG TABLET PO SCH (20:41)
[2022-04-01 21:30] VITALS: BP 120/80
[2022-04-02 08:30] VITALS: BP 137/84
[2022-04-02] MEDS: MULTIVITAMINS WITH MINERALS, THERAPEUTIC TABLET PO SCH ×2 (08:45→09:00)
[2022-04-02] MEDS: NALTREXONE HCL 50 MG TABLET PO SCH ×2 (08:45→09:00)
[2022-04-02] MEDS: VENLAFAXINE HCL 75 MG ER CAPSULE PO SCH (08:46)
[2022-04-02] MEDS: GABAPENTIN 400 MG CAPSULE PO SCH ×5 (08:46→20:53)
[2022-04-02] MEDS: THIAMINE 100 MG TABLET PO SCH ×3 (08:46→17:00)
[2022-04-02] MEDS: OMEGA-3/DHA/EPA/FISH OIL 1,000 MG CAPSULE PO SCH ×2 (08:46→09:00)
[2022-04-02] MEDS: FAMOTIDINE 20 MG TABLET PO SCH ×2 (08:46→09:00)
[2022-04-02] MEDS: FOLIC ACID 1 MG TABLET PO SCH ×2 (08:47→09:00)
[2022-04-02] MEDS: QUEtiapine FUMARATE 25 MG TABLET PO SCH ×3 (08:47→17:00)
[2022-04-02] MEDS: FLUTICASONE PROPIONATE 50 MCG/SPRAY 16 GM NASAL SPRAY NASAL SCH ×3 (08:49→11:30)
[2022-04-02] MEDS: IBUPROFEN 600 MG TABLET PO PRN (10:29)
[2022-04-02 10:31] VITALS: BP 137/84
[2022-04-02 11:29] VITALS: BP 129/78
[2022-04-02] MEDS: FEXOFENADINE HCL 60 MG TABLET PO SCH (14:04)
[2022-04-02 18:20] VITALS: BP 125/75
[2022-04-02] MEDS: MELATONIN 5 MG TABLET PO SCH (20:53)
[2022-04-02] MEDS: QUEtiapine FUMARATE 200 MG TABLET PO SCH (20:54)
[2022-04-02 21:59] VITALS: BP 143/86
[2022-04-02 22:52] VITALS: BP 133/94
[2022-04-02] MEDS: BUTALBITAL/ACETAMINOPHEN/CAFFEINE 50-325-40 MG TABLET PO PRN (22:56)
[2022-04-03] VITALS (9 sets, daily range): BP systolic 121–164; BP diastolic 76–108
[2022-04-03] MEDS: IBUPROFEN 600 MG TABLET PO PRN ×2 (00:07→17:10)
[2022-04-03] MEDS: ZOLPIDEM TARTRATE 10 MG TABLET PO PRN (02:10)
[2022-04-03] MEDS: BUTALBITAL/ACETAMINOPHEN/CAFFEINE 50-325-40 MG TABLET PO PRN ×3 (07:11→22:22)
[2022-04-03] MEDS: NALTREXONE HCL 50 MG TABLET PO SCH ×2 (09:00→09:55)
[2022-04-03] MEDS: QUEtiapine FUMARATE 25 MG TABLET PO SCH ×3 (09:00→17:00)
[2022-04-03] MEDS: THIAMINE 100 MG TABLET PO SCH ×3 (09:00→17:00)
[2022-04-03] MEDS: FEXOFENADINE HCL 60 MG TABLET PO SCH ×2 (09:00→09:56)
[2022-04-03] MEDS: FOLIC ACID 1 MG TABLET PO SCH ×2 (09:00→09:55)
[2022-04-03] MEDS ORDERED: PARoxetine HCL 20 MG TABLET PO SCH (09:00)
[2022-04-03] MEDS: FLUTICASONE PROPIONATE 50 MCG/SPRAY 16 GM NASAL SPRAY NASAL SCH ×3 (09:00→12:35)
[2022-04-03] MEDS: MULTIVITAMINS WITH MINERALS, THERAPEUTIC TABLET PO SCH (09:54)
[2022-04-03] MEDS: FAMOTIDINE 20 MG TABLET PO SCH (09:55)
[2022-04-03] MEDS: OMEGA-3/DHA/EPA/FISH OIL 1,000 MG CAPSULE PO SCH (09:55)
[2022-04-03] MEDS: GABAPENTIN 400 MG CAPSULE PO SCH ×3 (09:55→17:00)
[2022-04-03] MEDS ORDERED: PALIPERIDONE PALMITATE 234 MG/1.5 ML SYRINGE IM ONE (18:00)
[2022-04-04] VITALS (9 sets, daily range): BP systolic 119–141; BP diastolic 70–93
[2022-04-04] MEDS: ZOLPIDEM TARTRATE 10 MG TABLET PO PRN (00:11)
[2022-04-04] MEDS: FEXOFENADINE HCL 60 MG TABLET PO SCH (08:54)
[2022-04-04] MEDS: FLUTICASONE PROPIONATE 50 MCG/SPRAY 16 GM NASAL SPRAY NASAL SCH (08:55)
[2022-04-04] MEDS: FAMOTIDINE 20 MG TABLET PO SCH (09:00)
[2022-04-04] MEDS: BUTALBITAL/ACETAMINOPHEN/CAFFEINE 50-325-40 MG TABLET PO PRN ×3 (09:00→23:11)
[2022-04-04] MEDS: DULoxetine HCL 20 MG CAPSULE PO SCH (09:00)
[2022-04-04] MEDS: IBUPROFEN 600 MG TABLET PO PRN (12:29)
[2022-04-05 05:10] VITALS: BP 130/97
[2022-04-05] MEDS: BUTALBITAL/ACETAMINOPHEN/CAFFEINE 50-325-40 MG TABLET PO PRN ×3 (05:19→17:42)
[2022-04-05] MEDS: FEXOFENADINE HCL 60 MG TABLET PO SCH (08:39)
[2022-04-05] MEDS: FAMOTIDINE 20 MG TABLET PO SCH (08:39)
[2022-04-05] MEDS: DULoxetine HCL 20 MG CAPSULE PO SCH (08:39)
[2022-04-05] MEDS: FLUTICASONE PROPIONATE 50 MCG/SPRAY 16 GM NASAL SPRAY NASAL SCH (08:39)
[2022-04-05 09:49] VITALS: BP 123/61
[2022-04-05] MEDS: AMOX TR/POT CLAV 500 MG/125 MG TABLET PO SCH ×2 (10:07→17:28)
[2022-04-05 11:25] VITALS: BP 136/70
[2022-04-05 16:38] VITALS: BP 117/76
[2022-04-05 17:29] VITALS: BP 120/65
[2022-04-05 20:30] VITALS: BP 134/80
[2022-04-06 00:23] VITALS: BP 122/75
[2022-04-06] MEDS: BUTALBITAL/ACETAMINOPHEN/CAFFEINE 50-325-40 MG TABLET PO PRN ×4 (00:46→20:09)
[2022-04-06] MEDS: GuaiFENesin/D-METHORPHAN [SUGAR-FREE] 200-20MG/10 ML SYRUP UDCUP PO PRN ×2 (03:54→23:33)
[2022-04-06 06:52] VITALS: BP 126/72
[2022-04-06 08:01] LABS: COVID AG,FIA SOURCE NASAL SWAB
[2022-04-06] MEDS: AMOX TR/POT CLAV 500 MG/125 MG TABLET PO SCH ×2 (08:25→16:39)
[2022-04-06] MEDS: FAMOTIDINE 20 MG TABLET PO SCH (08:25)
[2022-04-06] MEDS: FLUTICASONE PROPIONATE 50 MCG/SPRAY 16 GM NASAL SPRAY NASAL SCH (08:25)
[2022-04-06] MEDS: FEXOFENADINE HCL 60 MG TABLET PO SCH (08:25)
[2022-04-06] MEDS: VENLAFAXINE HCL 37.5 MG TABLET PO SCH (08:25)
[2022-04-06] MEDS: DULoxetine HCL 20 MG CAPSULE PO SCH (08:25)
[2022-04-06 09:19] VITALS: BP 126/77
[2022-04-06 13:58] VITALS: BP 118/72
[2022-04-06 16:03] VITALS: BP 139/81
[2022-04-06 20:09] VITALS: BP 112/62
[2022-04-07] VITALS (8 sets, daily range): BP systolic 120–141; BP diastolic 65–90
[2022-04-07] MEDS: BUTALBITAL/ACETAMINOPHEN/CAFFEINE 50-325-40 MG TABLET PO PRN ×4 (02:14→22:16)
[2022-04-07] MEDS: DULoxetine HCL 20 MG CAPSULE PO SCH (08:57)
[2022-04-07] MEDS: FAMOTIDINE 20 MG TABLET PO SCH (08:58)
[2022-04-07] MEDS: AMOX TR/POT CLAV 500 MG/125 MG TABLET PO SCH ×2 (08:58→16:02)
[2022-04-07] MEDS: VENLAFAXINE HCL 37.5 MG TABLET PO SCH (08:58)
[2022-04-07] MEDS: FEXOFENADINE HCL 60 MG TABLET PO SCH (08:59)
[2022-04-07] MEDS: FLUTICASONE PROPIONATE 50 MCG/SPRAY 16 GM NASAL SPRAY NASAL SCH (09:00)
[2022-04-07] MEDS ORDERED: PALIPERIDONE PALMITATE 156 MG/ML SYRINGE IM ONE ×2 (09:00)
[2022-04-08 06:26] VITALS: BP 125/69
[2022-04-08] MEDS: BUTALBITAL/ACETAMINOPHEN/CAFFEINE 50-325-40 MG TABLET PO PRN ×3 (06:26→19:03)
[2022-04-08 08:30] VITALS: BP 118/75
[2022-04-08] MEDS: FLUTICASONE PROPIONATE 50 MCG/SPRAY 16 GM NASAL SPRAY NASAL SCH (08:33)
[2022-04-08] MEDS: DULoxetine HCL 20 MG CAPSULE PO SCH (08:34)
[2022-04-08] MEDS: AMOX TR/POT CLAV 500 MG/125 MG TABLET PO SCH ×2 (08:34→16:03)
[2022-04-08] MEDS: FEXOFENADINE HCL 60 MG TABLET PO SCH (08:34)
[2022-04-08] MEDS: FAMOTIDINE 20 MG TABLET PO SCH (08:35)
[2022-04-08] MEDS: VENLAFAXINE HCL 37.5 MG TABLET PO SCH (08:38)
[2022-04-08] MEDS ORDERED: VENL-53 PO (11:12)
[2022-04-08] MEDS ORDERED: MELA1TAB17 PO (11:12)
[2022-04-08] MEDS ORDERED: DULO20CA71 PO (11:12)
[2022-04-08] MEDS ORDERED: OMEG-135 PO (11:12)
[2022-04-08] MEDS ORDERED: NALT50TA6 PO (11:12)
[2022-04-08 12:39] VITALS: BP 121/80
[2022-04-08 19:03] VITALS: BP 117/74
[2022-04-08 20:03] VITALS: BP 128/82
[2022-04-08 20:46] VITALS: BP 128/82
[2022-04-08] MEDS: ZOLPIDEM TARTRATE 10 MG TABLET PO PRN (22:05)
[2022-04-09 03:22] VITALS: BP 110/75
[2022-04-09] MEDS: BUTALBITAL/ACETAMINOPHEN/CAFFEINE 50-325-40 MG TABLET PO PRN ×2 (03:26→09:32)
[2022-04-09 08:38] VITALS: BP 135/80
[2022-04-09] MEDS: FEXOFENADINE HCL 60 MG TABLET PO SCH (08:47)
[2022-04-09] MEDS: AMOX TR/POT CLAV 500 MG/125 MG TABLET PO SCH (08:48)
[2022-04-09] MEDS: DULoxetine HCL 20 MG CAPSULE PO SCH (08:48)
[2022-04-09] MEDS: FAMOTIDINE 20 MG TABLET PO SCH (08:48)
[2022-04-09] MEDS: FLUTICASONE PROPIONATE 50 MCG/SPRAY 16 GM NASAL SPRAY NASAL SCH (08:49)
[2022-04-09] MEDS: VENLAFAXINE HCL 37.5 MG TABLET PO SCH (08:49)
[2022-04-09] MEDS ORDERED: FAMO20 PO (10:28)
[2022-04-09] MEDS ORDERED: AMOX1TAB15 PO ×2 (10:29→11:26)
== END 2022-04-09 12:45 | disposition home or self-care (01) | DRG 885 ==
LOC: EMS 14:44 → 3EI 19:39
PROVIDERS: ADMIT Psychiatry & Neurology Psychiatry; ATTEND Psychiatry & Neurology Psychiatry
DX: F25.1 Schizoaffective disorder, depressive type (principal); B19.20 Unspecified viral hepatitis C without hepatic coma; R45.851 Suicidal ideations; F31.9 Bipolar disorder, unspecified; F41.0 Panic disorder [episodic paroxysmal anxiety]; G25.81 Restless legs syndrome; G43.909 Migraine, unspecified, not intractable, without status migrainosus; G89.29 Other chronic pain; F17.200 Nicotine dependence, unspecified, uncomplicated; I10 Essential (primary) hypertension; J30.9 Allergic rhinitis, unspecified; J44.9 Chronic obstructive pulmonary disease, unspecified; G47.00 Insomnia, unspecified; B18.2 Chronic viral hepatitis C; R74.01 Elevation of levels of liver transaminase levels; K21.9 Gastro-esophageal reflux disease without esophagitis; Z20.822 Contact with and (suspected) exposure to COVID-19; F15.90 Other stimulant use, unspecified, uncomplicated; K59.00 Constipation, unspecified; Z55.9 Problems related to education and literacy, unspecified; Z59.9 Problem related to housing and economic circumstances, unspecified; Z63.9 Problem related to primary support group, unspecified; Z65.3 Problems related to other legal circumstances; Z91.14 Patient's other noncompliance with medication regimen; Z91.199 Patient's noncompliance with other medical treatment and regimen due to unspecified reason; Z59.00 Homelessness unspecified; Z88.8 Allergy status to other drugs, medicaments and biological substances
CPT/HCPCS: 80053; 80061; 80307; 81003; 83036; 84439; 84443; 85025; 86592; 87081; 99285; G0480; Q9967

== ENCOUNTER 2022-04-23 14:46 | Emergency (ER) | payer MEDICARE, MEDICAID ==
[~2022-04-23] VITALS: Ht 170.2 cm; Wt 86.4 kg
[~2022-04-23 14:46] MED LIST changes: +AMOX1TAB15 PO; +DULO20CA71 PO; +FAMO20 PO; +MELA1TAB17 PO; +NALT50TA6 PO; +OMEG-135 PO; -QUET300T2 PO; +VENL-53 PO; -VENL50TA44 PO
[2022-04-23 15:15] VITALS: BP 126/80
[2022-04-23 16:28] LABS: BASOPHILS % (AUTO) 0.9 % (0.0-2.0); EOSINOPHILS % (AUTO) 5.6 % (1.0-6.0); HEMATOCRIT 43.1 % (41-53); HEMOGLOBIN 14.2 g/dL (13.5-17.5); LYMPHOCYTES % (AUTO) 26.3 % (22.0-44.0); MEAN CORPUSCULAR HEMOGLOBIN 30.3 pg (26.0-34.0); MEAN CORPUSCULAR HGB CONC 32.9 G/dL (31.0-37.0); MEAN CORPUSCULAR VOLUME 92 fL (80-100); MONOCYTES # (AUTO) 0.7 K/uL (0.1-1.0); NEUTROPHILS # (AUTO) 4.5 K/uL (1.8-7.7); NEUTROPHILS % (AUTO) 58.2 % (40.0-70.0); PLATELET COUNT (AUTO) 315 K/uL (150-450); RED BLOOD CELL COUNT(AUTO) 4.68 MIL/uL (4.50-5.90); RED CELL DISTRIBUTION WIDTH 13.9 % (11.5-14.5)
[2022-04-23 16:38] LABS: ANION GAP 6 mmol/L (8-16); CALCIUM, TOTAL 9.4 mg/dL (8.8-10.5); CARBON DIOXIDE 31 mmol/L (22-29); CHLORIDE 103 mmol/L (98-107); CREATININE 0.99 mg/dL (0.60-1.30); GLOMERULAR FILTR. RATE CALC > 60 mL/min (>60); GLUCOSE,RANDOM 116 mg/dL (70-110); POTASSIUM 4.5 mmol/L (3.5-5.1); SODIUM SERUM 140 mmol/L (136-145); UREA NITROGEN, BLOOD 19 mg/dL (7-18)
[2022-04-23 16:44] LABS: ALANINE AMINOTRANSFERASE 158 U/L (12-78); ALBUMIN 3.7 g/dL (3.4-5.0); ALKALINE PHOSPHATASE 62 U/L (46-116); ASPARTATE AMINOTRANSFERASE 130 U/L (15-37); BILIRUBIN,TOTAL 0.3 mg/dL (0.1-1.0); TOTAL PROTEIN, SERUM 8.1 g/dL (6.4-8.2)
== END 2022-04-23 17:04 | disposition left against medical advice (07) ==
LOC: EMS 14:51
DX: R44.1 Visual hallucinations (principal); Z53.21 Procedure and treatment not carried out due to patient leaving prior to being seen by health care provider
CPT/HCPCS: 99281; 80053; 85025; G0480; 99283

== ENCOUNTER 2022-04-24 10:01 | Emergency (ER) | payer MEDICARE, MEDICAID ==
[~2022-04-24] VITALS: Ht 170.2 cm; Wt 86.4 kg
[2022-04-24 10:49] LABS: HEMATOCRIT 42.9 % (41-53); HEMOGLOBIN 14.6 g/dL (13.5-17.5); LYMPHOCYTES # (AUTO) 1.8 K/uL (1.0-4.8); LYMPHOCYTES % (AUTO) 24.4 % (22.0-44.0); MEAN CORPUSCULAR HEMOGLOBIN 31.1 pg (26.0-34.0); MEAN CORPUSCULAR HGB CONC 34.1 G/dL (31.0-37.0); MEAN CORPUSCULAR VOLUME 91 fL (80-100); MONOCYTES # (AUTO) 0.8 K/uL (0.1-1.0); MONOCYTES % (AUTO) 10.6 % (2.0-9.0); NEUTROPHILS # (AUTO) 4.2 K/uL (1.8-7.7); PLATELET COUNT (AUTO) 315 K/uL (150-450); RED CELL DISTRIBUTION WIDTH 14.1 % (11.5-14.5)
[2022-04-24 10:55] LABS: ANION GAP 4 mmol/L (8-16); CALCIUM, TOTAL 8.7 mg/dL (8.8-10.5); CARBON DIOXIDE 31 mmol/L (22-29); CHLORIDE 104 mmol/L (98-107); CREATININE 0.89 mg/dL (0.60-1.30); GLOMERULAR FILTR. RATE CALC > 60 mL/min (>60); GLUCOSE,RANDOM 86 mg/dL (70-110); POTASSIUM 4.1 mmol/L (3.5-5.1); SODIUM SERUM 139 mmol/L (136-145); UREA NITROGEN, BLOOD 19 mg/dL (7-18)
[2022-04-24 11:01] LABS: ALANINE AMINOTRANSFERASE 158 U/L (12-78); ALBUMIN 3.9 g/dL (3.4-5.0); ALKALINE PHOSPHATASE 64 U/L (46-116); ASPARTATE AMINOTRANSFERASE 116 U/L (15-37); BILIRUBIN,TOTAL 0.3 mg/dL (0.1-1.0); TOTAL PROTEIN, SERUM 8.4 g/dL (6.4-8.2)
[2022-04-24 11:10] LABS: AMPHET/METH SCREEN,URINE POSITIVE (NEGATIVE); BARBITURATE SCREEN, URINE NEGATIVE (NEGATIVE); BENZODIAZEPINES SCREEN,URINE NEGATIVE (NEGATIVE); CANNABINOID SCREEN,URINE NEGATIVE (NEGATIVE); COCAINE SCREEN,URINE NEGATIVE (NEGATIVE); METHADONE SCREEN, URINE NEGATIVE (NEGATIVE); OPIATE SCREEN,URINE NEGATIVE (NEGATIVE); PHENCYCLIDINE SCREEN,URINE NEGATIVE (NEGATIVE)
[2022-04-24 13:05] VITALS: BP 135/79
== END 2022-04-24 13:48 | disposition home or self-care (01) ==
LOC: EMS 10:04
DX: F25.0 Schizoaffective disorder, bipolar type (principal); F41.9 Anxiety disorder, unspecified; F15.90 Other stimulant use, unspecified, uncomplicated; Z88.8 Allergy status to other drugs, medicaments and biological substances
CPT/HCPCS: 99283; 80053; 85025; 36415; 80307 ×2; G0480

== ENCOUNTER 2024-01-20 09:59 | Emergency (ER) | payer OTHER ==
[~2024-01-20] VITALS: Ht 170.2 cm; Wt 84.1 kg
[~2024-01-20 09:59] MED LIST changes: -AMOX1TAB15 PO; +DULO-114 PO; -DULO20CA71 PO; -FAMO20 PO; -FEXO-353 PO; -FLUT16SP NASAL; -MELA1TAB17 PO; +MELA5TAB40 PO; +NALT50TA33 PO; +PALI117D IM; -VENL-53 PO
[2024-01-20 10:05] VITALS: BP 133/95; PULSE 106; RESP 20; TEMP 98.6; O2SAT 98
[2024-01-20] MEDS ORDERED: ACETAMINOPHEN 500 MG TABLET PO ONE (11:00)
[2024-01-20] MEDS: DIAZEPAM 5 MG TABLET PO ONE (11:15)
[2024-01-20] MEDS: IBUPROFEN 400 MG TABLET PO ONE (11:16)
[2024-01-20] MEDS ORDERED: DIAZ-328 PO (11:23)
== END 2024-01-20 12:01 | disposition home or self-care (01) ==
LOC: EMS 10:02
DX: F41.9 Anxiety disorder, unspecified (principal); F12.90 Cannabis use, unspecified, uncomplicated; F20.9 Schizophrenia, unspecified; F31.9 Bipolar disorder, unspecified; K21.9 Gastro-esophageal reflux disease without esophagitis; Z79.899 Other long term (current) drug therapy
CPT/HCPCS: 99283